=== PATIENT | female | born 1970 | race Caucasian/White ===

== ENCOUNTER 2017-04-17 21:39 | Inpatient (IN) | payer MEDICARE, MEDICAID ==
--- NOTE | 2017-04-17 22:01 | ED Physician Chart ---
ED Chief Complaint/HPI - Patient Information Date Seen:: 04/17/17 Time Seen:: 21:42 Chief Complaint:: Abnormal CXR and lab findings today. History of Present Illness:: Brought in by ambulance from nursing facility because pt had CXR earlier today that demonstrates "persistent minimal left lower lobe pleural-parenchymal disease" Official reading per Dr. Alen Corbin, radiologist. WBC was noticed to be 16.1 K. Pt appears to be comfortable without distress. Pt reportedly has dementia and is essentially nonverbal. H & P are limited because pt does not cooperate. Info is primarily from review of limited transfer documents. Allergies:: NKA Vitals:: see Nurse Note. Historian:: Medical Records (from transferring facility.) Family MD/PCP:: Dr. Stone LMP:: unknown. Review:: Nurse's Note Reviewed, Transfer documents Reviewed ED Review of Systems - Review of Systems General/Constitutional: Other (Pt does not cooperate for ROS.) ED Past Medical History - Past Medical History Past Medical History: Asthma/COPD, Dyslipidemia, Seizures, Dementia Family History: Other (Pt does not cooperate to provide info on FHx.) Social History: Care Facility, Other (Pt does not cooperate to provide info on SHx.) Surgical History: PEG/GTube Psychiatricy History: Dementia Medication: Reviewed Family Medical History - Family Member Mother History Unknown: Yes ED Physical Exam - Physical Examination General/Constitutional: Awake, Well-developed, well-nourished, Alert, No distress, Non-toxic appearing Other Gen/Cons comments:: Breathes comfortably. Pt is nonverbal and is not cooperative. Head: Atraumatic Other Head comments:: Well healed craniostomy surgical scar is noticed in anterior cranium. Eyes: Lids, conjuctiva normal, PERRL Skin: No rash, No ecchymosis, Well hydrated, No lymphadenopathy ENMT: External ears, nose nl, Nasal exam nl, Oropharynx nl Neck: Nontender, No JVD, No nuchal rigidity, No mass, No stridor Respiratory: Nl effort/Exclusion Other Respiratory comments:: Mild left basilar rales. No wheeze. Cardio Vascular: RRR, No murmur, gallop, rubs GI: No tenderness/rebounding/guarding, No organomegaly, Normal BS's, Nondistended, No mass/bruits Other GI comments:: Obese but soft. G-tube noticed in epigastric region. Unremarkable. Extremities: No edema Other Neuro/Psych comments:: Pt is alert and responsive to tactile stimuli. Spontaneous movements noticed in all 4 extremites. Pt does not cooperate for full neurological exam. ED Labs/Radiology/EKG Results - Lab Results Results: Laboratory Tests 04/17/17 23:05 WBC 13.2 H RBC 3.87 Hgb 11.4 L Hct 34.0 L MCV 87.9 MCH 29.5 MCHC Differential 33.6 RDW 14.2 Plt Count 259 MPV 8.5 Neutrophils % 63.0 Lymphocytes % 20.5 Monocytes % 13.7 H Eosinophils % 2.6 Basophils % 0.2 CMP, urinalysis, valproic acid, lactic acid, sputum culture, blood culture, PT/ PTT are pending. - Radiology Results Results: PCXR is pending. ED Septic Shock - . Is Septic Shock (SBP<90, OR Lactate>4 mmol\\L) present?: No ED Reassessment (Disposition) - Reassessment Reassessment:: 2335 Pt remains stable. Case was discussed with Dr. Stone with pertinent H & P, available lab results discussed. Dr. Stone concurred with current management. Pt is to be admitted to [facility] under his care. He will follow on pending lab results and CXR. Reassessment Condition:: Improved - Diagnosis Diagnosis:: Left basilar pneumonia. Stable. Dementia. Seizure disorder. Dysphagia, s/p gastrostomy tube placement. - Patient Disposition Admitted to:: Med/Surg Admitting Medical Physician:: Terrie Stone Time:: 23:40 Condition at Disposition:: Stable, Improved
[2017-04-17] MEDS ORDERED: Levofloxacin 750mg/150mL 750 MG/150 ML BAG IV ONE ×2 (22:22→23:35)
[2017-04-17 23:20] LABS: EOSINOPHILE ABSOLUTE 0.3 Th/cmm (0.1-0.4); LYMPHOCYTE ABSOLUTE 2.7 Th/cmm (1.5-3.0); MONOCYTE ABSOLUTE 1.8 Th/cmm (0.3-1.0)
[2017-04-17 23:23] LABS: % BASOPHILS 0.2 % (0.0-2.0); % EOSINOPHILS 2.6 % (0.0-5.0); % LYMPHOCYTES 20.5 % (20.0-50.0); % MONOCYTES 13.7 % (2.0-10.0); HEMOGLOBIN 11.4 gm/dL (12-16); MEAN CELL VOLUME 87.9 fl (81-100); MEAN CORPUSCULAR HEMOGLOBIN 29.5 pg (27.0-31.0); MEAN CORPUSCULAR HGB CONC 33.6 pg (28.0-36.0); MEAN PLATELET VOLUME 8.5 fl; NEUTROPHILE ABSOLUTE 8.4 Th/cmm (1.8-8.0); PLATELET COUNT 259 Th/cmm (150-400); RED BLOOD COUNT 3.87 Mil/cmm (3.80-5.10); RED CELL DISTRIBUTION WIDTH 14.2 % (11.5-20.0)
[2017-04-17 23:24] LABS: WHITE BLOOD COUNT 13.2 Th/cmm (4.8-10.8)
[2017-04-17 23:26] LABS: URINE MICROSCOPIC INDICATED? YES; URINE SOURCE CATH
[2017-04-17 23:31] LABS: URINE BILIRUBIN NEGATIVE (NEGATIVE); URINE BLOOD NEGATIVE (NEGATIVE); URINE GLUCOSE (UA) NEGATIVE (NEGATIVE); URINE KETONE NEGATIVE (NEGATIVE); URINE LEUKOCYTE ESTERASE NEGATIVE (NEGATIVE); URINE NITRATE NEGATIVE (NEGATIVE); URINE PROTEIN 30 mg/dL (NEGATIVE); URINE UROBILINOGEN 0.2 E.U./dL (0.2 - 1.0)
[2017-04-17 23:38] LABS: ALB/GLOB RATIO 0.8 (1.0-1.8); ALBUMIN 3.3 gm/dL (3.7-5.3); ALKALINE PHOSPHATASE 83 U/L (34-104); ANION GAP 6.3 (7.0-16.0); BILIRUBIN,TOTAL 0.3 mg/dL (0.3-1.0); BUN - UREA NITROGEN 17 mg/dL (7-25); CALCIUM SERUM 9.2 mg/dL (8.6-10.3); CARBON DIOXIDE 37.3 mEq/L (21.0-31.0); CHLORIDE 90 mEq/L (98-107); CREATININE - SERUM 0.6 mg/dL (0.6-1.2); GFR AFRICAN-AMERICAN > 60.0 ml/min (>90); GFR NON AFRICAN-AMERICAN > 60.0 ml/min; GLUCOSE 97 mg/dL (70-105); POTASSIUM SERUM 3.6 mEq/L (3.5-5.1); SGOT 21 U/L (13-39); SODIUM SERUM 130 mEq/L (136-145); TOTAL PROTEIN,SERUM 7.5 gm/dL (6.0-8.3)
[2017-04-17 23:47] LABS: URINE CLARITY HAZY (CLEAR); URINE COLOR ORANGE
[2017-04-17 23:48] LABS: URINE RBC 0-2 /hpf (0-5)
[2017-04-17 23:49] LABS: URINE BACTERIA MODERATE /hpf (NONE SEEN); URINE EPITHELIAL CELLS MODERATE /lpf (FEW)
[2017-04-18 01:27] LABS: SGPT/ALT 28 U/L (7-52)
[2017-04-18 06:43] LABS: % BASOPHILS 0.1 % (0.0-2.0); % EOSINOPHILS 3.3 % (0.0-5.0); % MONOCYTES 11.4 % (2.0-10.0); % NEUTROPHILS 65.2 % (40.0-80.0); EOSINOPHILE ABSOLUTE 0.4 Th/cmm (0.1-0.4); HEMATOCRIT 33.8 % (41.0-60); LYMPHOCYTE ABSOLUTE 2.3 Th/cmm (1.5-3.0); MEAN CELL VOLUME 88.1 fl (81-100); MEAN CORPUSCULAR HEMOGLOBIN 28.6 pg (27.0-31.0); MEAN CORPUSCULAR HGB CONC 32.5 pg (28.0-36.0); MEAN PLATELET VOLUME 8.4 fl; MONOCYTE ABSOLUTE 1.3 Th/cmm (0.3-1.0); NEUTROPHILE ABSOLUTE 7.5 Th/cmm (1.8-8.0); RED BLOOD COUNT 3.84 Mil/cmm (3.80-5.10); RED CELL DISTRIBUTION WIDTH 14.6 % (11.5-20.0); WHITE BLOOD COUNT 11.5 Th/cmm (4.8-10.8)
[2017-04-18 06:46] LABS: PLATELET COUNT 141 Th/cmm (150-400)
[2017-04-18 07:51] LABS: ALB/GLOB RATIO 0.8 (1.0-1.8); ALBUMIN 3.1 gm/dL (3.7-5.3); ALKALINE PHOSPHATASE 68 U/L (34-104); ANION GAP 6.7 (7.0-16.0); BILIRUBIN,TOTAL 0.3 mg/dL (0.3-1.0); BUN - UREA NITROGEN 15 mg/dL (7-25); CARBON DIOXIDE 37.2 mEq/L (21.0-31.0); CHLORIDE 91 mEq/L (98-107); CHOLESTEROL 136 mg/dL (<200); CREATININE - SERUM 0.5 mg/dL (0.6-1.2); GFR AFRICAN-AMERICAN > 60.0 ml/min (>90); GFR NON AFRICAN-AMERICAN > 60.0 ml/min; GLUCOSE 86 mg/dL (70-105); HDL -HIGH DENSITY LIPOPROTEIN 60 mg/dL (23-92); POTASSIUM SERUM 3.9 mEq/L (3.5-5.1); SGOT 19 U/L (13-39); SGPT/ALT 22 U/L (7-52); SODIUM SERUM 131 mEq/L (136-145); TOTAL PROTEIN,SERUM 7.1 gm/dL (6.0-8.3); TRIGLYCERIDES 120 mg/dL (<150)
--- NOTE | 2017-04-18 08:59 | Diagnostic Imaging Report ---
Exam: Portable chest x-ray HISTORY: Leukocytosis shortness of breath. Findings: Portable examination of the chest at 2328 hours reviewed no prior studies available comparison. There is evidence of cardiomegaly mild congestion. Left basilar infiltrate and effusion appreciated. There is evidence for right basilar atelectasis and blunting of right costophrenic angle most likely due to small effusion Point thorax is intact. IMPRESSION: 1. Cardiomegaly mild congestion 2. Basilar infiltrate superimposed effusions follow-up examination recommended.
[2017-04-18] MEDS: Sodium Chloride 0.45% 1,000 ML IV SCH (11:00)
[2017-04-18 12:07] LABS: INR 0.95 (0.5-1.4); PROTHROMBIN TIME (TEST) 9.9 SECONDS (9.5-11.5)
[2017-04-18] MEDS: Albuterol/Ipratropium Neb 3 ML AERS HHN PRN (13:31)
--- NOTE | 2017-04-18 13:40 | History and Physical ---
History of Present Illness - HPI Vital Signs: Last Vital Signs Temp 97.0 F 04/18/17 08:00 Pulse 104 04/18/17 08:00 Resp 22 04/18/17 11:59 BP 149/59 04/18/17 08:00 Pulse Ox 97 04/18/17 08:00 Family Medical History - Family Member Mother History Unknown: Yes - Medications Home Medications: Home Medication Medication Instructions Recorded Type Acetaminophen [Tylenol] 650 mg GT Q4HR PRN 04/17/17 History Albuterol/Ipratropium Neb [Duoneb 3 ml HHN Q4HR PRN 04/17/17 History Neb] Amino Acids/Protein Hydrolys 30 ml GT DAILY 04/17/17 History [Pro-Stat Sugar Free 887 ml] Atorvastatin Calcium [Lipitor] 10 mg GT DAILY 04/17/17 History Bisacodyl 10 mg RC DAILY PRN 04/17/17 History Clonidine HCl [Catapres] 1 tab GT Q8HR PRN 04/17/17 History Docusate Sodium 200 mg GT BID 04/17/17 History Enalapril Maleate 10 mg GT DAILY 04/17/17 History Lacosamide [Vimpat] 100 mg GT BID 04/17/17 History Levetiracetam [Keppra] 750 mg GT BID 04/17/17 History OXcarbazepine [Trileptal] 600 mg GT BID 04/17/17 History Valproic Acid [Depakene] 750 mg GT Q12H 04/17/17 History - Allergies Allergies/Adverse Reactions: Allergies Allergy/AdvReac Type Severity Reaction Status Date / Time No Known Allergies Allergy Verified 04/17/17 22:03 - Lab Results All Lab Results last 24 hours: Laboratory Results - last 24 hr 04/18/17 04/18/17 04/18/17 06:20 07:15 07:15 WBC 11.5 H RBC 3.84 Hgb 11.0 L Hct 33.8 L MCV 88.1 MCH 28.6 MCHC Differential 32.5 RDW 14.6 Plt Count 141 L D MPV 8.4 Neutrophils % 65.2 Lymphocytes % 20.0 Monocytes % 11.4 H Eosinophils % 3.3 Basophils % 0.1 Sodium 131 L Potassium 3.9 Chloride 91 L Carbon Dioxide 37.2 H Anion Gap 6.7 L BUN 15 Creatinine 0.5 L Est GFR ( Amer) > 60.0 Est GFR (Non-Af Amer) > 60.0 BUN/Creatinine Ratio 30.0 Glucose 86 Calcium 9.0 Total Bilirubin 0.3 AST 19 ALT 22 Alkaline Phosphatase 68 Total Protein 7.1 Albumin 3.1 L Globulin 4.0 Albumin/Globulin Ratio 0.8 L Triglycerides 120 Cholesterol 136 LDL Cholesterol Direct 65 L HDL Cholesterol 60 TSH 1.29 Serum , Qual 04/18/17 07:15 WBC RBC Hgb Hct MCV MCH MCHC Differential RDW Plt Count MPV Neutrophils % Lymphocytes % Monocytes % Eosinophils % Basophils % Sodium Potassium Chloride Carbon Dioxide Anion Gap BUN Creatinine Est GFR ( Amer) Est GFR (Non-Af Amer) BUN/Creatinine Ratio Glucose Calcium Total Bilirubin AST ALT Alkaline Phosphatase Total Protein Albumin Globulin Albumin/Globulin Ratio Triglycerides Cholesterol LDL Cholesterol Direct HDL Cholesterol TSH Serum , Qual NEGATIVE
[2017-04-18] MEDS: Levetiracetam 500 mg/5mL 5mL UDC GT SCH (18:22)
[2017-04-18] MEDS: Docusate Sodium 100 mg/10 mL UD GT SCH (18:22)
[2017-04-18] MEDS: methylPREDNISolone SS 40 mg Vial IVP SCH (22:41)
--- NOTE | 2017-04-19 00:36 | Consultation ---
DATE OF CONSULTATION: 04/18/2017 Thank you very much for this consultation. HISTORY OF PRESENT ILLNESS: This is a 46-year-old female with a history of chronic debility and in and out of the hospital multiple times for pneumonia and congestion. The patient is a skilled nursing resident, who was found to have pneumonia, left lower lobe (transferred here). PAST MEDICAL HISTORY: The patient has a history of recurrent pneumonia, dysphagia, and G-tube feeding. SOCIAL HISTORY: residential resident. Smoking history is not available. As mentioned, also a history of COPD and epilepsy. REVIEW OF SYSTEMS: No other history is able to be obtained as the patient is nonverbal, and is congested on and off. PHYSICAL EXAMINATION: Temperature 97.0, pulse 65, respirations 18, and blood pressure 118/74, saturation is 97%. HEENT: Atraumatic, normocephalic. Pupils equal and reactive to light and accommodation. Ears, nose and throat are normal. NECK: Supple. RESPIRATORY: There are rhonchi bilaterally. HEART: Regular rate and rhythm. ABDOMEN: Soft. EXTREMITIES: No edema. LABORATORY DATA: WBC is 11.5, hemoglobin 11.0, hematocrit 33.8, and platelets 141. Sodium is 131, potassium 3.9, BUN is 1,5 and creatinine 0.5. UA shows some bacteria and protein. Chest x-ray shows an infiltrate in the left lower lobe and right lower lobe as well as small lung volumes. IMPRESSION: 1. Respiratory failure. 2. Pneumonia. 3. Dysphagia. 4. Weakness. 5. Seizure disorder. PLAN: 1. Continue nebulized treatment. 2. Antibiotics. 3. Solu-Medrol. 4. Follow up chest x-ray. I will follow the patient with you. Thank you very much for this consultation. JOB# [id number]
[2017-04-19] MEDS ORDERED: Levofloxacin 500mg/100mL 500 MG in Premix Fluid 1 BAG IV ONE (03:00)
--- NOTE | 2017-04-19 04:19 | History & Physical ---
ADMIT DATE: 04/18/2017 HISTORY OF PRESENT ILLNESS: The patient is very well known to me. The patient is known to have history of brain tumor, status post surgery, craniotomy in the past; history of MR and the patient apparently had a high fever; found to have patches in the chest x-ray, was admitted and was brought to the ER for possible pneumonia, was worked up and confirmed she had pneumonia and also her white count was elevated at 11.4 and the patient was also gurgling and very congested. PHYSICAL EXAMINATION: HEAD: Normal. ENT: Normal. NECK: Supple, nontender. LUNGS: Clear. CARDIOVASCULAR SYSTEM: S1 and S2 heard. ABDOMEN: Soft. Bowel sounds are heard. CENTRAL NERVOUS SYSTEM: Decreased sensorium. The patient also has a G-tube. DIAGNOSTIC DATA: The patient's chest x-ray showed a patch of pneumonia. PAST MEDICAL HISTORY: Asthma, hyperlipidemia, seizure, and dementia was also noted. DIAGNOSES: Pneumonia, sepsis, possible SIRS, status post G-tube, status post craniotomy, status post brain surgery, chest congestion, and leukocytosis was made. PLAN: The patient is going to be admitted and I will give antibiotics and pulmonary, Dr. Brower and also Dr. Silvano Renee see the patient. I will follow the patient. JOB# [id number]
[2017-04-19] MEDS: methylPREDNISolone SS 40 mg Vial IVP SCH ×3 (04:44→21:18)
[2017-04-19] MEDS: Atorvastatin Calcium 10 MG TAB GT SCH (08:18)
[2017-04-19] MEDS: Docusate Sodium 100 mg/10 mL UD GT SCH ×2 (08:18→16:18)
[2017-04-19] MEDS: Levetiracetam 500 mg/5mL 5mL UDC GT SCH ×2 (08:18→16:18)
[2017-04-19] MEDS: Albuterol/Ipratropium Neb 3 ML AERS HHN PRN (08:36)
[2017-04-19] MEDS ORDERED: Non-Formulary Item 1 EA (Amino Acids/Protein Hydrolys [Pro-Stat Sugar Free Liquid] 30 ML) GT SCH (09:00)
[2017-04-19] MEDS: Sodium Chloride 0.45% 1,000 ML IV SCH (10:05)
--- NOTE | 2017-04-19 10:53 | Internal Medicine Prog Note ---
Internal Medicine Subjective - Subjective Service Date: 04/19/17 Patient seen and examined:: with staff Patient is:: awake Patient Complaints of:: congestion Per staff patient has:: tolerating meds Internal Medicine Objective - Results Result Diagrams: 04/18/17 06:20 04/18/17 07:15 Recent Labs: Laboratory Last Values WBC 11.5 Th/cmm (4.8-10.8) H 04/18/17 06:20 RBC 3.84 Mil/cmm (3.80-5.10) 04/18/17 06:20 Hgb 11.0 gm/dL (12-16) L 04/18/17 06:20 Hct 33.8 % (41.0-60) L 04/18/17 06:20 MCV 88.1 fl (81-100) 04/18/17 06:20 MCH 28.6 pg (27.0-31.0) 04/18/17 06:20 MCHC Differential 32.5 pg (28.0-36.0) 04/18/17 06:20 RDW 14.6 % (11.5-20.0) 04/18/17 06:20 Plt Count 141 Th/cmm (150-400) L D 04/18/17 06:20 MPV 8.4 fl 04/18/17 06:20 Neutrophils % 65.2 % (40.0-80.0) 04/18/17 06:20 Lymphocytes % 20.0 % (20.0-50.0) 04/18/17 06:20 Monocytes % 11.4 % (2.0-10.0) H 04/18/17 06:20 Eosinophils % 3.3 % (0.0-5.0) 04/18/17 06:20 Basophils % 0.1 % (0.0-2.0) 04/18/17 06:20 PT 9.9 SECONDS (9.5-11.5) 04/17/17 23:05 INR 0.95 (0.5-1.4) 04/17/17 23:05 PTT (Actin FS) 25.9 SECONDS (26.0-38.0) L 04/17/17 23:05 Sodium 131 mEq/L (136-145) L 04/18/17 07:15 Potassium 3.9 mEq/L (3.5-5.1) 04/18/17 07:15 Chloride 91 mEq/L (98-107) L 04/18/17 07:15 Carbon Dioxide 37.2 mEq/L (21.0-31.0) H 04/18/17 07:15 Anion Gap 6.7 (7.0-16.0) L 04/18/17 07:15 BUN 15 mg/dL (7-25) 04/18/17 07:15 Creatinine 0.5 mg/dL (0.6-1.2) L 04/18/17 07:15 Est GFR ( Amer) > 60.0 ml/min (>90) 04/18/17 07:15 Est GFR (Non-Af Amer) > 60.0 ml/min 04/18/17 07:15 BUN/Creatinine Ratio 30.0 04/18/17 07:15 Glucose 86 mg/dL (70-105) 04/18/17 07:15 Whole Bld Lactic Acid 0.92 mmol/L (0.60-1.99) 04/17/17 23:05 Calcium 9.0 mg/dL (8.6-10.3) 04/18/17 07:15 Total Bilirubin 0.3 mg/dL (0.3-1.0) 04/18/17 07:15 AST 19 U/L (13-39) 04/18/17 07:15 ALT 22 U/L (7-52) 04/18/17 07:15 Alkaline Phosphatase 68 U/L (34-104) 04/18/17 07:15 Total Protein 7.1 gm/dL (6.0-8.3) 04/18/17 07:15 Albumin 3.1 gm/dL (3.7-5.3) L 04/18/17 07:15 Globulin 4.0 gm/dL 04/18/17 07:15 Albumin/Globulin Ratio 0.8 (1.0-1.8) L 04/18/17 07:15 Triglycerides 120 mg/dL (<150) 04/18/17 07:15 Cholesterol 136 mg/dL (<200) 04/18/17 07:15 LDL Cholesterol Direct 65 mg/dL (75-193) L 04/18/17 07:15 HDL Cholesterol 60 mg/dL (23-92) 04/18/17 07:15 TSH 1.29 uIU/ml (0.34-5.60) 04/18/17 07:15 Serum , Qual NEGATIVE (NEGATIVE) 04/18/17 07:15 Urine Source CATH 04/17/17 23:25 Urine Color ORANGE 04/17/17 23:25 Urine Clarity HAZY (CLEAR) 04/17/17 23:25 Urine pH 6.0 (4.6 - 8.0) 04/17/17 23:25 Ur Specific [place] 1.025 (1.005-1.030) 04/17/17 23:25 Urine Protein 30 mg/dL (NEGATIVE) H 04/17/17 23:25 Urine Glucose (UA) NEGATIVE mg/dL (NEGATIVE) 04/17/17 23:25 Urine Ketones NEGATIVE mg/dL (NEGATIVE) 04/17/17 23:25 Urine Blood NEGATIVE (NEGATIVE) 04/17/17 23:25 Urine Nitrate NEGATIVE (NEGATIVE) 04/17/17 23:25 Urine Bilirubin NEGATIVE (NEGATIVE) 04/17/17 23:25 Urine Urobilinogen 0.2 E.U./dL (0.2 - 1.0) 04/17/17 23:25 Ur Leukocyte Esterase NEGATIVE (NEGATIVE) 04/17/17 23:25 Urine RBC 0-2 /hpf (0-5) 04/17/17 23:25 Urine WBC 6-10 /hpf (0-5) H 04/17/17 23:25 Ur Epithelial Cells MODERATE /lpf (FEW) 04/17/17 23:25 Urine Bacteria MODERATE /hpf (NONE SEEN) H 04/17/17 23:25 Hyaline Casts 2-5 /lpf (0-2) H 04/17/17 23:25 Valproic Acid 61.4 ug/mL (50.0-100.0) 04/17/17 23:05 - Physical Exam Vitals and I&O: Vital Signs Temp 97.1 F 04/19/17 08:00 Pulse 96 04/19/17 08:36 Resp 18 04/19/17 08:36 BP 142/72 04/19/17 08:16 Pulse Ox 97 04/19/17 08:36 Intake & Output 04/18/17 04/19/17 04/19/17 18:59 06:59 18:59 Intake Total 603 052 1300 Output Total 1 Balance [phone] Weight (lbs) 178 lb 178 lb Intake: Intake, IV Amount 1000 Sodium Chloride 0.45% 1, 1000 000 ml @ 50 mls/hr IV . Q20H [facility] Rx#:[id number] Oral 0 Tube Feeding 215 450 Output: Urine/Stool Mix 1 Other: # Voids 4 # Bowel Movements 1 0 Stool Characteristics Soft Active Medications: Current Medications Acetaminophen (Tylenol 650mg/20.3ml Suspension) 650 mg GT Q4HR PRN PRN Reason: Pain or Fever >101 Stop: 06/17/17 10:28 Albuterol/Ipratropium (Duoneb Neb) 3 ml HHN Q4HRT PRN PRN Reason: Shortness of Breath Stop: 06/17/17 10:28 Last Admin: 04/19/17 08:36 Dose: 3 ml Atorvastatin Calcium (Lipitor) 10 mg GT DAILY MY PRN Reason: Protocol Stop: 06/18/17 08:59 Last Admin: 04/19/17 08:18 Dose: 10 mg Bisacodyl (Dulcolax 10 Mg Supp) 10 mg RC DAILY PRN PRN Reason: Constipation Stop: 06/17/17 10:28 Last Admin: 04/18/17 12:32 Dose: 10 mg Docusate Sodium (Colace) 200 mg GT BID [facility] Stop: 06/17/17 16:59 Last Admin: 04/19/17 08:18 Dose: 200 mg Enalapril Maleate (Vasotec) 10 mg GT DAILY [facility] Stop: 06/18/17 08:59 Last Admin: 04/19/17 08:16 Dose: 10 mg Sodium Chloride (Nacl 0.45%) 1,000 mls @ 50 mls/hr IV .Q20H [facility] Stop: 06/17/17 01:44 Last Admin: 04/19/17 10:05 Dose: 50 mls/hr Levofloxacin (Levaquin Pb) 500 mg in 100 mls @ 100 mls/hr IV Q24HR [facility] Stop: 06/19/17 04:59 Lacosamide (Vimpat) 100 mg GT BID [facility] Stop: 06/17/17 16:59 Last Admin: 04/19/17 08:16 Dose: 100 mg Levetiracetam (Keppra) 750 mg GT BID [facility] Stop: 06/17/17 16:59 Last Admin: 04/19/17 08:18 Dose: 750 mg Methylprednisolone Sodium Succinate (Solu-Medrol) 40 mg IVP Q8HR [facility] Stop: 06/17/17 20:59 Last Admin: 04/19/17 04:44 Dose: 40 mg Oxcarbazepine (Trileptal) 600 mg GT BID MY PRN Reason: Protocol Stop: 06/17/17 16:59 Last Admin: 04/19/17 08:18 Dose: 600 mg Valproate Sodium (Depakene) 750 mg GT Q12H MY PRN Reason: Protocol Stop: 06/17/17 10:29 Last Admin: 04/19/17 10:04 Dose: 750 mg General: weak, alert HEENT: NC/AT, PERRLA Neck: Supple Lungs: ronchi Cardiovascular: RRR, Normal S1, Normal S2, without murmur Abdomen: soft, non-tender, non-distended, positive bowel sound Extremities: edema Neurological: alert Internal Medicine Assmt/Plan - Assessment Assessment: pna sepsis possible sirs s/p gt s/p craniotomy and brain surgery chest congestion leukocytosis - Plan Plan: continue inhalation treatments and supplemental oxygen continue ivabx pulmonary toileting continue current plan of care follow up labs in am
[2017-04-19] MEDS ORDERED: VTE Chemical Prophylaxis Screen/Admission MC PRN (11:59)
[2017-04-20] MEDS ORDERED: Levofloxacin 500mg/100mL 500 MG/100 ML BAG IV SCH (05:00)
[2017-04-20] MEDS: methylPREDNISolone SS 40 mg Vial IVP SCH ×2 (05:15→13:34)
[2017-04-20 07:27] LABS: % EOSINOPHILS 0.6 % (0.0-5.0); % LYMPHOCYTES 22.3 % (20.0-50.0); % MONOCYTES 7.6 % (2.0-10.0); % NEUTROPHILS 69.5 % (40.0-80.0); EOSINOPHILE ABSOLUTE 0.1 Th/cmm (0.1-0.4); HEMOGLOBIN 9.9 gm/dL (12-16); LYMPHOCYTE ABSOLUTE 2.1 Th/cmm (1.5-3.0); MEAN CELL VOLUME 87.4 fl (81-100); MEAN CORPUSCULAR HEMOGLOBIN 29.5 pg (27.0-31.0); MEAN CORPUSCULAR HGB CONC 33.7 pg (28.0-36.0); MEAN PLATELET VOLUME 8.8 fl; MONOCYTE ABSOLUTE 0.7 Th/cmm (0.3-1.0); NEUTROPHILE ABSOLUTE 6.3 Th/cmm (1.8-8.0); RED BLOOD COUNT 3.38 Mil/cmm (3.80-5.10); RED CELL DISTRIBUTION WIDTH 14.3 % (11.5-20.0); WHITE BLOOD COUNT 9.2 Th/cmm (4.8-10.8)
[2017-04-20 07:29] LABS: HEMATOCRIT 29.5 % (41.0-60); PLATELET COUNT 290 Th/cmm (150-400)
[2017-04-20 07:50] LABS: ANION GAP 5.8 (7.0-16.0); BUN - UREA NITROGEN 21 mg/dL (7-25); CALCIUM SERUM 8.7 mg/dL (8.6-10.3); CARBON DIOXIDE 37.7 mEq/L (21.0-31.0); CHLORIDE 98 mEq/L (98-107); CREATININE - SERUM 0.5 mg/dL (0.6-1.2); GFR AFRICAN-AMERICAN > 60.0 ml/min (>90); GFR NON AFRICAN-AMERICAN > 60.0 ml/min; GLUCOSE 131 mg/dL (70-105); POTASSIUM SERUM 4.5 mEq/L (3.5-5.1); SODIUM SERUM 137 mEq/L (136-145)
[2017-04-20] MEDS: Docusate Sodium 100 mg/10 mL UD GT SCH ×2 (08:25→09:59)
[2017-04-20] MEDS: Levetiracetam 500 mg/5mL 5mL UDC GT SCH ×2 (08:26→09:59)
[2017-04-20] MEDS: Atorvastatin Calcium 10 MG TAB GT SCH ×2 (08:27→09:59)
--- NOTE | 2017-04-20 12:42 | Consultation ---
DATE OF CONSULTATION: 04/18/2017 REFERRING PHYSICIAN: Valente Stone M.D. REASON FOR CONSULTATION: Pneumonia. HISTORY OF PRESENT ILLNESS: The patient is a 46-year-old female with a past medical history of asthma, hyperlipidemia, seizure disorder, dementia and history of brain tumor in childhood, which was resected by craniotomy, mental retardation, developed high fever at nursing facility. Some patchiness in the chest x-ray. On initial evaluation, the patient was afebrile and WBC count was 11,400. The patient was congested and admitted for further antibiotic management. The patient was started on Levaquin. PAST MEDICAL HISTORY: Includes history of brain tumor, resected during childhood, status post surgery, craniotomy, mental retardation and seizure disorder. ALLERGIES: THE PATIENT IS ALLERGIC TO PENICILLIN AND NKDA. MEDICATIONS: As per medication reconciliation sheet. SOCIAL HISTORY: The patient lives in a nursing facility. No history of smoking, alcohol or drug use. FAMILY HISTORY: Not available. REVIEW OF SYSTEMS: The patient had a fever, but no fever during this admission. The patient has some cough and shortness of breath. She requires BiPAP. PHYSICAL EXAMINATION: VITAL SIGNS: Current shows temperature is 97 degrees Fahrenheit, pulse 106, respirations 18, blood pressure 118/94. GENERAL: The patient is comfortable lying in the bed, not in acute distress. HEENT: Head is normocephalic. The patient has craniotomy scar. Eating well. Loss of hair. Oral cavity moist. [place] tongue. Eyes: Pallor is present, no icterus. PERRLA. EOMI. NECK: Supple, no JVD, no carotid bruit. Trachea in midline. CHEST: Bilateral breath sounds. No crackles or wheezing. HEART: S1, S2. ABDOMEN: Soft NT ND BS present. PEG site is ok. ESTREMITIES: No cyanosis, no clubbing, no edema, PARTS ROOM ASSOCIATE: Alert and awake. same at her baseline. LAB: Reviewed. IMPRESSION: 1. Pneumonia. 2. Seizure disorder. 3. H/o brain tumor in childhood. 4. H/o Craniotomy. RECOMMENDATIONS: Continue levaquin. DICTATION ENDS HERE JOB# [id number] [facility]
--- NOTE | 2017-04-20 14:46 | Operative Report ---
DATE OF SURGERY: 04/20/2017 INPATIENT GASTROINTESTINAL PROCEDURE NAME OF PROCEDURE: G-tube change. PREOPERATIVE DIAGNOSIS: Malfunctioning G-tube, dysphagia. POSTOPERATIVE DIAGNOSIS: New 20-[place] gastrostomy tube placement. DESCRIPTION OF PROCEDURE: The patient was placed on her back. The old G-tube site was identified. It was removed after deflating the internal balloon. It was then pulled out. A new 20-[place] gastrostomy tube was then inserted through the gastrocutaneous fistula after lubrication. Internal balloon was inflated with 15 mL of sterile saline. The outer phalange was secured in position. Procedure was then completed. COMPLICATIONS: None. FINDINGS: New 20-[place] gastrostomy tube placed. RECOMMENDATIONS: 1. Upper GI series to confirm placement of the G-tube in the stomach. 2. If it is in the stomach, may begin using it. 3. Check residual every 6 hours and hold if greater than 100 mL. Thank you for allowing me to participate. Please call me if any questions. JOB# [id number]
--- NOTE | 2017-04-20 15:18 | Diagnostic Imaging Report ---
Upper GI with Gastrografin HISTORY: G-tube confirmation COMPARISON: None FINDINGS: Principal System Software Engineer view demonstrates gas-filled loops of bowel are present disease gastric feeding tube. The second image demonstrates contrast opacification of the stomach and small bowel loops. IMPRESSION: Intraluminal confirmation of patient's percutaneous gastric feeding tube.
--- NOTE | 2017-04-20 16:22 | General Progress Note ---
Subjective - Review of Systems Events since last encounter: no distress had gtube changed Objective - Results Result Diagrams: 04/20/17 06:55 04/20/17 06:55 Recent Labs: Laboratory Last Values WBC 9.2 Th/cmm (4.8-10.8) 04/20/17 06:55 RBC 3.38 Mil/cmm (3.80-5.10) L 04/20/17 06:55 Hgb 9.9 gm/dL (12-16) L 04/20/17 06:55 Hct 29.5 % (41.0-60) L D 04/20/17 06:55 MCV 87.4 fl (81-100) 04/20/17 06:55 MCH 29.5 pg (27.0-31.0) 04/20/17 06:55 MCHC Differential 33.7 pg (28.0-36.0) 04/20/17 06:55 RDW 14.3 % (11.5-20.0) 04/20/17 06:55 Plt Count 290 Th/cmm (150-400) D 04/20/17 06:55 MPV 8.8 fl 04/20/17 06:55 Neutrophils % 69.5 % (40.0-80.0) 04/20/17 06:55 Lymphocytes % 22.3 % (20.0-50.0) 04/20/17 06:55 Monocytes % 7.6 % (2.0-10.0) 04/20/17 06:55 Eosinophils % 0.6 % (0.0-5.0) 04/20/17 06:55 Basophils % 0.0 % (0.0-2.0) 04/20/17 06:55 PT 9.9 SECONDS (9.5-11.5) 04/17/17 23:05 INR 0.95 (0.5-1.4) 04/17/17 23:05 PTT (Actin FS) 25.9 SECONDS (26.0-38.0) L 04/17/17 23:05 Sodium 137 mEq/L (136-145) 04/20/17 06:55 Potassium 4.5 mEq/L (3.5-5.1) 04/20/17 06:55 Chloride 98 mEq/L (98-107) 04/20/17 06:55 Carbon Dioxide 37.7 mEq/L (21.0-31.0) H 04/20/17 06:55 Anion Gap 5.8 (7.0-16.0) L 04/20/17 06:55 BUN 21 mg/dL (7-25) 04/20/17 06:55 Creatinine 0.5 mg/dL (0.6-1.2) L 04/20/17 06:55 Est GFR ( Amer) > 60.0 ml/min (>90) 04/20/17 06:55 Est GFR (Non-Af Amer) > 60.0 ml/min 04/20/17 06:55 BUN/Creatinine Ratio 42.0 04/20/17 06:55 Glucose 131 mg/dL (70-105) H 04/20/17 06:55 Whole Bld Lactic Acid 0.92 mmol/L (0.60-1.99) 04/17/17 23:05 Calcium 8.7 mg/dL (8.6-10.3) 04/20/17 06:55 Total Bilirubin 0.3 mg/dL (0.3-1.0) 04/18/17 07:15 AST 19 U/L (13-39) 04/18/17 07:15 ALT 22 U/L (7-52) 04/18/17 07:15 Alkaline Phosphatase 68 U/L (34-104) 04/18/17 07:15 Total Protein 7.1 gm/dL (6.0-8.3) 04/18/17 07:15 Albumin 3.1 gm/dL (3.7-5.3) L 04/18/17 07:15 Globulin 4.0 gm/dL 04/18/17 07:15 Albumin/Globulin Ratio 0.8 (1.0-1.8) L 04/18/17 07:15 Triglycerides 120 mg/dL (<150) 04/18/17 07:15 Cholesterol 136 mg/dL (<200) 04/18/17 07:15 LDL Cholesterol Direct 65 mg/dL (75-193) L 04/18/17 07:15 HDL Cholesterol 60 mg/dL (23-92) 04/18/17 07:15 TSH 1.29 uIU/ml (0.34-5.60) 04/18/17 07:15 Serum , Qual NEGATIVE (NEGATIVE) 04/18/17 07:15 Urine Source CATH 04/17/17 23:25 Urine Color ORANGE 04/17/17 23:25 Urine Clarity HAZY (CLEAR) 04/17/17 23:25 Urine pH 6.0 (4.6 - 8.0) 04/17/17 23:25 Ur Specific Strong 1.025 (1.005-1.030) 04/17/17 23:25 Urine Protein 30 mg/dL (NEGATIVE) H 04/17/17 23:25 Urine Glucose (UA) NEGATIVE mg/dL (NEGATIVE) 04/17/17 23:25 Urine Ketones NEGATIVE mg/dL (NEGATIVE) 04/17/17 23:25 Urine Blood NEGATIVE (NEGATIVE) 04/17/17 23:25 Urine Nitrate NEGATIVE (NEGATIVE) 04/17/17 23:25 Urine Bilirubin NEGATIVE (NEGATIVE) 04/17/17 23:25 Urine Urobilinogen 0.2 E.U./dL (0.2 - 1.0) 04/17/17 23:25 Ur Leukocyte Esterase NEGATIVE (NEGATIVE) 04/17/17 23:25 Urine RBC 0-2 /hpf (0-5) 04/17/17 23:25 Urine WBC 6-10 /hpf (0-5) H 04/17/17 23:25 Ur Epithelial Cells MODERATE /lpf (FEW) 04/17/17 23:25 Urine Bacteria MODERATE /hpf (NONE SEEN) H 04/17/17 23:25 Hyaline Casts 2-5 /lpf (0-2) H 04/17/17 23:25 Valproic Acid 61.4 ug/mL (50.0-100.0) 04/17/17 23:05 - Physical Exam Vitals and I&O: Vital Signs Temp 97.1 F 04/20/17 15:19 Pulse 100 04/20/17 15:28 Resp 22 04/20/17 15:19 BP 175/80 04/20/17 15:19 Pulse Ox 96 04/20/17 15:19 Intake & Output 04/19/17 04/20/17 04/20/17 18:59 06:59 18:59 Intake Total 333 200 Balance 333 200 Weight (lbs) 80.739 kg 86.273 kg Intake: Intake, IV Amount 1438.333 Sodium Chloride 0.45% 1, 1438.333 000 ml @ 50 mls/hr IV . Q20H [facility] Rx#:[id number] Tube Feeding 520 200 Other: # Voids 3 # Bowel Movements 0 Active Medications: Current Medications Acetaminophen (Tylenol 650mg/20.3ml Suspension) 650 mg GT Q4HR PRN PRN Reason: Pain or Fever >101 Stop: 06/17/17 10:28 Albuterol/Ipratropium (Duoneb Neb) 3 ml HHN Q4HRT PRN PRN Reason: Shortness of Breath Stop: 06/17/17 10:28 Last Admin: 04/19/17 08:36 Dose: 3 ml Atorvastatin Calcium (Lipitor) 10 mg GT DAILY MY PRN Reason: Protocol Stop: 06/18/17 08:59 Last Admin: 04/20/17 09:59 Dose: Not Given Bisacodyl (Dulcolax 10 Mg Supp) 10 mg RC DAILY PRN PRN Reason: Constipation Stop: 06/17/17 10:28 Last Admin: 04/18/17 12:32 Dose: 10 mg Docusate Sodium (Colace) 200 mg GT BID [facility] Stop: 06/17/17 16:59 Last Admin: 04/20/17 09:59 Dose: Not Given Enalapril Maleate (Vasotec) 10 mg GT DAILY [facility] Stop: 06/18/17 08:59 Last Admin: 04/20/17 09:59 Dose: Not Given Sodium Chloride (Nacl 0.45%) 1,000 mls @ 50 mls/hr IV .Q20H [facility] Stop: 06/17/17 01:44 Last Infusion: 04/19/17 18:51 Dose: 50 mls/hr Levofloxacin (Levaquin Pb) 500 mg in 100 mls @ 100 mls/hr IV Q24HR [facility] Stop: 06/19/17 04:59 Last Admin: 04/20/17 05:14 Dose: 100 mls/hr Lacosamide (Vimpat) 100 mg GT BID [facility] Stop: 06/17/17 16:59 Last Admin: 04/20/17 09:59 Dose: Not Given Levetiracetam (Keppra) 750 mg GT BID [facility] Stop: 06/17/17 16:59 Last Admin: 04/20/17 09:59 Dose: Not Given Methylprednisolone Sodium Succinate (Solu-Medrol) 40 mg IVP Q8HR [facility] Stop: 06/17/17 20:59 Last Admin: 04/20/17 13:34 Dose: 40 mg Miscellaneous (Vte Chemical Prophylaxis Screen/ Admission) 1 ea [facility] PRN PRN PRN Reason: PROTOCOL Stop: 06/18/17 11:58 Oxcarbazepine (Trileptal) 600 mg GT BID MY PRN Reason: Protocol Stop: 06/17/17 16:59 Last Admin: 04/20/17 09:58 Dose: Not Given Valproate Sodium (Depakene) 750 mg GT Q12H MY PRN Reason: Protocol Stop: 06/17/17 10:29 Last Admin: 04/20/17 11:10 Dose: Not Given Nutritional Asmnt/Malnutr-PDOC - Dietary Evaluation Malnutrition Findings (Please click <Entered> for more info): Nutritional Asmnt/Malnutrition Start: 04/19/17 15: 33 Text: Status: Complete Freq: Document 04/19/17 15:33 ALICIA (Rec: 04/19/17 15:51 [id number] [email or web address]) Nutritional Asmnt/Malnutrition Patient General Information Nutritional Screening High Risk Consult Diagnosis PNA Pertinent Medical Hx/Surgical Hx Asthma/COPD, dyslipidemia, sezure, dementia, PEG/Gtube Subjective Information Consult received for Jamshid Samantha . Pt seen lying in bed, awake, non-verbal noted. Verified TF running at 40ml/hr at the time of visit. Per notes 04/18, pt tolerated TF well, no residual. Current Diet Order/ Nutrition Support Nutren pulmonary 40ml/hf x 20hr, providing 1200kcal, 55g protein Pertinent Medications duoneb, colace, levaquin, nacl 0.45% Pertinent Labs 04/18 Na 131, K 3.9, Cl 91, BUN 15, Cr 0.5, Alb 3.1 Nutritional Hx/Data Height 1.42 m Height (Calculated Centimeters) 142.2 Current Weight (lbs) 80.739 kg Weight (Calculated Kilograms) 80.7 Weight (Calculated Grams) 88925.4 [place] Body Weight 92 % [place] Body Weight 193 Body Mass Index (BMI) 39.9 Weight Status Obese GI Symptoms Usual diet at home Pulmocare 40ml/hr x 20hr at SNF Skin Integrity/Comment: edema 2+ pitting to right/left legs, right/left foot, 2+ non -pitting to Right/left arms, left/right hand Estimated Nutritional Goals BEE in Kcals: Adj wt of IBW Calories/Kcals/Kg 25-30 Kcals Calculated 1534-8360 based on adj wt 52kg considering bedbound Protein: Adj wt of IBW Protein g/k-1.2 Protein Calculated 52-62 Fluid: ml 1300-1560ml (1ml/kcal) Nutritional Problem 1. Problem Problem altered nutrition related lab values Etiology imbalanced electrolytes/fluid Signs/Symptoms: Na 131, Cl 91, Cr 0.5 Malnutrition Alert Protein-Calorie Malnutrition N/A Is there a minimum of two criteria No selected? Query Text:Check all the applicable criteria. A minimum of two criteria are recommended for diagnosis of either severe or non-severe malnutrition. Intervention/Recommendation Comments 1. Continue with current TF regimen, It provides 1200kcal, 55g protein, 626ml water, meeting 92% calorie needs and 100% of protein needs 2. Monitor TF rate, tolerance, wt weekly, skin integrity and labs 3. F/U as high risk in 2-3 days, 04/21-04/22 Expected Outcomes/Goals Expected Outcomes/Goals 1. Pt to meet at least 75% of nutritional needs via nutrition support with tolerance 2. Wt stability, skin to remain intact, labs to approach WNL.
--- NOTE | 2017-04-20 19:38 | Consultation ---
DATE OF CONSULTATION: 04/20/2017 INPATIENT GASTROINTESTINAL CONSULTATION REFERRING PHYSICIAN: Dr. Stone. REASON FOR CONSULTATION: Malfunctioning G-tube. HISTORY OF PRESENT ILLNESS: This is a 46-year-old female who was brought into the hospital because of malfunctioning G-tube and we were asked to see the patient to change it. The patient is otherwise poor historian. PAST MEDICAL HISTORY: Asthma, hyperlipidemia, seizure disorder, dementia. PAST SURGICAL HISTORY: PEG tube placement in the abdomen area. FAMILY HISTORY: Noncontributory. SOCIAL HISTORY: No tobacco, alcohol or IV drug usage. ALLERGIES: None. CURRENT MEDICATIONS: Tylenol, Lipitor, Dulcolax, Colace, Vasotec, Keppra, Levaquin, Solu-Medrol, Depakene. REVIEW OF SYSTEMS: Unobtainable. PHYSICAL EXAMINATION: VITAL SIGNS: Temperature 98.6, breathing 18, pulse of 102, blood pressure is 112/54, satting 97%. GENERAL: In no apparent distress. EYES: Anicteric. Normal conjunctivae. HEENT: Normocephalic, atraumatic. Moist mucous membranes. NECK: Soft, supple. CHEST: Coarse breath sounds. CARDIOVASCULAR: Regular rate and rhythm. ABDOMEN: Soft, nontender, nondistended with a G-tube. SKIN: Warm, dry. EXTREMITIES: Reveal no cyanosis. IMPRESSION: A 46-year-old female who asked to see for a malfunctioning gastric tube, dysphagia. The patient will need a G-tube change at bedside. PLAN: 1. G-tube to be changed at bedside. 2. Defer other management to primary team. Thank you for allowing me to participate. Please call me if any questions. JOB# [id number]
== END 2017-04-20 16:25 | disposition home or self-care (01) | DRG 393 ==
LOC: ER 21:39 → MSI 23:30
PROVIDERS: ADMIT Internal Medicine; ATTEND Internal Medicine
PROC: 0D20XUZ Change Feeding Device in Upper Intestinal Tract, External Approach (ICD-10-PCS; principal; 2017-04-20)
DX: K94.23 Gastrostomy malfunction (principal); A41.9 Sepsis, unspecified organism; J96.90 Respiratory failure, unspecified, unspecified whether with hypoxia or hypercapnia; J18.1 Lobar pneumonia, unspecified organism; R13.10 Dysphagia, unspecified; Y83.8 Other surgical procedures as the cause of abnormal reaction of the patient, or of later complication, without mention of misadventure at the time of the procedure; F03.90 Unspecified dementia, unspecified severity, without behavioral disturbance, psychotic disturbance, mood disturbance, and anxiety; J45.909 Unspecified asthma, uncomplicated; J44.9 Chronic obstructive pulmonary disease, unspecified; E78.5 Hyperlipidemia, unspecified; G40.909 Epilepsy, unspecified, not intractable, without status epilepticus; F79 Unspecified intellectual disabilities; E66.9 Obesity, unspecified; Z68.39 Body mass index [BMI] 39.0-39.9, adult; Y92.89 Other specified places as the place of occurrence of the external cause; Z79.899 Other long term (current) drug therapy
CPT/HCPCS: 36415-UA; 71010-TC; 80048-TC; 80053-TC; 80061-TC; 80164-TC; 81001-TC; 83605; 84443-TC; 84703-TC; 85025-TC; 85610-TC; 87070; 87086-90; 94640; 94760; J1956; J2920; Z7610

== ENCOUNTER 2018-05-28 12:19 | Inpatient (IN) | payer MEDICARE, MEDICAID ==
[2018-05-28 13:36] LABS: HEMOGLOBIN 8.4 gm/dL (12-16); MEAN CORPUSCULAR HEMOGLOBIN 30.5 pg (27.0-31.0); MEAN CORPUSCULAR HGB CONC 33.5 pg (28.0-36.0); MEAN PLATELET VOLUME 6.8 fl; PLATELET COUNT 373 Th/cmm (150-400); RED BLOOD COUNT 2.75 Mil/cmm (3.80-5.10); RED CELL DISTRIBUTION WIDTH 15.3 % (11.5-20.0)
[2018-05-28 13:39] LABS: WHITE BLOOD COUNT 16.8 Th/cmm (4.8-10.8)
[2018-05-28 13:54] LABS: ALB/GLOB RATIO 0.9 (1.0-1.8); ALBUMIN 3.3 gm/dL (3.7-5.3); ALKALINE PHOSPHATASE 73 U/L (34-104); ANION GAP 7.5 (7.0-16.0); BILIRUBIN,TOTAL 0.2 mg/dL (0.3-1.0); BUN - UREA NITROGEN 28 mg/dL (7-25); CALCIUM SERUM 9.3 mg/dL (8.6-10.3); CARBON DIOXIDE 36.2 mEq/L (21.0-31.0); CHLORIDE 85 mEq/L (98-107); CREATININE - SERUM 0.8 mg/dL (0.6-1.2); GFR AFRICAN-AMERICAN > 60.0 ml/min (>90); GFR NON AFRICAN-AMERICAN > 60.0 ml/min; GLUCOSE 150 mg/dL (70-105); MAGNESIUM 2.4 mg/dL (1.9-2.7); PHOSPHOROUS 2.6 mg/dL (2.5-5.0); POTASSIUM SERUM 4.7 mEq/L (3.5-5.1); SGOT 15 U/L (13-39); SGPT/ALT 13 U/L (7-52); SODIUM SERUM 124 mEq/L (136-145); VALPROIC ACID 79.6 ug/mL (50.0-100.0)
[2018-05-28] MEDS ORDERED: Cefepime 1 GM in Sodium Chloride 0.9% 50 ML IV ONE (14:04)
[2018-05-28 14:44] LABS: URINE SOURCE CATH
[2018-05-28 14:48] LABS: URINE BILIRUBIN NEGATIVE (NEGATIVE); URINE BLOOD NEGATIVE (NEGATIVE); URINE GLUCOSE (UA) 250 mg/dL (NEGATIVE); URINE KETONE NEGATIVE (NEGATIVE); URINE LEUKOCYTE ESTERASE SMALL (NEGATIVE); URINE NITRATE NEGATIVE (NEGATIVE); URINE PH 6.5 (4.6 - 8.0); URINE PROTEIN 100 mg/dL (NEGATIVE); URINE UROBILINOGEN 0.2 E.U./dL (0.2 - 1.0)
[2018-05-28 15:02] LABS: AMPHETAMINE URINE NEGATIVE (NEGATIVE); BARBITURATES URINE NEGATIVE (NEGATIVE); BENZODIAZEPINES QUAL URINE NEGATIVE (NEGATIVE); CANNABINOID THC NEGATIVE (NEGATIVE); COCAINE METABOLITE QUAL URINE NEGATIVE (NEGATIVE); METHADONE URINE NEGATIVE (NEGATIVE); METHAMPHETAMINES QUAL URINE NEGATIVE (NEGATIVE); OPIATES (MORPHINE) QUAL. URINE NEGATIVE (NEGATIVE); PHENCYCLIDINE (PCP) URINE NEGATIVE (NEGATIVE); TRICYCLICS (TCA) QUAL. URINE NEGATIVE (NEGATIVE)
[2018-05-28 15:07] LABS: URINE CLARITY HAZY (CLEAR); URINE COLOR YELLOW; URINE MICROSCOPIC INDICATED? YES
[2018-05-28 15:08] LABS: URINE BACTERIA MODERATE /hpf (NONE SEEN); URINE EPITHELIAL CELLS FEW /lpf (FEW); URINE RBC NONE SEEN /hpf (0-5)
[2018-05-28 15:26] LABS: BAND NEUTROPHILE 0 % (0-10); BASOPHIL 0 % (0-3); EOSINOPHIL 3 % (0-5); LYMPHOCYTE 20 % (20-50); MONOCYTE 15 % (2-10); NEUTROPHILS 62 % (40-80)
--- NOTE | 2018-05-28 15:52 | ED Physician Chart ---
ED Chief Complaint/HPI - Patient Information Date Seen:: 05/28/18 Time Seen:: 12:54 Chief Complaint:: abnormal labs & fever History of Present Illness:: abnormal labs & fever Allergies:: Allergies Allergy/AdvReac Type Severity Reaction Status Date / Time No Known Allergies Allergy Verified 05/28/18 12:54 Vitals:: Vital Signs - 8 hr 05/28/18 05/28/18 12:54 15:06 Temp 98.3 F 97.4 F HR 103 94 RR 18 17 BP 131/33 156/56 O2 Sat % 96 100 Historian:: Medical Records Review:: Nurse's Note Reviewed, Transfer documents Reviewed ED Review of Systems - Review of Systems General/Constitutional: Fever, No chills, Weakness, No diaphoresis, Edema, No loss of appetite Skin: No skin lesions, No rash, No bruising Head: No headache, No light-headedness Eyes: No loss of vision, No pain, No diplopia ENT: No earache, No nasal drainage, No sore throat, No tinnitus Neck: No neck pain, No swelling, No thyromegaly, No stiffness, No mass noted Cardio Vascular: No chest pain, No palpitations, No PND, No orthopnea, No edema Pulmonary: SOB, Cough, Sputum, No wheezing GI: No nausea, No vomiting, No diarrhea, No pain, No melena, No hematochezia, No constipation, No hematemesis G/U: No dysuria, No frequency, No hematuria Musculoskeletal: No bone or joint pain, No back pain, No muscle pain Endocrine: No polyuria, No polydipsia Psychiatric: No prior psych history, No depression, No anxiety, No suicidal ideation Hematopoietic: No bruising, No lymphadenopathy Allergic/Immuno: No urticaria, No angioedema Neurological: No syncope, No focal symptoms, No weakness, No paresthesia, No headache, No seizure, No dizziness, No confusion, No vertigo ED Past Medical History - Past Medical History Obtainable: No Past Medical History: Asthma/COPD, Seizures, Other (brain tumor; sepsis; recurrent pneumonia; recurrent respiratory failure; obesity; dysphagia; decubitus sacral ulcer; acute on chronic systolic versus diastolic heart failure ) Family Medical History - Family Member Mother History Unknown: Yes Ethnicity: Unknown Living Status: Unknown Hx Family Cancer: (unable to assess) Hx Family Coronary Artery Disease: (unable to assess) Hx Family Congestive Heart Failure: Yes Hx Family Hypertension: Yes Hx Family Stroke: Yes Hx Family Diabetes: (unable to assess) Hx Family Seizures: Yes Hx Family Dementia: Yes Hx Family AIDS: No Hx Family HIV: No Hx Family COPD: Yes Hx Family Hepatitis: No Hx Family Psychiatric Problems: (unable to assess) Hx Family Tuberculosis: No ED Physical Exam - Physical Examination Other Gen/Cons comments:: morbidly obese. chronically ill appearing. minimal hair on head. tracks with eyes. Eyes: Lids, conjuctiva normal, PERRL, EOMI Other Skin comments:: posterior occipital decub. ENMT: External ears, nose nl Neck: Nontender, No nuchal rigidity, No stridor Other Respiratory comments:: decreased breath sounds at bases. Cardio Vascular: RRR, No murmur, gallop, rubs, NL S1 S2 GI: No tenderness/rebounding/guarding, No organomegaly, No hernia, Normal BS's, Nondistended, No mass/bruits, No McBurney tenderness Other Extremities comments:: edema BLE. Neuro/Psych: Alert/oriented ED Labs/Radiology/EKG Results - Lab Results Results: Laboratory Tests 05/28/18 05/28/18 05/28/18 13:25 13:25 13:25 WBC 16.8 H RBC 2.75 L Hgb 8.4 L Hct 25.0 L MCV 91.0 MCH 30.5 MCHC Differential 33.5 RDW 15.3 Plt Count 373 MPV 6.8 Add Manual Diff YES Band Neutrophils % 0 Neutrophils (Manual) 62 Lymphocytes 20 Monocytes 15 H Eosinophils 3 Basophils 0 Sodium 124 L Potassium 4.7 Chloride 85 L Carbon Dioxide 36.2 H Anion Gap 7.5 BUN 28 H Creatinine 0.8 Est GFR ( Amer) > 60.0 Est GFR (Non-Af Amer) > 60.0 BUN/Creatinine Ratio 35.0 Glucose 150 H Whole Bld Lactic Acid Calcium 9.3 Phosphorus 2.6 Magnesium 2.4 Total Bilirubin 0.2 L AST 15 ALT 13 Alkaline Phosphatase 73 B-Natriuretic Peptide Total Protein 7.0 Albumin 3.3 L Globulin 3.7 Albumin/Globulin Ratio 0.9 L TSH 2.22 Serum , Qual Urine Source Urine Color Urine Clarity Urine pH Ur Specific [place] Urine Protein Urine Glucose (UA) Urine Ketones Urine Blood Urine Nitrate Urine Bilirubin Urine Urobilinogen Ur Leukocyte Esterase Urine RBC Urine WBC Ur Epithelial Cells Urine Bacteria Urine Opiates Screen Urine Methadone Screen Ur Barbiturates Screen Valproic Acid 79.6 Ur Tricyclics Screen Ur Phencyclidine Scrn Amphetamines Screen U Methamphetamines Scrn U Benzodiazepines Scrn U Cocaine Metab Screen U Cannabinoids Screen 05/28/18 05/28/18 05/28/18 13:25 13:25 13:25 WBC RBC Hgb Hct MCV MCH MCHC Differential RDW Plt Count MPV Add Manual Diff Band Neutrophils % Neutrophils (Manual) Lymphocytes Monocytes Eosinophils Basophils Sodium Potassium Chloride Carbon Dioxide Anion Gap BUN Creatinine Est GFR ( Amer) Est GFR (Non-Af Amer) BUN/Creatinine Ratio Glucose Whole Bld Lactic Acid 1.13 Calcium Phosphorus Magnesium Total Bilirubin AST ALT Alkaline Phosphatase B-Natriuretic Peptide 42.5 Total Protein Albumin Globulin Albumin/Globulin Ratio TSH Serum , Qual NEGATIVE Urine Source Urine Color Urine Clarity Urine pH Ur Specific [place] Urine Protein Urine Glucose (UA) Urine Ketones Urine Blood Urine Nitrate Urine Bilirubin Urine Urobilinogen Ur Leukocyte Esterase Urine RBC Urine WBC Ur Epithelial Cells Urine Bacteria Urine Opiates Screen Urine Methadone Screen Ur Barbiturates Screen Valproic Acid Ur Tricyclics Screen Ur Phencyclidine Scrn Amphetamines Screen U Methamphetamines Scrn U Benzodiazepines Scrn U Cocaine Metab Screen U Cannabinoids Screen 05/28/18 05/28/18 14:41 14:41 WBC RBC Hgb Hct MCV MCH MCHC Differential RDW Plt Count MPV Add Manual Diff Band Neutrophils % Neutrophils (Manual) Lymphocytes Monocytes Eosinophils Basophils Sodium Potassium Chloride Carbon Dioxide Anion Gap BUN Creatinine Est GFR ( Amer) Est GFR (Non-Af Amer) BUN/Creatinine Ratio Glucose Whole Bld Lactic Acid Calcium Phosphorus Magnesium Total Bilirubin AST ALT Alkaline Phosphatase B-Natriuretic Peptide Total Protein Albumin Globulin Albumin/Globulin Ratio TSH Serum , Qual Urine Source CATH Urine Color YELLOW Urine Clarity HAZY Urine pH 6.5 Ur Specific [place] 1.015 Urine Protein 100 H Urine Glucose (UA) 250 H Urine Ketones NEGATIVE Urine Blood NEGATIVE Urine Nitrate NEGATIVE Urine Bilirubin NEGATIVE Urine Urobilinogen 0.2 Ur Leukocyte Esterase SMALL H Urine RBC NONE SEEN Urine WBC 6-10 H Ur Epithelial Cells FEW Urine Bacteria MODERATE H Urine Opiates Screen NEGATIVE Urine Methadone Screen NEGATIVE Ur Barbiturates Screen NEGATIVE Valproic Acid Ur Tricyclics Screen NEGATIVE Ur Phencyclidine Scrn NEGATIVE Amphetamines Screen NEGATIVE U Methamphetamines Scrn NEGATIVE U Benzodiazepines Scrn NEGATIVE U Cocaine Metab Screen NEGATIVE U Cannabinoids Screen NEGATIVE ED Assessment - Assessment General Assessment: CXR per my reading: at RA/SVC junction. Asked the PICC line nurse to pull it back. He pulled it back 2.2 cm. Repeat CXR revealed it to be at the same junction in my opinion. Formal reading by radiologist: in RA. Called PICC line nurse to come back in and pull it back. call to PICC line nurse again regarding the fact that the PICC line needs to be pulled back 3 cm. He said that he is 30 minutes away. EK:39:44 p.m. normal sinus rhythm, nonspecific ST T wave changes. DR. BOSWELL CALLED WHO WILL ADMIT THE PATIENT. SIGN OUT GIVEN TO DR. MENDEZ TO MAKE SURE THAT THE PICC LINE IS PULLED 3 CM ( PER RADIOLOGIST) AND TO CHECK THE CXR. ED Septic Shock - . Is Septic Shock (SBP<90, OR Lactate>4 mmol\L) present?: No - <6hrs of presentation: Vital Signs: Vital Signs - 8 hr 05/28/18 05/28/18 12:54 15:06 Temp 98.3 F 97.4 F HR 103 94 RR 18 17 BP 131/33 156/56 O2 Sat % 96 100 ED Reassessment (Disposition) - Reassessment Reassessment Condition:: Improved - Diagnosis Diagnosis:: Right upper and mid lobe pneumonia Urinary tract infection Leukocytosis Anemia with hematocrit of 25 Low sodium of 124 (down from 126) Low chloride of 85 Dehydration - Patient Disposition Discharge/Transfer:: Acute Care w/in this hosp Admitted to:: Telemetry Admitting Medical Physician:: Terrie Boswell Condition at Disposition:: Stable, Improved
[2018-05-28] MEDS: Sodium Chloride 0.9% 1,000 ML IV SCH ×2 (15:58→23:14)
[2018-05-28] MEDS ORDERED: Sodium Chloride 0.9% 1,000 ML IV SCH (16:30)
[2018-05-28] MEDS ORDERED: Albuterol/Ipratropium Neb 3 ML AERS HHN PRN (22:05)
[2018-05-29 05:21] LABS: % BASOPHILS 0.5 % (0.0-2.0); % EOSINOPHILS 2.5 % (0.0-5.0); % LYMPHOCYTES 18.5 % (20.0-50.0); % MONOCYTES 8.8 % (2.0-10.0); % NEUTROPHILS 69.7 % (40.0-80.0); BASOPHILE ABSOLUTE 0.1 Th/cumm (0-0.2); EOSINOPHILE ABSOLUTE 0.3 Th/cmm (0.1-0.4); HEMATOCRIT 24.8 % (41.0-60); HEMOGLOBIN 8.2 gm/dL (12-16); LYMPHOCYTE ABSOLUTE 2.2 Th/cmm (1.5-3.0); MEAN CORPUSCULAR HEMOGLOBIN 30.3 pg (27.0-31.0); MEAN CORPUSCULAR HGB CONC 32.9 pg (28.0-36.0); MEAN PLATELET VOLUME 6.8 fl; MONOCYTE ABSOLUTE 1.1 Th/cmm (0.3-1.0); NEUTROPHILE ABSOLUTE 8.4 Th/cmm (1.8-8.0); PLATELET COUNT 347 Th/cmm (150-400); RED CELL DISTRIBUTION WIDTH 15.3 % (11.5-20.0)
[2018-05-29 05:26] LABS: WHITE BLOOD COUNT 12.1 Th/cmm (4.8-10.8)
[2018-05-29 05:54] LABS: ANION GAP 9.8 (7.0-16.0); BUN - UREA NITROGEN 25 mg/dL (7-25); CALCIUM SERUM 8.9 mg/dL (8.6-10.3); CARBON DIOXIDE 34.5 mEq/L (21.0-31.0); CHLORIDE 91 mEq/L (98-107); CREATININE - SERUM 0.7 mg/dL (0.6-1.2); GFR AFRICAN-AMERICAN > 60.0 ml/min (>90); GFR NON AFRICAN-AMERICAN > 60.0 ml/min; GLUCOSE 127 mg/dL (70-105); POTASSIUM SERUM 4.3 mEq/L (3.5-5.1); SODIUM SERUM 131 mEq/L (136-145)
--- NOTE | 2018-05-29 08:43 | Diagnostic Imaging Report ---
Portable chest x-ray HISTORY: Pneumonia There is a poor inspiration. The heart size is enlarged. Elevation right hemidiaphragm unchanged from 04/17/2017. Allowing for the poor inspiration, no acute focal pulmonary processes are seen. IMPRESSION: 1. Allowing for a poor inspiration, no definite acute focal pulmonary processes 2. Cardiomegaly
--- NOTE | 2018-05-29 08:44 | Diagnostic Imaging Report ---
Portable chest x-ray HISTORY: Shortness of breath, vascular catheter placement Compared to prior exam performed earlier in the day (1404 hours), right-sided vascular catheter is been inserted. The tip is in the region of the superior vena cava at the junction with the right atrium. The heart remains enlarged. Accentuation of interstitial markings in the right lower lobe of the lung. Early infiltrate cannot be excluded. Clinical correlation and follow-up recommended. IMPRESSION: 1. Vascular catheter placement as noted above 2. Accentuation of interstitial markings within the right lower lobe of the lung. Early infiltrate cannot be excluded. Clinical correlation and follow-up recommended.
[2018-05-29] MEDS: Levofloxacin 500mg/100mL 500 MG/100 ML BAG IV SCH (08:45)
[2018-05-29] MEDS: Sodium Chloride 0.9% 1,000 ML IV SCH (08:45)
--- NOTE | 2018-05-29 08:45 | Diagnostic Imaging Report ---
Portable chest x-ray HISTORY: Vascular repositioning, shortness of breath Compared with prior exam performed earlier in the day (1734 hours), vascular catheter has been pulled back. The tip extends into the superior vena cava. No focal pulmonary processes are seen. Persistent elevation the right hemidiaphragm. Persistent cardiomegaly. IMPRESSION: 1. Repositioned vascular catheter as noted above 2. No acute focal pulmonary processes 3. Cardiomegaly
[2018-05-29] MEDS: Levetiracetam 500 mg/5mL 5mL UDSyr *for ORAL USE ONLY GT SCH ×2 (08:46→16:24)
[2018-05-29] MEDS: Enoxaparin 40 mg/0.4 mL 0.4mL Syr SUBQ SCH (08:46)
[2018-05-29] MEDS: Docusate Sodium 100 mg/10 mL UD GT SCH ×2 (08:46→16:25)
[2018-05-29] MEDS: Atorvastatin Calcium 10 MG TAB GT SCH (08:47)
[2018-05-29] MEDS: Albuterol/Ipratropium Neb 3 ML AERS HHN SCH ×3 (10:19→19:12)
[2018-05-29] MEDS ORDERED: Albuterol/Ipratropium Neb 3 ML AERS HHN ONE (12:02)
--- NOTE | 2018-05-29 12:19 | History and Physical ---
History of Present Illness - [facility] Chief Complaint: MARZENA BOSWELL MD HISTORY AND PHYSICAL Ame Becker : 1970 Admit date: 05/28/2018 Date: 05/28/2018 H&P Chief complaint Patient was transferred from [facility] for continuation of care, patient has history of Dysphagia, Respiratory Distress, Brain Tumor, Morbid Obesity, Decubitus Sacral Ulcer, Copd and Seizure Disorder. Present illness 47 y/o female patient is G-tube dependent, and was admitted to [facility] due to abnormal labs and fever. Patient has history of Dysphagia, Respiratory Distress, Brain Tumor, Morbid Obesity, Decubitus Sacral Ulcer, Copd and Seizure Disorder. Patient was diagnosed with Right Upper and Mid lobe Pneumonia, Urinary Tract infection, Leukocytosis, Anemia, Low Chloride , Low Sodium and Dehydration. Patient will have an ID consult and Pulmonary consult. Patient will have a complete workup done. Patient will be put on a course of Antibiotics. Patient will be treated and monitored. Review of systems Vitals: Reviewed. General: Normotensive, in no acute distress. Head: Normocephalic, no lesions. Eyes: PERRLA, EOM'S full, conjunctive clear, fundi grossly normal. Neck: Supple, no masses, no thyromegaly, no bruits. Lungs: Positive for cough, sputum, No wheezing noted. Heart: RR, no murmurs, no rubs, no gallops. Abdomen: G-tube present, Soft, no tenderness, no masses, BS normal. Musculoskeletal: Edema of Bilateral Lower Extremities. Psych: Normal mood and affect. Skin: Posterior Occipital Decubitus. Neurological: Denies headache and loss of consciousness. Past medical history Dysphagia, Respiratory Distress, Brain Tumor, Morbid Obesity, Decubitus Sacral Ulcer, Copd and Seizure Disorder. Past surgical history G-tube placement. Medications Please refer to medication reconciliation sheet. Allergies No known drug allergy. Family history Noncontributory. Social history Nonsmoker, No Alcohol use, No drug abuse. Physical Exam- HEENT: Head is normocephalic, atraumatic. NECK: Supple. No JVD. No carotid bruit. CHEST: Decreased breath sound at the bases. HEART: S1, S2 within normal limits. Regular rhythm. No murmur. No gallop. ABDOMEN: G-tube present, soft, non-tender, non-distended. Bowel sounds present. EXTREMITIES: Edema of Bilateral Lower Extremities. NEUROLOGIC: Alert oriented x 3. Assessment and Impression Right Upper and Mid lobe Pneumonia. Urinary Tract infection. Leukocytosis. Anemia. Low Chloride. Low Sodium. Dehydration. Posterior Occipital Decubitus. Morbid Obesity. History of Dysphagia/ G-tube dependent. History of Respiratory Distress. History of Copd. History of Seizure Disorder. History of Brain Tumor. Plan Continuation of care Continue present meds as directed Monitor Diet/Nutritional support/Continue G-tube feedings Monitor Pain, Pain Management Respiratory treatment and Pulmonary support prn Local Skin Care Physical therapy Occupational therapy Fall precaution Safety precaution Seizure precaution Supportive care Will Monitor patient and continue current treatment plan as ordered. 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 GI: Report: Other (G-tube present.) Psych: Report: No Pertinent Hx Musculoskeletal: Report: Other (Edema of Bilateral lower extremities.) Rheumatologic: Report: No pertinent Hx Infectious Disease: Report: No Pertinent Hx Endocrine: Report: No Pertinent Hx Dermatology: Report: Other (Edema of Bilateral lower extremities.) - Past Surgical History Past Surgical History: Other (G-tube status.) Family Medical History - Family Member Mother History Unknown: Yes Ethnicity: Unknown Living Status: Unknown Hx Family Cancer: (unable to assess) Hx Family Coronary Artery Disease: (unable to assess) Hx Family Congestive Heart Failure: Yes Hx Family Hypertension: Yes Hx Family Stroke: Yes Hx Family Diabetes: (unable to assess) Hx Family Seizures: Yes Hx Family Dementia: Yes Hx Family AIDS: No Hx Family HIV: No Hx Family COPD: Yes Hx Family Hepatitis: No Hx Family Psychiatric Problems: (unable to assess) Hx Family Tuberculosis: No Social History Smoke: No Alcohol: None Drugs: None Lives: Long Term Domestic Violence: Negative - Medications Home Medications: Home Medication Medication Instructions Recorded Type Acetaminophen [Tylenol] 650 mg GT Q4HR PRN 04/17/17 History Albuterol/Ipratropium Neb [Duoneb 3 ml HHN Q2H PRN 04/17/17 History Neb] Atorvastatin Calcium [Lipitor] 10 mg GT DAILY 04/17/17 History Bisacodyl 10 mg RC DAILY PRN 04/17/17 History Docusate Sodium 200 mg GT BID 04/17/17 History Lacosamide [Vimpat] 100 mg GT Q12H 04/17/17 History Levetiracetam [Keppra] 750 mg GT BID 04/17/17 History OXcarbazepine [Trileptal] 600 mg GT Q12H 04/17/17 History Valproic Acid [Depakene] 750 mg GT BID 04/17/17 History Albuterol/Ipratropium Neb [Duoneb 3 ml HHN Q6HR 05/28/18 History Neb] Enoxaparin [Lovenox] 40 mg SUBQ DAILY 05/28/18 History Lisinopril [Zestril] 10 mg GT DAILY 05/28/18 History Multivitamin w/ Minerals 1 tab GT DAILY 05/28/18 History [Theragran M] - Allergies Allergies/Adverse Reactions: Allergies Allergy/AdvReac Type Severity Reaction Status Date / Time No Known Allergies Allergy Verified 05/28/18 12:54 Review of Systems - Review of Systems Constitutional: Report: Weakness Eyes: Report: No Significant ENT: Report: No Significant Respiratory: Report: Shortness of Breath, Sputum Cardiovascular: Report: No Significant Gastrointestinal: Report: No Significant Genitourinary: Report: No Significant Musculoskeletal: Report: Other (Edema of Bilateral lower extremities.) Skin: Report: Other (Edema of Bilateral lower extremities.) Neurological: Report: Seizures Physical Exam - Physical Exam HEENT: Report: Ears Nose Throat within normal limits Neck: Report: Within normal limits Cardiovascular Systems: Report: +s1/s2 noted Respiratory: Report: Rhonchi Abdomen: Report: PEG site is clean Back: Report: Inspection of back is within normal limits. Extremities: Report: Other (Edema of Bilateral lower extremities.) Skin: Report: Other (Edema of Bilateral lower extremities.) Neuro/Psych: Report: Mood affect is within normal limits - Lab Results All Lab Results last 24 hours: Laboratory Results - last 24 hr 05/28/18 05/28/18 05/28/18 13:25 13:25 13:25 WBC 16.8 H RBC 2.75 L Hgb 8.4 L Hct 25.0 L MCV 91.0 MCH 30.5 MCHC Differential 33.5 RDW 15.3 Plt Count 373 MPV 6.8 Add Manual Diff YES Neutrophils % Band Neutrophils % 0 Lymphocytes % Monocytes % Eosinophils % Basophils % Neutrophils (Manual) 62 Lymphocytes 20 Monocytes 15 H Eosinophils 3 Basophils 0 Sodium 124 L Potassium 4.7 Chloride 85 L Carbon Dioxide 36.2 H Anion Gap 7.5 BUN 28 H Creatinine 0.8 Est GFR ( Amer) > 60.0 Est GFR (Non-Af Amer) > 60.0 BUN/Creatinine Ratio 35.0 Glucose 150 H Whole Bld Lactic Acid Calcium 9.3 Phosphorus 2.6 Magnesium 2.4 Total Bilirubin 0.2 L AST 15 ALT 13 Alkaline Phosphatase 73 Troponin I B-Natriuretic Peptide Total Protein 7.0 Albumin 3.3 L Globulin 3.7 Albumin/Globulin Ratio 0.9 L TSH 2.22 Serum , Qual Urine Source Urine Color Urine Clarity Urine pH Ur Specific [place] Urine Protein Urine Glucose (UA) Urine Ketones Urine Blood Urine Nitrate Urine Bilirubin Urine Urobilinogen Ur Leukocyte Esterase Urine RBC Urine WBC Ur Epithelial Cells Urine Bacteria Urine Opiates Screen Urine Methadone Screen Ur Barbiturates Screen Valproic Acid 79.6 Ur Tricyclics Screen Ur Phencyclidine Scrn Amphetamines Screen U Methamphetamines Scrn U Benzodiazepines Scrn U Cocaine Metab Screen U Cannabinoids Screen 05/28/18 05/28/18 05/28/18 13:25 13:25 13:25 WBC RBC Hgb Hct MCV MCH MCHC Differential RDW Plt Count MPV Add Manual Diff Neutrophils % Band Neutrophils % Lymphocytes % Monocytes % Eosinophils % Basophils % Neutrophils (Manual) Lymphocytes Monocytes Eosinophils Basophils Sodium Potassium Chloride Carbon Dioxide Anion Gap BUN Creatinine Est GFR ( Amer) Est GFR (Non-Af Amer) BUN/Creatinine Ratio Glucose Whole Bld Lactic Acid 1.13 Calcium Phosphorus Magnesium Total Bilirubin AST ALT Alkaline Phosphatase Troponin I B-Natriuretic Peptide 42.5 Total Protein Albumin Globulin Albumin/Globulin Ratio TSH Serum , Qual NEGATIVE Urine Source Urine Color Urine Clarity Urine pH Ur Specific [place] Urine Protein Urine Glucose (UA) Urine Ketones Urine Blood Urine Nitrate Urine Bilirubin Urine Urobilinogen Ur Leukocyte Esterase Urine RBC Urine WBC Ur Epithelial Cells Urine Bacteria Urine Opiates Screen Urine Methadone Screen Ur Barbiturates Screen Valproic Acid Ur Tricyclics Screen Ur Phencyclidine Scrn Amphetamines Screen U Methamphetamines Scrn U Benzodiazepines Scrn U Cocaine Metab Screen U Cannabinoids Screen 05/28/18 05/28/18 05/28/18 13:25 14:41 14:41 WBC RBC Hgb Hct MCV MCH MCHC Differential RDW Plt Count MPV Add Manual Diff Neutrophils % Band Neutrophils % Lymphocytes % Monocytes % Eosinophils % Basophils % Neutrophils (Manual) Lymphocytes Monocytes Eosinophils Basophils Sodium Potassium Chloride Carbon Dioxide Anion Gap BUN Creatinine Est GFR ( Amer) Est GFR (Non-Af Amer) BUN/Creatinine Ratio Glucose Whole Bld Lactic Acid Calcium Phosphorus Magnesium Total Bilirubin AST ALT Alkaline Phosphatase Troponin I 0.01 B-Natriuretic Peptide Total Protein Albumin Globulin Albumin/Globulin Ratio TSH Serum , Qual Urine Source CATH Urine Color YELLOW Urine Clarity HAZY Urine pH 6.5 Ur Specific [place] 1.015 Urine Protein 100 H Urine Glucose (UA) 250 H Urine Ketones NEGATIVE Urine Blood NEGATIVE Urine Nitrate NEGATIVE Urine Bilirubin NEGATIVE Urine Urobilinogen 0.2 Ur Leukocyte Esterase SMALL H Urine RBC NONE SEEN Urine WBC 6-10 H Ur Epithelial Cells FEW Urine Bacteria MODERATE H Urine Opiates Screen NEGATIVE Urine Methadone Screen NEGATIVE Ur Barbiturates Screen NEGATIVE Valproic Acid Ur Tricyclics Screen NEGATIVE Ur Phencyclidine Scrn NEGATIVE Amphetamines Screen NEGATIVE U Methamphetamines Scrn NEGATIVE U Benzodiazepines Scrn NEGATIVE U Cocaine Metab Screen NEGATIVE U Cannabinoids Screen NEGATIVE 05/28/18 05/29/18 05/29/18 15:34 04:50 04:50 WBC 12.1 H D RBC 2.70 L Hgb 8.2 L Hct 24.8 L MCV 92.0 MCH 30.3 MCHC Differential 32.9 RDW 15.3 Plt Count 347 MPV 6.8 Add Manual Diff Neutrophils % 69.7 Band Neutrophils % Lymphocytes % 18.5 L Monocytes % 8.8 Eosinophils % 2.5 Basophils % 0.5 Neutrophils (Manual) Lymphocytes Monocytes Eosinophils Basophils Sodium 131 L Potassium 4.3 Chloride 91 L Carbon Dioxide 34.5 H Anion Gap 9.8 BUN 25 Creatinine 0.7 Est GFR ( Amer) > 60.0 Est GFR (Non-Af Amer) > 60.0 BUN/Creatinine Ratio 35.7 Glucose 127 H Whole Bld Lactic Acid 1.00 Calcium 8.9 Phosphorus Magnesium Total Bilirubin AST ALT Alkaline Phosphatase Troponin I B-Natriuretic Peptide Total Protein Albumin Globulin Albumin/Globulin Ratio TSH Serum , Qual Urine Source Urine Color Urine Clarity Urine pH Ur Specific [place] Urine Protein Urine Glucose (UA) Urine Ketones Urine Blood Urine Nitrate Urine Bilirubin Urine Urobilinogen Ur Leukocyte Esterase Urine RBC Urine WBC Ur Epithelial Cells Urine Bacteria Urine Opiates Screen Urine Methadone Screen Ur Barbiturates Screen Valproic Acid Ur Tricyclics Screen Ur Phencyclidine Scrn Amphetamines Screen U Methamphetamines Scrn U Benzodiazepines Scrn U Cocaine Metab Screen U Cannabinoids Screen 05/29/18 04:50 WBC RBC Hgb Hct MCV MCH MCHC Differential RDW Plt Count MPV Add Manual Diff Neutrophils % Band Neutrophils % Lymphocytes % Monocytes % Eosinophils % Basophils % Neutrophils (Manual) Lymphocytes Monocytes Eosinophils Basophils Sodium Potassium Chloride Carbon Dioxide Anion Gap BUN Creatinine Est GFR ( Amer) Est GFR (Non-Af Amer) BUN/Creatinine Ratio Glucose Whole Bld Lactic Acid Calcium Phosphorus Magnesium Total Bilirubin AST ALT Alkaline Phosphatase Troponin I B-Natriuretic Peptide 33.5 Total Protein Albumin Globulin Albumin/Globulin Ratio TSH Serum , Qual Urine Source Urine Color Urine Clarity Urine pH Ur Specific [place] Urine Protein Urine Glucose (UA) Urine Ketones Urine Blood Urine Nitrate Urine Bilirubin Urine Urobilinogen Ur Leukocyte Esterase Urine RBC Urine WBC Ur Epithelial Cells Urine Bacteria Urine Opiates Screen Urine Methadone Screen Ur Barbiturates Screen Valproic Acid Ur Tricyclics Screen Ur Phencyclidine Scrn Amphetamines Screen U Methamphetamines Scrn U Benzodiazepines Scrn U Cocaine Metab Screen U Cannabinoids Screen
--- NOTE | 2018-05-29 12:57 | Internal Medicine Prog Note ---
Internal Medicine Subjective - Subjective Service Date: 05/29/18 Patient seen and examined:: chart reviewed Patient is:: awake, verbal, interactive Patient Complaints of:: congestion, cough, SOB Per staff patient has:: no adverse event Internal Medicine Objective - Results Result Diagrams: 05/29/18 04:50 05/29/18 04:50 Recent Labs: Laboratory Last Values WBC 12.1 Th/cmm (4.8-10.8) H D 05/29/18 04:50 RBC 2.70 Mil/cmm (3.80-5.10) L 05/29/18 04:50 Hgb 8.2 gm/dL (12-16) L 05/29/18 04:50 Hct 24.8 % (41.0-60) L 05/29/18 04:50 MCV 92.0 fl (81-100) 05/29/18 04:50 MCH 30.3 pg (27.0-31.0) 05/29/18 04:50 MCHC Differential 32.9 pg (28.0-36.0) 05/29/18 04:50 RDW 15.3 % (11.5-20.0) 05/29/18 04:50 Plt Count 347 Th/cmm (150-400) 05/29/18 04:50 MPV 6.8 fl 05/29/18 04:50 Add Manual Diff YES 05/28/18 13:25 Neutrophils % 69.7 % (40.0-80.0) 05/29/18 04:50 Band Neutrophils % 0 % (0-10) 05/28/18 13:25 Lymphocytes % 18.5 % (20.0-50.0) L 05/29/18 04:50 Monocytes % 8.8 % (2.0-10.0) 05/29/18 04:50 Eosinophils % 2.5 % (0.0-5.0) 05/29/18 04:50 Basophils % 0.5 % (0.0-2.0) 05/29/18 04:50 Neutrophils (Manual) 62 % (40-80) 05/28/18 13:25 Lymphocytes 20 % (20-50) 05/28/18 13:25 Monocytes 15 % (2-10) H 05/28/18 13:25 Eosinophils 3 % (0-5) 05/28/18 13:25 Basophils 0 % (0-3) 05/28/18 13:25 Sodium 131 mEq/L (136-145) L 05/29/18 04:50 Potassium 4.3 mEq/L (3.5-5.1) 05/29/18 04:50 Chloride 91 mEq/L (98-107) L 05/29/18 04:50 Carbon Dioxide 34.5 mEq/L (21.0-31.0) H 05/29/18 04:50 Anion Gap 9.8 (7.0-16.0) 05/29/18 04:50 BUN 25 mg/dL (7-25) 05/29/18 04:50 Creatinine 0.7 mg/dL (0.6-1.2) 05/29/18 04:50 Est GFR ( Amer) > 60.0 ml/min (>90) 05/29/18 04:50 Est GFR (Non-Af Amer) > 60.0 ml/min 05/29/18 04:50 BUN/Creatinine Ratio 35.7 05/29/18 04:50 Glucose 127 mg/dL (70-105) H 05/29/18 04:50 Whole Bld Lactic Acid 1.00 mmol/L (0.60-1.99) 05/28/18 15:34 Calcium 8.9 mg/dL (8.6-10.3) 05/29/18 04:50 Phosphorus 2.6 mg/dL (2.5-5.0) 05/28/18 13:25 Magnesium 2.4 mg/dL (1.9-2.7) 05/28/18 13:25 Total Bilirubin 0.2 mg/dL (0.3-1.0) L 05/28/18 13:25 AST 15 U/L (13-39) 05/28/18 13:25 ALT 13 U/L (7-52) 05/28/18 13:25 Alkaline Phosphatase 73 U/L (34-104) 05/28/18 13:25 Troponin I 0.01 ng/mL (0.01-0.05) 05/28/18 13:25 B-Natriuretic Peptide 33.5 pg/mL (5.0-100.0) 05/29/18 04:50 Total Protein 7.0 gm/dL (6.0-8.3) 05/28/18 13:25 Albumin 3.3 gm/dL (3.7-5.3) L 05/28/18 13:25 Globulin 3.7 gm/dL 05/28/18 13:25 Albumin/Globulin Ratio 0.9 (1.0-1.8) L 05/28/18 13:25 TSH 2.22 uIU/ml (0.34-5.60) 05/28/18 13:25 Serum , Qual NEGATIVE (NEGATIVE) 05/28/18 13:25 Urine Source CATH 05/28/18 14:41 Urine Color YELLOW 05/28/18 14:41 Urine Clarity HAZY (CLEAR) 05/28/18 14:41 Urine pH 6.5 (4.6 - 8.0) 05/28/18 14:41 Ur Specific [place] 1.015 (1.005-1.030) 05/28/18 14:41 Urine Protein 100 mg/dL (NEGATIVE) H 05/28/18 14:41 Urine Glucose (UA) 250 mg/dL (NEGATIVE) H 05/28/18 14:41 Urine Ketones NEGATIVE mg/dL (NEGATIVE) 05/28/18 14:41 Urine Blood NEGATIVE (NEGATIVE) 05/28/18 14:41 Urine Nitrate NEGATIVE (NEGATIVE) 05/28/18 14:41 Urine Bilirubin NEGATIVE (NEGATIVE) 05/28/18 14:41 Urine Urobilinogen 0.2 E.U./dL (0.2 - 1.0) 05/28/18 14:41 Ur Leukocyte Esterase SMALL (NEGATIVE) H 05/28/18 14:41 Urine RBC NONE SEEN /hpf (0-5) 05/28/18 14:41 Urine WBC 6-10 /hpf (0-5) H 05/28/18 14:41 Ur Epithelial Cells FEW /lpf (FEW) 05/28/18 14:41 Urine Bacteria MODERATE /hpf (NONE SEEN) H 05/28/18 14:41 Urine Opiates Screen NEGATIVE (NEGATIVE) 05/28/18 14:41 Urine Methadone Screen NEGATIVE (NEGATIVE) 05/28/18 14:41 Ur Barbiturates Screen NEGATIVE (NEGATIVE) 05/28/18 14:41 Valproic Acid 79.6 ug/mL (50.0-100.0) 05/28/18 13:25 Ur Tricyclics Screen NEGATIVE (NEGATIVE) 05/28/18 14:41 Ur Phencyclidine Scrn NEGATIVE (NEGATIVE) 05/28/18 14:41 Amphetamines Screen NEGATIVE (NEGATIVE) 05/28/18 14:41 U Methamphetamines Scrn NEGATIVE (NEGATIVE) 05/28/18 14:41 U Benzodiazepines Scrn NEGATIVE (NEGATIVE) 05/28/18 14:41 U Cocaine Metab Screen NEGATIVE (NEGATIVE) 05/28/18 14:41 U Cannabinoids Screen NEGATIVE (NEGATIVE) 05/28/18 14:41 - Physical Exam Vitals and I&O: Vital Signs Temp 97.1 F 05/29/18 08:20 Pulse 96 05/29/18 12:06 Resp 16 05/29/18 12:06 BP 102/32 05/29/18 08:47 Pulse Ox 100 05/29/18 12:06 Intake & Output 05/28/18 05/29/18 05/29/18 18:59 06:59 18:59 Intake Total 50 1218.333 200 Balance 50 1218.333 200 Weight (lbs) 81.647 kg 88.451 kg Intake: Intake, IV Amount 50 1008.333 200 Levofloxacin 500mg/100mL 100 500 mg In 100 ml @ 100 mls/hr IV Q24HR [facility] Rx#: [id number] Piperacillin Sodium/ 100 100 Tazobact 4.5 gm In Sodium Chloride 0.9% 100 ml @ 100 mls/hr IV Q8HR [facility] Rx #:[id number] Sodium Chloride 0.9% 1, 908.333 000 ml @ 125 mls/hr IV . Q8H [facility] Rx#:[id number] Tube Feeding 160 Other 50 Other: # Voids 3 # Bowel Movements 1 Stool Characteristics Soft Formed Weight Source Estimated Bedscale Active Medications: Current Medications Acetaminophen (Tylenol) 650 mg GT Q4HR PRN PRN Reason: Pain or Fever >101 Stop: 07/27/18 22:04 Albuterol/Ipratropium (Duoneb Neb) 3 ml HHN Q2H PRN PRN Reason: Shortness of Breath Stop: 07/27/18 22:04 Albuterol/Ipratropium (Duoneb Neb) 3 ml HHN Q6HRT MY Stop: 07/28/18 00:00 Last Admin: 05/29/18 12:05 Dose: 3 ml Atorvastatin Calcium (Lipitor) 10 mg GT DAILY [facility]; Protocol Stop: 07/28/18 08:59 Last Admin: 05/29/18 08:47 Dose: 10 mg Bisacodyl (Dulcolax 10 Mg Supp) 10 mg RC DAILY PRN PRN Reason: bowel management Stop: 07/27/18 22:04 Docusate Sodium (Colace) 200 mg GT BID [facility] Stop: 07/28/18 08:59 Last Admin: 05/29/18 08:46 Dose: 200 mg Enoxaparin Sodium (Lovenox) 40 mg SUBQ DAILY [facility] Stop: 07/28/18 08:59 Last Admin: 05/29/18 08:46 Dose: 40 mg Levofloxacin (Levaquin Pb) 500 mg in 100 mls @ 100 mls/hr IV Q24HR [facility] Stop: 07/28/18 08:59 Last Infusion: 05/29/18 09:45 Dose: Infused Piperacillin Sod/Tazobactam (Sod 4.5 gm/ Sodium Chloride) 100 mls @ 100 mls/hr IV Q8HR [facility] Stop: 07/27/18 22:44 Last Infusion: 05/29/18 07:00 Dose: Infused Sodium Chloride (Nacl 0.9%) 1,000 mls @ 50 mls/hr IV .Q20H [facility] Stop: 07/28/18 08:44 Last Admin: 05/29/18 08:45 Dose: 50 mls/hr Lacosamide (Vimpat) 100 mg GT Q12H [facility] Stop: 07/28/18 08:59 Last Admin: 05/29/18 08:47 Dose: 100 mg Levetiracetam (Keppra) 750 mg GT BID [facility] Stop: 07/28/18 08:59 Last Admin: 05/29/18 08:46 Dose: 750 mg Lisinopril (Zestril) 10 mg GT DAILY [facility] Stop: 07/28/18 08:59 Last Admin: 05/29/18 08:47 Dose: Not Given Wound Care/Dressing Products (Therahoney) 1 appl TP DAILY [facility] Stop: 07/29/18 08:59 General: weak, congested, obese HEENT: thinning hair Neck: Supple, No JVD Lungs: congested, other (cough with sputum and shortness of breath.) Cardiovascular: Normal S1, Normal S2 Abdomen: other (G-tube present.) Extremities: edema Neurological: other (Hx of seizures.) - Procedures Procedures: Procedures Procedure Code Date CHANGE FEEDING DEVICE IN UP INTEST TRACT, [employer]ACH [id number] 04/17/17 Internal Medicine Assmt/Plan - Assessment Assessment: Assessment and Impression Right Upper and Mid lobe Pneumonia. Urinary Tract infection. Leukocytosis. Anemia. Low Chloride. Low Sodium. Dehydration. Posterior Occipital Decubitus. Morbid Obesity. History of Dysphagia/ G-tube dependent. History of Respiratory Distress. History of Copd. History of Seizure Disorder. History of Brain Tumor. - Plan Plan: Plan Continuation of care Continue present meds as directed Monitor Diet/Nutritional support/Continue G-tube feedings Monitor Pain, Pain Management Respiratory treatment and Pulmonary support prn Local Skin Care Physical therapy Occupational therapy Fall precaution Safety precaution Seizure precaution Supportive care Will Monitor patient and continue current treatment plan as ordered.
--- NOTE | 2018-05-29 13:01 | Internal Medicine Prog Note ---
Internal Medicine Subjective - Subjective Service Date: 05/29/18 Patient seen and examined:: chart reviewed Patient is:: awake, verbal Patient Complaints of:: cough, SOB Per staff patient has:: no adverse event Internal Medicine Objective - Results Result Diagrams: 05/29/18 04:50 05/29/18 04:50 Recent Labs: Laboratory Last Values WBC 12.1 Th/cmm (4.8-10.8) H D 05/29/18 04:50 RBC 2.70 Mil/cmm (3.80-5.10) L 05/29/18 04:50 Hgb 8.2 gm/dL (12-16) L 05/29/18 04:50 Hct 24.8 % (41.0-60) L 05/29/18 04:50 MCV 92.0 fl (81-100) 05/29/18 04:50 MCH 30.3 pg (27.0-31.0) 05/29/18 04:50 MCHC Differential 32.9 pg (28.0-36.0) 05/29/18 04:50 RDW 15.3 % (11.5-20.0) 05/29/18 04:50 Plt Count 347 Th/cmm (150-400) 05/29/18 04:50 MPV 6.8 fl 05/29/18 04:50 Add Manual Diff YES 05/28/18 13:25 Neutrophils % 69.7 % (40.0-80.0) 05/29/18 04:50 Band Neutrophils % 0 % (0-10) 05/28/18 13:25 Lymphocytes % 18.5 % (20.0-50.0) L 05/29/18 04:50 Monocytes % 8.8 % (2.0-10.0) 05/29/18 04:50 Eosinophils % 2.5 % (0.0-5.0) 05/29/18 04:50 Basophils % 0.5 % (0.0-2.0) 05/29/18 04:50 Neutrophils (Manual) 62 % (40-80) 05/28/18 13:25 Lymphocytes 20 % (20-50) 05/28/18 13:25 Monocytes 15 % (2-10) H 05/28/18 13:25 Eosinophils 3 % (0-5) 05/28/18 13:25 Basophils 0 % (0-3) 05/28/18 13:25 Sodium 131 mEq/L (136-145) L 05/29/18 04:50 Potassium 4.3 mEq/L (3.5-5.1) 05/29/18 04:50 Chloride 91 mEq/L (98-107) L 05/29/18 04:50 Carbon Dioxide 34.5 mEq/L (21.0-31.0) H 05/29/18 04:50 Anion Gap 9.8 (7.0-16.0) 05/29/18 04:50 BUN 25 mg/dL (7-25) 05/29/18 04:50 Creatinine 0.7 mg/dL (0.6-1.2) 05/29/18 04:50 Est GFR ( Amer) > 60.0 ml/min (>90) 05/29/18 04:50 Est GFR (Non-Af Amer) > 60.0 ml/min 05/29/18 04:50 BUN/Creatinine Ratio 35.7 05/29/18 04:50 Glucose 127 mg/dL (70-105) H 05/29/18 04:50 Whole Bld Lactic Acid 1.00 mmol/L (0.60-1.99) 05/28/18 15:34 Calcium 8.9 mg/dL (8.6-10.3) 05/29/18 04:50 Phosphorus 2.6 mg/dL (2.5-5.0) 05/28/18 13:25 Magnesium 2.4 mg/dL (1.9-2.7) 05/28/18 13:25 Total Bilirubin 0.2 mg/dL (0.3-1.0) L 05/28/18 13:25 AST 15 U/L (13-39) 05/28/18 13:25 ALT 13 U/L (7-52) 05/28/18 13:25 Alkaline Phosphatase 73 U/L (34-104) 05/28/18 13:25 Troponin I 0.01 ng/mL (0.01-0.05) 05/28/18 13:25 B-Natriuretic Peptide 33.5 pg/mL (5.0-100.0) 05/29/18 04:50 Total Protein 7.0 gm/dL (6.0-8.3) 05/28/18 13:25 Albumin 3.3 gm/dL (3.7-5.3) L 05/28/18 13:25 Globulin 3.7 gm/dL 05/28/18 13:25 Albumin/Globulin Ratio 0.9 (1.0-1.8) L 05/28/18 13:25 TSH 2.22 uIU/ml (0.34-5.60) 05/28/18 13:25 Serum , Qual NEGATIVE (NEGATIVE) 05/28/18 13:25 Urine Source CATH 05/28/18 14:41 Urine Color YELLOW 05/28/18 14:41 Urine Clarity HAZY (CLEAR) 05/28/18 14:41 Urine pH 6.5 (4.6 - 8.0) 05/28/18 14:41 Ur Specific [place] 1.015 (1.005-1.030) 05/28/18 14:41 Urine Protein 100 mg/dL (NEGATIVE) H 05/28/18 14:41 Urine Glucose (UA) 250 mg/dL (NEGATIVE) H 05/28/18 14:41 Urine Ketones NEGATIVE mg/dL (NEGATIVE) 05/28/18 14:41 Urine Blood NEGATIVE (NEGATIVE) 05/28/18 14:41 Urine Nitrate NEGATIVE (NEGATIVE) 05/28/18 14:41 Urine Bilirubin NEGATIVE (NEGATIVE) 05/28/18 14:41 Urine Urobilinogen 0.2 E.U./dL (0.2 - 1.0) 05/28/18 14:41 Ur Leukocyte Esterase SMALL (NEGATIVE) H 05/28/18 14:41 Urine RBC NONE SEEN /hpf (0-5) 05/28/18 14:41 Urine WBC 6-10 /hpf (0-5) H 05/28/18 14:41 Ur Epithelial Cells FEW /lpf (FEW) 05/28/18 14:41 Urine Bacteria MODERATE /hpf (NONE SEEN) H 05/28/18 14:41 Urine Opiates Screen NEGATIVE (NEGATIVE) 05/28/18 14:41 Urine Methadone Screen NEGATIVE (NEGATIVE) 05/28/18 14:41 Ur Barbiturates Screen NEGATIVE (NEGATIVE) 05/28/18 14:41 Valproic Acid 79.6 ug/mL (50.0-100.0) 05/28/18 13:25 Ur Tricyclics Screen NEGATIVE (NEGATIVE) 05/28/18 14:41 Ur Phencyclidine Scrn NEGATIVE (NEGATIVE) 05/28/18 14:41 Amphetamines Screen NEGATIVE (NEGATIVE) 05/28/18 14:41 U Methamphetamines Scrn NEGATIVE (NEGATIVE) 05/28/18 14:41 U Benzodiazepines Scrn NEGATIVE (NEGATIVE) 05/28/18 14:41 U Cocaine Metab Screen NEGATIVE (NEGATIVE) 05/28/18 14:41 U Cannabinoids Screen NEGATIVE (NEGATIVE) 05/28/18 14:41 - Physical Exam Vitals and I&O: Vital Signs Temp 97.1 F 05/29/18 08:20 Pulse 96 05/29/18 12:06 Resp 16 05/29/18 12:06 BP 102/32 05/29/18 08:47 Pulse Ox 100 05/29/18 12:06 Intake & Output 05/28/18 05/29/18 05/29/18 18:59 06:59 18:59 Intake Total 50 1218.333 200 Balance 50 1218.333 200 Weight (lbs) 81.647 kg 88.451 kg Intake: Intake, IV Amount 50 1008.333 200 Levofloxacin 500mg/100mL 100 500 mg In 100 ml @ 100 mls/hr IV Q24HR [facility] Rx#: [id number] Piperacillin Sodium/ 100 100 Tazobact 4.5 gm In Sodium Chloride 0.9% 100 ml @ 100 mls/hr IV Q8HR [facility] Rx #:[id number] Sodium Chloride 0.9% 1, 908.333 000 ml @ 125 mls/hr IV . Q8H [facility] Rx#:[id number] Tube Feeding 160 Other 50 Other: # Voids 3 # Bowel Movements 1 Stool Characteristics Soft Formed Weight Source Estimated Bedscale Active Medications: Current Medications Acetaminophen (Tylenol) 650 mg GT Q4HR PRN PRN Reason: Pain or Fever >101 Stop: 07/27/18 22:04 Albuterol/Ipratropium (Duoneb Neb) 3 ml HHN Q2H PRN PRN Reason: Shortness of Breath Stop: 07/27/18 22:04 Albuterol/Ipratropium (Duoneb Neb) 3 ml HHN Q6HRT MY Stop: 07/28/18 00:00 Last Admin: 05/29/18 12:05 Dose: 3 ml Atorvastatin Calcium (Lipitor) 10 mg GT DAILY [facility]; Protocol Stop: 07/28/18 08:59 Last Admin: 05/29/18 08:47 Dose: 10 mg Bisacodyl (Dulcolax 10 Mg Supp) 10 mg RC DAILY PRN PRN Reason: bowel management Stop: 07/27/18 22:04 Docusate Sodium (Colace) 200 mg GT BID [facility] Stop: 07/28/18 08:59 Last Admin: 05/29/18 08:46 Dose: 200 mg Enoxaparin Sodium (Lovenox) 40 mg SUBQ DAILY [facility] Stop: 07/28/18 08:59 Last Admin: 05/29/18 08:46 Dose: 40 mg Levofloxacin (Levaquin Pb) 500 mg in 100 mls @ 100 mls/hr IV Q24HR [facility] Stop: 07/28/18 08:59 Last Infusion: 05/29/18 09:45 Dose: Infused Piperacillin Sod/Tazobactam (Sod 4.5 gm/ Sodium Chloride) 100 mls @ 100 mls/hr IV Q8HR [facility] Stop: 07/27/18 22:44 Last Infusion: 05/29/18 07:00 Dose: Infused Sodium Chloride (Nacl 0.9%) 1,000 mls @ 50 mls/hr IV .Q20H [facility] Stop: 07/28/18 08:44 Last Admin: 05/29/18 08:45 Dose: 50 mls/hr Lacosamide (Vimpat) 100 mg GT Q12H [facility] Stop: 07/28/18 08:59 Last Admin: 05/29/18 08:47 Dose: 100 mg Levetiracetam (Keppra) 750 mg GT BID [facility] Stop: 07/28/18 08:59 Last Admin: 05/29/18 08:46 Dose: 750 mg Lisinopril (Zestril) 10 mg GT DAILY [facility] Stop: 07/28/18 08:59 Last Admin: 05/29/18 08:47 Dose: Not Given Wound Care/Dressing Products (Therahoney) 1 appl TP DAILY [facility] Stop: 07/29/18 08:59 General: congested, alert, obese HEENT: thinning hair Neck: Supple, No JVD Lungs: congested, other (cough with sputum.) Cardiovascular: Normal S1, Normal S2 Abdomen: other (g-tube present.) Extremities: edema Neurological: other (Hx of Seizures.) - Procedures Procedures: Procedures Procedure Code Date CHANGE FEEDING DEVICE IN UP INTEST TRACT, ULTIMATE HOOPS REFEREE APPROACH [id number] 04/17/17
[2018-05-29] MEDS ORDERED: Triple Antibiotic 0.94 gm Pkt TP ONE ×2 (23:39→23:44)
[2018-05-29] MEDS ORDERED: HYDROmorphone 2 mg/mL 1mL Vial ONE (23:41)
[2018-05-29 23:53] LABS: BASOPHILE ABSOLUTE 0.1 Th/cumm (0-0.2); HEMATOCRIT 24.5 % (41.0-60); HEMOGLOBIN 8.1 gm/dL (12-16); LYMPHOCYTE ABSOLUTE 4.5 Th/cmm (1.5-3.0); MONOCYTE ABSOLUTE 2.4 Th/cmm (0.3-1.0); NEUTROPHILE ABSOLUTE 12.2 Th/cmm (1.8-8.0); RED CELL DISTRIBUTION WIDTH 15.9 % (11.5-20.0)
[2018-05-29 23:58] LABS: % BASOPHILS 0.4 % (0.0-2.0); % EOSINOPHILS 3.2 % (0.0-5.0); % LYMPHOCYTES 22.6 % (20.0-50.0); % MONOCYTES 12.3 % (2.0-10.0); % NEUTROPHILS 61.5 % (40.0-80.0); EOSINOPHILE ABSOLUTE 0.6 Th/cmm (0.1-0.4); MEAN CELL VOLUME 92.8 fl (81-100); MEAN CORPUSCULAR HEMOGLOBIN 30.8 pg (27.0-31.0); MEAN CORPUSCULAR HGB CONC 33.2 pg (28.0-36.0); MEAN PLATELET VOLUME 6.7 fl; PLATELET COUNT 414 Th/cmm (150-400); RED BLOOD COUNT 2.64 Mil/cmm (3.80-5.10)
[2018-05-29 23:59] LABS: WHITE BLOOD COUNT 19.8 Th/cmm (4.8-10.8)
[2018-05-30] MEDS ORDERED: HYDROmorphone 1 mg/mL 1mL Syr IVP ONE
[2018-05-30 00:06] LABS: INR 0.97 (0.5-1.4); PROTHROMBIN TIME (TEST) 10.1 SECONDS (9.5-11.5)
[2018-05-30] MEDS ORDERED: Norepinephrine 4 mg/4mL Vial IV ONE (01:06)
[2018-05-30 02:34] LABS: PaCO2 46.5 mmHg (35.0-45.0); PaO2 123.7 mmHg (80.0-100.0); pH 7.41 (7.35-7.45)
[2018-05-30 02:35] LABS: ALLEN TEST Positive
[2018-05-30] MEDS: Albuterol/Ipratropium Neb 3 ML AERS HHN SCH ×4 (03:05→19:22)
[2018-05-30] MEDS: Sodium Chloride 0.9% 1,000 ML IV SCH (05:46)
[2018-05-30 06:24] LABS: MEAN CELL VOLUME 92.1 fl (81-100); MEAN CORPUSCULAR HEMOGLOBIN 30.3 pg (27.0-31.0); MEAN CORPUSCULAR HGB CONC 32.8 pg (28.0-36.0); MEAN PLATELET VOLUME 6.6 fl; PLATELET COUNT 340 Th/cmm (150-400); RED BLOOD COUNT 2.24 Mil/cmm (3.80-5.10); RED CELL DISTRIBUTION WIDTH 15.7 % (11.5-20.0)
[2018-05-30 06:32] LABS: HEMOGLOBIN 6.8 gm/dL (12-16); WHITE BLOOD COUNT 17.3 Th/cmm (4.8-10.8)
[2018-05-30 06:33] LABS: HEMATOCRIT 20.6 % (41.0-60)
[2018-05-30 06:36] LABS: ALB/GLOB RATIO 0.9 (1.0-1.8); ALBUMIN 2.7 gm/dL (3.7-5.3); ALKALINE PHOSPHATASE 47 U/L (34-104); ANION GAP 10.4 (7.0-16.0); BILIRUBIN,TOTAL 0.3 mg/dL (0.3-1.0); BUN - UREA NITROGEN 22 mg/dL (7-25); CALCIUM SERUM 8.2 mg/dL (8.6-10.3); CARBON DIOXIDE 29.2 mEq/L (21.0-31.0); CHLORIDE 99 mEq/L (98-107); CREATININE - SERUM 0.8 mg/dL (0.6-1.2); GFR AFRICAN-AMERICAN > 60.0 ml/min (>90); GFR NON AFRICAN-AMERICAN > 60.0 ml/min; GLUCOSE 166 mg/dL (70-105); POTASSIUM SERUM 3.6 mEq/L (3.5-5.1); SGOT 24 U/L (13-39); SGPT/ALT 14 U/L (7-52); SODIUM SERUM 135 mEq/L (136-145); TOTAL PROTEIN,SERUM 5.8 gm/dL (6.0-8.3)
[2018-05-30 07:39] LABS: BAND NEUTROPHILE 11 % (0-10); BASOPHIL 0 % (0-3); EOSINOPHIL 3 % (0-5); LYMPHOCYTE 3 % (20-50); MONOCYTE 11 % (2-10); NEUTROPHILS 72 % (40-80); PLATELET ESTIMATE ADEQUATE (NORMAL)
[2018-05-30 07:40] LABS: ANISOCYTOSIS 1+; POIKILOCYTOSIS 1+; POLYCHROMASIA 1+; STOMATOCYTE 2+; TARGET CELLS 1+
[2018-05-30] MEDS ORDERED: Chlorhexidine Gluconate 0.12% 15mL Mouthwash MM SCH (08:00)
[2018-05-30] MEDS: Chlorhexidine Gluconate 0.12% 15mL Mouthwash MM SCH ×2 (08:00→20:03)
--- NOTE | 2018-05-30 08:59 | Consultation ---
DATE OF CONSULTATION: 05/29/2018 INFECTIOUS DISEASE CONSULTATION REFERRING PHYSICIAN: Dr. Stone. REASON FOR CONSULTATION: Fever, sepsis. HISTORY OF PRESENT ILLNESS: The patient is a 47-year-old female with a past medical history of brain tumor status post surgery in her childhood, G-tube dependent, morbid obesity, decubitus sacral ulcers, COPD, seizure disorder, admitted to the hospital for fever and abnormal lab. Details are not available. On initial evaluation, her temperature was 98.3 degrees Fahrenheit and WBC count was 16,800. Sepsis workup was performed and ID consult was called for antibiotic management. The patient had received cefepime in the ER. I was called and I started the patient on Zosyn. On initial evaluation, the patient's WBC count was 16,800. Chest x-ray showed no acute abnormalities and urinalysis showed mild pyuria and bacteria. Today around midnight, the patient developed a severe nasal bleeding. Her saturation dropped, rapid response team was called and intubation tried. Because of her abnormal anatomy, oral intubation failed. As there was urgent need of airway protection, tracheostomy was performed and trach tube was placed in. Her oxygen saturation has improved. However, she continues to have nasal bleed. PAST MEDICAL HISTORY: Includes brain tumor in childhood, COPD, seizure disorder, sepsis and recurrent pneumonia, respiratory failure, obesity, dysphagia, psychotic episodes, acute on chronic systolic versus diastolic heart failure. ALLERGIES: NKDA. MEDICATIONS: As per medication reconciliation sheet. Antibiotic whitehead, the patient receiving Zosyn and Levaquin. REVIEW OF SYSTEMS: The patient is unable to give any history. As per the record, the patient has the fever. GENERAL: The patient had a fever, no chills, no weakness, no diaphoresis. No edema. No loss of appetite. HEENT: No diplopia, no photophobia. The patient has active nasal bleeding. RESPIRATORY: The patient had desaturation today, went into respiratory failure. CARDIOVASCULAR: No chest pain, no palpitation. GASTROINTESTINAL: No nausea, no vomiting, no diarrhea, no constipation. GENITOURINARY: The patient has no dysuria, no hematuria. MUSCULOSKELETAL: No muscle pain, no joint pain. NEUROLOGIC: The patient is sedated. FAMILY HISTORY: Unknown. TRAVEL HISTORY: None. SOCIAL HISTORY: The patient lives at nursing facility. No history of smoking, alcohol or drug use. PHYSICAL EXAMINATION: CURRENT VITAL SIGNS: Shows temperature is 97.2 degrees Fahrenheit, pulse 102, respirations 23, blood pressure is 150/88. GENERAL: The patient is female with a short stature, bed bound. HEENT: Head is normocephalic, Cushingoid facies. EYES: No pallor, no icterus. Pupils PERRLA. Oral cavity moist, pink tongue. NOSE: The patient has active nasal bleeding. The patient has a right-sided Rhino Rocket placed in. NECK: The patient has tracheostomy wound with a tracheostomy in place, on the ventilator. CHEST: Bilateral breath sounds. No crackles or wheezing. HEART: S1, S2 within normal limits. Regular rhythm. No murmur, no gallop. ABDOMEN: Soft, nontender, nondistended. Bowel sounds present. G-tube site is clear. EXTREMITIES: No cyanosis, no clubbing, no edema. NEUROLOGICAL: Sedated. LABORATORY DATA: Current lab shows WBC count is 19,800, hemoglobin 8.1, hematocrit 24.5, platelets are 414,000, neutrophils 61.5%. INR is 0.97. Sodium is 131, potassium 4.3, chloride 91, bicarbonate is 34.5, BUN is 25, creatinine 0.7, glucose is 127. Urinalysis showed a small leukoesterase, wbc's 6-10, and moderate bacteria. Toxicology screen is negative. Valproic is 79.6. Chest x-ray showed right-sided PICC line in the superior vena at the juncture of the right atrium. Early infiltrate cannot be excluded. Blood culture 2 sets are negative. IMPRESSION: 1. Leukocytosis, might have sepsis. 2. Urinary tract infection. 3. Aspiration pneumonia versus nosocomial pneumonia. 4. Respiratory failure, required emergency tracheostomy and vent support. 5. Seizure disorder. 6. Epistaxis. 7. Mentally challenged. 8. History of brain tumor since childhood. 9. Obesity. RECOMMENDATIONS: We will continue Zosyn and Levaquin. Add vancomycin. The patient may need a surgical consultation and may require higher level of care for ENT evaluation. The patient's condition is critical. Prognosis is poor. Thank you, Dr. Stone for involving me in taking care of this patient. JOB# [id number] [facility]
[2018-05-30] MEDS: Therahoney Gel 42.5gm Tube TP SCH (09:00)
--- NOTE | 2018-05-30 09:14 | Diagnostic Imaging Report ---
Portable chest x-ray HISTORY: Endotracheal tube placement Compared with the prior exam of 05/30/2018, an endotracheal tube tip remains just into the proximal portion of the right main bronchus. This should be pulled back approximately 2-3 cm. Heterogeneous parenchymal density noted in the left lower lobe. Findings suggest pneumonia. IMPRESSION: 1. Endotracheal tube tip remains just into the proximalmost portion of the right main bronchus. This should be pulled back approximately 2-3 cm 2. Heterogeneous density left lower lobe. Findings consistent with pneumonia. Clinical correlation needed.
[2018-05-30] MEDS: Atorvastatin Calcium 10 MG TAB GT SCH (09:20)
[2018-05-30] MEDS: Docusate Sodium 100 mg/10 mL UD GT SCH ×2 (09:20→18:16)
[2018-05-30] MEDS: Multivitamin w/ Minerals Tab GT SCH (09:20)
--- NOTE | 2018-05-30 09:21 | Diagnostic Imaging Report ---
Exam: Portable chest x-ray HISTORY: Intubation. Findings: Portable summation of the chest at 0109 reviewed the study compared to prior examination of the to 1019 demonstrates endotracheal tube entering the right mainstem bronchus, pulled back 3 cm. Evidence for a right basilar infiltrate. Left basilar consolidation pneumonia with effusion appreciated. The heart is enlarged. Right-sided PICC line terminates in superior vena cava. Bony thorax is intact. IMPRESSION: endotracheal tube entering right mainstem bronchus. Pullback 3 cm. Left basilar consolidation pneumonia with effusion. Mild right basilar infiltrate.
[2018-05-30] MEDS: Enoxaparin 40 mg/0.4 mL 0.4mL Syr SUBQ SCH (09:22)
[2018-05-30] MEDS: Levetiracetam 500 mg/5mL 5mL UDSyr *for ORAL USE ONLY GT SCH ×2 (09:22→18:16)
[2018-05-30 09:35] LABS: PaCO2 50.2 mmHg (35.0-45.0); PaO2 62.5 mmHg (80.0-100.0); pH 7.37 (7.35-7.45)
[2018-05-30 09:36] LABS: ALLEN TEST PASS
[2018-05-30] MEDS: Levofloxacin 500mg/100mL 500 MG/100 ML BAG IV SCH (09:45)
[2018-05-30] MEDS ORDERED: Probiotic Screen MC PRN (14:30)
--- NOTE | 2018-05-30 16:18 | Internal Medicine Prog Note ---
Internal Medicine Subjective - Subjective Service Date: 05/30/18 Patient is:: awake, verbal Patient Complaints of:: cough, SOB Per staff patient has:: no adverse event Internal Medicine Objective - Results Result Diagrams: 05/30/18 05:55 05/30/18 05:55 Recent Labs: Laboratory Last Values WBC 17.3 Th/cmm (4.8-10.8) H 05/30/18 05:55 RBC 2.24 Mil/cmm (3.80-5.10) L 05/30/18 05:55 Hgb 6.8 gm/dL (12-16) L* 05/30/18 05:55 Hct 20.6 % (41.0-60) L* 05/30/18 05:55 MCV 92.1 fl (81-100) 05/30/18 05:55 MCH 30.3 pg (27.0-31.0) 05/30/18 05:55 MCHC Differential 32.8 pg (28.0-36.0) 05/30/18 05:55 RDW 15.7 % (11.5-20.0) 05/30/18 05:55 Plt Count 340 Th/cmm (150-400) 05/30/18 05:55 MPV 6.6 fl 05/30/18 05:55 Add Manual Diff YES 05/30/18 05:55 Neutrophils % 61.5 % (40.0-80.0) 05/29/18 23:50 Band Neutrophils % 11 % (0-10) H 05/30/18 05:55 Lymphocytes % 22.6 % (20.0-50.0) 05/29/18 23:50 Monocytes % 12.3 % (2.0-10.0) H 05/29/18 23:50 Eosinophils % 3.2 % (0.0-5.0) 05/29/18 23:50 Basophils % 0.4 % (0.0-2.0) 05/29/18 23:50 Neutrophils (Manual) 72 % (40-80) 05/30/18 05:55 Lymphocytes 3 % (20-50) L 05/30/18 05:55 Monocytes 11 % (2-10) H 05/30/18 05:55 Eosinophils 3 % (0-5) 05/30/18 05:55 Basophils 0 % (0-3) 05/30/18 05:55 Platelet Estimate ADEQUATE (NORMAL) 05/30/18 05:55 Polychromasia 1+ 05/30/18 05:55 Poikilocytosis 1+ 05/30/18 05:55 Anisocytosis 1+ 05/30/18 05:55 Target Cells 1+ 05/30/18 05:55 Stomatocytes 2+ 05/30/18 05:55 PT 10.1 SECONDS (9.5-11.5) 05/29/18 23:50 INR 0.97 (0.5-1.4) 05/29/18 23:50 PTT (Actin FS) 23.2 SECONDS (26.0-38.0) L 05/30/18 05:55 Specimen Source Arterial 05/30/18 09:10 Sample Site Right Radial 05/30/18 09:10 pH 7.37 (7.35-7.45) 05/30/18 09:10 pCO2 50.2 mmHg (35.0-45.0) H 05/30/18 09:10 pO2 62.5 mmHg (80.0-100.0) L 05/30/18 09:10 HCO3 28.2 mEq/L (20.0-26.0) H 05/30/18 09:10 Base Excess 1.9 mEq/L (-3.0-3.0) 05/30/18 09:10 O2 Saturation 91.0 % (92.0-100.0) L 05/30/18 09:10 Gerald Test PASS 05/30/18 09:10 Vent Rate 16 05/30/18 09:10 Inspired O2 35 05/30/18 09:10 Tidal Volume 450 05/30/18 09:10 PEEP racing secretary and handicapper 05/30/18 09:10 Pressure (ins/psv/peep) racing secretary and handicapper 05/30/18 09:10 Critical Value pw 05/30/18 09:10 Sodium 135 mEq/L (136-145) L 05/30/18 05:55 Potassium 3.6 mEq/L (3.5-5.1) 05/30/18 05:55 Chloride 99 mEq/L (98-107) 05/30/18 05:55 Carbon Dioxide 29.2 mEq/L (21.0-31.0) 05/30/18 05:55 Anion Gap 10.4 (7.0-16.0) 05/30/18 05:55 BUN 22 mg/dL (7-25) 05/30/18 05:55 Creatinine 0.8 mg/dL (0.6-1.2) 05/30/18 05:55 Est GFR ( Amer) > 60.0 ml/min (>90) 05/30/18 05:55 Est GFR (Non-Af Amer) > 60.0 ml/min 05/30/18 05:55 BUN/Creatinine Ratio 27.5 05/30/18 05:55 Glucose 166 mg/dL (70-105) H 05/30/18 05:55 Whole Bld Lactic Acid 1.00 mmol/L (0.60-1.99) 05/28/18 15:34 Calcium 8.2 mg/dL (8.6-10.3) L 05/30/18 05:55 Phosphorus 2.6 mg/dL (2.5-5.0) 05/28/18 13:25 Magnesium 2.4 mg/dL (1.9-2.7) 05/28/18 13:25 Total Bilirubin 0.3 mg/dL (0.3-1.0) 05/30/18 05:55 AST 24 U/L (13-39) 05/30/18 05:55 ALT 14 U/L (7-52) 05/30/18 05:55 Alkaline Phosphatase 47 U/L (34-104) 05/30/18 05:55 Troponin I 0.01 ng/mL (0.01-0.05) 05/28/18 13:25 B-Natriuretic Peptide 33.5 pg/mL (5.0-100.0) 05/29/18 04:50 Total Protein 5.8 gm/dL (6.0-8.3) L 05/30/18 05:55 Albumin 2.7 gm/dL (3.7-5.3) L 05/30/18 05:55 Globulin 3.1 gm/dL 05/30/18 05:55 Albumin/Globulin Ratio 0.9 (1.0-1.8) L 05/30/18 05:55 TSH 2.22 uIU/ml (0.34-5.60) 05/28/18 13:25 Serum , Qual NEGATIVE (NEGATIVE) 05/28/18 13:25 Urine Source CATH 05/28/18 14:41 Urine Color YELLOW 05/28/18 14:41 Urine Clarity HAZY (CLEAR) 05/28/18 14:41 Urine pH 6.5 (4.6 - 8.0) 05/28/18 14:41 Ur Specific [place] 1.015 (1.005-1.030) 05/28/18 14:41 Urine Protein 100 mg/dL (NEGATIVE) H 05/28/18 14:41 Urine Glucose (UA) 250 mg/dL (NEGATIVE) H 05/28/18 14:41 Urine Ketones NEGATIVE mg/dL (NEGATIVE) 05/28/18 14:41 Urine Blood NEGATIVE (NEGATIVE) 05/28/18 14:41 Urine Nitrate NEGATIVE (NEGATIVE) 05/28/18 14:41 Urine Bilirubin NEGATIVE (NEGATIVE) 05/28/18 14:41 Urine Urobilinogen 0.2 E.U./dL (0.2 - 1.0) 05/28/18 14:41 Ur Leukocyte Esterase SMALL (NEGATIVE) H 05/28/18 14:41 Urine RBC NONE SEEN /hpf (0-5) 05/28/18 14:41 Urine WBC 6-10 /hpf (0-5) H 05/28/18 14:41 Ur Epithelial Cells FEW /lpf (FEW) 05/28/18 14:41 Urine Bacteria MODERATE /hpf (NONE SEEN) H 05/28/18 14:41 Urine Opiates Screen NEGATIVE (NEGATIVE) 05/28/18 14:41 Urine Methadone Screen NEGATIVE (NEGATIVE) 05/28/18 14:41 Ur Barbiturates Screen NEGATIVE (NEGATIVE) 05/28/18 14:41 Valproic Acid 79.6 ug/mL (50.0-100.0) 05/28/18 13:25 Ur Tricyclics Screen NEGATIVE (NEGATIVE) 05/28/18 14:41 Ur Phencyclidine Scrn NEGATIVE (NEGATIVE) 05/28/18 14:41 Amphetamines Screen NEGATIVE (NEGATIVE) 05/28/18 14:41 U Methamphetamines Scrn NEGATIVE (NEGATIVE) 05/28/18 14:41 U Benzodiazepines Scrn NEGATIVE (NEGATIVE) 05/28/18 14:41 U Cocaine Metab Screen NEGATIVE (NEGATIVE) 05/28/18 14:41 U Cannabinoids Screen NEGATIVE (NEGATIVE) 05/28/18 14:41 Blood Type O POSITIVE 05/30/18 07:30 Antibody Screen NEGATIVE 05/30/18 07:30 Crossmatch See Detail 05/30/18 07:30 - Physical Exam Vitals and I&O: Vital Signs Temp 99.3 F 05/30/18 15:00 Pulse 102 05/30/18 15:45 Resp 16 05/30/18 15:00 BP 118/43 05/30/18 15:45 Pulse Ox 99 05/30/18 15:00 Intake & Output 05/29/18 05/30/18 05/30/18 18:59 06:59 18:59 Intake Total 300 561.976 542.024 Output Total 600 Balance 300 -38.024 542.024 Weight (lbs) 197 lb 216 lb 8 oz Intake: Intake, IV Amount 300 261.976 542.024 Levofloxacin 500mg/100mL 100 500 mg In 100 ml @ 100 mls/hr IV Q24HR COUNTS INCLUDE 234 BEDS AT THE [facility] Rx#: [id number] Norepinephrine 4 mg In 61.976 192.024 Dextrose 5% 250 ml @ 10 MCG/MIN 38.1 mls/hr IV TITR PRN Rx#:[id number] Piperacillin Sodium/ 200 200 100 Tazobact 4.5 gm In Sodium Chloride 0.9% 100 ml @ 100 mls/hr IV Q8HR COUNTS INCLUDE 234 BEDS AT THE [facility] Rx #:[id number] Vancomycin HCl 1.25 gm In 250 Sodium Chloride 0.9% 250 ml @ 165 mls/hr IV Q12HR COUNTS INCLUDE 234 BEDS AT THE [facility] Rx#:[id number] Oral 0 Tube Feeding 300 Output: Urine 600 Other: # Voids 1 # Bowel Movements 1 Stool Characteristics Soft Soft Formed Liquid Weight Source Bedscale Bedscale Active Medications: Current Medications Acetaminophen (Tylenol 650mg/20.3ml Suspension) 650 mg GT Q4HR PRN PRN Reason: Pain or Fever >101 Stop: 07/27/18 22:04 Albuterol/Ipratropium (Duoneb Neb) 3 ml HHN Q2H PRN PRN Reason: Shortness of Breath Stop: 07/27/18 22:04 Albuterol/Ipratropium (Duoneb Neb) 3 ml HHN Q6HRT COUNTS INCLUDE 234 BEDS AT THE [facility] Stop: 07/28/18 00:00 Last Admin: 05/30/18 13:06 Dose: 3 ml Atorvastatin Calcium (Lipitor) 10 mg GT DAILY COUNTS INCLUDE 234 BEDS AT THE [facility]; Protocol Stop: 07/28/18 08:59 Last Admin: 05/30/18 09:20 Dose: 10 mg Bisacodyl (Dulcolax 10 Mg Supp) 10 mg RC DAILY PRN PRN Reason: bowel management Stop: 07/27/18 22:04 Chlorhexidine Gluconate (Peridex) 15 ml MM 0800,2000 COUNTS INCLUDE 234 BEDS AT THE [facility] Stop: 07/29/18 07:59 Last Admin: 05/30/18 08:00 Dose: 15 ml Docusate Sodium (Colace) 200 mg GT BID COUNTS INCLUDE 234 BEDS AT THE [facility] Stop: 07/28/18 08:59 Last Admin: 05/30/18 09:20 Dose: 200 mg Enoxaparin Sodium (Lovenox) 40 mg SUBQ DAILY COUNTS INCLUDE 234 BEDS AT THE [facility] Stop: 07/28/18 08:59 Last Admin: 05/30/18 09:22 Dose: 40 mg Hydromorphone HCl (Dilaudid) 0.5 mg IVP Q4HR PRN PRN Reason: Pain (Moderate) Stop: 07/29/18 01:03 Levofloxacin (Levaquin Pb) 500 mg in 100 mls @ 100 mls/hr IV Q24HR COUNTS INCLUDE 234 BEDS AT THE [facility] Stop: 07/28/18 08:59 Last Admin: 05/30/18 09:45 Dose: 100 mls/hr Piperacillin Sod/Tazobactam (Sod 4.5 gm/ Sodium Chloride) 100 mls @ 100 mls/hr IV Q8HR COUNTS INCLUDE 234 BEDS AT THE [facility] Stop: 07/27/18 22:44 Last Infusion: 05/30/18 15:46 Dose: Infused Sodium Chloride (Nacl 0.9%) 1,000 mls @ 50 mls/hr IV .Q20H COUNTS INCLUDE 234 BEDS AT THE [facility] Stop: 07/28/18 08:44 Last Admin: 05/30/18 05:46 Dose: Not Given Norepinephrine Bitartrate 4 mg (/ Dextrose) 254 mls @ 38.1 mls/hr IV TITR PRN; Protocol PRN Reason: BP MAINTENANCE (PER PROTOCOL) Stop: 07/29/18 00:50 Last Admin: 05/30/18 12:45 Dose: 6 mcg/min, 22.86 mls/hr Propofol (Diprivan) 1,000 mg in 100 mls @ 10.614 mls/hr IV TITR COUNTS INCLUDE 234 BEDS AT THE [facility]; Protocol Stop: 07/29/18 05:51 Last Admin: 05/30/18 12:17 Dose: 7 mcg/kg/min, 3.715 mls/hr Vancomycin HCl 1.25 gm/ Sodium (Chloride) 250 mls @ 165 mls/hr IV Q12HR MY Stop: 07/29/18 08:59 Last Infusion: 05/30/18 15:46 Dose: Infused Lacosamide (Vimpat) 100 mg GT Q12H MY Stop: 07/28/18 08:59 Last Admin: 05/30/18 09:20 Dose: 100 mg Lactobacillus Rhamnosus (Culturelle 15b) 1 each PO DAILY MY Stop: 07/30/18 08:59 Levetiracetam (Keppra) 750 mg GT BID MY Stop: 07/28/18 08:59 Last Admin: 05/30/18 09:22 Dose: 750 mg Lisinopril (Zestril) 10 mg GT DAILY MY Stop: 07/28/18 08:59 Last Admin: 05/30/18 09:29 Dose: Not Given Miscellaneous (Vancomycin Iv Per Pharmacy) 1 ea PRN MY Stop: 07/29/18 02:14 Miscellaneous (Probiotic Screen) 1 [facility] PRN PRN PRN Reason: PROTOCOL Stop: 07/29/18 14:29 Oxcarbazepine (Trileptal) 600 mg GT Q12H COUNTS INCLUDE 234 BEDS AT THE [facility]; Protocol Stop: 07/28/18 14:44 Last Admin: 05/30/18 15:36 Dose: 600 mg Pantoprazole Sodium (Protonix) 40 mg IVP DAILY MY Stop: 07/29/18 08:59 Last Admin: 05/30/18 09:22 Dose: 40 mg Wound Care/Dressing Products (Therahoney) 1 appl TP DAILY MY Stop: 07/29/18 08:59 Last Admin: 05/30/18 09:00 Dose: 1 appl General: congested, alert, obese HEENT: thinning hair Neck: Supple, No JVD Lungs: congested, other (cough with sputum.) Cardiovascular: Normal S1, Normal S2 Abdomen: other (g-tube present.) Extremities: edema Neurological: other (Hx of Seizures.) - Procedures Procedures: Procedures Procedure Code Date CHANGE FEEDING DEVICE IN UP INTEST TRACT, CARDIOVASCULAR TECHNICIAN APPROACH [id number] 04/17/17 RESPIRATORY VENTILATION, LESS THAN 24 CONSECUTIVE HOURS [id number] 05/28/18 Internal Medicine Assmt/Plan - Assessment Assessment: Right Upper and Mid lobe Pneumonia. Urinary Tract infection. Leukocytosis. Anemia. Low Chloride. Low Sodium. Dehydration. Posterior Occipital Decubitus. Morbid Obesity. History of Dysphagia/ G-tube dependent. History of Respiratory Distress. History of Copd. History of Seizure Disorder. History of Brain Tumor. - Plan Plan: continue vent support am labs ivabx as per id continue current plan of care Nutritional Asmnt/Malnutr-PDOC - Dietary Evaluation Malnutrition Findings (Please click <Entered> for more info): Nutritional Asmnt/Malnutrition Start: 05/29/18 14: 39 Text: Status: Complete Freq: Protocol: Document 05/29/18 14:39 LCHENG (Rec: 05/29/18 14:56 [id number]) Nutritional Asmnt/Malnutrition Patient General Information Nutritional Screening High Risk Consult Diagnosis leukocytosis, UTI, PNA Pertinent Medical Hx/Surgical Hx asthma/COPD, seizures, brain tumor, sepsis, recurrent PNA, recurrent resp failure, obesity, dysphagia, decubitus sacral ulcer, acute on chronic systolic versus diastolic heart faiure Subjective Information Consult received for marine 10 . Pt seen lying in bed at time of visit. Observed TF running at 40ml/hr at this time. Per nurse, pt tolerated TF well, no residual noted today. Spoke with SUSAN Blanco regarding current TF regimen not meeting nutritional needs. RN stated pt now has edema, will continue to monitor tolerance and ask MD to increase feeding hours. Current Diet Order/ Nutrition Support Jevity 1.2 at 40ml/hr x 20hr ~ 960kcal, 44g protein and 645ml H2O Pertinent Medications lipitor, colace, levaquin, piperacillin, nacl 0.9% Pertinent Labs 05/29 na 131, Cl 91, Glucsoe 127 Nutritional Hx/Data Height 4 ft 10 in Height (Calculated Centimeters) 147.3 Current Weight (lbs) 195 lb Weight (Calculated Kilograms) 88.5 Weight (Calculated Grams) 78863.5 Mica Body Weight 96 Body Mass Index (BMI) 40.7 Weight Status Obese GI Symptoms GI Symptoms None Last BM 05/29 Difficult in: None Skin Integrity/Comment: wound to right occipital area, erythema from IAD to buttocks per wound care note marine 10 non-pitting edema Estimated Nutritional Goals BEE in Kcals: Adj wt of IBW Calories/Kcals/Kg 25-30 adj wt 55kg Kcals Calculated 7412-7801 Protein: Adj wt of IBW Protein g/k-1.2 Protein Calculated 55-66 Fluid: ml per MD Nutritional Problem 1. Problem Problem inadequate intake from enteral feeding Etiology underfeeding Signs/Symptoms: current TF regimen meeting 70% of calorie needs and 80% of protein needs Malnutrition Alert Is there a minimum of two criteria No selected? Query Text:Check all the applicable criteria. A minimum of two criteria are recommended for diagnosis of either severe or non-severe malnutrition. Malnutrition Related to Morbid Obesity Malnutrition related to morbid obesity No Intervention/Recommendation Comments 1. Consider switch to TwoCal at 40ml/hr x 20hr to limit fluid volume and increase kcal intake. This will provide 1600kcal, 66g protein and 560ml water, which meeting 100 % of nutrition needs. 2. Monitor TF rate, tolerance, wt, skin integrity and labs 3. F/U as high risk in 2-3 days Expected Outcomes/Goals Expected Outcomes/Goals 1. PO intake to meet at least 75% of nutritional needs. 2. Wt stability, skin to remain intact, labs to approach WNL.
--- NOTE | 2018-05-30 16:57 | Infectious Disease Prog Note ---
Infectious Disease Subjective - Review of Systems Service Date: 05/30/18 Subjective: s/p trach on the ventilator. no fever,no more epistaxis. Infectious Disease Objective - Results Result Diagrams: 05/30/18 05:55 05/30/18 05:55 Recent Labs: Laboratory Last Values WBC 17.3 Th/cmm (4.8-10.8) H 05/30/18 05:55 RBC 2.24 Mil/cmm (3.80-5.10) L 05/30/18 05:55 Hgb 6.8 gm/dL (12-16) L* 05/30/18 05:55 Hct 20.6 % (41.0-60) L* 05/30/18 05:55 MCV 92.1 fl (81-100) 05/30/18 05:55 MCH 30.3 pg (27.0-31.0) 05/30/18 05:55 MCHC Differential 32.8 pg (28.0-36.0) 05/30/18 05:55 RDW 15.7 % (11.5-20.0) 05/30/18 05:55 Plt Count 340 Th/cmm (150-400) 05/30/18 05:55 MPV 6.6 fl 05/30/18 05:55 Add Manual Diff YES 05/30/18 05:55 Neutrophils % 61.5 % (40.0-80.0) 05/29/18 23:50 Band Neutrophils % 11 % (0-10) H 05/30/18 05:55 Lymphocytes % 22.6 % (20.0-50.0) 05/29/18 23:50 Monocytes % 12.3 % (2.0-10.0) H 05/29/18 23:50 Eosinophils % 3.2 % (0.0-5.0) 05/29/18 23:50 Basophils % 0.4 % (0.0-2.0) 05/29/18 23:50 Neutrophils (Manual) 72 % (40-80) 05/30/18 05:55 Lymphocytes 3 % (20-50) L 05/30/18 05:55 Monocytes 11 % (2-10) H 05/30/18 05:55 Eosinophils 3 % (0-5) 05/30/18 05:55 Basophils 0 % (0-3) 05/30/18 05:55 Platelet Estimate ADEQUATE (NORMAL) 05/30/18 05:55 Polychromasia 1+ 05/30/18 05:55 Poikilocytosis 1+ 05/30/18 05:55 Anisocytosis 1+ 05/30/18 05:55 Target Cells 1+ 05/30/18 05:55 Stomatocytes 2+ 05/30/18 05:55 PT 10.1 SECONDS (9.5-11.5) 05/29/18 23:50 INR 0.97 (0.5-1.4) 05/29/18 23:50 PTT (Actin FS) 23.2 SECONDS (26.0-38.0) L 05/30/18 05:55 Specimen Source Arterial 05/30/18 09:10 Sample Site Right Radial 05/30/18 09:10 pH 7.37 (7.35-7.45) 05/30/18 09:10 pCO2 50.2 mmHg (35.0-45.0) H 05/30/18 09:10 pO2 62.5 mmHg (80.0-100.0) L 05/30/18 09:10 HCO3 28.2 mEq/L (20.0-26.0) H 05/30/18 09:10 Base Excess 1.9 mEq/L (-3.0-3.0) 05/30/18 09:10 O2 Saturation 91.0 % (92.0-100.0) L 05/30/18 09:10 Gerald Test PASS 05/30/18 09:10 Vent Rate 16 05/30/18 09:10 Inspired O2 35 05/30/18 09:10 Tidal Volume 450 05/30/18 09:10 PEEP nursing clinical director 05/30/18 09:10 Pressure (ins/psv/peep) nursing clinical director 05/30/18 09:10 Critical Value pw 05/30/18 09:10 Sodium 135 mEq/L (136-145) L 05/30/18 05:55 Potassium 3.6 mEq/L (3.5-5.1) 05/30/18 05:55 Chloride 99 mEq/L (98-107) 05/30/18 05:55 Carbon Dioxide 29.2 mEq/L (21.0-31.0) 05/30/18 05:55 Anion Gap 10.4 (7.0-16.0) 05/30/18 05:55 BUN 22 mg/dL (7-25) 05/30/18 05:55 Creatinine 0.8 mg/dL (0.6-1.2) 05/30/18 05:55 Est GFR ( Amer) > 60.0 ml/min (>90) 05/30/18 05:55 Est GFR (Non-Af Amer) > 60.0 ml/min 05/30/18 05:55 BUN/Creatinine Ratio 27.5 05/30/18 05:55 Glucose 166 mg/dL (70-105) H 05/30/18 05:55 Whole Bld Lactic Acid 1.00 mmol/L (0.60-1.99) 05/28/18 15:34 Calcium 8.2 mg/dL (8.6-10.3) L 05/30/18 05:55 Phosphorus 2.6 mg/dL (2.5-5.0) 05/28/18 13:25 Magnesium 2.4 mg/dL (1.9-2.7) 05/28/18 13:25 Total Bilirubin 0.3 mg/dL (0.3-1.0) 05/30/18 05:55 AST 24 U/L (13-39) 05/30/18 05:55 ALT 14 U/L (7-52) 05/30/18 05:55 Alkaline Phosphatase 47 U/L (34-104) 05/30/18 05:55 Troponin I 0.01 ng/mL (0.01-0.05) 05/28/18 13:25 B-Natriuretic Peptide 33.5 pg/mL (5.0-100.0) 05/29/18 04:50 Total Protein 5.8 gm/dL (6.0-8.3) L 05/30/18 05:55 Albumin 2.7 gm/dL (3.7-5.3) L 05/30/18 05:55 Globulin 3.1 gm/dL 05/30/18 05:55 Albumin/Globulin Ratio 0.9 (1.0-1.8) L 05/30/18 05:55 TSH 2.22 uIU/ml (0.34-5.60) 05/28/18 13:25 Serum , Qual NEGATIVE (NEGATIVE) 05/28/18 13:25 Urine Source CATH 05/28/18 14:41 Urine Color YELLOW 05/28/18 14:41 Urine Clarity HAZY (CLEAR) 05/28/18 14:41 Urine pH 6.5 (4.6 - 8.0) 05/28/18 14:41 Ur Specific [place] 1.015 (1.005-1.030) 05/28/18 14:41 Urine Protein 100 mg/dL (NEGATIVE) H 05/28/18 14:41 Urine Glucose (UA) 250 mg/dL (NEGATIVE) H 05/28/18 14:41 Urine Ketones NEGATIVE mg/dL (NEGATIVE) 05/28/18 14:41 Urine Blood NEGATIVE (NEGATIVE) 05/28/18 14:41 Urine Nitrate NEGATIVE (NEGATIVE) 05/28/18 14:41 Urine Bilirubin NEGATIVE (NEGATIVE) 05/28/18 14:41 Urine Urobilinogen 0.2 E.U./dL (0.2 - 1.0) 05/28/18 14:41 Ur Leukocyte Esterase SMALL (NEGATIVE) H 05/28/18 14:41 Urine RBC NONE SEEN /hpf (0-5) 05/28/18 14:41 Urine WBC 6-10 /hpf (0-5) H 05/28/18 14:41 Ur Epithelial Cells FEW /lpf (FEW) 05/28/18 14:41 Urine Bacteria MODERATE /hpf (NONE SEEN) H 05/28/18 14:41 Urine Opiates Screen NEGATIVE (NEGATIVE) 05/28/18 14:41 Urine Methadone Screen NEGATIVE (NEGATIVE) 05/28/18 14:41 Ur Barbiturates Screen NEGATIVE (NEGATIVE) 05/28/18 14:41 Valproic Acid 79.6 ug/mL (50.0-100.0) 05/28/18 13:25 Ur Tricyclics Screen NEGATIVE (NEGATIVE) 05/28/18 14:41 Ur Phencyclidine Scrn NEGATIVE (NEGATIVE) 05/28/18 14:41 Amphetamines Screen NEGATIVE (NEGATIVE) 05/28/18 14:41 U Methamphetamines Scrn NEGATIVE (NEGATIVE) 05/28/18 14:41 U Benzodiazepines Scrn NEGATIVE (NEGATIVE) 05/28/18 14:41 U Cocaine Metab Screen NEGATIVE (NEGATIVE) 05/28/18 14:41 U Cannabinoids Screen NEGATIVE (NEGATIVE) 02/10/19 14:41 Blood Type O POSITIVE 05/30/18 07:30 Antibody Screen NEGATIVE 05/30/18 07:30 Crossmatch See Detail 05/30/18 07:30 - Physical Exam Vitals and I&O: Vital Signs Temp 99.3 F 05/30/18 15:00 Pulse 102 05/30/18 15:45 Resp 16 05/30/18 15:00 BP 118/43 05/30/18 15:45 Pulse Ox 99 05/30/18 15:00 Intake & Output 05/29/18 05/30/18 05/30/18 18:59 06:59 18:59 Intake Total 300 561.976 542.024 Output Total 600 Balance 300 -38.024 542.024 Weight (lbs) 89.358 kg 98.203 kg Intake: Intake, IV Amount 300 261.976 542.024 Levofloxacin 500mg/100mL 100 500 mg In 100 ml @ 100 mls/hr IV Q24HR [facility] Rx#: [id number] Norepinephrine 4 mg In 61.976 192.024 Dextrose 5% 250 ml @ 10 MCG/MIN 38.1 mls/hr IV TITR PRN Rx#:[id number] Piperacillin Sodium/ 200 200 100 Tazobact 4.5 gm In Sodium Chloride 0.9% 100 ml @ 100 mls/hr IV Q8HR [facility] Rx #:[id number] Vancomycin HCl 1.25 gm In 250 Sodium Chloride 0.9% 250 ml @ 165 mls/hr IV Q12HR [facility] Rx#:[id number] Oral 0 Tube Feeding 300 Output: Urine 600 Other: # Voids 1 # Bowel Movements 1 Stool Characteristics Soft Soft Formed Liquid Weight Source Bedscale Bedscale Active Medications: Current Medications Acetaminophen (Tylenol 650mg/20.3ml Suspension) 650 mg GT Q4HR PRN PRN Reason: Pain or Fever >101 Stop: 07/27/18 22:04 Albuterol/Ipratropium (Duoneb Neb) 3 ml HHN Q2H PRN PRN Reason: Shortness of Breath Stop: 07/27/18 22:04 Albuterol/Ipratropium (Duoneb Neb) 3 ml HHN Q6HRT [facility] Stop: 07/28/18 00:00 Last Admin: 05/30/18 13:06 Dose: 3 ml Atorvastatin Calcium (Lipitor) 10 mg GT DAILY [facility]; Protocol Stop: 07/28/18 08:59 Last Admin: 05/30/18 09:20 Dose: 10 mg Bisacodyl (Dulcolax 10 Mg Supp) 10 mg RC DAILY PRN PRN Reason: bowel management Stop: 07/27/18 22:04 Chlorhexidine Gluconate (Peridex) 15 ml MM 0800,2000 [facility] Stop: 07/29/18 07:59 Last Admin: 05/30/18 08:00 Dose: 15 ml Docusate Sodium (Colace) 200 mg GT BID [facility] Stop: 07/28/18 08:59 Last Admin: 05/30/18 09:20 Dose: 200 mg Hydromorphone HCl (Dilaudid) 0.5 mg IVP Q4HR PRN PRN Reason: Pain (Moderate) Stop: 07/29/18 01:03 Levofloxacin (Levaquin Pb) 500 mg in 100 mls @ 100 mls/hr IV Q24HR [facility] Stop: 07/28/18 08:59 Last Admin: 05/30/18 09:45 Dose: 100 mls/hr Piperacillin Sod/Tazobactam (Sod 4.5 gm/ Sodium Chloride) 100 mls @ 100 mls/hr IV Q8HR [facility] Stop: 07/27/18 22:44 Last Infusion: 05/30/18 15:46 Dose: Infused Sodium Chloride (Nacl 0.9%) 1,000 mls @ 50 mls/hr IV .Q20H [facility] Stop: 07/28/18 08:44 Last Admin: 05/30/18 05:46 Dose: Not Given Norepinephrine Bitartrate 4 mg (/ Dextrose) 254 mls @ 38.1 mls/hr IV TITR PRN; Protocol PRN Reason: BP MAINTENANCE (PER PROTOCOL) Stop: 07/29/18 00:50 Last Admin: 05/30/18 12:45 Dose: 6 mcg/min, 22.86 mls/hr Propofol (Diprivan) 1,000 mg in 100 mls @ 10.614 mls/hr IV TITR MY; Protocol Stop: 07/29/18 05:51 Last Admin: 05/30/18 12:17 Dose: 7 mcg/kg/min, 3.715 mls/hr Vancomycin HCl 1.25 gm/ Sodium (Chloride) 250 mls @ 165 mls/hr IV Q12HR MY Stop: 07/29/18 08:59 Last Infusion: 05/30/18 15:46 Dose: Infused Lacosamide (Vimpat) 100 mg GT Q12H MY Stop: 07/28/18 08:59 Last Admin: 05/30/18 09:20 Dose: 100 mg Lactobacillus Rhamnosus (Culturelle 15b) 1 each PO DAILY MY Stop: 07/30/18 08:59 Levetiracetam (Keppra) 750 mg GT BID MY Stop: 07/28/18 08:59 Last Admin: 05/30/18 09:22 Dose: 750 mg Lisinopril (Zestril) 10 mg GT DAILY MY Stop: 07/28/18 08:59 Last Admin: 05/30/18 09:29 Dose: Not Given Miscellaneous (Vancomycin Iv Per Pharmacy) 1 ea PRN MY Stop: 07/29/18 02:14 Miscellaneous (Probiotic Screen) 1 [facility] PRN PRN PRN Reason: PROTOCOL Stop: 07/29/18 14:29 Oxcarbazepine (Trileptal) 600 mg GT Q12H MY; Protocol Stop: 07/28/18 14:44 Last Admin: 05/30/18 15:36 Dose: 600 mg Pantoprazole Sodium (Protonix) 40 mg IVP DAILY MY Stop: 07/29/18 08:59 Last Admin: 05/30/18 09:22 Dose: 40 mg Wound Care/Dressing Products (Therahoney) 1 appl TP DAILY MY Stop: 07/29/18 08:59 Last Admin: 05/30/18 09:00 Dose: 1 appl General: no acute distress, well developed, well nourished HEENT: atraumatic, normocephalic, PERRLA, EOMI Neck: supple, tracheostomy, no thyromegaly Cardiovascular: S1S2, regular, no systolic murmur Lungs: clear to auscultation bilaterally, clear to percussion, wheeze Abdomen: soft, other (G tube i isreal), no tender, no distended Extremities: edema, other (right arm picc line), no cyanosis, no clubbing Neurological: other (ubnresponsive.) Skin: intact - Procedures Procedures: Procedures Procedure Code Date CHANGE FEEDING DEVICE IN UP INTEST TRACT, SAMPLER AND TEST PREPARER APPROACH [id number] 04/17/17 RESPIRATORY VENTILATION, LESS THAN 24 CONSECUTIVE HOURS [id number] 05/28/18 Infectious Disease Assmt/Plan - Assessment Assessment: 1. Leukocytosis, might have sepsis. 2. Urinary tract infection. 3. Aspiration pneumonia versus nosocomial pneumonia. 4. Respiratory failure, required emergency tracheostomy and vent support. 5. Seizure disorder. 6. Epistaxis. 7. Mentally challenged. 8. History of brain tumor since childhood. 9. Obesity. - Plan Plan: Continue vanco IV, Zosyn and levaquin. Nutritional Asmnt/Malnutr-PDOC - Dietary Evaluation Malnutrition Findings (Please click <Entered> for more info): Nutritional Asmnt/Malnutrition Start: 05/29/18 14: 39 Text: Status: Complete Freq: Protocol: Document 05/29/18 14:39 LCHENG (Rec: 05/29/18 14:56 LCHENG [email or web address]) Nutritional Asmnt/Malnutrition Patient General Information Nutritional Screening High Risk Consult Diagnosis leukocytosis, UTI, PNA Pertinent Medical Hx/Surgical Hx asthma/COPD, seizures, brain tumor, sepsis, recurrent PNA, recurrent resp failure, obesity, dysphagia, decubitus sacral ulcer, acute on chronic systolic versus diastolic heart faiure 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 Pt seen lying in bed at time of visit. Observed TF running at 40ml/hr at this time. Per nurse, pt tolerated TF well, no residual noted today. Spoke with SUSAN Blanco regarding current TF regimen not meeting nutritional needs. RN stated pt now has edema, will continue to monitor tolerance and ask MD to increase feeding hours. Current Diet Order/ Nutrition Support Jevity 1.2 at 40ml/hr x 20hr ~ 960kcal, 44g protein and 645ml H2O Pertinent Medications lipitor, colace, levaquin, piperacillin, nacl 0.9% Pertinent Labs 05/29 na 131, Cl 91, Glucsoe 127 Nutritional Hx/Data Height 1.47 m Height (Calculated Centimeters) 147.3 Current Weight (lbs) 88.451 kg Weight (Calculated Kilograms) 88.5 Weight (Calculated Grams) 25647.5 [place] Body Weight 96 Body Mass Index (BMI) 40.7 Weight Status Obese GI Symptoms GI Symptoms None Last BM 05/29 Difficult in: None Skin Integrity/Comment: wound to right occipital area, erythema from IAD to buttocks per wound care note marine 10 non-pitting edema Estimated Nutritional Goals BEE in Kcals: Adj wt of IBW Calories/Kcals/Kg 25-30 adj wt 55kg Kcals Calculated 8697-7622 Protein: Adj wt of IBW Protein g/k-1.2 Protein Calculated 55-66 Fluid: ml per MD Nutritional Problem 1. Problem Problem inadequate intake from enteral feeding Etiology underfeeding Signs/Symptoms: current TF regimen meeting 70% of calorie needs and 80% of protein needs Malnutrition Alert Is there a minimum of two criteria No selected? Query Text:Check all the applicable criteria. A minimum of two criteria are recommended for diagnosis of either severe or non-severe malnutrition. Malnutrition Related to Morbid Obesity Malnutrition related to morbid obesity No Intervention/Recommendation Comments 1. Consider switch to TwoCal at 40ml/hr x 20hr to limit fluid volume and increase kcal intake. This will provide 1600kcal, 66g protein and 560ml water, which meeting 100 % of nutrition needs. 2. Monitor TF rate, tolerance, wt, skin integrity and labs 3. F/U as high risk in 2-3 days Expected Outcomes/Goals Expected Outcomes/Goals 1. PO intake to meet at least 75% of nutritional needs. 2. Wt stability, skin to remain intact, labs to approach WNL.
--- NOTE | 2018-05-30 20:17 | Consultation ---
DATE OF CONSULTATION: 05/30/2018 HEMATOLOGY/ONCOLOGY CONSULTATION REFERRED BY: Dr. Stone. REASON FOR CONSULTATION: Anemia and nosebleed. HISTORY OF PRESENT ILLNESS: The patient is a 47-year-old female, who is seen in ICU after she was admitted because of nosebleed. Her hemoglobin dropped sharply to date 60 grams and she was transfused packed red blood cells. The patient had rhino placed in the nose to control the bleeding since admission. PAST MEDICAL HISTORY: Respiratory failure on tracheostomy, brain tumor, obesity, decubitus ulcer, COPD, and seizure disorder. PAST SURGICAL HISTORY: Gastric tube and tracheostomy. MEDICATIONS: Reviewed including Lovenox 40 mg daily. PHYSICAL EXAMINATION: CONSTITUTIONAL: The patient is noncommunicative. HEENT: Atraumatic. Tracheostomy and rhino present in the left nostril. No active bleeding from buccal or mucosal surfaces. ABDOMEN: Gastrostomy tube in place. De Jesus catheter in place. No hematuria. No bleeding from any other site. LABORATORY DATA: WBC 17.3 with 72% neutrophils, hemoglobin 6.8, and platelets 340. Coagulation panel: PT and PTT normal. Chemistry: Creatinine 0.8. Liver functions normal. ASSESSMENT: 1. Severe anemia secondary to blood loss with or without other etiologies. Comprehensive anemia workup will be obtained. 2. Epistaxis, status post compression with control of bleeding. The patient has normal platelet count and normal coagulation panel. No renal failure to make me suspect platelet dysfunction. Therefore, most likely the bleeding is from local cause and nose that will need to be evaluated by an ENT. Meanwhile, I will discontinue the Lovenox prophylactic dose until the rhino compression over the left nostril is removed, hopefully without any further bleeding and then the anticoagulation prophylaxis will be restarted after that. Meanwhile, transfusion as needed for a low hemoglobin. Thank you, Dr. Stone, for the opportunity to participate in the care of this interesting case with you. JOB# [id number]
[2018-05-31] MEDS ORDERED: D5-0.45NS 1,000 ML IV SCH (00:15)
[2018-05-31] MEDS: Albuterol/Ipratropium Neb 3 ML AERS HHN SCH ×4 (00:59→18:29)
[2018-05-31 04:40] LABS: HEMOGLOBIN 9.3 gm/dL (12-16); MEAN CELL VOLUME 90.9 fl (81-100); MEAN CORPUSCULAR HEMOGLOBIN 30.3 pg (27.0-31.0); MEAN CORPUSCULAR HGB CONC 33.3 pg (28.0-36.0); MEAN PLATELET VOLUME 6.8 fl; PLATELET COUNT 292 Th/cmm (150-400); RED BLOOD COUNT 3.08 Mil/cmm (3.80-5.10); RED CELL DISTRIBUTION WIDTH 14.9 % (11.5-20.0)
[2018-05-31 04:57] LABS: PROTHROMBIN TIME (TEST) 10.4 SECONDS (9.5-11.5)
[2018-05-31 05:13] LABS: ALB/GLOB RATIO 0.9 (1.0-1.8); ALBUMIN 2.7 gm/dL (3.7-5.3); ALKALINE PHOSPHATASE 49 U/L (34-104); ANION GAP 11.3 (7.0-16.0); BILIRUBIN,TOTAL 0.3 mg/dL (0.3-1.0); BUN - UREA NITROGEN 17 mg/dL (7-25); CALCIUM SERUM 7.9 mg/dL (8.6-10.3); CARBON DIOXIDE 28.2 mEq/L (21.0-31.0); CHLORIDE 102 mEq/L (98-107); CREATININE - SERUM 0.9 mg/dL (0.6-1.2); GFR AFRICAN-AMERICAN > 60.0 ml/min (>90); GFR NON AFRICAN-AMERICAN > 60.0 ml/min; GLUCOSE 123 mg/dL (70-105); POTASSIUM SERUM 3.5 mEq/L (3.5-5.1); SGOT 24 U/L (13-39); SGPT/ALT 16 U/L (7-52); SODIUM SERUM 138 mEq/L (136-145); TOTAL PROTEIN,SERUM 5.8 gm/dL (6.0-8.3)
[2018-05-31 05:31] LABS: BAND NEUTROPHILE 5 % (0-10); EOSINOPHIL 2 % (0-5); LYMPHOCYTE 13 % (20-50); MONOCYTE 10 % (2-10); NEUTROPHILS 70 % (40-80); PLATELET ESTIMATE ADEQUATE (NORMAL)
[2018-05-31 08:10] LABS: IRON LC 29 ug/dL (27-159); TIBC (LC) 356 ug/dL (250-450); UIBC 327 ug/dL (131-425)
--- NOTE | 2018-05-31 08:23 | Diagnostic Imaging Report ---
Exam: Chest x-ray HISTORY: Tracheostomy tube placement Findings: Frontal examination of chest reviewed compatible prior study same day earlier demonstrates interval placement of the tracheostomy tube in satisfactory position and orientation, well adjusted from prior examination. Right-sided PICC line terminates. There is evidence for ill-defined mild basilar infiltrates. Superimposed small left pleural effusions present. IMPRESSION: tracheostomy tube midline Bilateral basilar infiltrate small left pleural effusion.
--- NOTE | 2018-05-31 08:29 | Diagnostic Imaging Report ---
Exam: Chest x-ray HISTORY: Tracheostomy tube placement Prior exam: 05/30/2018 Findings: Frontal examination the chest demonstrates the gastric tube terminates in the [place] should be pulled back at least 3 cm.
[2018-05-31] MEDS: Chlorhexidine Gluconate 0.12% 15mL Mouthwash MM SCH ×2 (08:32→20:10)
--- NOTE | 2018-05-31 08:32 | Diagnostic Imaging Report ---
Exam: Chest x-ray HISTORY shortness of breath Prior exam 05/30/2017 Findings: Frontal examination of the chest was reviewed compared to prior study of 05/30/2018 demonstrates unchanged position of tracheostomy tube. There is evidence for cardiomegaly mild congestion. Mild left peribronchial infiltrate is noted. Bony thorax is intact. IMPRESSION: Mild congestion, somewhat increased compared to prior study. Left basal peribronchial infiltrate. Follow-up examination recommended.
[2018-05-31] MEDS: Atorvastatin Calcium 10 MG TAB GT SCH (08:34)
[2018-05-31] MEDS: Levetiracetam 500 mg/5mL 5mL UDSyr *for ORAL USE ONLY GT SCH (08:35)
[2018-05-31] MEDS: Docusate Sodium 100 mg/10 mL UD GT SCH ×2 (08:35→17:33)
[2018-05-31] MEDS: Multivitamin w/ Minerals Tab GT SCH (08:35)
[2018-05-31] MEDS: Lactobacillus Rhamnosus GG 15 Billion CFU CAP.SPRINK PO SCH (08:35)
[2018-05-31] MEDS: Levofloxacin 500mg/100mL 500 MG/100 ML BAG IV SCH (08:45)
[2018-05-31] MEDS: Therahoney Gel 42.5gm Tube TP SCH (09:00)
--- NOTE | 2018-05-31 09:55 | General Progress Note ---
Subjective - Review of Systems Service Date: 05/31/18 Subjective: non communicative on trach vent. Objective - Results Result Diagrams: 05/31/18 04:05 05/31/18 04:05 Recent Labs: Laboratory Last Values WBC 15.0 Th/cmm (4.8-10.8) H 05/31/18 04:05 RBC 3.08 Mil/cmm (3.80-5.10) L 05/31/18 04:05 Hgb 9.3 gm/dL (12-16) L 05/31/18 04:05 Hct 28.0 % (41.0-60) L D 05/31/18 04:05 MCV 90.9 fl (81-100) 05/31/18 04:05 MCH 30.3 pg (27.0-31.0) 05/31/18 04:05 MCHC Differential 33.3 pg (28.0-36.0) 05/31/18 04:05 RDW 14.9 % (11.5-20.0) 05/31/18 04:05 Plt Count 292 Th/cmm (150-400) 05/31/18 04:05 MPV 6.8 fl 05/31/18 04:05 Add Manual Diff YES 05/31/18 04:05 Neutrophils % 61.5 % (40.0-80.0) 05/29/18 23:50 Band Neutrophils % 5 % (0-10) 05/31/18 04:05 Lymphocytes % 22.6 % (20.0-50.0) 05/29/18 23:50 Monocytes % 12.3 % (2.0-10.0) H 05/29/18 23:50 Eosinophils % 3.2 % (0.0-5.0) 05/29/18 23:50 Basophils % 0.4 % (0.0-2.0) 05/29/18 23:50 Neutrophils (Manual) 70 % (40-80) 05/31/18 04:05 Lymphocytes 13 % (20-50) L 05/31/18 04:05 Monocytes 10 % (2-10) 05/31/18 04:05 Eosinophils 2 % (0-5) 05/31/18 04:05 Basophils 0 % (0-3) 05/30/18 05:55 Platelet Estimate ADEQUATE (NORMAL) 05/31/18 04:05 Polychromasia 1+ 05/30/18 05:55 Poikilocytosis 1+ 05/30/18 05:55 Anisocytosis 1+ 05/30/18 05:55 Target Cells 1+ 05/30/18 05:55 Stomatocytes 2+ 05/30/18 05:55 PT 10.4 SECONDS (9.5-11.5) 05/31/18 04:05 INR 1.00 (0.5-1.4) 05/31/18 04:05 PTT (Actin FS) 28.3 SECONDS (26.0-38.0) 05/31/18 04:05 Specimen Source Arterial 05/30/18 09:10 Sample Site Right Radial 05/30/18 09:10 pH 7.37 (7.35-7.45) 05/30/18 09:10 pCO2 50.2 mmHg (35.0-45.0) H 05/30/18 09:10 pO2 62.5 mmHg (80.0-100.0) L 05/30/18 09:10 HCO3 28.2 mEq/L (20.0-26.0) H 05/30/18 09:10 Base Excess 1.9 mEq/L (-3.0-3.0) 05/30/18 09:10 O2 Saturation 91.0 % (92.0-100.0) L 05/30/18 09:10 Gerald Test PASS 05/30/18 09:10 Vent Rate 16 05/30/18 09:10 Inspired O2 35 05/30/18 09:10 Tidal Volume 450 05/30/18 09:10 PEEP stacker straightener 05/30/18 09:10 Pressure (ins/psv/peep) stacker straightener 05/30/18 09:10 Critical Value pw 05/30/18 09:10 Sodium 138 mEq/L (136-145) 05/31/18 04:05 Potassium 3.5 mEq/L (3.5-5.1) 05/31/18 04:05 Chloride 102 mEq/L (98-107) 05/31/18 04:05 Carbon Dioxide 28.2 mEq/L (21.0-31.0) 05/31/18 04:05 Anion Gap 11.3 (7.0-16.0) 05/31/18 04:05 BUN 17 mg/dL (7-25) 05/31/18 04:05 Creatinine 0.9 mg/dL (0.6-1.2) 05/31/18 04:05 Est GFR ( Amer) > 60.0 ml/min (>90) 05/31/18 04:05 Est GFR (Non-Af Amer) > 60.0 ml/min 05/31/18 04:05 BUN/Creatinine Ratio 18.9 05/31/18 04:05 Glucose 123 mg/dL (70-105) H 05/31/18 04:05 Whole Bld Lactic Acid 1.00 mmol/L (0.60-1.99) 05/28/18 15:34 Calcium 7.9 mg/dL (8.6-10.3) L 05/31/18 04:05 Phosphorus 2.6 mg/dL (2.5-5.0) 05/28/18 13:25 Magnesium 2.4 mg/dL (1.9-2.7) 05/28/18 13:25 Iron 29 ug/dL (27-159) 05/30/18 07:30 TIBC 356 ug/dL (250-450) 05/30/18 07:30 Iron Saturation 8 % (15-55) L 05/30/18 07:30 Unsaturated IBC 327 ug/dL (131-425) 05/30/18 07:30 Total Bilirubin 0.3 mg/dL (0.3-1.0) 05/31/18 04:05 AST 24 U/L (13-39) 05/31/18 04:05 ALT 16 U/L (7-52) 05/31/18 04:05 Alkaline Phosphatase 49 U/L (34-104) 05/31/18 04:05 Troponin I 0.01 ng/mL (0.01-0.05) 05/28/18 13:25 B-Natriuretic Peptide 33.5 pg/mL (5.0-100.0) 05/29/18 04:50 Total Protein 5.8 gm/dL (6.0-8.3) L 05/31/18 04:05 Albumin 2.7 gm/dL (3.7-5.3) L 05/31/18 04:05 Globulin 3.1 gm/dL 05/31/18 04:05 Albumin/Globulin Ratio 0.9 (1.0-1.8) L 05/31/18 04:05 TSH 2.22 uIU/ml (0.34-5.60) 05/28/18 13:25 Serum , Qual NEGATIVE (NEGATIVE) 05/28/18 13:25 Urine Source CATH 05/28/18 14:41 Urine Color YELLOW 05/28/18 14:41 Urine Clarity HAZY (CLEAR) 05/28/18 14:41 Urine pH 6.5 (4.6 - 8.0) 05/28/18 14:41 Ur Specific [place] 1.015 (1.005-1.030) 05/28/18 14:41 Urine Protein 100 mg/dL (NEGATIVE) H 05/28/18 14:41 Urine Glucose (UA) 250 mg/dL (NEGATIVE) H 05/28/18 14:41 Urine Ketones NEGATIVE mg/dL (NEGATIVE) 05/28/18 14:41 Urine Blood NEGATIVE (NEGATIVE) 05/28/18 14:41 Urine Nitrate NEGATIVE (NEGATIVE) 05/28/18 14:41 Urine Bilirubin NEGATIVE (NEGATIVE) 05/28/18 14:41 Urine Urobilinogen 0.2 E.U./dL (0.2 - 1.0) 05/28/18 14:41 Ur Leukocyte Esterase SMALL (NEGATIVE) H 05/28/18 14:41 Urine RBC NONE SEEN /hpf (0-5) 05/28/18 14:41 Urine WBC 6-10 /hpf (0-5) H 05/28/18 14:41 Ur Epithelial Cells FEW /lpf (FEW) 05/28/18 14:41 Urine Bacteria MODERATE /hpf (NONE SEEN) H 05/28/18 14:41 Vancomycin Trough 41.9 ug/mL (5-10) H 05/31/18 07:35 Urine Opiates Screen NEGATIVE (NEGATIVE) 05/28/18 14:41 Urine Methadone Screen NEGATIVE (NEGATIVE) 05/28/18 14:41 Ur Barbiturates Screen NEGATIVE (NEGATIVE) 05/28/18 14:41 Valproic Acid 79.6 ug/mL (50.0-100.0) 05/28/18 13:25 Ur Tricyclics Screen NEGATIVE (NEGATIVE) 05/28/18 14:41 Levetiracetam 27.9 ug/mL (10.0-40.0) 05/28/18 13:25 Ur Phencyclidine Scrn NEGATIVE (NEGATIVE) 05/28/18 14:41 Amphetamines Screen NEGATIVE (NEGATIVE) 05/28/18 14:41 U Methamphetamines Scrn NEGATIVE (NEGATIVE) 05/28/18 14:41 U Benzodiazepines Scrn NEGATIVE (NEGATIVE) 05/28/18 14:41 U Cocaine Metab Screen NEGATIVE (NEGATIVE) 05/28/18 14:41 U Cannabinoids Screen NEGATIVE (NEGATIVE) 05/28/18 14:41 Blood Type O POSITIVE 05/30/18 07:30 Antibody Screen NEGATIVE 05/30/18 07:30 Crossmatch See Detail 05/30/18 07:30 - Physical Exam Vitals and I&O: Vital Signs Temp 98.6 F 05/31/18 09:00 Pulse 90 05/31/18 09:00 Resp 16 05/31/18 09:00 BP 105/32 05/31/18 09:00 Pulse Ox 100 05/31/18 09:00 Intake & Output 05/30/18 05/31/18 05/31/18 18:59 06:59 18:59 Intake Total 893.660 5203.757 Output Total 800 550 Balance -157.976 807.757 Weight (lbs) 97.296 kg 97.296 kg 97.069 kg Intake: Intake, IV Amount 655.310 3489.757 D5-0.45NS 1,000 ml @ 50 275.833 mls/hr IV .Q20H MY Rx#: [id number] Levofloxacin 500mg/100mL 100 500 mg In 100 ml @ 100 mls/hr IV Q24HR MY Rx#: [id number] Norepinephrine 4 mg In 192.024 254.000 Dextrose 5% 250 ml @ 10 MCG/MIN 38.1 mls/hr IV TITR PRN Rx#:[id number] Piperacillin Sodium/ 100 200 Tazobact 4.5 gm In Sodium Chloride 0.9% 100 ml @ 100 mls/hr IV Q8HR MY Rx #:[id number] Propofol 1,000 mg In 100 27.924 ml @ 20 MCG/KG/MIN 10.614 mls/hr IV TITR MY Rx#: [id number] Vancomycin HCl 1.25 gm In 250 250 Sodium Chloride 0.9% 250 ml @ 165 mls/hr IV Q12HR MY Rx#:[id number] Tube Feeding 200 Other 150 Output: Urine 800 550 Other: # Bowel Movements 1 Weight Source Bedscale Bedscale Bedscale Active Medications: Current Medications Acetaminophen (Tylenol 650mg/20.3ml Suspension) 650 mg GT Q4HR PRN PRN Reason: Pain or Fever >101 Stop: 07/27/18 22:04 Albuterol/Ipratropium (Duoneb Neb) 3 ml HHN Q2H PRN PRN Reason: Shortness of Breath Stop: 07/27/18 22:04 Albuterol/Ipratropium (Duoneb Neb) 3 ml HHN Q6HRT [facility] Stop: 07/28/18 00:00 Last Admin: 05/31/18 06:38 Dose: 3 ml Atorvastatin Calcium (Lipitor) 10 mg GT DAILY [facility]; Protocol Stop: 07/28/18 08:59 Last Admin: 05/31/18 08:34 Dose: Not Given Bisacodyl (Dulcolax 10 Mg Supp) 10 mg RC DAILY PRN PRN Reason: bowel management Stop: 07/27/18 22:04 Chlorhexidine Gluconate (Peridex) 15 ml MM 0800,1999 [facility] Stop: 07/29/18 07:59 Last Admin: 05/31/18 08:32 Dose: 15 ml Docusate Sodium (Colace) 200 mg GT BID [facility] Stop: 07/28/18 08:59 Last Admin: 05/31/18 08:35 Dose: Not Given Hydromorphone HCl (Dilaudid) 0.5 mg IVP Q4HR PRN PRN Reason: Pain (Moderate) Stop: 07/29/18 01:03 Levofloxacin (Levaquin Pb) 500 mg in 100 mls @ 100 mls/hr IV Q24HR [facility] Stop: 07/28/18 08:59 Last Admin: 05/31/18 08:45 Dose: 100 mls/hr Piperacillin Sod/Tazobactam (Sod 4.5 gm/ Sodium Chloride) 100 mls @ 100 mls/hr IV Q8HR [facility] Stop: 07/27/18 22:44 Last Infusion: 05/31/18 06:18 Dose: Infused Sodium Chloride (Nacl 0.9%) 1,000 mls @ 50 mls/hr IV .Q20H [facility] Stop: 07/28/18 08:44 Last Admin: 05/30/18 05:46 Dose: Not Given Norepinephrine Bitartrate 4 mg (/ Dextrose) 254 mls @ 38.1 mls/hr IV TITR PRN; Protocol PRN Reason: BP MAINTENANCE (PER PROTOCOL) Stop: 07/29/18 00:50 Last Titration: 05/31/18 02:15 Dose: Infused Propofol (Diprivan) 1,000 mg in 100 mls @ 10.614 mls/hr IV TITR MY; Protocol Stop: 07/29/18 05:51 Last Titration: 05/30/18 19:48 Dose: 5 mcg/kg/min, 2.654 mls/hr Vancomycin HCl 1.25 gm/ Sodium (Chloride) 250 mls @ 165 mls/hr IV Q12HR MY Stop: 07/29/18 08:59 Last Admin: 05/31/18 08:36 Dose: Not Given Dextrose/Sodium Chloride (D5-0.45ns) 1,000 mls @ 50 mls/hr IV .Q20H MY Stop: 07/30/18 00:14 Last Infusion: 05/31/18 05:58 Dose: 50 mls/hr Lacosamide (Vimpat) 100 mg GT Q12H MY Stop: 07/28/18 08:59 Last Admin: 05/31/18 08:35 Dose: Not Given Lactobacillus Rhamnosus (Culturelle 15b) 1 each PO DAILY [facility] Stop: 07/30/18 08:59 Last Admin: 05/31/18 08:35 Dose: Not Given Levetiracetam (Keppra) 750 mg GT BID MY Stop: 07/28/18 08:59 Last Admin: 05/31/18 08:35 Dose: Not Given Lisinopril (Zestril) 10 mg GT DAILY MY Stop: 07/28/18 08:59 Last Admin: 05/31/18 08:35 Dose: Not Given Miscellaneous (Vancomycin Iv Per Pharmacy) 1 ea MC PRN MY Stop: 07/29/18 02:14 Miscellaneous (Probiotic Screen) 1 ea PRN PRN PRN Reason: PROTOCOL Stop: 07/29/18 14:29 Oxcarbazepine (Trileptal) 600 mg GT Q12H MY; Protocol Stop: 07/28/18 14:44 Last Admin: 02/13/19 03:16 Dose: Not Given Pantoprazole Sodium (Protonix) 40 mg IVP DAILY [facility] Stop: 07/29/18 08:59 Last Admin: 05/31/18 08:36 Dose: Not Given Wound Care/Dressing Products (Therahoney) 1 appl TP DAILY [facility] Stop: 07/29/18 08:59 Last Admin: 05/30/18 09:00 Dose: 1 appl General: Other (non communicative) Neck: Other (trach) Abdomen: Other (GT) Extremities: Edema - Procedures Procedures: Procedures Procedure Code Date CHANGE FEEDING DEVICE IN UP INTEST TRACT, 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 Comprehensive anemia workup will be obtained. 2. Epistaxis, status post compression with control of bleeding. The patient has normal platelet count and normal coagulation panel. No renal failure to make me suspect platelet dysfunction. Therefore, most likely the bleeding is from local cause and nose that will need to be evaluated by an ENT. Meanwhile, I will discontinue the Lovenox prophylactic dose until the rhino compression over the left nostril is removed, hopefully without any further bleeding and then the anticoagulation prophylaxis will be restarted after that. Meanwhile, transfusion as needed for a low hemoglobin. 05/31: no further bleeding. remove nasal compression today. miriam RN. keep off lovenox today. Follow anemia cade Nutritional Asmnt/Malnutr-PDOC - Dietary Evaluation Malnutrition Findings (Please click <Entered> for more info): Nutritional Asmnt/Malnutrition Start: 05/29/18 14: 39 Text: Status: Complete Freq: Protocol: Document 05/29/18 14:39 LCHENG (Rec: 05/29/18 14:56 LCHENG [email or web address]) Nutritional Asmnt/Malnutrition Patient General Information Nutritional Screening High Risk Consult Diagnosis leukocytosis, UTI, PNA Pertinent Medical Hx/Surgical Hx asthma/COPD, seizures, brain tumor, sepsis, recurrent PNA, recurrent resp failure, obesity, dysphagia, decubitus sacral ulcer, acute on chronic systolic versus diastolic heart faiure 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 Pt seen lying in bed at time of visit. Observed TF running at 40ml/hr at this time. Per nurse, pt tolerated TF well, no residual noted today. Spoke with RN Bella regarding current TF regimen not meeting nutritional needs. RN stated pt now has edema, will continue to monitor tolerance and ask MD to increase feeding hours. Current Diet Order/ Nutrition Support Jevity 1.2 at 40ml/hr x 20hr ~ 960kcal, 44g protein and 645ml H2O Pertinent Medications lipitor, colace, levaquin, piperacillin, nacl 0.9% Pertinent Labs 05/29 na 131, Cl 91, Glucsoe 127 Nutritional Hx/Data Height 1.47 m Height (Calculated Centimeters) 147.3 Current Weight (lbs) 88.451 kg Weight (Calculated Kilograms) 88.5 Weight (Calculated Grams) 82938.5 [place] Body Weight 96 Body Mass Index (BMI) 40.7 Weight Status Obese GI Symptoms GI Symptoms None Last BM 05/29 Difficult in: None Skin Integrity/Comment: wound to right occipital area, erythema from IAD to buttocks per wound care note marine 10 non-pitting edema Estimated Nutritional Goals BEE in Kcals: Adj wt of IBW Calories/Kcals/Kg 25-30 adj wt 55kg Kcals Calculated 8541-1670 Protein: Adj wt of IBW Protein g/k-1.2 Protein Calculated 55-66 Fluid: ml per MD Nutritional Problem 1. Problem Problem inadequate intake from enteral feeding Etiology underfeeding Signs/Symptoms: current TF regimen meeting 70% of calorie needs and 80% of protein needs Malnutrition Alert Is there a minimum of two criteria No selected? Query Text:Check all the applicable criteria. A minimum of two criteria are recommended for diagnosis of either severe or non-severe malnutrition. Malnutrition Related to Morbid Obesity Malnutrition related to morbid obesity No Intervention/Recommendation Comments 1. Consider switch to TwoCal at 40ml/hr x 20hr to limit fluid volume and increase kcal intake. This will provide 1600kcal, 66g protein and 560ml water, which meeting 100 % of nutrition needs. 2. Monitor TF rate, tolerance, wt, skin integrity and labs 3. F/U as high risk in 2-3 days Expected Outcomes/Goals Expected Outcomes/Goals 1. PO intake to meet at least 75% of nutritional needs. 2. Wt stability, skin to remain intact, labs to approach WNL.
--- NOTE | 2018-05-31 10:57 | Internal Medicine Prog Note ---
Internal Medicine Subjective - Subjective Service Date: 05/31/18 Patient seen and examined:: with staff, chart reviewed Patient is:: awake, non-verbal, non-interactive Patient Complaints of:: other (On trach vent) Per staff patient has:: no episodes of fall Internal Medicine Objective - Results Result Diagrams: 05/31/18 04:05 05/31/18 04:05 Recent Labs: Laboratory Last Values WBC 15.0 Th/cmm (4.8-10.8) H 05/31/18 04:05 RBC 3.08 Mil/cmm (3.80-5.10) L 05/31/18 04:05 Hgb 9.3 gm/dL (12-16) L 05/31/18 04:05 Hct 28.0 % (41.0-60) L D 05/31/18 04:05 MCV 90.9 fl (81-100) 05/31/18 04:05 MCH 30.3 pg (27.0-31.0) 05/31/18 04:05 MCHC Differential 33.3 pg (28.0-36.0) 05/31/18 04:05 RDW 14.9 % (11.5-20.0) 05/31/18 04:05 Plt Count 292 Th/cmm (150-400) 05/31/18 04:05 MPV 6.8 fl 05/31/18 04:05 Add Manual Diff YES 05/31/18 04:05 Neutrophils % 61.5 % (40.0-80.0) 05/29/18 23:50 Band Neutrophils % 5 % (0-10) 05/31/18 04:05 Lymphocytes % 22.6 % (20.0-50.0) 05/29/18 23:50 Monocytes % 12.3 % (2.0-10.0) H 05/29/18 23:50 Eosinophils % 3.2 % (0.0-5.0) 05/29/18 23:50 Basophils % 0.4 % (0.0-2.0) 05/29/18 23:50 Neutrophils (Manual) 70 % (40-80) 05/31/18 04:05 Lymphocytes 13 % (20-50) L 05/31/18 04:05 Monocytes 10 % (2-10) 05/31/18 04:05 Eosinophils 2 % (0-5) 05/31/18 04:05 Basophils 0 % (0-3) 05/30/18 05:55 Platelet Estimate ADEQUATE (NORMAL) 05/31/18 04:05 Polychromasia 1+ 05/30/18 05:55 Poikilocytosis 1+ 05/30/18 05:55 Anisocytosis 1+ 05/30/18 05:55 Target Cells 1+ 05/30/18 05:55 Stomatocytes 2+ 05/30/18 05:55 PT 10.4 SECONDS (9.5-11.5) 05/31/18 04:05 INR 1.00 (0.5-1.4) 05/31/18 04:05 PTT (Actin FS) 28.3 SECONDS (26.0-38.0) 05/31/18 04:05 Specimen Source Arterial 05/30/18 09:10 Sample Site Right Radial 05/30/18 09:10 pH 7.37 (7.35-7.45) 05/30/18 09:10 pCO2 50.2 mmHg (35.0-45.0) H 05/30/18 09:10 pO2 62.5 mmHg (80.0-100.0) L 05/30/18 09:10 HCO3 28.2 mEq/L (20.0-26.0) H 05/30/18 09:10 Base Excess 1.9 mEq/L (-3.0-3.0) 05/30/18 09:10 O2 Saturation 91.0 % (92.0-100.0) L 05/30/18 09:10 Gerald Test PASS 05/30/18 09:10 Vent Rate 16 05/30/18 09:10 Inspired O2 35 05/30/18 09:10 Tidal Volume 450 05/30/18 09:10 PEEP carbon brusher assembler 05/30/18 09:10 Pressure (ins/psv/peep) carbon brusher assembler 05/30/18 09:10 Critical Value pw 05/30/18 09:10 Sodium 138 mEq/L (136-145) 05/31/18 04:05 Potassium 3.5 mEq/L (3.5-5.1) 05/31/18 04:05 Chloride 102 mEq/L (98-107) 05/31/18 04:05 Carbon Dioxide 28.2 mEq/L (21.0-31.0) 05/31/18 04:05 Anion Gap 11.3 (7.0-16.0) 05/31/18 04:05 BUN 17 mg/dL (7-25) 05/31/18 04:05 Creatinine 0.9 mg/dL (0.6-1.2) 05/31/18 04:05 Est GFR ( Amer) > 60.0 ml/min (>90) 05/31/18 04:05 Est GFR (Non-Af Amer) > 60.0 ml/min 05/31/18 04:05 BUN/Creatinine Ratio 18.9 05/31/18 04:05 Glucose 123 mg/dL (70-105) H 05/31/18 04:05 Whole Bld Lactic Acid 1.00 mmol/L (0.60-1.99) 05/28/18 15:34 Calcium 7.9 mg/dL (8.6-10.3) L 05/31/18 04:05 Phosphorus 2.6 mg/dL (2.5-5.0) 05/28/18 13:25 Magnesium 2.4 mg/dL (1.9-2.7) 05/28/18 13:25 Iron 29 ug/dL (27-159) 05/30/18 07:30 TIBC 356 ug/dL (250-450) 05/30/18 07:30 Iron Saturation 8 % (15-55) L 05/30/18 07:30 Unsaturated IBC 327 ug/dL (131-425) 05/30/18 07:30 Total Bilirubin 0.3 mg/dL (0.3-1.0) 05/31/18 04:05 AST 24 U/L (13-39) 05/31/18 04:05 ALT 16 U/L (7-52) 05/31/18 04:05 Alkaline Phosphatase 49 U/L (34-104) 05/31/18 04:05 Troponin I 0.01 ng/mL (0.01-0.05) 05/28/18 13:25 B-Natriuretic Peptide 33.5 pg/mL (5.0-100.0) 05/29/18 04:50 Total Protein 5.8 gm/dL (6.0-8.3) L 05/31/18 04:05 Albumin 2.7 gm/dL (3.7-5.3) L 05/31/18 04:05 Globulin 3.1 gm/dL 05/31/18 04:05 Albumin/Globulin Ratio 0.9 (1.0-1.8) L 05/31/18 04:05 TSH 2.22 uIU/ml (0.34-5.60) 05/28/18 13:25 Serum , Qual NEGATIVE (NEGATIVE) 05/28/18 13:25 Urine Source CATH 05/28/18 14:41 Urine Color YELLOW 05/28/18 14:41 Urine Clarity HAZY (CLEAR) 05/28/18 14:41 Urine pH 6.5 (4.6 - 8.0) 05/28/18 14:41 Ur Specific Lawrence 1.015 (1.005-1.030) 05/28/18 14:41 Urine Protein 100 mg/dL (NEGATIVE) H 05/28/18 14:41 Urine Glucose (UA) 250 mg/dL (NEGATIVE) H 05/28/18 14:41 Urine Ketones NEGATIVE mg/dL (NEGATIVE) 05/28/18 14:41 Urine Blood NEGATIVE (NEGATIVE) 05/28/18 14:41 Urine Nitrate NEGATIVE (NEGATIVE) 05/28/18 14:41 Urine Bilirubin NEGATIVE (NEGATIVE) 05/28/18 14:41 Urine Urobilinogen 0.2 E.U./dL (0.2 - 1.0) 05/28/18 14:41 Ur Leukocyte Esterase SMALL (NEGATIVE) H 05/28/18 14:41 Urine RBC NONE SEEN /hpf (0-5) 05/28/18 14:41 Urine WBC 6-10 /hpf (0-5) H 05/28/18 14:41 Ur Epithelial Cells FEW /lpf (FEW) 05/28/18 14:41 Urine Bacteria MODERATE /hpf (NONE SEEN) H 05/28/18 14:41 Vancomycin Trough 41.9 ug/mL (5-10) H 05/31/18 07:35 Urine Opiates Screen NEGATIVE (NEGATIVE) 05/28/18 14:41 Urine Methadone Screen NEGATIVE (NEGATIVE) 05/28/18 14:41 Ur Barbiturates Screen NEGATIVE (NEGATIVE) 05/28/18 14:41 Valproic Acid 79.6 ug/mL (50.0-100.0) 05/28/18 13:25 Ur Tricyclics Screen NEGATIVE (NEGATIVE) 05/28/18 14:41 Levetiracetam 27.9 ug/mL (10.0-40.0) 05/28/18 13:25 Ur Phencyclidine Scrn NEGATIVE (NEGATIVE) 05/28/18 14:41 Amphetamines Screen NEGATIVE (NEGATIVE) 05/28/18 14:41 U Methamphetamines Scrn NEGATIVE (NEGATIVE) 05/28/18 14:41 U Benzodiazepines Scrn NEGATIVE (NEGATIVE) 05/28/18 14:41 U Cocaine Metab Screen NEGATIVE (NEGATIVE) 05/28/18 14:41 U Cannabinoids Screen NEGATIVE (NEGATIVE) 05/28/18 14:41 Blood Type O POSITIVE 05/30/18 07:30 Antibody Screen NEGATIVE 05/30/18 07:30 Crossmatch See Detail 05/30/18 07:30 - Physical Exam Vitals and I&O: Vital Signs Temp 98.6 F 05/31/18 10:00 Pulse 93 05/31/18 10:00 Resp 16 05/31/18 10:00 BP 106/50 05/31/18 10:00 Pulse Ox 99 05/31/18 10:00 Intake & Output 05/30/18 05/31/18 05/31/18 18:59 06:59 18:59 Intake Total 851.241 2715.757 Output Total 800 550 Balance -157.976 807.757 Weight (lbs) 97.296 kg 97.296 kg 97.069 kg Intake: Intake, IV Amount 527.996 1402.757 D5-0.45NS 1,000 ml @ 50 275.833 mls/hr IV .Q20H MY Rx#: [id number] Levofloxacin 500mg/100mL 100 500 mg In 100 ml @ 100 mls/hr IV Q24HR MY Rx#: [id number] Norepinephrine 4 mg In 192.024 254.000 Dextrose 5% 250 ml @ 10 MCG/MIN 38.1 mls/hr IV TITR PRN Rx#:[id number] Piperacillin Sodium/ 100 200 Tazobact 4.5 gm In Sodium Chloride 0.9% 100 ml @ 100 mls/hr IV Q8HR MY Rx #:[id number] Propofol 1,000 mg In 100 27.924 ml @ 20 MCG/KG/MIN 10.614 mls/hr IV TITR [facility] Rx#: [id number] Vancomycin HCl 1.25 gm In 250 250 Sodium Chloride 0.9% 250 ml @ 165 mls/hr IV Q12HR [facility] Rx#:[id number] Tube Feeding 200 Other 150 Output: Urine 800 550 Other: # Bowel Movements 1 Weight Source Bedscale Bedscale Bedscale Active Medications: Current Medications Acetaminophen (Tylenol 650mg/20.3ml Suspension) 650 mg GT Q4HR PRN PRN Reason: Pain or Fever >101 Stop: 07/27/18 22:04 Albuterol/Ipratropium (Duoneb Neb) 3 ml HHN Q2H PRN PRN Reason: Shortness of Breath Stop: 07/27/18 22:04 Albuterol/Ipratropium (Duoneb Neb) 3 ml HHN Q6HRT [facility] Stop: 07/28/18 00:00 Last Admin: 05/31/18 06:38 Dose: 3 ml Atorvastatin Calcium (Lipitor) 10 mg GT DAILY [facility]; Protocol Stop: 07/28/18 08:59 Last Admin: 05/31/18 08:34 Dose: Not Given Bisacodyl (Dulcolax 10 Mg Supp) 10 mg RC DAILY PRN PRN Reason: bowel management Stop: 07/27/18 22:04 Chlorhexidine Gluconate (Peridex) 15 ml MM 0800,1999 [facility] Stop: 07/29/18 07:59 Last Admin: 05/31/18 08:32 Dose: 15 ml Docusate Sodium (Colace) 200 mg GT BID [facility] Stop: 07/28/18 08:59 Last Admin: 05/31/18 08:35 Dose: Not Given Hydromorphone HCl (Dilaudid) 0.5 mg IVP Q4HR PRN PRN Reason: Pain (Moderate) Stop: 07/29/18 01:03 Levofloxacin (Levaquin Pb) 500 mg in 100 mls @ 100 mls/hr IV Q24HR [facility] Stop: 07/28/18 08:59 Last Admin: 05/31/18 08:45 Dose: 100 mls/hr Piperacillin Sod/Tazobactam (Sod 4.5 gm/ Sodium Chloride) 100 mls @ 100 mls/hr IV Q8HR [facility] Stop: 07/27/18 22:44 Last Infusion: 05/31/18 06:18 Dose: Infused Sodium Chloride (Nacl 0.9%) 1,000 mls @ 50 mls/hr IV .Q20H [facility] Stop: 07/28/18 08:44 Last Admin: 05/30/18 05:46 Dose: Not Given Norepinephrine Bitartrate 4 mg (/ Dextrose) 254 mls @ 38.1 mls/hr IV TITR PRN; Protocol PRN Reason: BP MAINTENANCE (PER PROTOCOL) Stop: 07/29/18 00:50 Last Titration: 05/31/18 02:15 Dose: Infused Propofol (Diprivan) 1,000 mg in 100 mls @ 10.614 mls/hr IV TITR [facility]; Protocol Stop: 07/29/18 05:51 Last Titration: 05/30/18 19:48 Dose: 5 mcg/kg/min, 2.654 mls/hr Dextrose/Sodium Chloride (D5-0.45ns) 1,000 mls @ 50 mls/hr IV .Q20H [facility] Stop: 07/30/18 00:14 Last Infusion: 05/31/18 05:58 Dose: 50 mls/hr Lacosamide (Vimpat) 100 mg GT Q12H [facility] Stop: 07/28/18 08:59 Last Admin: 05/31/18 08:35 Dose: Not Given Lactobacillus Rhamnosus (Culturelle 15b) 1 each PO DAILY [facility] Stop: 07/30/18 08:59 Last Admin: 05/31/18 08:35 Dose: Not Given Levetiracetam (Keppra) 750 mg GT BID [facility] Stop: 07/28/18 08:59 Last Admin: 05/31/18 08:35 Dose: Not Given Lisinopril (Zestril) 10 mg GT DAILY [facility] Stop: 07/28/18 08:59 Last Admin: 05/31/18 08:35 Dose: Not Given Miscellaneous (Vancomycin Iv Per Pharmacy) 1 ea MC PRN MY Stop: 07/29/18 02:14 Miscellaneous (Probiotic Screen) 1 ea MC PRN PRN PRN Reason: PROTOCOL Stop: 07/29/18 14:29 Oxcarbazepine (Trileptal) 600 mg GT Q12H [facility]; Protocol Stop: 07/28/18 14:44 Last Admin: 05/31/18 03:16 Dose: Not Given Pantoprazole Sodium (Protonix) 40 mg IVP DAILY [facility] Stop: 07/29/18 08:59 Last Admin: 05/31/18 08:36 Dose: Not Given Wound Care/Dressing Products (Therahoney) 1 appl TP DAILY [facility] Stop: 07/29/18 08:59 Last Admin: 05/31/18 09:00 Dose: 1 appl General: weak, edematous HEENT: thinning hair Neck: + trach Lungs: CTAB Cardiovascular: Normal S1, Normal S2 Abdomen: soft, non-tender, other (g-tube present.) Extremities: edema Neurological: other (Hx of Seizures.) - Procedures Procedures: Procedures Procedure Code Date CHANGE FEEDING DEVICE IN UP INTEST TRACT, [employer] [id number] 04/17/17 RESPIRATORY VENTILATION, 24-96 CONSECUTIVE HOURS [id number] 05/28/18 Internal Medicine Assmt/Plan - Assessment Assessment: Assessment and Impression S/p Trach vent. Right Upper and Mid lobe Pneumonia. Urinary Tract infection. Leukocytosis. Anemia. Low Chloride. Low Sodium. Dehydration. Posterior Occipital Decubitus. Morbid Obesity. History of Dysphagia/ G-tube dependent. History of Respiratory Distress. History of Copd. History of Seizure Disorder. History of Brain Tumor. - Plan Plan: Plan Continuation of care Continue present meds as directed Monitor Diet/Nutritional support/Continue G-tube feedings Monitor Pain, Pain Management Continue Ventilator support Respiratory treatment and Pulmonary support prn Local Skin Care G-tube and Trach Care Physical therapy Occupational therapy Fall precaution Safety precaution Seizure precaution Supportive care Will Monitor patient and continue current treatment plan as ordered. Nutritional Asmnt/Malnutr-PDOC - Dietary Evaluation Malnutrition Findings (Please click <Entered> for more info): Nutritional Asmnt/Malnutrition Start: 05/29/18 14: 39 Text: Status: Complete Freq: Protocol: Document 05/29/18 14:39 ALICIAG (Rec: 05/29/18 14:56 [id number]) Nutritional Asmnt/Malnutrition Patient General Information Nutritional Screening High Risk Consult Diagnosis leukocytosis, UTI, PNA Pertinent Medical Hx/Surgical Hx asthma/COPD, seizures, brain tumor, sepsis, recurrent PNA, recurrent resp failure, obesity, dysphagia, decubitus sacral ulcer, acute on chronic systolic versus diastolic heart faiure 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 Pt seen lying in bed at time of visit. Observed TF running at 40ml/hr at this time. Per nurse, pt tolerated TF well, no residual noted today. Spoke with RN Bella regarding current TF regimen not meeting nutritional needs. RN stated pt now has edema, will continue to monitor tolerance and ask MD to increase feeding hours. Current Diet Order/ Nutrition Support Jevity 1.2 at 40ml/hr x 20hr ~ 960kcal, 44g protein and 645ml H2O Pertinent Medications lipitor, colace, levaquin, piperacillin, nacl 0.9% Pertinent Labs 05/29 na 131, Cl 91, Glucsoe 127 Nutritional Hx/Data Height 1.47 m Height (Calculated Centimeters) 147.3 Current Weight (lbs) 88.451 kg Weight (Calculated Kilograms) 88.5 Weight (Calculated Grams) 71105.5 [place] Body Weight 96 Body Mass Index (BMI) 40.7 Weight Status Obese GI Symptoms GI Symptoms None Last BM 05/29 Difficult in: None Skin Integrity/Comment: wound to right occipital area, erythema from IAD to buttocks per wound care note marine 10 non-pitting edema Estimated Nutritional Goals BEE in Kcals: Adj wt of IBW Calories/Kcals/Kg 25-30 adj wt 55kg Kcals Calculated 1979-0921 Protein: Adj wt of IBW Protein g/k-1.2 Protein Calculated 55-66 Fluid: ml per MD Nutritional Problem 1. Problem Problem inadequate intake from enteral feeding Etiology underfeeding Signs/Symptoms: current TF regimen meeting 70% of calorie needs and 80% of protein needs Malnutrition Alert Is there a minimum of two criteria No selected? Query Text:Check all the applicable criteria. A minimum of two criteria are recommended for diagnosis of either severe or non-severe malnutrition. Malnutrition Related to Morbid Obesity Malnutrition related to morbid obesity No Intervention/Recommendation Comments 1. Consider switch to TwoCal at 40ml/hr x 20hr to limit fluid volume and increase kcal intake. This will provide 1600kcal, 66g protein and 560ml water, which meeting 100 % of nutrition needs. 2. Monitor TF rate, tolerance, wt, skin integrity and labs 3. F/U as high risk in 2-3 days Expected Outcomes/Goals Expected Outcomes/Goals 1. PO intake to meet at least 75% of nutritional needs. 2. Wt stability, skin to remain intact, labs to approach WNL.
[2018-05-31 12:15] LABS: FOLIC ACID >20.0 ng/mL (>3.0)
[2018-05-31] MEDS ORDERED: Lidocaine 2% Gel 5 mL TP ONE (12:30)
[2018-05-31] MEDS ORDERED: Lactated Ringer 1,000 ML IV ONE (12:30)
[2018-05-31] MEDS ORDERED: Lidocaine 2% 5mL Abboject IVP ONE (12:30)
--- NOTE | 2018-05-31 12:58 | Operative Report ---
Post Operative Report - POST-OPERATIVE NOTE Preoperative diagnosis:: resp failure Postoperative diagnosis:: resp failure Operation performed:: tracheostomy shiley 7 XLT tube placement. bronchoscopy Specimen:: none Anesthesia:: Anesthesiologist:: Leanne Schroeder Blood Loss (fluid management):: minimal <10ml Surgeon:: Jax Bae [place]:: none Findings:: difficult airway Prosthetic devices, grafts, tissue or device implanted:: Shiley Covidien proximal XLT tube Complications:: none
--- NOTE | 2018-05-31 13:39 | Diagnostic Imaging Report ---
CHEST X-RAY: AP view INDICATION: Tracheostomy tube COMPARISON: Chest x-ray 05/31/2018 FINDINGS: Midline tracheostomy tube is noted. Right PICC line is stable. Bilateral pulmonary infiltrates are seen with elevation of the right hemidiaphragm. Cardiomegaly is noted. IMPRESSION: Midline tracheostomy tube, correlate clinically Low lung volume with diffuse pulmonary infiltrates.
--- NOTE | 2018-05-31 16:31 | Operative Report ---
DATE OF SURGERY: 05/31/2018 HISTORY: The patient is a 47-year-old female with acute respiratory failure, status post failed intubation attempt, underwent emergency cricoid tracheostomy tube placement with the ET tube requested by Pulmonology and primary care physician to replace this ET tube within the neck with a conventional trait. PREOPERATIVE DIAGNOSIS: Respiratory failure. POSTOPERATIVE DIAGNOSIS: Respiratory failure. OPERATION PERFORMED: 1. Removal of endotracheal tube from the neck and replacement with tracheostomy Shiley 7 XLT tube. 2. Bronchoscopy. SPECIMENS: None. ANESTHESIA: General. ANESTHESIOLOGIST: Jer Schroeder M.D. ESTIMATED BLOOD LOSS: Minimal, less than 10 mL. SURGEON: Jax Bae M.D. ARCHIVES TECHNICIAN: None. FINDINGS: Difficult airway. PROSTHETIC DEVICES: Shiley Covidien proximal XLT tube. COMPLICATIONS: None. DESCRIPTION OF PROCEDURE: After confirming patient identification, procedure to be done, the patient was kept on the OR bed. The neck was extended. Initially, the anesthesiologist tried to intubate the patient with the GlideScope; however, the airway was very difficult and she was unable to manipulate the tube to place the endotracheal tube. The patient began to desaturate down to the 50s and 40s and again bradycardic, we had to move quickly. Initially, I tried to place the 6 endotracheal tube in through the same opening. We were able to ventilate initially, but then the patient's O2 saturations dropped again. Finally, I took the endotracheal tube out, suctioned out the tracheal stoma output contents and then a copious amount of secretions were suctioned as well as some blood. A #7 XLT Shiley tube was placed in and then good end-tidal CO2 and O2 saturations began to go up. Bronchoscopy confirmed that the tracheostomy tube was then secured around the neck with Velcro ties and suture anchored to the left side of the neck. The open wound was packed with a 4 x 4 gauze. Dressings were applied. Chest x-ray will be checked post-procedure. The patient tolerated the procedure well, was stabilized and taken back to the ICU in stable condition. JOB# [id number]
--- NOTE | 2018-05-31 17:06 | Consultation ---
DATE OF CONSULTATION: 05/30/2018 Thank you very much for this consultation. HISTORY OF PRESENT ILLNESS: This is a 47-year-old female with history of chronic respiratory failure, multiple admissions, pneumonia, dysphagia, aspiration, sleep apnea, who presented with fever, congestion. Apparently, the patient was having some epistaxis yesterday was affecting her oxygenation was aspirating, multiple intubation attempts were done. The patient was able to get the ET tube in. The patient had an emergent tracheostomy with an ET tube placed in the tracheostomy site. The patient afterwards is stable and appears to be comfortable, oxygenating well, ventilating well. PAST MEDICAL HISTORY: Acute on chronic respiratory failure, history of brain tumor, seizure disorder, dysphagia. REVIEW OF SYSTEMS: Unable to obtain because of the patient's condition. PHYSICAL EXAMINATION: GENERAL: The patient is ventilated through the ET tube with tracheotomy site. VITAL SIGNS: Temperature is 98.5, pulse is 96, respiration is 16, blood pressure 150/52, saturation 100%. HEENT: Atraumatic, normocephalic. Pupils reactive to light and accommodation. Ears, nose and throat normal. NECK: Supple. No JVD. CHEST: There are good breath sounds, few rhonchi. HEART: Regular rate and rhythm. ABDOMEN: Soft. EXTREMITIES: No edema. LABORATORY DATA: WBC 17.3, hemoglobin 6.8, hematocrit 20.6, platelets 340. ABGs: pH 7.37, pCO2 50, pO2 62, bicarbonate 28, saturation 91%. Sodium 135, potassium 3.6, BUN is 22, creatinine 0.8. Last chest x-ray showed ET tube in perfect position through the tracheotomy site, bibasilar infiltrates. IMPRESSION: This is a 47-year-old female with chronic respiratory failure, poor upper airway access secondary to epistaxis with the tracheotomy site with ET tube in. PLAN: 1. I discussed with Dr. benitez will see the patient in followup as scheduled her for tracheostomy tomorrow to have a secured trach. 2. Continue antibiotics. 3. Continue nebulized treatment, supportive care, and followup ABGs and labs. Thank you very much for this consultation. We will follow the patient with you. JOB# [id number] TREVA
--- NOTE | 2018-05-31 19:59 | Consultation ---
DATE OF CONSULTATION: 05/30/2018 SURGICAL CONSULTATION TIME: 11 p.m. HISTORY OF PRESENT ILLNESS: The patient transferred from [facility] for continuation of care with history of dysphagia, respiratory distress, brain tumor, morbid obesity, decubitus sacral ulcer, COPD, and seizure disorder; was admitted to [facility] due to abnormal labs and fever, dysphagia, respiratory distress. Diagnosed with right upper and mid lobe pneumonia, UTI, leukocytosis, and anemia. The patient reportedly developed acute respiratory failure and required emergent attempted intubation, but because of hemoptysis, upper GI bleed, the patient required emergency cricoid tracheostomy with the ET tube in the neck. The patient's past surgical history of G-tube placement, morbid obesity as well too. Last chest x-ray revealed endotracheal tube tip remains just into the proximal most portion of the right main bronchus. This should be pulled back approximately 2-3 cm heterogeneous density in the left lower lobe. Findings consistent with pneumonia. PHYSICAL EXAMINATION: VITAL SIGNS: The patient is afebrile. Vitals signs stable. GENERAL: She is encephalopathic, does not follow commands. She is sedated at this time. She has the ET tube in the neck. There is no bleeding at that site. Oxygen and ventilating well. Afebrile, on 100% O2 saturation at this time. Encephalopathic. CHEST: Clear to auscultation bilaterally. CARDIAC: Regular rate. ABDOMEN: Soft, nontender, nondistended. NEUROVASCULAR: Otherwise normal. LABORATORY DATA: White blood cell count is 17.3, H and H of 6.8 and 28.6 and platelet count is 340. PT is 10.1 and PTT is 23.2. PH is 7.37, pCO2 of 50, pO2 is 62.5, bicarbonate 28, and O2 saturation 91%. Sodium is 135 and glucose 166. MEDICATIONS: The patient is on acetaminophen, albuterol, atorvastatin, IV pain medication, Levaquin, Levophed, Protonix, and propofol. IMPRESSION AND PLAN: The patient with multiple medical problems of cerebral palsy, morbid obesity, correction facility. The patient is status post brain tumor, developed acute respiratory distress, chronic obstructive pulmonary disease exacerbation and the patient required emergent intubation. Attempts were made unsuccessfully. The patient had hemoptysis and bleeding obscured intubation. The patient required a tracheostomy tube placement, ET tube in the neck. Request by Dr. Brower for a conversion to a formal tracheostomy. We will try to plan this for tomorrow if she is medically stable. She does have anemia. She may need blood transfusion and we will check her coags as well to make sure she is not on any blood thinners or any type of coagulopathy and we will speak with the family. Mother, Beatriz Becker for consent issues. [facility]# [id number]
[2018-05-31] MEDS: Sodium Chloride 0.9% 1,000 ML IV SCH (23:00)
[2018-06-01] MEDS: Albuterol/Ipratropium Neb 3 ML AERS HHN SCH ×4 (00:10→18:32)
[2018-06-01] MEDS: HYDROmorphone 1 mg/mL 1mL Syr IVP PRN ×2 (03:34→20:15)
[2018-06-01 04:40] LABS: % BASOPHILS 0.1 % (0.0-2.0); % EOSINOPHILS 0.7 % (0.0-5.0); % LYMPHOCYTES 11.1 % (20.0-50.0); % MONOCYTES 11.6 % (2.0-10.0); % NEUTROPHILS 76.5 % (40.0-80.0); EOSINOPHILE ABSOLUTE 0.1 Th/cmm (0.1-0.4); HEMATOCRIT 36.6 % (41.0-60); HEMOGLOBIN 12.2 gm/dL (12-16); LYMPHOCYTE ABSOLUTE 1.2 Th/cmm (1.5-3.0); MEAN CELL VOLUME 92.2 fl (81-100); MEAN CORPUSCULAR HEMOGLOBIN 30.8 pg (27.0-31.0); MEAN CORPUSCULAR HGB CONC 33.4 pg (28.0-36.0); MONOCYTE ABSOLUTE 1.2 Th/cmm (0.3-1.0); NEUTROPHILE ABSOLUTE 7.9 Th/cmm (1.8-8.0); PLATELET COUNT 200 Th/cmm (150-400); RED BLOOD COUNT 3.97 Mil/cmm (3.80-5.10); RED CELL DISTRIBUTION WIDTH 15.2 % (11.5-20.0); WHITE BLOOD COUNT 10.4 Th/cmm (4.8-10.8)
[2018-06-01 05:04] LABS: ALB/GLOB RATIO 0.9 (1.0-1.8); ALBUMIN 2.6 gm/dL (3.7-5.3); ALKALINE PHOSPHATASE 45 U/L (34-104); ANION GAP 13.3 (7.0-16.0); BILIRUBIN,TOTAL 0.3 mg/dL (0.3-1.0); CALCIUM SERUM 7.5 mg/dL (8.6-10.3); CHLORIDE 103 mEq/L (98-107); CREATININE - SERUM 1.1 mg/dL (0.6-1.2); GFR AFRICAN-AMERICAN > 60.0 ml/min (>90); GFR NON AFRICAN-AMERICAN 57.1 ml/min; GLUCOSE 161 mg/dL (70-105); POTASSIUM SERUM 3.3 mEq/L (3.5-5.1); SGOT 19 U/L (13-39); SGPT/ALT 15 U/L (7-52); SODIUM SERUM 139 mEq/L (136-145); TOTAL PROTEIN,SERUM 5.5 gm/dL (6.0-8.3)
[2018-06-01 08:28] LABS: BUN - UREA NITROGEN 17 mg/dL (7-25)
[2018-06-01] MEDS: Docusate Sodium 100 mg/10 mL UD GT SCH ×2 (08:31→17:11)
[2018-06-01] MEDS: Levetiracetam 500 mg/5mL 5mL UDSyr *for ORAL USE ONLY GT SCH ×2 (08:31→17:09)
[2018-06-01] MEDS: Atorvastatin Calcium 10 MG TAB GT SCH (08:31)
[2018-06-01] MEDS: Lactobacillus Rhamnosus GG 15 Billion CFU CAP.SPRINK PO SCH (08:32)
[2018-06-01] MEDS: Chlorhexidine Gluconate 0.12% 15mL Mouthwash MM SCH ×2 (08:32→20:34)
[2018-06-01] MEDS: Multivitamin w/ Minerals Tab GT SCH (08:32)
[2018-06-01] MEDS: Levofloxacin 500mg/100mL 500 MG/100 ML BAG IV SCH (08:33)
--- NOTE | 2018-06-01 10:09 | General Progress Note ---
Subjective - Review of Systems Service Date: 06/01/18 Subjective: non communicative on trach /vent. Objective - Results Result Diagrams: 06/01/18 04:00 06/01/18 04:00 Recent Labs: Laboratory Last Values WBC 10.4 Th/cmm (4.8-10.8) D 06/01/18 04:00 RBC 3.97 Mil/cmm (3.80-5.10) 06/01/18 04:00 Hgb 12.2 gm/dL (12-16) 06/01/18 04:00 Hct 36.6 % (41.0-60) L D 06/01/18 04:00 MCV 92.2 fl (81-100) 06/01/18 04:00 MCH 30.8 pg (27.0-31.0) 06/01/18 04:00 MCHC Differential 33.4 pg (28.0-36.0) 06/01/18 04:00 RDW 15.2 % (11.5-20.0) 06/01/18 04:00 Plt Count 200 Th/cmm (150-400) D 06/01/18 04:00 MPV 7.0 fl 06/01/18 04:00 Add Manual Diff YES 05/31/18 04:05 Neutrophils % 76.5 % (40.0-80.0) 06/01/18 04:00 Band Neutrophils % 5 % (0-10) 05/31/18 04:05 Lymphocytes % 11.1 % (20.0-50.0) L 06/01/18 04:00 Monocytes % 11.6 % (2.0-10.0) H 06/01/18 04:00 Eosinophils % 0.7 % (0.0-5.0) 06/01/18 04:00 Basophils % 0.1 % (0.0-2.0) 06/01/18 04:00 Neutrophils (Manual) 70 % (40-80) 05/31/18 04:05 Lymphocytes 13 % (20-50) L 05/31/18 04:05 Monocytes 10 % (2-10) 05/31/18 04:05 Eosinophils 2 % (0-5) 05/31/18 04:05 Basophils 0 % (0-3) 05/30/18 05:55 Platelet Estimate ADEQUATE (NORMAL) 05/31/18 04:05 Polychromasia 1+ 05/30/18 05:55 Poikilocytosis 1+ 05/30/18 05:55 Anisocytosis 1+ 05/30/18 05:55 Target Cells 1+ 05/30/18 05:55 Stomatocytes 2+ 05/30/18 05:55 PT 10.4 SECONDS (9.5-11.5) 05/31/18 04:05 INR 1.00 (0.5-1.4) 05/31/18 04:05 PTT (Actin FS) 28.3 SECONDS (26.0-38.0) 05/31/18 04:05 Specimen Source Arterial 05/30/18 09:10 Sample Site Right Radial 05/30/18 09:10 pH 7.37 (7.35-7.45) 05/30/18 09:10 pCO2 50.2 mmHg (35.0-45.0) H 05/30/18 09:10 pO2 62.5 mmHg (80.0-100.0) L 05/30/18 09:10 HCO3 28.2 mEq/L (20.0-26.0) H 05/30/18 09:10 Base Excess 1.9 mEq/L (-3.0-3.0) 05/30/18 09:10 O2 Saturation 91.0 % (92.0-100.0) L 05/30/18 09:10 Gerald Test PASS 05/30/18 09:10 Vent Rate 16 05/30/18 09:10 Inspired O2 35 05/30/18 09:10 Tidal Volume 450 05/30/18 09:10 PEEP harness rigger 05/30/18 09:10 Pressure (ins/psv/peep) harness rigger 05/30/18 09:10 Critical Value pw 05/30/18 09:10 Sodium 139 mEq/L (136-145) 06/01/18 04:00 Potassium 3.3 mEq/L (3.5-5.1) L 06/01/18 04:00 Chloride 103 mEq/L (98-107) 06/01/18 04:00 Carbon Dioxide 26.0 mEq/L (21.0-31.0) 06/01/18 04:00 Anion Gap 13.3 (7.0-16.0) 06/01/18 04:00 BUN 17 mg/dL (7-25) 06/01/18 04:00 Creatinine 1.1 mg/dL (0.6-1.2) 06/01/18 04:00 Est GFR ( Amer) > 60.0 ml/min (>90) 06/01/18 04:00 Est GFR (Non-Af Amer) 57.1 ml/min 06/01/18 04:00 BUN/Creatinine Ratio 15.5 06/01/18 04:00 Glucose 161 mg/dL (70-105) H 06/01/18 04:00 Whole Bld Lactic Acid 1.00 mmol/L (0.60-1.99) 05/28/18 15:34 Calcium 7.5 mg/dL (8.6-10.3) L 06/01/18 04:00 Phosphorus 2.6 mg/dL (2.5-5.0) 05/28/18 13:25 Magnesium 2.4 mg/dL (1.9-2.7) 05/28/18 13:25 Iron 29 ug/dL (27-159) 05/30/18 07:30 TIBC 356 ug/dL (250-450) 05/30/18 07:30 Iron Saturation 8 % (15-55) L 05/30/18 07:30 Unsaturated IBC 327 ug/dL (131-425) 05/30/18 07:30 Total Bilirubin 0.3 mg/dL (0.3-1.0) 06/01/18 04:00 AST 19 U/L (13-39) 06/01/18 04:00 ALT 15 U/L (7-52) 06/01/18 04:00 Alkaline Phosphatase 45 U/L (34-104) 06/01/18 04:00 Troponin I 0.01 ng/mL (0.01-0.05) 05/28/18 13:25 B-Natriuretic Peptide 33.5 pg/mL (5.0-100.0) 05/29/18 04:50 Total Protein 5.5 gm/dL (6.0-8.3) L 06/01/18 04:00 Albumin 2.6 gm/dL (3.7-5.3) L 06/01/18 04:00 Globulin 2.9 gm/dL 06/01/18 04:00 Albumin/Globulin Ratio 0.9 (1.0-1.8) L 06/01/18 04:00 Vitamin B12 1696 pg/mL (232-1245) H 05/30/18 07:30 Folic Acid >20.0 ng/mL (>3.0) 05/30/18 07:30 TSH 2.22 uIU/ml (0.34-5.60) 05/28/18 13:25 Serum , Qual NEGATIVE (NEGATIVE) 05/28/18 13:25 Urine Source CATH 05/28/18 14:41 Urine Color YELLOW 05/28/18 14:41 Urine Clarity HAZY (CLEAR) 05/28/18 14:41 Urine pH 6.5 (4.6 - 8.0) 05/28/18 14:41 Ur Specific [place] 1.015 (1.005-1.030) 05/28/18 14:41 Urine Protein 100 mg/dL (NEGATIVE) H 05/28/18 14:41 Urine Glucose (UA) 250 mg/dL (NEGATIVE) H 05/28/18 14:41 Urine Ketones NEGATIVE mg/dL (NEGATIVE) 05/28/18 14:41 Urine Blood NEGATIVE (NEGATIVE) 05/28/18 14:41 Urine Nitrate NEGATIVE (NEGATIVE) 05/28/18 14:41 Urine Bilirubin NEGATIVE (NEGATIVE) 05/28/18 14:41 Urine Urobilinogen 0.2 E.U./dL (0.2 - 1.0) 05/28/18 14:41 Ur Leukocyte Esterase SMALL (NEGATIVE) H 05/28/18 14:41 Urine RBC NONE SEEN /hpf (0-5) 05/28/18 14:41 Urine WBC 6-10 /hpf (0-5) H 05/28/18 14:41 Ur Epithelial Cells FEW /lpf (FEW) 05/28/18 14:41 Urine Bacteria MODERATE /hpf (NONE SEEN) H 05/28/18 14:41 Vancomycin Trough 22.0 ug/mL (5-10) H 06/01/18 06:45 Random Vancomycin 31.8 ug/mL (5.0-40.0) 05/31/18 15:00 Urine Opiates Screen NEGATIVE (NEGATIVE) 05/28/18 14:41 Urine Methadone Screen NEGATIVE (NEGATIVE) 05/28/18 14:41 Ur Barbiturates Screen NEGATIVE (NEGATIVE) 05/28/18 14:41 Valproic Acid 79.6 ug/mL (50.0-100.0) 05/28/18 13:25 Ur Tricyclics Screen NEGATIVE (NEGATIVE) 05/28/18 14:41 Levetiracetam 27.9 ug/mL (10.0-40.0) 05/28/18 13:25 Ur Phencyclidine Scrn NEGATIVE (NEGATIVE) 05/28/18 14:41 Amphetamines Screen NEGATIVE (NEGATIVE) 05/28/18 14:41 U Methamphetamines Scrn NEGATIVE (NEGATIVE) 05/28/18 14:41 U Benzodiazepines Scrn NEGATIVE (NEGATIVE) 05/28/18 14:41 U Cocaine Metab Screen NEGATIVE (NEGATIVE) 05/28/18 14:41 U Cannabinoids Screen NEGATIVE (NEGATIVE) 05/28/18 14:41 Blood Type O POSITIVE 05/30/18 07:30 Antibody Screen NEGATIVE 05/30/18 07:30 Crossmatch See Detail 05/30/18 07:30 - Physical Exam Vitals and I&O: Vital Signs Temp 98.3 F 06/01/18 08:00 Pulse 89 06/01/18 09:00 Resp 16 06/01/18 09:00 BP 120/38 06/01/18 09:00 Pulse Ox 97 06/01/18 09:00 Intake & Output 05/31/18 06/01/18 06/01/18 18:59 06:59 18:59 Intake Total 247.507 200 300 Output Total 1100 700 Balance -852.493 200 -400 Weight (lbs) 97.976 kg 97.885 kg Intake: Intake, IV Amount 247.507 200 100 Levofloxacin 500mg/100mL 100 100 500 mg In 100 ml @ 100 mls/hr IV Q24HR MY Rx#: [id number] Piperacillin Sodium/ 100 200 Tazobact 4.5 gm In Sodium Chloride 0.9% 100 ml @ 100 mls/hr IV Q8HR MY Rx #:[id number] Propofol 1,000 mg In 100 47.507 ml @ 20 MCG/KG/MIN 10.614 mls/hr IV TITR MY Rx#: [id number] Tube Feeding 0 Other 200 Output: Urine 1100 700 Other: # Bowel Movements 1 2 Stool Characteristics Soft Soft Liquid Liquid Brown Brown Weight Source Bedscale Bedscale Active Medications: Current Medications Acetaminophen (Tylenol 650mg/20.3ml Suspension) 650 mg GT Q4HR PRN PRN Reason: Pain or Fever >101 Stop: 07/27/18 22:04 Last Admin: 06/01/18 03:36 Dose: 650 mg Albuterol/Ipratropium (Duoneb Neb) 3 ml HHN Q2H PRN PRN Reason: Shortness of Breath Stop: 07/27/18 22:04 Albuterol/Ipratropium (Duoneb Neb) 3 ml HHN Q6HRT [facility] Stop: 07/28/18 00:00 Last Admin: 06/01/18 06:55 Dose: 3 ml Atorvastatin Calcium (Lipitor) 10 mg GT DAILY [facility]; Protocol Stop: 07/28/18 08:59 Last Admin: 06/01/18 08:31 Dose: 10 mg Bisacodyl (Dulcolax 10 Mg Supp) 10 mg RC DAILY PRN PRN Reason: bowel management Stop: 07/27/18 22:04 Chlorhexidine Gluconate (Peridex) 15 ml MM 08,1999 [facility] Stop: 07/29/18 07:59 Last Admin: 06/01/18 08:32 Dose: 15 ml Docusate Sodium (Colace) 200 mg GT BID [facility] Stop: 07/28/18 08:59 Last Admin: 06/01/18 08:31 Dose: 200 mg Furosemide (Lasix) 20 mg IVP DAILY [facility] Stop: 07/30/18 15:43 Last Admin: 06/01/18 08:32 Dose: 20 mg Hydromorphone HCl (Dilaudid) 0.5 mg IVP Q4HR PRN PRN Reason: Pain (Moderate) Stop: 07/29/18 01:03 Last Admin: 06/01/18 03:34 Dose: 0.5 mg Levofloxacin (Levaquin Pb) 500 mg in 100 mls @ 100 mls/hr IV Q24HR [facility] Stop: 07/28/18 08:59 Last Infusion: 06/01/18 09:35 Dose: Infused Piperacillin Sod/Tazobactam (Sod 4.5 gm/ Sodium Chloride) 100 mls @ 100 mls/hr IV Q8HR [facility] Stop: 07/27/18 22:44 Last Infusion: 06/01/18 06:30 Dose: Infused Norepinephrine Bitartrate 4 mg (/ Dextrose) 254 mls @ 38.1 mls/hr IV TITR PRN; Protocol PRN Reason: BP MAINTENANCE (PER PROTOCOL) Stop: 07/29/18 00:50 Last Titration: 05/31/18 02:15 Dose: Infused Propofol (Diprivan) 1,000 mg in 100 mls @ 10.614 mls/hr IV TITR MY; Protocol Stop: 07/29/18 05:51 Last Admin: 05/31/18 13:42 Dose: 5 mcg/kg/min, 2.654 mls/hr Sodium Chloride (Nacl 0.9%) 1,000 mls @ 10 mls/hr IV .Q24H MY Stop: 07/30/18 22:59 Last Admin: 05/31/18 23:00 Dose: 10 mls/hr Vancomycin HCl 1.5 gm/ Sodium (Chloride) 500 mls @ 250 mls/hr IV 1400 ONE Stop: 06/01/18 15:59 Lacosamide (Vimpat) 100 mg GT Q12H MY Stop: 07/28/18 08:59 Last Admin: 06/01/18 08:32 Dose: 100 mg Lactobacillus Rhamnosus (Culturelle 15b) 1 each PO DAILY MY Stop: 07/30/18 08:59 Last Admin: 06/01/18 08:32 Dose: 1 each Levetiracetam (Keppra) 750 mg GT BID MY Stop: 07/28/18 08:59 Last Admin: 06/01/18 08:31 Dose: 750 mg Lisinopril (Zestril) 10 mg GT DAILY MY Stop: 07/28/18 08:59 Last Admin: 06/01/18 08:32 Dose: Not Given Miscellaneous (Vancomycin Iv Per Pharmacy) 1 ea MC PRN MY Stop: 07/29/18 02:14 Miscellaneous (Probiotic Screen) 1 ea PRN PRN PRN Reason: PROTOCOL Stop: 07/29/18 14:29 Oxcarbazepine (Trileptal) 600 mg GT Q12H MY; Protocol Stop: 07/28/18 14:44 Last Admin: 06/01/18 03:11 Dose: 600 mg Pantoprazole Sodium (Protonix) 40 mg IVP DAILY MY Stop: 07/29/18 08:59 Last Admin: 06/01/18 08:31 Dose: 40 mg Potassium Chloride (Potassium Chloride Elixir) 40 meq GT DAILY ONE Stop: 06/02/18 10:01 Wound Care/Dressing Products (Therahoney) 1 appl TP DAILY MY Stop: 07/29/18 08:59 Last Admin: 05/31/18 09:00 Dose: 1 appl General: Other (non communicative) Neck: Other (trach) Abdomen: Other (GT) Extremities: Edema - Procedures Procedures: Procedures Procedure Code Date CHANGE FEEDING DEVICE IN UP INTEST TRACT, 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 Comprehensive anemia workup will be obtained. 2. Epistaxis, status post compression with control of bleeding. The patient has normal platelet count and normal coagulation panel. No renal failure to make me suspect platelet dysfunction. Therefore, most likely the bleeding is from local cause and nose that will need to be evaluated by an ENT. Meanwhile, I will discontinue the Lovenox prophylactic dose until the rhino compression over the left nostril is removed, hopefully without any further bleeding and then the anticoagulation prophylaxis will be restarted after that. Meanwhile, transfusion as needed for a low hemoglobin. 06/01: no further bleeding. S/P removal of nasal compression. miriam RN. restart lovenox proph. today. anemia cade is suggestive of iron deficiency; awaiting ferritin Nutritional Asmnt/Malnutr-PDOC - Dietary Evaluation Malnutrition Findings (Please click <Entered> for more info): Nutritional Asmnt/Malnutrition Start: 05/29/18 14: 39 Text: Status: Complete Freq: Protocol: Document 05/29/18 14:39 LCHENG (Rec: 05/29/18 14:56 LCHENG [email or web address]) Nutritional Asmnt/Malnutrition Patient General Information Nutritional Screening High Risk Consult Diagnosis leukocytosis, UTI, PNA Pertinent Medical Hx/Surgical Hx asthma/COPD, seizures, brain tumor, sepsis, recurrent PNA, recurrent resp failure, obesity, dysphagia, decubitus sacral ulcer, acute on chronic systolic versus diastolic heart faiure 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 Pt seen lying in bed at time of visit. Observed TF running at 40ml/hr at this time. Per nurse, pt tolerated TF well, no residual noted today. Spoke with RN Bella regarding current TF regimen not meeting nutritional needs. RN stated pt now has edema, will continue to monitor tolerance and ask MD to increase feeding hours. Current Diet Order/ Nutrition Support Jevity 1.2 at 40ml/hr x 20hr ~ 960kcal, 44g protein and 645ml H2O Pertinent Medications lipitor, colace, levaquin, piperacillin, nacl 0.9% Pertinent Labs 05/29 na 131, Cl 91, Glucsoe 127 Nutritional Hx/Data Height 1.47 m Height (Calculated Centimeters) 147.3 Current Weight (lbs) 88.451 kg Weight (Calculated Kilograms) 88.5 Weight (Calculated Grams) 23636.5 [place] Body Weight 96 Body Mass Index (BMI) 40.7 Weight Status Obese GI Symptoms GI Symptoms None Last BM 05/29 Difficult in: None Skin Integrity/Comment: wound to right occipital area, erythema from IAD to buttocks per wound care note marine 10 non-pitting edema Estimated Nutritional Goals BEE in Kcals: Adj wt of IBW Calories/Kcals/Kg 25-30 adj wt 55kg Kcals Calculated [id number] Protein: Adj wt of IBW Protein g/k-1.2 Protein Calculated 55-66 Fluid: ml per MD Nutritional Problem 1. Problem Problem inadequate intake from enteral feeding Etiology underfeeding Signs/Symptoms: current TF regimen meeting 70% of calorie needs and 80% of protein needs Malnutrition Alert Is there a minimum of two criteria No selected? Query Text:Check all the applicable criteria. A minimum of two criteria are recommended for diagnosis of either severe or non-severe malnutrition. Malnutrition Related to Morbid Obesity Malnutrition related to morbid obesity No Intervention/Recommendation Comments 1. Consider switch to TwoCal at 40ml/hr x 20hr to limit fluid volume and increase kcal intake. This will provide 1600kcal, 66g protein and 560ml water, which meeting 100 % of nutrition needs. 2. Monitor TF rate, tolerance, wt, skin integrity and labs 3. F/U as high risk in 2-3 days Expected Outcomes/Goals Expected Outcomes/Goals 1. PO intake to meet at least 75% of nutritional needs. 2. Wt stability, skin to remain intact, labs to approach WNL.
--- NOTE | 2018-06-01 10:20 | Progress Notes ---
DATE: 05/31/2018 SURGICAL PROGRESS NOTE SUBJECTIVE: GENERAL: The patient is afebrile. VITAL SIGNS: Otherwise stable, encephalopathic, has ET tube at the cricothyroid area. No leak. O2 saturation 100%. No subcutaneous emphysema. CHEST: Otherwise clear to auscultation bilaterally. CARDIAC: Regular rate. ABDOMEN: Soft, nontender, nondistended. G-tube is in place. NEUROVASCULAR AND EXTREMITIES: Otherwise normal. LABORATORY DATA: White blood cell count 15, H and H is 9 and 28, platelet count is 292. The coags are normal today. Chemistries: Chem-7 otherwise unremarkable. Chest x-ray done today reveals mild congestion somewhat increased compared to prior study, left basal peribronchial infiltrate. A followup examination recommended. IMPRESSION/PLAN: Plan for conversion of the ET tube serving as a trach removal and conventional trach placement. Family understands this is a high risk procedure and there is a potential weight loss, the potential for bleeding, possibility for anoxic encephalopathy and possible even. I have coordinated this procedure with anesthesia. The patient is medically optimized to the best of our ability and surgery is planned for this afternoon. JOB# [id number]
[2018-06-01] MEDS: Therahoney Gel 42.5gm Tube TP SCH (10:23)
[2018-06-01] MEDS ORDERED: Potassium Chloride Elixir 20 mEq /15 mL UDC GT ONE (11:00)
--- NOTE | 2018-06-01 13:50 | Infectious Disease Prog Note ---
Infectious Disease Subjective - Review of Systems Service Date: 06/01/18 Subjective: s/p trach on the ventilator. no fever,no more epistaxis. alert now to her baseline. Infectious Disease Objective - Results Result Diagrams: 06/01/18 04:00 06/01/18 04:00 Recent Labs: Laboratory Last Values WBC 10.4 Th/cmm (4.8-10.8) D 06/01/18 04:00 RBC 3.97 Mil/cmm (3.80-5.10) 06/01/18 04:00 Hgb 12.2 gm/dL (12-16) 06/01/18 04:00 Hct 36.6 % (41.0-60) L D 06/01/18 04:00 MCV 92.2 fl (81-100) 06/01/18 04:00 MCH 30.8 pg (27.0-31.0) 06/01/18 04:00 MCHC Differential 33.4 pg (28.0-36.0) 06/01/18 04:00 RDW 15.2 % (11.5-20.0) 06/01/18 04:00 Plt Count 200 Th/cmm (150-400) D 06/01/18 04:00 MPV 7.0 fl 06/01/18 04:00 Add Manual Diff YES 05/31/18 04:05 Neutrophils % 76.5 % (40.0-80.0) 06/01/18 04:00 Band Neutrophils % 5 % (0-10) 05/31/18 04:05 Lymphocytes % 11.1 % (20.0-50.0) L 06/01/18 04:00 Monocytes % 11.6 % (2.0-10.0) H 06/01/18 04:00 Eosinophils % 0.7 % (0.0-5.0) 06/01/18 04:00 Basophils % 0.1 % (0.0-2.0) 06/01/18 04:00 Neutrophils (Manual) 70 % (40-80) 05/31/18 04:05 Lymphocytes 13 % (20-50) L 05/31/18 04:05 Monocytes 10 % (2-10) 05/31/18 04:05 Eosinophils 2 % (0-5) 05/31/18 04:05 Basophils 0 % (0-3) 05/30/18 05:55 Platelet Estimate ADEQUATE (NORMAL) 05/31/18 04:05 Polychromasia 1+ 05/30/18 05:55 Poikilocytosis 1+ 05/30/18 05:55 Anisocytosis 1+ 05/30/18 05:55 Target Cells 1+ 05/30/18 05:55 Stomatocytes 2+ 05/30/18 05:55 PT 10.4 SECONDS (9.5-11.5) 05/31/18 04:05 INR 1.00 (0.5-1.4) 05/31/18 04:05 PTT (Actin FS) 28.3 SECONDS (26.0-38.0) 05/31/18 04:05 Specimen Source Arterial 05/30/18 09:10 Sample Site Right Radial 05/30/18 09:10 pH 7.37 (7.35-7.45) 05/30/18 09:10 pCO2 50.2 mmHg (35.0-45.0) H 05/30/18 09:10 pO2 62.5 mmHg (80.0-100.0) L 05/30/18 09:10 HCO3 28.2 mEq/L (20.0-26.0) H 05/30/18 09:10 Base Excess 1.9 mEq/L (-3.0-3.0) 05/30/18 09:10 O2 Saturation 91.0 % (92.0-100.0) L 05/30/18 09:10 Gerald Test PASS 05/30/18 09:10 Vent Rate 16 05/30/18 09:10 Inspired O2 35 05/30/18 09:10 Tidal Volume 450 05/30/18 09:10 PEEP sterile preparation technician 05/30/18 09:10 Pressure (ins/psv/peep) sterile preparation technician 05/30/18 09:10 Critical Value pw 05/30/18 09:10 Sodium 139 mEq/L (136-145) 06/01/18 04:00 Potassium 3.3 mEq/L (3.5-5.1) L 06/01/18 04:00 Chloride 103 mEq/L (98-107) 06/01/18 04:00 Carbon Dioxide 26.0 mEq/L (21.0-31.0) 06/01/18 04:00 Anion Gap 13.3 (7.0-16.0) 06/01/18 04:00 BUN 17 mg/dL (7-25) 06/01/18 04:00 Creatinine 1.1 mg/dL (0.6-1.2) 06/01/18 04:00 Est GFR ( Amer) > 60.0 ml/min (>90) 06/01/18 04:00 Est GFR (Non-Af Amer) 57.1 ml/min 06/01/18 04:00 BUN/Creatinine Ratio 15.5 06/01/18 04:00 Glucose 161 mg/dL (70-105) H 06/01/18 04:00 Whole Bld Lactic Acid 1.00 mmol/L (0.60-1.99) 05/28/18 15:34 Calcium 7.5 mg/dL (8.6-10.3) L 06/01/18 04:00 Phosphorus 2.6 mg/dL (2.5-5.0) 05/28/18 13:25 Magnesium 2.4 mg/dL (1.9-2.7) 05/28/18 13:25 Iron 29 ug/dL (27-159) 05/30/18 07:30 TIBC 356 ug/dL (250-450) 05/30/18 07:30 Iron Saturation 8 % (15-55) L 05/30/18 07:30 Unsaturated IBC 327 ug/dL (131-425) 05/30/18 07:30 Ferritin 185 ng/mL (15-150) H 05/31/18 07:35 Total Bilirubin 0.3 mg/dL (0.3-1.0) 06/01/18 04:00 AST 19 U/L (13-39) 06/01/18 04:00 ALT 15 U/L (7-52) 06/01/18 04:00 Alkaline Phosphatase 45 U/L (34-104) 06/01/18 04:00 Troponin I 0.01 ng/mL (0.01-0.05) 05/28/18 13:25 B-Natriuretic Peptide 33.5 pg/mL (5.0-100.0) 05/29/18 04:50 Total Protein 5.5 gm/dL (6.0-8.3) L 06/01/18 04:00 Albumin 2.6 gm/dL (3.7-5.3) L 06/01/18 04:00 Globulin 2.9 gm/dL 06/01/18 04:00 Albumin/Globulin Ratio 0.9 (1.0-1.8) L 06/01/18 04:00 Vitamin B12 1696 pg/mL (232-1245) H 05/30/18 07:30 Folic Acid >20.0 ng/mL (>3.0) 05/30/18 07:30 TSH 2.22 uIU/ml (0.34-5.60) 05/28/18 13:25 Serum , Qual NEGATIVE (NEGATIVE) 05/28/18 13:25 Urine Source CATH 05/28/18 14:41 Urine Color YELLOW 05/28/18 14:41 Urine Clarity HAZY (CLEAR) 05/28/18 14:41 Urine pH 6.5 (4.6 - 8.0) 05/28/18 14:41 Ur Specific [place] 1.015 (1.005-1.030) 05/28/18 14:41 Urine Protein 100 mg/dL (NEGATIVE) H 05/28/18 14:41 Urine Glucose (UA) 250 mg/dL (NEGATIVE) H 05/28/18 14:41 Urine Ketones NEGATIVE mg/dL (NEGATIVE) 05/28/18 14:41 Urine Blood NEGATIVE (NEGATIVE) 05/28/18 14:41 Urine Nitrate NEGATIVE (NEGATIVE) 05/28/18 14:41 Urine Bilirubin NEGATIVE (NEGATIVE) 05/28/18 14:41 Urine Urobilinogen 0.2 E.U./dL (0.2 - 1.0) 05/28/18 14:41 Ur Leukocyte Esterase SMALL (NEGATIVE) H 05/28/18 14:41 Urine RBC NONE SEEN /hpf (0-5) 05/28/18 14:41 Urine WBC 6-10 /hpf (0-5) H 05/28/18 14:41 Ur Epithelial Cells FEW /lpf (FEW) 05/28/18 14:41 Urine Bacteria MODERATE /hpf (NONE SEEN) H 05/28/18 14:41 Vancomycin Trough 22.0 ug/mL (5-10) H 06/01/18 06:45 Random Vancomycin 31.8 ug/mL (5.0-40.0) 05/31/18 15:00 Urine Opiates Screen NEGATIVE (NEGATIVE) 05/28/18 14:41 Urine Methadone Screen NEGATIVE (NEGATIVE) 05/28/18 14:41 Ur Barbiturates Screen NEGATIVE (NEGATIVE) 05/28/18 14:41 Valproic Acid 79.6 ug/mL (50.0-100.0) 05/28/18 13:25 Ur Tricyclics Screen NEGATIVE (NEGATIVE) 05/28/18 14:41 Levetiracetam 27.9 ug/mL (10.0-40.0) 05/28/18 13:25 Ur Phencyclidine Scrn NEGATIVE (NEGATIVE) 05/28/18 14:41 Amphetamines Screen NEGATIVE (NEGATIVE) 05/28/18 14:41 U Methamphetamines Scrn NEGATIVE (NEGATIVE) 05/28/18 14:41 U Benzodiazepines Scrn NEGATIVE (NEGATIVE) 05/28/18 14:41 U Cocaine Metab Screen NEGATIVE (NEGATIVE) 05/28/18 14:41 U Cannabinoids Screen NEGATIVE (NEGATIVE) 05/28/18 14:41 Blood Type O POSITIVE 05/30/18 07:30 Antibody Screen NEGATIVE 05/30/18 07:30 Crossmatch See Detail 05/30/18 07:30 - Physical Exam Vitals and I&O: Vital Signs Temp 98.3 F 06/01/18 08:00 Pulse 93 06/01/18 12:15 Resp 16 06/01/18 10:00 BP 105/40 06/01/18 12:15 Pulse Ox 97 06/01/18 12:00 Intake & Output 05/31/18 06/01/18 06/01/18 18:59 06:59 18:59 Intake Total 247.507 200 300 Output Total 1100 700 Balance -852.493 200 -400 Weight (lbs) 97.976 kg 97.885 kg Intake: Intake, IV Amount 247.507 200 100 Levofloxacin 500mg/100mL 100 100 500 mg In 100 ml @ 100 mls/hr IV Q24HR MY Rx#: [id number] Piperacillin Sodium/ 100 200 Tazobact 4.5 gm In Sodium Chloride 0.9% 100 ml @ 100 mls/hr IV Q8HR MY Rx #:[id number] Propofol 1,000 mg In 100 47.507 ml @ 20 MCG/KG/MIN 10.614 mls/hr IV TITR MY Rx#: [id number] Tube Feeding 0 Other 200 Output: Urine 1100 700 Other: # Bowel Movements 1 2 Stool Characteristics Soft Soft Liquid Liquid Brown Brown Weight Source Bedscale Bedscale Active Medications: Current Medications Acetaminophen (Tylenol 650mg/20.3ml Suspension) 650 mg GT Q4HR PRN PRN Reason: Pain or Fever >101 Stop: 07/27/18 22:04 Last Admin: 06/01/18 03:36 Dose: 650 mg Albuterol/Ipratropium (Duoneb Neb) 3 ml HHN Q2H PRN PRN Reason: Shortness of Breath Stop: 07/27/18 22:04 Albuterol/Ipratropium (Duoneb Neb) 3 ml HHN Q6HRT [facility] Stop: 07/28/18 00:00 Last Admin: 06/01/18 12:45 Dose: 3 ml Atorvastatin Calcium (Lipitor) 10 mg GT DAILY [facility]; Protocol Stop: 07/28/18 08:59 Last Admin: 06/01/18 08:31 Dose: 10 mg Bisacodyl (Dulcolax 10 Mg Supp) 10 mg RC DAILY PRN PRN Reason: bowel management Stop: 07/27/18 22:04 Chlorhexidine Gluconate (Peridex) 15 ml MM 0800,2000 [facility] Stop: 07/29/18 07:59 Last Admin: 06/01/18 08:32 Dose: 15 ml Docusate Sodium (Colace) 200 mg GT BID [facility] Stop: 07/28/18 08:59 Last Admin: 06/01/18 08:31 Dose: 200 mg Furosemide (Lasix) 20 mg IVP DAILY [facility] Stop: 07/30/18 15:43 Last Admin: 06/01/18 08:32 Dose: 20 mg Hydromorphone HCl (Dilaudid) 0.5 mg IVP Q4HR PRN PRN Reason: Pain (Moderate) Stop: 07/29/18 01:03 Last Admin: 06/01/18 03:34 Dose: 0.5 mg Levofloxacin (Levaquin Pb) 500 mg in 100 mls @ 100 mls/hr IV Q24HR [facility] Stop: 07/28/18 08:59 Last Infusion: 06/01/18 09:35 Dose: Infused Piperacillin Sod/Tazobactam (Sod 4.5 gm/ Sodium Chloride) 100 mls @ 100 mls/hr IV Q8HR [facility] Stop: 07/27/18 22:44 Last Infusion: 06/01/18 06:30 Dose: Infused Norepinephrine Bitartrate 4 mg (/ Dextrose) 254 mls @ 38.1 mls/hr IV TITR PRN; Protocol PRN Reason: BP MAINTENANCE (PER PROTOCOL) Stop: 07/29/18 00:50 Last Titration: 05/31/18 02:15 Dose: Infused Propofol (Diprivan) 1,000 mg in 100 mls @ 10.614 mls/hr IV TITR MY; Protocol Stop: 07/29/18 05:51 Last Admin: 05/31/18 13:42 Dose: 5 mcg/kg/min, 2.654 mls/hr Sodium Chloride (Nacl 0.9%) 1,000 mls @ 10 mls/hr IV .Q24H MY Stop: 07/30/18 22:59 Last Admin: 05/31/18 23:00 Dose: 10 mls/hr Vancomycin HCl 1.5 gm/ Sodium (Chloride) 500 mls @ 250 mls/hr IV 1400 ONE Stop: 06/01/18 15:59 Lacosamide (Vimpat) 100 mg GT Q12H MY Stop: 07/28/18 08:59 Last Admin: 06/01/18 08:32 Dose: 100 mg Lactobacillus Rhamnosus (Culturelle 15b) 1 each PO DAILY MY Stop: 07/30/18 08:59 Last Admin: 06/01/18 08:32 Dose: 1 each Levetiracetam (Keppra) 750 mg GT BID MY Stop: 07/28/18 08:59 Last Admin: 06/01/18 08:31 Dose: 750 mg Lisinopril (Zestril) 10 mg GT DAILY MY Stop: 07/28/18 08:59 Last Admin: 06/01/18 08:32 Dose: Not Given Miscellaneous (Vancomycin Iv Per Pharmacy) 1 ea MC PRN MY Stop: 07/29/18 02:14 Miscellaneous (Probiotic Screen) 1 ea MC PRN PRN PRN Reason: PROTOCOL Stop: 07/29/18 14:29 Oxcarbazepine (Trileptal) 600 mg GT Q12H MY; Protocol Stop: 07/28/18 14:44 Last Admin: 06/01/18 03:11 Dose: 600 mg Pantoprazole Sodium (Protonix) 40 mg IVP DAILY [facility] Stop: 07/29/18 08:59 Last Admin: 06/01/18 08:31 Dose: 40 mg Wound Care/Dressing Products (Therahoney) 1 appl TP DAILY [facility] Stop: 07/29/18 08:59 Last Admin: 06/01/18 10:23 Dose: 1 appl General: no acute distress, well developed, well nourished HEENT: atraumatic, normocephalic, PERRLA, EOMI, moist mucous membrane Neck: supple, tracheostomy, no thyromegaly, no lymphadenopathy Cardiovascular: S1S2, regular Lungs: clear to auscultation bilaterally, clear to percussion, wheeze Abdomen: soft, bowel sounds, no tender, no distended, no hepatomegaly, no splenomegaly Extremities: no cyanosis, no clubbing, no edema Neurological: awake, alert Skin: intact - Procedures Procedures: Procedures Procedure Code Date CHANGE FEEDING DEVICE IN UP INTEST TRACT, [employer]PORATE [employer]PERATIONS COMPLIANCE MANAGER APPROACH [id number] 04/17/17 RESPIRATORY VENTILATION, 24-96 CONSECUTIVE HOURS [id number] 05/28/18 Infectious Disease Assmt/Plan - Assessment Assessment: 1. Leukocytosis, might have sepsis. improved. 2. Urinary tract infection. 3. Aspiration pneumonia versus nosocomial pneumonia. 4. Respiratory failure, required emergency tracheostomy and vent support. 5. Seizure disorder. 6. Epistaxis. 7. Mentally challenged. 8. History of brain tumor since childhood. 9. Obesity. - Plan Plan: Continue vanco IV, Zosyn and levaquin. Nutritional Asmnt/Malnutr-PDOC - Dietary Evaluation Malnutrition Findings (Please click <Entered> for more info): Nutritional Asmnt/Malnutrition Start: 05/29/18 14: 39 Text: Status: Complete Freq: Protocol: Document 05/29/18 14:39 MARTIR (Rec: 05/29/18 14:56 MARTIR [email or web address]) Nutritional Asmnt/Malnutrition Patient General Information Nutritional Screening High Risk Consult Diagnosis leukocytosis, UTI, PNA Pertinent Medical Hx/Surgical Hx asthma/COPD, seizures, brain tumor, sepsis, recurrent PNA, recurrent resp failure, obesity, dysphagia, decubitus sacral ulcer, acute on chronic systolic versus diastolic heart faiure Subjective Information Consult received for marine 10 . Pt seen lying in bed at time of visit. Observed TF running at 40ml/hr at this time. Per nurse, pt tolerated TF well, no residual noted today. Spoke with RN Bella regarding current TF regimen not meeting nutritional needs. RN stated pt now has edema, will continue to monitor tolerance and ask MD to increase feeding hours. Current Diet Order/ Nutrition Support Jevity 1.2 at 40ml/hr x 20hr ~ 960kcal, 44g protein and 645ml H2O Pertinent Medications lipitor, colace, levaquin, piperacillin, nacl 0.9% Pertinent Labs 05/29 na 131, Cl 91, Glucsoe 127 Nutritional Hx/Data Height 1.47 m Height (Calculated Centimeters) 147.3 Current Weight (lbs) 88.451 kg Weight (Calculated Kilograms) 88.5 Weight (Calculated Grams) 46029.5 Branch Body Weight 96 Body Mass Index (BMI) 40.7 Weight Status Obese GI Symptoms GI Symptoms None Last BM 05/29 Difficult in: None Skin Integrity/Comment: wound to right occipital area, erythema from IAD to buttocks per wound care note marine 10 non-pitting edema Estimated Nutritional Goals BEE in Kcals: Adj wt of IBW Calories/Kcals/Kg 25-30 adj wt 55kg Kcals Calculated 2733-6087 Protein: Adj wt of IBW Protein g/k-1.2 Protein Calculated 55-66 Fluid: ml per MD Nutritional Problem 1. Problem Problem inadequate intake from enteral feeding Etiology underfeeding Signs/Symptoms: current TF regimen meeting 70% of calorie needs and 80% of protein needs Malnutrition Alert Is there a minimum of two criteria No selected? Query Text:Check all the applicable criteria. A minimum of two criteria are recommended for diagnosis of either severe or non-severe malnutrition. Malnutrition Related to Morbid Obesity Malnutrition related to morbid obesity No Intervention/Recommendation Comments 1. Consider switch to TwoCal at 40ml/hr x 20hr to limit fluid volume and increase kcal intake. This will provide 1600kcal, 66g protein and 560ml water, which meeting 100 % of nutrition needs. 2. Monitor TF rate, tolerance, wt, skin integrity and labs 3. F/U as high risk in 2-3 days Expected Outcomes/Goals Expected Outcomes/Goals 1. PO intake to meet at least 75% of nutritional needs. 2. Wt stability, skin to remain intact, labs to approach WNL.
[2018-06-01] MEDS ORDERED: Vancomycin HCl 1.5 GM in Sodium Chloride 0.9% 500 ML IV ONE (14:00)
--- NOTE | 2018-06-01 20:25 | Progress Notes ---
DATE: 05/31/2018 SUBJECTIVE: The patient appears to be doing okay post-tracheostomy placement. OBJECTIVE: VITAL SIGNS: Temperature is 98.0, pulse 90, respiration rate 16, blood pressure 140/40, saturation 100%. HEENT: Atraumatic, normocephalic. Pupils react to light and accommodation. Ears, nose and throat are normal. NECK: Supple. No JVD. CHEST: There are rhonchi bilaterally. HEART: Regular rate and rhythm. ABDOMEN: Soft, tenderness. EXTREMITIES: 1+ edema. LABORATORY DATA: WBC is 15.0, hemoglobin 9.3 and hematocrit 28.0. Sodium 130, potassium 3.5, BUN 17, and creatinine 0.7. Chest x-ray report, there is mild pulmonary congestion and infiltrates. ASSESSMENT: 1. Respiratory failure. 2. Pneumonia. 3. Dysphagia. 4. Sleep apnea. 5. Edema. PLAN: 1. Continue nebulized treatment with antibiotics. 2. Give low dose Lasix as tolerated. 3. Follow up chest x-ray. I will follow the patient with you. JOB# [id number]
--- NOTE | 2018-06-01 20:44 | Internal Medicine Prog Note ---
Internal Medicine Subjective - Subjective Patient is:: awake, non-verbal, non-interactive Patient Complaints of:: other (On trach vent) Per staff patient has:: no episodes of fall Internal Medicine Objective - Results Result Diagrams: 06/01/18 04:00 06/01/18 04:00 Recent Labs: Laboratory Last Values WBC 10.4 Th/cmm (4.8-10.8) D 06/01/18 04:00 RBC 3.97 Mil/cmm (3.80-5.10) 06/01/18 04:00 Hgb 12.2 gm/dL (12-16) 06/01/18 04:00 Hct 36.6 % (41.0-60) L D 06/01/18 04:00 MCV 92.2 fl (81-100) 06/01/18 04:00 MCH 30.8 pg (27.0-31.0) 06/01/18 04:00 MCHC Differential 33.4 pg (28.0-36.0) 06/01/18 04:00 RDW 15.2 % (11.5-20.0) 06/01/18 04:00 Plt Count 200 Th/cmm (150-400) D 06/01/18 04:00 MPV 7.0 fl 06/01/18 04:00 Add Manual Diff YES 05/31/18 04:05 Neutrophils % 76.5 % (40.0-80.0) 06/01/18 04:00 Band Neutrophils % 5 % (0-10) 05/31/18 04:05 Lymphocytes % 11.1 % (20.0-50.0) L 06/01/18 04:00 Monocytes % 11.6 % (2.0-10.0) H 06/01/18 04:00 Eosinophils % 0.7 % (0.0-5.0) 06/01/18 04:00 Basophils % 0.1 % (0.0-2.0) 06/01/18 04:00 Neutrophils (Manual) 70 % (40-80) 05/31/18 04:05 Lymphocytes 13 % (20-50) L 05/31/18 04:05 Monocytes 10 % (2-10) 05/31/18 04:05 Eosinophils 2 % (0-5) 05/31/18 04:05 Basophils 0 % (0-3) 05/30/18 05:55 Platelet Estimate ADEQUATE (NORMAL) 05/31/18 04:05 Polychromasia 1+ 05/30/18 05:55 Poikilocytosis 1+ 05/30/18 05:55 Anisocytosis 1+ 05/30/18 05:55 Target Cells 1+ 05/30/18 05:55 Stomatocytes 2+ 05/30/18 05:55 PT 10.4 SECONDS (9.5-11.5) 05/31/18 04:05 INR 1.00 (0.5-1.4) 05/31/18 04:05 PTT (Actin FS) 28.3 SECONDS (26.0-38.0) 05/31/18 04:05 Specimen Source Arterial 05/30/18 09:10 Sample Site Right Radial 05/30/18 09:10 pH 7.37 (7.35-7.45) 05/30/18 09:10 pCO2 50.2 mmHg (35.0-45.0) H 05/30/18 09:10 pO2 62.5 mmHg (80.0-100.0) L 05/30/18 09:10 HCO3 28.2 mEq/L (20.0-26.0) H 05/30/18 09:10 Base Excess 1.9 mEq/L (-3.0-3.0) 05/30/18 09:10 O2 Saturation 91.0 % (92.0-100.0) L 05/30/18 09:10 Gerald Test PASS 05/30/18 09:10 Vent Rate 16 05/30/18 09:10 Inspired O2 35 05/30/18 09:10 Tidal Volume 450 05/30/18 09:10 PEEP wicker worker 05/30/18 09:10 Pressure (ins/psv/peep) wicker worker 05/30/18 09:10 Critical Value pw 05/30/18 09:10 Sodium 139 mEq/L (136-145) 06/01/18 04:00 Potassium 3.3 mEq/L (3.5-5.1) L 06/01/18 04:00 Chloride 103 mEq/L (98-107) 06/01/18 04:00 Carbon Dioxide 26.0 mEq/L (21.0-31.0) 06/01/18 04:00 Anion Gap 13.3 (7.0-16.0) 06/01/18 04:00 BUN 17 mg/dL (7-25) 06/01/18 04:00 Creatinine 1.1 mg/dL (0.6-1.2) 06/01/18 04:00 Est GFR ( Amer) > 60.0 ml/min (>90) 06/01/18 04:00 Est GFR (Non-Af Amer) 57.1 ml/min 06/01/18 04:00 BUN/Creatinine Ratio 15.5 06/01/18 04:00 Glucose 161 mg/dL (70-105) H 06/01/18 04:00 Whole Bld Lactic Acid 1.00 mmol/L (0.60-1.99) 05/28/18 15:34 Calcium 7.5 mg/dL (8.6-10.3) L 06/01/18 04:00 Phosphorus 2.6 mg/dL (2.5-5.0) 05/28/18 13:25 Magnesium 2.4 mg/dL (1.9-2.7) 05/28/18 13:25 Iron 29 ug/dL (27-159) 05/30/18 07:30 TIBC 356 ug/dL (250-450) 05/30/18 07:30 Iron Saturation 8 % (15-55) L 05/30/18 07:30 Unsaturated IBC 327 ug/dL (131-425) 05/30/18 07:30 Ferritin 185 ng/mL (15-150) H 05/31/18 07:35 Total Bilirubin 0.3 mg/dL (0.3-1.0) 06/01/18 04:00 AST 19 U/L (13-39) 06/01/18 04:00 ALT 15 U/L (7-52) 06/01/18 04:00 Alkaline Phosphatase 45 U/L (34-104) 06/01/18 04:00 Troponin I 0.01 ng/mL (0.01-0.05) 05/28/18 13:25 B-Natriuretic Peptide 33.5 pg/mL (5.0-100.0) 05/29/18 04:50 Total Protein 5.5 gm/dL (6.0-8.3) L 06/01/18 04:00 Albumin 2.6 gm/dL (3.7-5.3) L 06/01/18 04:00 Globulin 2.9 gm/dL 06/01/18 04:00 Albumin/Globulin Ratio 0.9 (1.0-1.8) L 06/01/18 04:00 Vitamin B12 1696 pg/mL (232-1245) H 05/30/18 07:30 Folic Acid >20.0 ng/mL (>3.0) 05/30/18 07:30 TSH 2.22 uIU/ml (0.34-5.60) 05/28/18 13:25 Serum , Qual NEGATIVE (NEGATIVE) 05/28/18 13:25 Urine Source CATH 05/28/18 14:41 Urine Color YELLOW 05/28/18 14:41 Urine Clarity HAZY (CLEAR) 05/28/18 14:41 Urine pH 6.5 (4.6 - 8.0) 05/28/18 14:41 Ur Specific [place] 1.015 (1.005-1.030) 05/28/18 14:41 Urine Protein 100 mg/dL (NEGATIVE) H 05/28/18 14:41 Urine Glucose (UA) 250 mg/dL (NEGATIVE) H 05/28/18 14:41 Urine Ketones NEGATIVE mg/dL (NEGATIVE) 05/28/18 14:41 Urine Blood NEGATIVE (NEGATIVE) 05/28/18 14:41 Urine Nitrate NEGATIVE (NEGATIVE) 05/28/18 14:41 Urine Bilirubin NEGATIVE (NEGATIVE) 05/28/18 14:41 Urine Urobilinogen 0.2 E.U./dL (0.2 - 1.0) 05/28/18 14:41 Ur Leukocyte Esterase SMALL (NEGATIVE) H 05/28/18 14:41 Urine RBC NONE SEEN /hpf (0-5) 05/28/18 14:41 Urine WBC 6-10 /hpf (0-5) H 05/28/18 14:41 Ur Epithelial Cells FEW /lpf (FEW) 05/28/18 14:41 Urine Bacteria MODERATE /hpf (NONE SEEN) H 05/28/18 14:41 Vancomycin Trough 22.0 ug/mL (5-10) H 06/01/18 06:45 Random Vancomycin 31.8 ug/mL (5.0-40.0) 05/31/18 15:00 Urine Opiates Screen NEGATIVE (NEGATIVE) 05/28/18 14:41 Urine Methadone Screen NEGATIVE (NEGATIVE) 05/28/18 14:41 Ur Barbiturates Screen NEGATIVE (NEGATIVE) 05/28/18 14:41 Valproic Acid 79.6 ug/mL (50.0-100.0) 05/28/18 13:25 Ur Tricyclics Screen NEGATIVE (NEGATIVE) 05/28/18 14:41 Levetiracetam 27.9 ug/mL (10.0-40.0) 05/28/18 13:25 Ur Phencyclidine Scrn NEGATIVE (NEGATIVE) 05/28/18 14:41 Amphetamines Screen NEGATIVE (NEGATIVE) 05/28/18 14:41 U Methamphetamines Scrn NEGATIVE (NEGATIVE) 05/28/18 14:41 U Benzodiazepines Scrn NEGATIVE (NEGATIVE) 05/28/18 14:41 U Cocaine Metab Screen NEGATIVE (NEGATIVE) 05/28/18 14:41 U Cannabinoids Screen NEGATIVE (NEGATIVE) 05/28/18 14:41 Blood Type O POSITIVE 05/30/18 07:30 Antibody Screen NEGATIVE 05/30/18 07:30 Crossmatch See Detail 05/30/18 07:30 - Physical Exam Vitals and I&O: Vital Signs Temp 97.4 F 06/01/18 16:00 Pulse 95 06/01/18 20:15 Resp 11 06/01/18 19:00 BP 132/45 06/01/18 20:15 Pulse Ox 98 06/01/18 19:00 Intake & Output 06/01/18 06/01/18 06/02/18 06:59 18:59 06:59 Intake Total 200 1192.015 19.065 Output Total 1500 Balance 200 -307.985 19.065 Weight (lbs) 97.522 kg Intake: Intake, IV Amount 200 262.015 19.065 Levofloxacin 500mg/100mL 100 500 mg In 100 ml @ 100 mls/hr IV Q24HR MY Rx#: [id number] Piperacillin Sodium/ 200 100 Tazobact 4.5 gm In Sodium Chloride 0.9% 100 ml @ 100 mls/hr IV Q8HR MY Rx #:[id number] Propofol 1,000 mg In 100 62.015 19.065 ml @ 20 MCG/KG/MIN 10.614 mls/hr IV TITR MY Rx#: [id number] Tube Feeding 480 Other 450 Output: Urine 1500 Other: # Bowel Movements 1 Stool Characteristics Soft Soft Liquid Liquid Brown Brown Weight Source Bedscale Active Medications: Current Medications Acetaminophen (Tylenol 650mg/20.3ml Suspension) 650 mg GT Q4HR PRN PRN Reason: Pain or Fever >101 Stop: 07/27/18 22:04 Last Admin: 06/01/18 03:36 Dose: 650 mg Albuterol/Ipratropium (Duoneb Neb) 3 ml HHN Q2H PRN PRN Reason: Shortness of Breath Stop: 07/27/18 22:04 Albuterol/Ipratropium (Duoneb Neb) 3 ml HHN Q6HRT [facility] Stop: 07/28/18 00:00 Last Admin: 06/01/18 18:32 Dose: 3 ml Atorvastatin Calcium (Lipitor) 10 mg GT DAILY [facility]; Protocol Stop: 07/28/18 08:59 Last Admin: 06/01/18 08:31 Dose: 10 mg Bisacodyl (Dulcolax 10 Mg Supp) 10 mg RC DAILY PRN PRN Reason: bowel management Stop: 07/27/18 22:04 Chlorhexidine Gluconate (Peridex) 15 ml MM 0800,2000 [facility] Stop: 07/29/18 07:59 Last Admin: 06/01/18 20:34 Dose: 15 ml Docusate Sodium (Colace) 200 mg GT BID [facility] Stop: 07/28/18 08:59 Last Admin: 06/01/18 17:11 Dose: 200 mg Furosemide (Lasix) 20 mg IVP DAILY [facility] Stop: 07/30/18 15:43 Last Admin: 06/01/18 08:32 Dose: 20 mg Hydromorphone HCl (Dilaudid) 0.5 mg IVP Q4HR PRN PRN Reason: Pain (Moderate) Stop: 07/29/18 01:03 Last Admin: 06/01/18 20:15 Dose: 0.5 mg Levofloxacin (Levaquin Pb) 500 mg in 100 mls @ 100 mls/hr IV Q24HR [facility] Stop: 07/28/18 08:59 Last Infusion: 06/01/18 09:35 Dose: Infused Piperacillin Sod/Tazobactam (Sod 4.5 gm/ Sodium Chloride) 100 mls @ 100 mls/hr IV Q8HR MY Stop: 07/27/18 22:44 Last Admin: 06/01/18 20:37 Dose: 100 mls/hr Norepinephrine Bitartrate 4 mg (/ Dextrose) 254 mls @ 38.1 mls/hr IV TITR PRN; Protocol PRN Reason: BP MAINTENANCE (PER PROTOCOL) Stop: 07/29/18 00:50 Last Titration: 05/31/18 02:15 Dose: Infused Propofol (Diprivan) 1,000 mg in 100 mls @ 10.614 mls/hr IV TITR MY; Protocol Stop: 07/29/18 05:51 Last Titration: 06/01/18 20:15 Dose: 0 mcg/kg/min, 0 mls/hr Sodium Chloride (Nacl 0.9%) 1,000 mls @ 10 mls/hr IV .Q24H MY Stop: 07/30/18 22:59 Last Admin: 05/31/18 23:00 Dose: 10 mls/hr Lacosamide (Vimpat) 100 mg GT Q12H MY Stop: 07/28/18 08:59 Last Admin: 06/01/18 20:35 Dose: 100 mg Lactobacillus Rhamnosus (Culturelle 15b) 1 each PO DAILY MY Stop: 07/30/18 08:59 Last Admin: 06/01/18 08:32 Dose: 1 each Levetiracetam (Keppra) 750 mg GT BID MY Stop: 07/28/18 08:59 Last Admin: 06/01/18 17:09 Dose: 750 mg Lisinopril (Zestril) 10 mg GT DAILY MY Stop: 07/28/18 08:59 Last Admin: 06/01/18 08:32 Dose: Not Given Miscellaneous (Vancomycin Iv Per Pharmacy) 1 ea MC PRN MY Stop: 07/29/18 02:14 Miscellaneous (Probiotic Screen) 1 ea MC PRN PRN PRN Reason: PROTOCOL Stop: 07/29/18 14:29 Oxcarbazepine (Trileptal) 600 mg GT Q12H MY; Protocol Stop: 07/28/18 14:44 Last Admin: 06/01/18 15:00 Dose: 600 mg Pantoprazole Sodium (Protonix) 40 mg IVP DAILY MY Stop: 07/29/18 08:59 Last Admin: 02/14/19 08:31 Dose: 40 mg Wound Care/Dressing Products (Therahoney) 1 appl TP DAILY MY Stop: 07/29/18 08:59 Last Admin: 06/01/18 10:23 Dose: 1 appl General: weak, edematous HEENT: thinning hair Neck: + trach Lungs: CTAB Cardiovascular: Normal S1, Normal S2 Abdomen: soft, non-tender, other (g-tube present.) Extremities: edema Neurological: other (Hx of Seizures.) - Procedures Procedures: Procedures Procedure Code Date CHANGE FEEDING DEVICE IN UP INTEST TRACT, DRAPERY AND UPHOLSTERY MEASURER APPROACH [id number] 04/17/17 RESPIRATORY VENTILATION, 24-96 CONSECUTIVE HOURS [id number] 05/28/18 Internal Medicine Assmt/Plan - Assessment Assessment: Assessment and Impression S/p Trach vent. Right Upper and Mid lobe Pneumonia. Urinary Tract infection. Leukocytosis. Anemia. Low Chloride. Low Sodium. Dehydration. Posterior Occipital Decubitus. Morbid Obesity. History of Dysphagia/ G-tube dependent. History of Respiratory Distress. History of Copd. History of Seizure Disorder. History of Brain Tumor. - Plan Plan: Plan Continuation of care Continue present meds as directed Monitor Diet/Nutritional support/Continue G-tube feedings Monitor Pain, Pain Management Continue Ventilator support Respiratory treatment and Pulmonary support prn Local Skin Care G-tube and Trach Care Physical therapy Occupational therapy Fall precaution Safety precaution Seizure precaution Supportive care Will Monitor patient and continue current treatment plan as ordered. Nutritional Asmnt/Malnutr-PDOC - Dietary Evaluation Malnutrition Findings (Please click <Entered> for more info): Nutritional Asmnt/Malnutrition Start: 05/29/18 14: 39 Text: Status: Complete Freq: Protocol: Document 05/29/18 14:39 LCHENG (Rec: 05/29/18 14:56 LCHENG [email or web address]) Nutritional Asmnt/Malnutrition Patient General Information Nutritional Screening High Risk Consult Diagnosis leukocytosis, UTI, PNA Pertinent Medical Hx/Surgical Hx asthma/COPD, seizures, brain tumor, sepsis, recurrent PNA, recurrent resp failure, obesity, dysphagia, decubitus sacral ulcer, acute on chronic systolic versus diastolic heart faiure 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 Pt seen lying in bed at time of visit. Observed TF running at 40ml/hr at this time. Per nurse, pt tolerated TF well, no residual noted today. Spoke with SUSAN Blanco regarding current TF regimen not meeting nutritional needs. RN stated pt now has edema, will continue to monitor tolerance and ask MD to increase feeding hours. Current Diet Order/ Nutrition Support Jevity 1.2 at 40ml/hr x 20hr ~ 960kcal, 44g protein and 645ml H2O Pertinent Medications lipitor, colace, levaquin, piperacillin, nacl 0.9% Pertinent Labs 05/29 na 131, Cl 91, Glucsoe 127 Nutritional Hx/Data Height 1.47 m Height (Calculated Centimeters) 147.3 Current Weight (lbs) 88.451 kg Weight (Calculated Kilograms) 88.5 Weight (Calculated Grams) 61279.5 [place] Body Weight 96 Body Mass Index (BMI) 40.7 Weight Status Obese GI Symptoms GI Symptoms None Last BM 05/29 Difficult in: None Skin Integrity/Comment: wound to right occipital area, erythema from IAD to buttocks per wound care note marine 10 non-pitting edema Estimated Nutritional Goals BEE in Kcals: Adj wt of IBW Calories/Kcals/Kg 25-30 adj wt 55kg Kcals Calculated 5934-6008 Protein: Adj wt of IBW Protein g/k-1.2 Protein Calculated 55-66 Fluid: ml per MD Nutritional Problem 1. Problem Problem inadequate intake from enteral feeding Etiology underfeeding Signs/Symptoms: current TF regimen meeting 70% of calorie needs and 80% of protein needs Malnutrition Alert Is there a minimum of two criteria No selected? Query Text:Check all the applicable criteria. A minimum of two criteria are recommended for diagnosis of either severe or non-severe malnutrition. Malnutrition Related to Morbid Obesity Malnutrition related to morbid obesity No Intervention/Recommendation Comments 1. Consider switch to TwoCal at 40ml/hr x 20hr to limit fluid volume and increase kcal intake. This will provide 1600kcal, 66g protein and 560ml water, which meeting 100 % of nutrition needs. 2. Monitor TF rate, tolerance, wt, skin integrity and labs 3. F/U as high risk in 2-3 days Expected Outcomes/Goals Expected Outcomes/Goals 1. PO intake to meet at least 75% of nutritional needs. 2. Wt stability, skin to remain intact, labs to approach WNL.
[2018-06-02] MEDS: Albuterol/Ipratropium Neb 3 ML AERS HHN SCH ×4 (00:06→19:25)
[2018-06-02] MEDS: HYDROmorphone 1 mg/mL 1mL Syr IVP PRN (00:15)
[2018-06-02] MEDS: Sodium Chloride 0.9% 1,000 ML IV SCH ×2 (00:29→22:11)
--- NOTE | 2018-06-02 02:04 | Progress Notes ---
DATE: 06/01/2018 SURGICAL PROGRESS NOTE TIME: 01:20 p.m. OBJECTIVE: VITAL SIGNS: The patient is afebrile. Vital signs otherwise stable. GENERAL: The patient is awake, but encephalopathic cerebral palsy. Trach site is intact with no bleeding or leaking. O2 saturation 100%. CHEST: Good breath sounds bilaterally. CARDIAC: Regular rhythm and rate. ABDOMEN: Soft, nontender, nondistended. NEUROVASCULAR AND EXTREMITIES: Otherwise normal. LABORATORY DATA: The white blood cell count 10.4 today, H and H is 12 and 36.6, platelet count is 200. Coags are normal yesterday. Blood gas not done postoperatively. Today potassium 3.3, glucose 161. The chest x-ray done yesterday postop showed midline tracheostomy, correlate clinically, low lung volume with diffuse pulmonary infiltrates. IMPRESSION/PLAN: Overall stable after removal of the ET tube from the neck and conversion to a conventional tracheostomy tube with #7 XLT Shiley was placed in and Velcro tied around the neck and suture anchored to the right and left side of the neck. There is some packing in the large open wound which can be changed in 2-3 days. Chest x-ray confirms placement. O2 saturations are stable. Oxygenating and ventilating well. No trach and vent related problems. Overall stable. We will follow intermittently. JOB# [id number]
--- NOTE | 2018-06-02 02:13 | Progress Notes ---
DATE: 06/01/2018 PULMONARY PROGRESS NOTE SUBJECTIVE: The patient appears to be doing okay. The patient is more awake and alert now. OBJECTIVE: GENERAL: No distress. VITAL SIGNS: Temperature is 97.2, pulse is 102, respiration is 17, blood pressure 110/41, saturation 97%. CHEST: Good breath sounds, decreased rhonchi. HEART: Regular rate and rhythm. ABDOMEN: Soft. EXTREMITIES: Trace edema. LABORATORY DATA: WBC is 10.4, hemoglobin 12.2, hematocrit 36.6, platelets 200. Sodium 139, potassium 3.3, BUN 17, creatinine 1.1. IMPRESSION: 1. Respiratory failure. 2. Pneumonia. 3. Upper airway obstruction, status post tracheostomy. 4. Weakness. 5. Encephalopathy. PLAN: 1. Continue ventilator support. 2. Antibiotic treatment. 3. Pulmonary toilet and supportive care. 4. Agreeing with transfer to long-term acute care. JOB# [id number]
[2018-06-02 04:38] LABS: % BASOPHILS 0.5 % (0.0-2.0); % LYMPHOCYTES 23.2 % (20.0-50.0); % MONOCYTES 11.4 % (2.0-10.0); % NEUTROPHILS 62.9 % (40.0-80.0); BASOPHILE ABSOLUTE 0.1 Th/cumm (0-0.2); EOSINOPHILE ABSOLUTE 0.3 Th/cmm (0.1-0.4); HEMATOCRIT 26.1 % (41.0-60); HEMOGLOBIN 8.7 gm/dL (12-16); LYMPHOCYTE ABSOLUTE 2.9 Th/cmm (1.5-3.0); MEAN CELL VOLUME 92.1 fl (81-100); MEAN CORPUSCULAR HEMOGLOBIN 30.8 pg (27.0-31.0); MEAN CORPUSCULAR HGB CONC 33.4 pg (28.0-36.0); MEAN PLATELET VOLUME 6.9 fl; MONOCYTE ABSOLUTE 1.4 Th/cmm (0.3-1.0); NEUTROPHILE ABSOLUTE 7.9 Th/cmm (1.8-8.0); PLATELET COUNT 334 Th/cmm (150-400); RED BLOOD COUNT 2.83 Mil/cmm (3.80-5.10); RED CELL DISTRIBUTION WIDTH 15.8 % (11.5-20.0); WHITE BLOOD COUNT 12.6 Th/cmm (4.8-10.8)
[2018-06-02 04:48] LABS: ALB/GLOB RATIO 0.9 (1.0-1.8); ALBUMIN 2.8 gm/dL (3.7-5.3); ALKALINE PHOSPHATASE 44 U/L (34-104); ANION GAP 14.7 (7.0-16.0); BILIRUBIN,TOTAL 0.3 mg/dL (0.3-1.0); BUN - UREA NITROGEN 18 mg/dL (7-25); CALCIUM SERUM 7.6 mg/dL (8.6-10.3); CARBON DIOXIDE 24.8 mEq/L (21.0-31.0); CHLORIDE 105 mEq/L (98-107); CREATININE - SERUM 1.1 mg/dL (0.6-1.2); GFR AFRICAN-AMERICAN > 60.0 ml/min (>90); GFR NON AFRICAN-AMERICAN 57.1 ml/min; GLUCOSE 138 mg/dL (70-105); POTASSIUM SERUM 3.5 mEq/L (3.5-5.1); SGOT 16 U/L (13-39); SGPT/ALT 15 U/L (7-52); SODIUM SERUM 141 mEq/L (136-145)
[2018-06-02] MEDS: Levofloxacin 500mg/100mL 500 MG/100 ML BAG IV SCH (08:19)
[2018-06-02] MEDS: Lactobacillus Rhamnosus GG 15 Billion CFU CAP.SPRINK PO SCH (08:20)
[2018-06-02] MEDS: Atorvastatin Calcium 10 MG TAB GT SCH (08:20)
[2018-06-02] MEDS: Multivitamin w/ Minerals Tab GT SCH (08:21)
[2018-06-02] MEDS: Docusate Sodium 100 mg/10 mL UD GT SCH ×2 (08:22→18:44)
[2018-06-02] MEDS: Chlorhexidine Gluconate 0.12% 15mL Mouthwash MM SCH ×2 (08:22→20:06)
[2018-06-02] MEDS: Therahoney Gel 42.5gm Tube TP SCH (08:22)
[2018-06-02] MEDS: Levetiracetam 500 mg/5mL 5mL UDSyr *for ORAL USE ONLY GT SCH ×3 (08:30→17:00)
[2018-06-02] MEDS ORDERED: Potassium Chloride Elixir 20 mEq /15 mL UDC GT SCH (10:00)
--- NOTE | 2018-06-02 13:18 | Internal Medicine Prog Note ---
Internal Medicine Subjective - Subjective Service Date: 06/02/18 Patient is:: awake, non-verbal, non-interactive Patient Complaints of:: other (On trach vent) Per staff patient has:: no episodes of fall Internal Medicine Objective - Results Result Diagrams: 06/02/18 03:30 06/02/18 03:30 Recent Labs: Laboratory Last Values WBC 12.6 Th/cmm (4.8-10.8) H D 06/02/18 03:30 RBC 2.83 Mil/cmm (3.80-5.10) L 06/02/18 03:30 Hgb 8.7 gm/dL (12-16) L D 06/02/18 03:30 Hct 26.1 % (41.0-60) L D 06/02/18 03:30 MCV 92.1 fl (81-100) 06/02/18 03:30 MCH 30.8 pg (27.0-31.0) 06/02/18 03:30 MCHC Differential 33.4 pg (28.0-36.0) 06/02/18 03:30 RDW 15.8 % (11.5-20.0) 06/02/18 03:30 Plt Count 334 Th/cmm (150-400) D 06/02/18 03:30 MPV 6.9 fl 06/02/18 03:30 Add Manual Diff YES 05/31/18 04:05 Neutrophils % 62.9 % (40.0-80.0) 06/02/18 03:30 Band Neutrophils % 5 % (0-10) 05/31/18 04:05 Lymphocytes % 23.2 % (20.0-50.0) 06/02/18 03:30 Monocytes % 11.4 % (2.0-10.0) H 06/02/18 03:30 Eosinophils % 2.0 % (0.0-5.0) 06/02/18 03:30 Basophils % 0.5 % (0.0-2.0) 06/02/18 03:30 Neutrophils (Manual) 70 % (40-80) 05/31/18 04:05 Lymphocytes 13 % (20-50) L 05/31/18 04:05 Monocytes 10 % (2-10) 05/31/18 04:05 Eosinophils 2 % (0-5) 05/31/18 04:05 Basophils 0 % (0-3) 05/30/18 05:55 Platelet Estimate ADEQUATE (NORMAL) 05/31/18 04:05 Polychromasia 1+ 05/30/18 05:55 Poikilocytosis 1+ 05/30/18 05:55 Anisocytosis 1+ 05/30/18 05:55 Target Cells 1+ 05/30/18 05:55 Stomatocytes 2+ 05/30/18 05:55 PT 10.4 SECONDS (9.5-11.5) 05/31/18 04:05 INR 1.00 (0.5-1.4) 05/31/18 04:05 PTT (Actin FS) 28.3 SECONDS (26.0-38.0) 05/31/18 04:05 Specimen Source Arterial 05/30/18 09:10 Sample Site Right Radial 05/30/18 09:10 pH 7.37 (7.35-7.45) 05/30/18 09:10 pCO2 50.2 mmHg (35.0-45.0) H 05/30/18 09:10 pO2 62.5 mmHg (80.0-100.0) L 05/30/18 09:10 HCO3 28.2 mEq/L (20.0-26.0) H 05/30/18 09:10 Base Excess 1.9 mEq/L (-3.0-3.0) 05/30/18 09:10 O2 Saturation 91.0 % (92.0-100.0) L 05/30/18 09:10 Gerald Test PASS 05/30/18 09:10 Vent Rate 16 05/30/18 09:10 Inspired O2 35 05/30/18 09:10 Tidal Volume 450 05/30/18 09:10 PEEP whizzer 05/30/18 09:10 Pressure (ins/psv/peep) whizzer 05/30/18 09:10 Critical Value pw 05/30/18 09:10 Sodium 141 mEq/L (136-145) 06/02/18 03:30 Potassium 3.5 mEq/L (3.5-5.1) 06/02/18 03:30 Chloride 105 mEq/L (98-107) 06/02/18 03:30 Carbon Dioxide 24.8 mEq/L (21.0-31.0) 06/02/18 03:30 Anion Gap 14.7 (7.0-16.0) 06/02/18 03:30 BUN 18 mg/dL (7-25) 06/02/18 03:30 Creatinine 1.1 mg/dL (0.6-1.2) 06/02/18 03:30 Est GFR ( Amer) > 60.0 ml/min (>90) 06/02/18 03:30 Est GFR (Non-Af Amer) 57.1 ml/min 06/02/18 03:30 BUN/Creatinine Ratio 16.4 06/02/18 03:30 Glucose 138 mg/dL (70-105) H 06/02/18 03:30 Whole Bld Lactic Acid 1.00 mmol/L (0.60-1.99) 05/28/18 15:34 Calcium 7.6 mg/dL (8.6-10.3) L 06/02/18 03:30 Phosphorus 2.6 mg/dL (2.5-5.0) 05/28/18 13:25 Magnesium 2.4 mg/dL (1.9-2.7) 05/28/18 13:25 Iron 29 ug/dL (27-159) 05/30/18 07:30 TIBC 356 ug/dL (250-450) 05/30/18 07:30 Iron Saturation 8 % (15-55) L 05/30/18 07:30 Unsaturated IBC 327 ug/dL (131-425) 05/30/18 07:30 Ferritin 185 ng/mL (15-150) H 05/31/18 07:35 Total Bilirubin 0.3 mg/dL (0.3-1.0) 06/02/18 03:30 AST 16 U/L (13-39) 06/02/18 03:30 ALT 15 U/L (7-52) 06/02/18 03:30 Alkaline Phosphatase 44 U/L (34-104) 06/02/18 03:30 Troponin I 0.01 ng/mL (0.01-0.05) 05/28/18 13:25 B-Natriuretic Peptide 33.5 pg/mL (5.0-100.0) 05/29/18 04:50 Total Protein 6.0 gm/dL (6.0-8.3) 06/02/18 03:30 Albumin 2.8 gm/dL (3.7-5.3) L 06/02/18 03:30 Globulin 3.2 gm/dL 06/02/18 03:30 Albumin/Globulin Ratio 0.9 (1.0-1.8) L 06/02/18 03:30 Vitamin B12 1696 pg/mL (232-1245) H 05/30/18 07:30 Folic Acid >20.0 ng/mL (>3.0) 05/30/18 07:30 TSH 2.22 uIU/ml (0.34-5.60) 05/28/18 13:25 Serum , Qual NEGATIVE (NEGATIVE) 05/28/18 13:25 Urine Source CATH 05/28/18 14:41 Urine Color YELLOW 05/28/18 14:41 Urine Clarity HAZY (CLEAR) 05/28/18 14:41 Urine pH 6.5 (4.6 - 8.0) 05/28/18 14:41 Ur Specific Drake 1.015 (1.005-1.030) 05/28/18 14:41 Urine Protein 100 mg/dL (NEGATIVE) H 05/28/18 14:41 Urine Glucose (UA) 250 mg/dL (NEGATIVE) H 05/28/18 14:41 Urine Ketones NEGATIVE mg/dL (NEGATIVE) 05/28/18 14:41 Urine Blood NEGATIVE (NEGATIVE) 05/28/18 14:41 Urine Nitrate NEGATIVE (NEGATIVE) 05/28/18 14:41 Urine Bilirubin NEGATIVE (NEGATIVE) 05/28/18 14:41 Urine Urobilinogen 0.2 E.U./dL (0.2 - 1.0) 05/28/18 14:41 Ur Leukocyte Esterase SMALL (NEGATIVE) H 05/28/18 14:41 Urine RBC NONE SEEN /hpf (0-5) 05/28/18 14:41 Urine WBC 6-10 /hpf (0-5) H 05/28/18 14:41 Ur Epithelial Cells FEW /lpf (FEW) 05/28/18 14:41 Urine Bacteria MODERATE /hpf (NONE SEEN) H 05/28/18 14:41 Vancomycin Trough 22.0 ug/mL (5-10) H 06/01/18 06:45 Random Vancomycin 31.8 ug/mL (5.0-40.0) 05/31/18 15:00 Urine Opiates Screen NEGATIVE (NEGATIVE) 05/28/18 14:41 Urine Methadone Screen NEGATIVE (NEGATIVE) 05/28/18 14:41 Ur Barbiturates Screen NEGATIVE (NEGATIVE) 05/28/18 14:41 Valproic Acid 79.6 ug/mL (50.0-100.0) 05/28/18 13:25 Ur Tricyclics Screen NEGATIVE (NEGATIVE) 05/28/18 14:41 Levetiracetam 27.9 ug/mL (10.0-40.0) 05/28/18 13:25 Ur Phencyclidine Scrn NEGATIVE (NEGATIVE) 05/28/18 14:41 Amphetamines Screen NEGATIVE (NEGATIVE) 05/28/18 14:41 U Methamphetamines Scrn NEGATIVE (NEGATIVE) 05/28/18 14:41 U Benzodiazepines Scrn NEGATIVE (NEGATIVE) 05/28/18 14:41 U Cocaine Metab Screen NEGATIVE (NEGATIVE) 05/28/18 14:41 U Cannabinoids Screen NEGATIVE (NEGATIVE) 05/28/18 14:41 Blood Type O POSITIVE 05/30/18 07:30 Antibody Screen NEGATIVE 05/30/18 07:30 Crossmatch See Detail 05/30/18 07:30 - Physical Exam Vitals and I&O: Vital Signs Temp 97.4 F 06/02/18 12:00 Pulse 91 06/02/18 13:00 Resp 16 06/02/18 13:00 BP 139/30 06/02/18 13:00 Pulse Ox 99 06/02/18 13:00 Intake & Output 06/01/18 06/02/18 06/02/18 18:59 06:59 18:59 Intake Total 2025.623 7387.898 100 Output Total 1500 430 Balance -307.985 753.898 100 Weight (lbs) 215 lb 216 lb 1 oz Intake: Intake, IV Amount 262.015 473.898 100 Levofloxacin 500mg/100mL 100 100 500 mg In 100 ml @ 100 mls/hr IV Q24HR MY Rx#: [id number] Piperacillin Sodium/ 100 200 Tazobact 4.5 gm In Sodium Chloride 0.9% 100 ml @ 100 mls/hr IV Q8HR MY Rx #:[id number] Propofol 1,000 mg In 100 62.015 19.065 ml @ 20 MCG/KG/MIN 10.614 mls/hr IV TITR [facility] Rx#: [id number] Sodium Chloride 0.9% 1, 254.833 000 ml @ 10 mls/hr IV . Q24H [facility] Rx#:[id number] Tube Feeding 480 480 Other 450 230 Output: Urine 1500 430 Other: # Bowel Movements 1 2 Stool Characteristics Soft Soft Liquid Liquid Brown Brown Weight Source Bedscale Bedscale Active Medications: Current Medications Acetaminophen (Tylenol 650mg/20.3ml Suspension) 650 mg GT Q4HR PRN PRN Reason: Pain or Fever >101 Stop: 07/27/18 22:04 Last Admin: 06/02/18 03:40 Dose: 650 mg Albuterol/Ipratropium (Duoneb Neb) 3 ml HHN Q2H PRN PRN Reason: Shortness of Breath Stop: 07/27/18 22:04 Albuterol/Ipratropium (Duoneb Neb) 3 ml HHN Q6HRT [facility] Stop: 07/28/18 00:00 Last Admin: 06/02/18 07:23 Dose: 3 ml Atorvastatin Calcium (Lipitor) 10 mg GT DAILY [facility]; Protocol Stop: 07/28/18 08:59 Last Admin: 06/02/18 08:20 Dose: 10 mg Bisacodyl (Dulcolax 10 Mg Supp) 10 mg RC DAILY PRN PRN Reason: bowel management Stop: 07/27/18 22:04 Chlorhexidine Gluconate (Peridex) 15 ml MM 0800,2000 [facility] Stop: 07/29/18 07:59 Last Admin: 06/02/18 08:22 Dose: 15 ml Docusate Sodium (Colace) 200 mg GT BID [facility] Stop: 07/28/18 08:59 Last Admin: 06/02/18 08:22 Dose: 200 mg Furosemide (Lasix) 20 mg IVP DAILY [facility] Stop: 07/30/18 15:43 Last Admin: 06/02/18 08:20 Dose: 20 mg Hydromorphone HCl (Dilaudid) 0.5 mg IVP Q4HR PRN PRN Reason: Pain (Moderate) Stop: 07/29/18 01:03 Last Admin: 06/02/18 00:15 Dose: 0.5 mg Levofloxacin (Levaquin Pb) 500 mg in 100 mls @ 100 mls/hr IV Q24HR MY Stop: 07/28/18 08:59 Last Infusion: 06/02/18 12:55 Dose: Infused Piperacillin Sod/Tazobactam (Sod 4.5 gm/ Sodium Chloride) 100 mls @ 100 mls/hr IV Q8HR MY Stop: 07/27/18 22:44 Last Admin: 06/02/18 13:14 Dose: 100 mls/hr Norepinephrine Bitartrate 4 mg (/ Dextrose) 254 mls @ 38.1 mls/hr IV TITR PRN; Protocol PRN Reason: BP MAINTENANCE (PER PROTOCOL) Stop: 07/29/18 00:50 Last Titration: 05/31/18 02:15 Dose: Infused Propofol (Diprivan) 1,000 mg in 100 mls @ 10.614 mls/hr IV TITR MY; Protocol Stop: 07/29/18 05:51 Last Titration: 06/01/18 20:15 Dose: 0 mcg/kg/min, 0 mls/hr Sodium Chloride (Nacl 0.9%) 1,000 mls @ 10 mls/hr IV .Q24H MY Stop: 07/30/18 22:59 Last Admin: 06/02/18 00:29 Dose: 10 mls/hr Lacosamide (Vimpat) 100 mg GT Q12H MY Stop: 07/28/18 08:59 Last Admin: 06/02/18 08:21 Dose: 100 mg Lactobacillus Rhamnosus (Culturelle 15b) 1 each PO DAILY MY Stop: 07/30/18 08:59 Last Admin: 06/02/18 08:20 Dose: 1 each Levetiracetam (Keppra) 750 mg GT BID MY Stop: 07/28/18 08:59 Last Admin: 06/02/18 08:30 Dose: 750 mg Lisinopril (Zestril) 10 mg GT DAILY MY Stop: 07/28/18 08:59 Last Admin: 06/02/18 08:21 Dose: 10 mg Miscellaneous (Vancomycin Iv Per Pharmacy) 1 ea MC PRN MY Stop: 07/29/18 02:14 Miscellaneous (Probiotic Screen) 1 ea MC PRN PRN PRN Reason: PROTOCOL Stop: 07/29/18 14:29 Oxcarbazepine (Trileptal) 600 mg GT Q12H MY; Protocol Stop: 07/28/18 14:44 Last Admin: 06/02/18 03:00 Dose: 600 mg Pantoprazole Sodium (Protonix) 40 mg IVP DAILY [facility] Stop: 07/29/18 08:59 Last Admin: 06/02/18 08:20 Dose: 40 mg Wound Care/Dressing Products (Therahoney) 1 appl TP DAILY [facility] Stop: 07/29/18 08:59 Last Admin: 06/02/18 08:22 Dose: 1 appl General: weak, edematous HEENT: thinning hair Neck: + trach Lungs: CTAB Cardiovascular: Normal S1, Normal S2 Abdomen: soft, non-tender, other (g-tube present.) Extremities: edema Neurological: other (Hx of Seizures.) - Procedures Procedures: Procedures Procedure Code Date CHANGE FEEDING DEVICE IN UP INTEST TRACT, 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 Urinary Tract infection. Leukocytosis. Anemia. Low Chloride. Low Sodium. Dehydration. Posterior Occipital Decubitus. Morbid Obesity. History of Dysphagia/ G-tube dependent. History of Respiratory Distress. History of Copd. History of Seizure Disorder. History of Brain Tumor. - Plan Plan: continue vent support am labs ivabx as per id continue current plan of care Nutritional Asmnt/Malnutr-PDOC - Dietary Evaluation Malnutrition Findings (Please click <Entered> for more info): Nutritional Asmnt/Malnutrition Start: 05/29/18 14: 39 Text: Status: Complete Freq: Protocol: Document 05/29/18 14:39 LCHENG (Rec: 05/29/18 14:56 [id number] Nutritional Asmnt/Malnutrition Patient General Information Nutritional Screening High Risk Consult Diagnosis leukocytosis, UTI, PNA Pertinent Medical Hx/Surgical Hx asthma/COPD, seizures, brain tumor, sepsis, recurrent PNA, recurrent resp failure, obesity, dysphagia, decubitus sacral ulcer, acute on chronic systolic versus diastolic heart faiure 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 Pt seen lying in bed at time of visit. Observed TF running at 40ml/hr at this time. Per nurse, pt tolerated TF well, no residual noted today. Spoke with SUSAN Blanco regarding current TF regimen not meeting nutritional needs. RN stated pt now has edema, will continue to monitor tolerance and ask MD to increase feeding hours. Current Diet Order/ Nutrition Support Jevity 1.2 at 40ml/hr x 20hr ~ 960kcal, 44g protein and 645ml H2O Pertinent Medications lipitor, colace, levaquin, piperacillin, nacl 0.9% Pertinent Labs 05/29 na 131, Cl 91, Glucsoe 127 Nutritional Hx/Data Height 4 ft 10 in Height (Calculated Centimeters) 147.3 Current Weight (lbs) 195 lb Weight (Calculated Kilograms) 88.5 Weight (Calculated Grams) 10230.5 [place]a Body Weight 96 Body Mass Index (BMI) 40.7 Weight Status Obese GI Symptoms GI Symptoms None Last BM 05/29 Difficult in: None Skin Integrity/Comment: wound to right occipital area, erythema from IAD to buttocks per wound care note marine 10 non-pitting edema Estimated Nutritional Goals BEE in Kcals: Adj wt of IBW Calories/Kcals/Kg 25-30 adj wt 55kg Kcals Calculated 3821-9985 Protein: Adj wt of IBW Protein g/k-1.2 Protein Calculated 55-66 Fluid: ml per MD Nutritional Problem 1. Problem Problem inadequate intake from enteral feeding Etiology underfeeding Signs/Symptoms: current TF regimen meeting 70% of calorie needs and 80% of protein needs Malnutrition Alert Is there a minimum of two criteria No selected? Query Text:Check all the applicable criteria. A minimum of two criteria are recommended for diagnosis of either severe or non-severe malnutrition. Malnutrition Related to Morbid Obesity Malnutrition related to morbid obesity No Intervention/Recommendation Comments 1. Consider switch to TwoCal at 40ml/hr x 20hr to limit fluid volume and increase kcal intake. This will provide 1600kcal, 66g protein and 560ml water, which meeting 100 % of nutrition needs. 2. Monitor TF rate, tolerance, wt, skin integrity and labs 3. F/U as high risk in 2-3 days Expected Outcomes/Goals Expected Outcomes/Goals 1. PO intake to meet at least 75% of nutritional needs. 2. Wt stability, skin to remain intact, labs to approach WNL.
--- NOTE | 2018-06-02 14:42 | General Progress Note ---
Subjective - Review of Systems Service Date: 06/02/18 Subjective: non communicative on trach /vent. Objective - Results Result Diagrams: 06/02/18 03:30 06/02/18 03:30 Recent Labs: Laboratory Last Values WBC 12.6 Th/cmm (4.8-10.8) H D 06/02/18 03:30 RBC 2.83 Mil/cmm (3.80-5.10) L 06/02/18 03:30 Hgb 8.7 gm/dL (12-16) L D 06/02/18 03:30 Hct 26.1 % (41.0-60) L D 06/02/18 03:30 MCV 92.1 fl (81-100) 06/02/18 03:30 MCH 30.8 pg (27.0-31.0) 06/02/18 03:30 MCHC Differential 33.4 pg (28.0-36.0) 06/02/18 03:30 RDW 15.8 % (11.5-20.0) 06/02/18 03:30 Plt Count 334 Th/cmm (150-400) D 06/02/18 03:30 MPV 6.9 fl 06/02/18 03:30 Add Manual Diff YES 05/31/18 04:05 Neutrophils % 62.9 % (40.0-80.0) 06/02/18 03:30 Band Neutrophils % 5 % (0-10) 05/31/18 04:05 Lymphocytes % 23.2 % (20.0-50.0) 06/02/18 03:30 Monocytes % 11.4 % (2.0-10.0) H 06/02/18 03:30 Eosinophils % 2.0 % (0.0-5.0) 06/02/18 03:30 Basophils % 0.5 % (0.0-2.0) 06/02/18 03:30 Neutrophils (Manual) 70 % (40-80) 05/31/18 04:05 Lymphocytes 13 % (20-50) L 05/31/18 04:05 Monocytes 10 % (2-10) 05/31/18 04:05 Eosinophils 2 % (0-5) 05/31/18 04:05 Basophils 0 % (0-3) 05/30/18 05:55 Platelet Estimate ADEQUATE (NORMAL) 05/31/18 04:05 Polychromasia 1+ 05/30/18 05:55 Poikilocytosis 1+ 05/30/18 05:55 Anisocytosis 1+ 05/30/18 05:55 Target Cells 1+ 05/30/18 05:55 Stomatocytes 2+ 05/30/18 05:55 PT 10.4 SECONDS (9.5-11.5) 05/31/18 04:05 INR 1.00 (0.5-1.4) 05/31/18 04:05 PTT (Actin FS) 28.3 SECONDS (26.0-38.0) 05/31/18 04:05 Specimen Source Arterial 05/30/18 09:10 Sample Site Right Radial 05/30/18 09:10 pH 7.37 (7.35-7.45) 05/30/18 09:10 pCO2 50.2 mmHg (35.0-45.0) H 05/30/18 09:10 pO2 62.5 mmHg (80.0-100.0) L 05/30/18 09:10 HCO3 28.2 mEq/L (20.0-26.0) H 05/30/18 09:10 Base Excess 1.9 mEq/L (-3.0-3.0) 05/30/18 09:10 O2 Saturation 91.0 % (92.0-100.0) L 05/30/18 09:10 Gerald Test PASS 05/30/18 09:10 Vent Rate 16 05/30/18 09:10 Inspired O2 35 05/30/18 09:10 Tidal Volume 450 05/30/18 09:10 PEEP bail bondsman 05/30/18 09:10 Pressure (ins/psv/peep) bail bondsman 05/30/18 09:10 Critical Value pw 05/30/18 09:10 Sodium 141 mEq/L (136-145) 06/02/18 03:30 Potassium 3.5 mEq/L (3.5-5.1) 06/02/18 03:30 Chloride 105 mEq/L (98-107) 06/02/18 03:30 Carbon Dioxide 24.8 mEq/L (21.0-31.0) 06/02/18 03:30 Anion Gap 14.7 (7.0-16.0) 06/02/18 03:30 BUN 18 mg/dL (7-25) 06/02/18 03:30 Creatinine 1.1 mg/dL (0.6-1.2) 06/02/18 03:30 Est GFR ( Amer) > 60.0 ml/min (>90) 06/02/18 03:30 Est GFR (Non-Af Amer) 57.1 ml/min 06/02/18 03:30 BUN/Creatinine Ratio 16.4 06/02/18 03:30 Glucose 138 mg/dL (70-105) H 06/02/18 03:30 Whole Bld Lactic Acid 1.00 mmol/L (0.60-1.99) 05/28/18 15:34 Calcium 7.6 mg/dL (8.6-10.3) L 06/02/18 03:30 Phosphorus 2.6 mg/dL (2.5-5.0) 05/28/18 13:25 Magnesium 2.4 mg/dL (1.9-2.7) 05/28/18 13:25 Iron 29 ug/dL (27-159) 05/30/18 07:30 TIBC 356 ug/dL (250-450) 05/30/18 07:30 Iron Saturation 8 % (15-55) L 05/30/18 07:30 Unsaturated IBC 327 ug/dL (131-425) 05/30/18 07:30 Ferritin 185 ng/mL (15-150) H 05/31/18 07:35 Total Bilirubin 0.3 mg/dL (0.3-1.0) 06/02/18 03:30 AST 16 U/L (13-39) 06/02/18 03:30 ALT 15 U/L (7-52) 06/02/18 03:30 Alkaline Phosphatase 44 U/L (34-104) 06/02/18 03:30 Troponin I 0.01 ng/mL (0.01-0.05) 05/28/18 13:25 B-Natriuretic Peptide 33.5 pg/mL (5.0-100.0) 05/29/18 04:50 Total Protein 6.0 gm/dL (6.0-8.3) 06/02/18 03:30 Albumin 2.8 gm/dL (3.7-5.3) L 06/02/18 03:30 Globulin 3.2 gm/dL 06/02/18 03:30 Albumin/Globulin Ratio 0.9 (1.0-1.8) L 06/02/18 03:30 Vitamin B12 1696 pg/mL (232-1245) H 05/30/18 07:30 Folic Acid >20.0 ng/mL (>3.0) 05/30/18 07:30 TSH 2.22 uIU/ml (0.34-5.60) 05/28/18 13:25 Serum , Qual NEGATIVE (NEGATIVE) 05/28/18 13:25 Urine Source CATH 05/28/18 14:41 Urine Color YELLOW 05/28/18 14:41 Urine Clarity HAZY (CLEAR) 05/28/18 14:41 Urine pH 6.5 (4.6 - 8.0) 05/28/18 14:41 Ur Specific [place] 1.015 (1.005-1.030) 05/28/18 14:41 Urine Protein 100 mg/dL (NEGATIVE) H 05/28/18 14:41 Urine Glucose (UA) 250 mg/dL (NEGATIVE) H 05/28/18 14:41 Urine Ketones NEGATIVE mg/dL (NEGATIVE) 05/28/18 14:41 Urine Blood NEGATIVE (NEGATIVE) 05/28/18 14:41 Urine Nitrate NEGATIVE (NEGATIVE) 05/28/18 14:41 Urine Bilirubin NEGATIVE (NEGATIVE) 05/28/18 14:41 Urine Urobilinogen 0.2 E.U./dL (0.2 - 1.0) 05/28/18 14:41 Ur Leukocyte Esterase SMALL (NEGATIVE) H 05/28/18 14:41 Urine RBC NONE SEEN /hpf (0-5) 05/28/18 14:41 Urine WBC 6-10 /hpf (0-5) H 05/28/18 14:41 Ur Epithelial Cells FEW /lpf (FEW) 05/28/18 14:41 Urine Bacteria MODERATE /hpf (NONE SEEN) H 05/28/18 14:41 Vancomycin Trough 22.0 ug/mL (5-10) H 06/01/18 06:45 Random Vancomycin 22.3 ug/mL (5.0-40.0) 06/02/18 12:40 Urine Opiates Screen NEGATIVE (NEGATIVE) 05/28/18 14:41 Urine Methadone Screen NEGATIVE (NEGATIVE) 05/28/18 14:41 Ur Barbiturates Screen NEGATIVE (NEGATIVE) 05/28/18 14:41 Valproic Acid 79.6 ug/mL (50.0-100.0) 05/28/18 13:25 Ur Tricyclics Screen NEGATIVE (NEGATIVE) 05/28/18 14:41 Levetiracetam 27.9 ug/mL (10.0-40.0) 05/28/18 13:25 Ur Phencyclidine Scrn NEGATIVE (NEGATIVE) 05/28/18 14:41 Amphetamines Screen NEGATIVE (NEGATIVE) 05/28/18 14:41 U Methamphetamines Scrn NEGATIVE (NEGATIVE) 05/28/18 14:41 U Benzodiazepines Scrn NEGATIVE (NEGATIVE) 05/28/18 14:41 U Cocaine Metab Screen NEGATIVE (NEGATIVE) 05/28/18 14:41 U Cannabinoids Screen NEGATIVE (NEGATIVE) 05/28/18 14:41 Blood Type O POSITIVE 05/30/18 07:30 Antibody Screen NEGATIVE 05/30/18 07:30 Crossmatch See Detail 05/30/18 07:30 - Physical Exam Vitals and I&O: Vital Signs Temp 97.4 F 06/02/18 12:00 Pulse 95 06/02/18 13:21 Resp 16 06/02/18 13:00 BP 139/30 06/02/18 13:00 Pulse Ox 98 06/02/18 13:21 Intake & Output 06/01/18 06/02/18 06/02/18 18:59 06:59 18:59 Intake Total 4413.724 3040.898 100 Output Total 1500 430 Balance -307.985 753.898 100 Weight (lbs) 97.522 kg 98.004 kg Intake: Intake, IV Amount 262.015 473.898 100 Levofloxacin 500mg/100mL 100 100 500 mg In 100 ml @ 100 mls/hr IV Q24HR MY Rx#: [id number] Piperacillin Sodium/ 100 200 Tazobact 4.5 gm In Sodium Chloride 0.9% 100 ml @ 100 mls/hr IV Q8HR MY Rx #:[id number] Propofol 1,000 mg In 100 62.015 19.065 ml @ 20 MCG/KG/MIN 10.614 mls/hr IV TITR MY Rx#: [id number] Sodium Chloride 0.9% 1, 254.833 000 ml @ 10 mls/hr IV . Q24H [facility] Rx#:[id number] Tube Feeding 480 480 Other 450 230 Output: Urine 1500 430 Other: # Bowel Movements 1 2 Stool Characteristics Soft Soft Liquid Liquid Brown Brown Weight Source Bedscale Bedscale Active Medications: Current Medications Acetaminophen (Tylenol 650mg/20.3ml Suspension) 650 mg GT Q4HR PRN PRN Reason: Pain or Fever >101 Stop: 07/27/18 22:04 Last Admin: 06/02/18 03:40 Dose: 650 mg Albuterol/Ipratropium (Duoneb Neb) 3 ml HHN Q2H PRN PRN Reason: Shortness of Breath Stop: 07/27/18 22:04 Albuterol/Ipratropium (Duoneb Neb) 3 ml HHN Q6HRT [facility] Stop: 07/28/18 00:00 Last Admin: 06/02/18 13:21 Dose: 3 ml Atorvastatin Calcium (Lipitor) 10 mg GT DAILY [facility]; Protocol Stop: 07/28/18 08:59 Last Admin: 06/02/18 08:20 Dose: 10 mg Bisacodyl (Dulcolax 10 Mg Supp) 10 mg RC DAILY PRN PRN Reason: bowel management Stop: 07/27/18 22:04 Chlorhexidine Gluconate (Peridex) 15 ml MM 0800,2000 [facility] Stop: 07/29/18 07:59 Last Admin: 06/02/18 08:22 Dose: 15 ml Docusate Sodium (Colace) 200 mg GT BID [facility] Stop: 07/28/18 08:59 Last Admin: 06/02/18 08:22 Dose: 200 mg Furosemide (Lasix) 20 mg IVP DAILY [facility] Stop: 07/30/18 15:43 Last Admin: 06/02/18 08:20 Dose: 20 mg Hydromorphone HCl (Dilaudid) 0.5 mg IVP Q4HR PRN PRN Reason: Pain (Moderate) Stop: 07/29/18 01:03 Last Admin: 06/02/18 00:15 Dose: 0.5 mg Levofloxacin (Levaquin Pb) 500 mg in 100 mls @ 100 mls/hr IV Q24HR [facility] Stop: 07/28/18 08:59 Last Infusion: 06/02/18 12:55 Dose: Infused Piperacillin Sod/Tazobactam (Sod 4.5 gm/ Sodium Chloride) 100 mls @ 100 mls/hr IV Q8HR MY Stop: 07/27/18 22:44 Last Admin: 06/02/18 13:14 Dose: 100 mls/hr Norepinephrine Bitartrate 4 mg (/ Dextrose) 254 mls @ 38.1 mls/hr IV TITR PRN; Protocol PRN Reason: BP MAINTENANCE (PER PROTOCOL) Stop: 07/29/18 00:50 Last Titration: 05/31/18 02:15 Dose: Infused Propofol (Diprivan) 1,000 mg in 100 mls @ 10.614 mls/hr IV TITR MY; Protocol Stop: 07/29/18 05:51 Last Titration: 06/01/18 20:15 Dose: 0 mcg/kg/min, 0 mls/hr Sodium Chloride (Nacl 0.9%) 1,000 mls @ 10 mls/hr IV .Q24H MY Stop: 07/30/18 22:59 Last Admin: 06/02/18 00:29 Dose: 10 mls/hr Vancomycin HCl 1 gm/ Sodium (Chloride) 250 mls @ 165 mls/hr IV Q24H MY Stop: 08/01/18 22:59 Lacosamide (Vimpat) 100 mg GT Q12H MY Stop: 07/28/18 08:59 Last Admin: 06/02/18 08:21 Dose: 100 mg Lactobacillus Rhamnosus (Culturelle 15b) 1 each PO DAILY MY Stop: 07/30/18 08:59 Last Admin: 06/02/18 08:20 Dose: 1 each Levetiracetam (Keppra) 750 mg GT BID MY Stop: 07/28/18 08:59 Last Admin: 06/02/18 08:30 Dose: 750 mg Lisinopril (Zestril) 10 mg GT DAILY MY Stop: 07/28/18 08:59 Last Admin: 06/02/18 08:21 Dose: 10 mg Lorazepam (Ativan) 1 mg IVP Q4HR PRN; Protocol PRN Reason: Seizures Stop: 08/01/18 13:18 Last Admin: 06/02/18 13:49 Dose: 1 mg Miscellaneous (Vancomycin Iv Per Pharmacy) 1 ea PRN MY Stop: 07/29/18 02:14 Miscellaneous (Probiotic Screen) 1 [facility] PRN PRN PRN Reason: PROTOCOL Stop: 07/29/18 14:29 Oxcarbazepine (Trileptal) 600 mg GT Q12H MY; Protocol Stop: 07/28/18 14:44 Last Admin: 06/02/18 03:00 Dose: 600 mg Pantoprazole Sodium (Protonix) 40 mg IVP DAILY MY Stop: 07/29/18 08:59 Last Admin: 06/02/18 08:20 Dose: 40 mg Potassium Chloride (Potassium Chloride Elixir) 40 meq GT DAILY MY Stop: 08/02/18 08:59 Wound Care/Dressing Products (Therahoney) 1 appl TP DAILY [facility] Stop: 07/29/18 08:59 Last Admin: 06/02/18 08:22 Dose: 1 appl General: Other (non communicative) Neck: Other (trach) Abdomen: Other (GT) Extremities: Edema - Procedures Procedures: Procedures Procedure Code Date CHANGE FEEDING DEVICE IN UP INTEST TRACT, INSTRUMENT AND CONTROL TECHNICIAN APPROACH [id number] 04/17/17 RESPIRATORY VENTILATION, 24-96 CONSECUTIVE HOURS [id number] 05/28/18 Assessment/Plan - Assessment Assessment: Severe anemia secondary to blood loss with or without other etiologies. Comprehensive anemia workup will be obtained. 2. Epistaxis, status post compression with control of bleeding. The patient has normal platelet count and normal coagulation panel. No renal failure to make me suspect platelet dysfunction. Therefore, most likely the bleeding is from local cause and nose that will need to be evaluated by an ENT. Meanwhile, I will discontinue the Lovenox prophylactic dose until the rhino compression over the left nostril is removed, hopefully without any further bleeding and then the anticoagulation prophylaxis will be restarted after that. Meanwhile, transfusion as needed for a low hemoglobin. 06/02: no further bleeding. S/P removal of nasal compression. miriam RN. hgb dropped , hold lovenox proph. . anemia cade is suggestive of iron deficiency; awaiting ferritin Nutritional Asmnt/Malnutr-PDOC - Dietary Evaluation Malnutrition Findings (Please click <Entered> for more info): Nutritional Asmnt/Malnutrition Start: 05/29/18 14: 39 Text: Status: Complete Freq: Protocol: Document 05/29/18 14:39 [facility] (Rec: 05/29/18 14:56 [facility] [id number]) Nutritional Asmnt/Malnutrition Patient General Information Nutritional Screening High Risk Consult Diagnosis leukocytosis, UTI, PNA Pertinent Medical Hx/Surgical Hx asthma/COPD, seizures, brain tumor, sepsis, recurrent PNA, recurrent resp failure, obesity, dysphagia, decubitus sacral ulcer, acute on chronic systolic versus diastolic heart faiure Subjective Information Consult received for marine 10 . Pt seen lying in bed at time of visit. Observed TF running at 40ml/hr at this time. Per nurse, pt tolerated TF well, no residual noted today. Spoke with SUSAN Blanco regarding current TF regimen not meeting nutritional needs. RN stated pt now has edema, will continue to monitor tolerance and ask MD to increase feeding hours. Current Diet Order/ Nutrition Support Jevity 1.2 at 40ml/hr x 20hr ~ 960kcal, 44g protein and 645ml H2O Pertinent Medications lipitor, colace, levaquin, piperacillin, nacl 0.9% Pertinent Labs 05/29 na 131, Cl 91, Glucsoe 127 Nutritional Hx/Data Height 1.47 m Height (Calculated Centimeters) 147.3 Current Weight (lbs) 88.451 kg Weight (Calculated Kilograms) 88.5 Weight (Calculated Grams) 47481.5 [place] Body Weight 96 Body Mass Index (BMI) 40.7 Weight Status Obese GI Symptoms GI Symptoms None Last BM 05/29 Difficult in: None Skin Integrity/Comment: wound to right occipital area, erythema from IAD to buttocks per wound care note marine 10 non-pitting edema Estimated Nutritional Goals BEE in Kcals: Adj wt of IBW Calories/Kcals/Kg 25-30 adj wt 55kg Kcals Calculated 8617-4221 Protein: Adj wt of IBW Protein g/k-1.2 Protein Calculated 55-66 Fluid: ml per MD Nutritional Problem 1. Problem Problem inadequate intake from enteral feeding Etiology underfeeding Signs/Symptoms: current TF regimen meeting 70% of calorie needs and 80% of protein needs Malnutrition Alert Is there a minimum of two criteria No selected? Query Text:Check all the applicable criteria. A minimum of two criteria are recommended for diagnosis of either severe or non-severe malnutrition. Malnutrition Related to Morbid Obesity Malnutrition related to morbid obesity No Intervention/Recommendation Comments 1. Consider switch to TwoCal at 40ml/hr x 20hr to limit fluid volume and increase kcal intake. This will provide 1600kcal, 66g protein and 560ml water, which meeting 100 % of nutrition needs. 2. Monitor TF rate, tolerance, wt, skin integrity and labs 3. F/U as high risk in 2-3 days Expected Outcomes/Goals Expected Outcomes/Goals 1. PO intake to meet at least 75% of nutritional needs. 2. Wt stability, skin to remain intact, labs to approach WNL.
--- NOTE | 2018-06-02 20:07 | Progress Notes ---
DATE: 06/02/2018 PULMONARY PROGRESS NOTE SUBJECTIVE: The patient is comfortable on the vent, no distress. OBJECTIVE: VITAL SIGNS: Temperature is 97.4, pulse 90, respiration 18, blood pressure 140/46 and saturation 99%. CHEST: Good breath sounds, decreased rhonchi. HEART: Regular rate and rhythm. ABDOMEN: Soft. EXTREMITIES: No edema. LABORATORY DATA: WBC is 12.6, hemoglobin 8.7, hematocrit 26.1, platelets is 334. Sodium 141, potassium is 3.5, BUN is 18 and creatinine 1.1. ASSESSMENT: 1. Respiratory failure. 2. Upper airway obstruction. 3. Weakness. 4. Pneumonia. 5. Obesity. 6. Encephalopathy. PLAN: 1. Continue ventilator support. 2. Antibiotics. 3. Supportive care. 4. Nebulizer. 5. Follow up chest x-ray. JOB# [id number]
[2018-06-03] MEDS: Albuterol/Ipratropium Neb 3 ML AERS HHN SCH ×4 (01:57→18:59)
[2018-06-03 05:06] LABS: ALB/GLOB RATIO 0.9 (1.0-1.8); ALBUMIN 2.6 gm/dL (3.7-5.3); ALKALINE PHOSPHATASE 44 U/L (34-104); ANION GAP 12.9 (7.0-16.0); BILIRUBIN,TOTAL 0.3 mg/dL (0.3-1.0); BUN - UREA NITROGEN 21 mg/dL (7-25); CALCIUM SERUM 7.3 mg/dL (8.6-10.3); CARBON DIOXIDE 24.2 mEq/L (21.0-31.0); CHLORIDE 108 mEq/L (98-107); CREATININE - SERUM 1.1 mg/dL (0.6-1.2); GFR AFRICAN-AMERICAN > 60.0 ml/min (>90); GFR NON AFRICAN-AMERICAN 57.1 ml/min; GLUCOSE 134 mg/dL (70-105); POTASSIUM SERUM 3.1 mEq/L (3.5-5.1); SGOT 13 U/L (13-39); SGPT/ALT 13 U/L (7-52); SODIUM SERUM 142 mEq/L (136-145); TOTAL PROTEIN,SERUM 5.5 gm/dL (6.0-8.3)
[2018-06-03 06:24] LABS: MEAN CELL VOLUME 91.1 fl (81-100); MEAN CORPUSCULAR HEMOGLOBIN 30.3 pg (27.0-31.0); MEAN CORPUSCULAR HGB CONC 33.2 pg (28.0-36.0); MEAN PLATELET VOLUME 6.6 fl; PLATELET COUNT 356 Th/cmm (150-400); RED BLOOD COUNT 2.52 Mil/cmm (3.80-5.10); RED CELL DISTRIBUTION WIDTH 15.2 % (11.5-20.0); WHITE BLOOD COUNT 11.8 Th/cmm (4.8-10.8)
[2018-06-03 06:34] LABS: ALB/GLOB RATIO 0.9 (1.0-1.8); ALBUMIN 2.7 gm/dL (3.7-5.3); ALKALINE PHOSPHATASE 45 U/L (34-104); ANION GAP 14.2 (7.0-16.0); BILIRUBIN,TOTAL 0.3 mg/dL (0.3-1.0); BUN - UREA NITROGEN 20 mg/dL (7-25); CALCIUM SERUM 7.5 mg/dL (8.6-10.3); CHLORIDE 107 mEq/L (98-107); CREATININE - SERUM 1.1 mg/dL (0.6-1.2); GFR AFRICAN-AMERICAN > 60.0 ml/min (>90); GFR NON AFRICAN-AMERICAN 57.1 ml/min; GLUCOSE 102 mg/dL (70-105); HEMOGLOBIN 7.6 gm/dL (12-16); POTASSIUM SERUM 3.2 mEq/L (3.5-5.1); SGOT 13 U/L (13-39); SGPT/ALT 13 U/L (7-52); SODIUM SERUM 142 mEq/L (136-145); TOTAL PROTEIN,SERUM 5.8 gm/dL (6.0-8.3)
[2018-06-03] MEDS ORDERED: KCL 20mEq/100mL Premix 20 MEQ/100 ML PIGGYBACK IV ONE (06:57)
[2018-06-03] MEDS: KCL 20mEq/100mL Premix 20 MEQ/100 ML PIGGYBACK IV SCH ×2 (07:27→09:06)
[2018-06-03] MEDS: Chlorhexidine Gluconate 0.12% 15mL Mouthwash MM SCH ×2 (07:36→20:55)
[2018-06-03 07:37] LABS: BAND NEUTROPHILE 4 % (0-10); BASOPHIL 0 % (0-3); EOSINOPHIL 1 % (0-5); LYMPHOCYTE 38 % (20-50); MONOCYTE 9 % (2-10); NEUTROPHILS 48 % (40-80)
[2018-06-03 07:38] LABS: ANISOCYTOSIS 2+; HYPOCHROMIA 2+
[2018-06-03 08:02] LABS: HEMATOCRIT 23.2 % (41.0-60)
[2018-06-03 08:19] LABS: HEMOGLOBIN 7.7 gm/dL (12-16)
[2018-06-03] MEDS: Levetiracetam 500 mg/5mL 5mL UDSyr *for ORAL USE ONLY GT SCH ×2 (08:27→17:17)
[2018-06-03] MEDS: Multivitamin w/ Minerals Tab GT SCH (08:28)
[2018-06-03] MEDS: Lactobacillus Rhamnosus GG 15 Billion CFU CAP.SPRINK PO SCH (08:28)
[2018-06-03] MEDS: Potassium Chloride Elixir 20 mEq /15 mL UDC GT SCH (08:29)
[2018-06-03] MEDS: Docusate Sodium 100 mg/10 mL UD GT SCH ×2 (08:29→17:11)
[2018-06-03] MEDS: Therahoney Gel 42.5gm Tube TP SCH (08:30)
[2018-06-03] MEDS: Levofloxacin 500mg/100mL 500 MG/100 ML BAG IV SCH (08:32)
--- NOTE | 2018-06-03 09:10 | Diagnostic Imaging Report ---
Portable chest x-ray HISTORY: Shortness of breath Compared to prior exam of 2018, the heart remains enlarged. Findings consistent bilateral pleural effusions are seen. Changes may be associated with congestive heart failure. Clinical correlation is needed. IMPRESSION: 1. No change in the cardiopulmonary status as noted above.
[2018-06-03] MEDS: Atorvastatin Calcium 10 MG TAB GT SCH (09:26)
--- NOTE | 2018-06-03 17:24 | Progress Notes ---
DATE: 06/03/2018 SUBJECTIVE: The patient was seen in ICU. The patient is a poor historian due to medical condition. Otherwise, the patient appears to be in no acute distress. OBJECTIVE: VITAL SIGNS: Temperature 97.5, heart rate 97, blood pressure 159/59, respirations 16, 98% oxygen saturation. HEENT: Head is atraumatic and normocephalic. Eyes: Bilateral conjunctivae are clear. Bilateral pupils are equally round and reactive. NECK: Supple. No JVD. The patient has tracheostomy connected to ventilator. CARDIOVASCULAR: S1 and S2 without murmur, sinus rhythm on the monitor. PULMONARY: Decreased breath sounds. GASTROINTESTINAL: Soft and nontender without guarding. Positive bowel sounds. Positive gastrostomy tube. MUSCULOSKELETAL: No clubbing. No cyanosis. Positive to pitting edema in upper and lower extremities. ASSESSMENT: 1. Respiratory failure. 2. Pneumonia. 3. Anemia. 4. Dehydration. 5. History of brain tumor. 6. Seizure disorder. PLAN: We will continue to provide pulmonary support. We will put the patient on aspiration precaution. We will continue IV antibiotics. Potassium today is 3.2. Potassium replacement will be given. H and H level of 7.7 and 23.2. One pack of RBC will be transfused today. We are also going to decrease the IV fluid from 100 mL to the 50 mL per hour. Treatment plans were discussed with the patient's nurse. Treatment plans were discussed with Dr. Stone. JOB# [id number]
--- NOTE | 2018-06-03 18:40 | Infectious Disease Prog Note ---
Infectious Disease Subjective - Review of Systems Service Date: 06/03/18 Subjective: s/p trach on the ventilator. no fever,no more epistaxis. alert now to her baseline. Infectious Disease Objective - Results Result Diagrams: 06/03/18 07:22 06/03/18 05:00 Recent Labs: Laboratory Last Values WBC 11.8 Th/cmm (4.8-10.8) H 06/03/18 05:00 RBC 2.52 Mil/cmm (3.80-5.10) L 06/03/18 05:00 Hgb 7.7 gm/dL (12-16) L* 06/03/18 07:22 Hct 23.2 % (41.0-60) L 06/03/18 07:22 MCV 91.1 fl (81-100) 06/03/18 05:00 MCH 30.3 pg (27.0-31.0) 06/03/18 05:00 MCHC Differential 33.2 pg (28.0-36.0) 06/03/18 05:00 RDW 15.2 % (11.5-20.0) 06/03/18 05:00 Plt Count 356 Th/cmm (150-400) 06/03/18 05:00 MPV 6.6 fl 06/03/18 05:00 Add Manual Diff YES 06/03/18 05:00 Neutrophils % [employer] 06/03/18 05:00 Band Neutrophils % 4 % (0-10) 06/03/18 05:00 Lymphocytes % [employer] 06/03/18 05:00 Monocytes % [employer] 06/03/18 05:00 Eosinophils % [employer] 06/03/18 05:00 Basophils % [employer] 06/03/18 05:00 Neutrophils (Manual) 48 % (40-80) 06/03/18 05:00 Lymphocytes 38 % (20-50) 06/03/18 05:00 Monocytes 9 % (2-10) 06/03/18 05:00 Eosinophils 1 % (0-5) 06/03/18 05:00 Basophils 0 % (0-3) 06/03/18 05:00 Hypochromia 2+ 06/03/18 05:00 Platelet Estimate ADEQUATE (NORMAL) 05/31/18 04:05 Polychromasia 1+ 05/30/18 05:55 Poikilocytosis 1+ 05/30/18 05:55 Anisocytosis 2+ 06/03/18 05:00 Target Cells 1+ 05/30/18 05:55 Stomatocytes 2+ 05/30/18 05:55 PT 10.4 SECONDS (9.5-11.5) 05/31/18 04:05 INR 1.00 (0.5-1.4) 05/31/18 04:05 PTT (Actin FS) 28.3 SECONDS (26.0-38.0) 05/31/18 04:05 Specimen Source Arterial 05/30/18 09:10 Sample Site Right Radial 05/30/18 09:10 pH 7.37 (7.35-7.45) 05/30/18 09:10 pCO2 50.2 mmHg (35.0-45.0) H 05/30/18 09:10 pO2 62.5 mmHg (80.0-100.0) L 05/30/18 09:10 HCO3 28.2 mEq/L (20.0-26.0) H 05/30/18 09:10 Base Excess 1.9 mEq/L (-3.0-3.0) 05/30/18 09:10 O2 Saturation 91.0 % (92.0-100.0) L 05/30/18 09:10 Gerald Test PASS 05/30/18 09:10 Vent Rate 16 05/30/18 09:10 Inspired O2 35 05/30/18 09:10 Tidal Volume 450 05/30/18 09:10 PEEP assistant auditor 05/30/18 09:10 Pressure (ins/psv/peep) assistant auditor 05/30/18 09:10 Critical Value pw 05/30/18 09:10 Sodium 142 mEq/L (136-145) 06/03/18 05:00 Potassium 3.2 mEq/L (3.5-5.1) L 06/03/18 05:00 Chloride 107 mEq/L (98-107) 06/03/18 05:00 Carbon Dioxide 24.0 mEq/L (21.0-31.0) 06/03/18 05:00 Anion Gap 14.2 (7.0-16.0) 06/03/18 05:00 BUN 20 mg/dL (7-25) 06/03/18 05:00 Creatinine 1.1 mg/dL (0.6-1.2) 06/03/18 05:00 Est GFR ( Amer) > 60.0 ml/min (>90) 06/03/18 05:00 Est GFR (Non-Af Amer) 57.1 ml/min 06/03/18 05:00 BUN/Creatinine Ratio 18.2 06/03/18 05:00 Glucose 102 mg/dL (70-105) 06/03/18 05:00 Whole Bld Lactic Acid 1.00 mmol/L (0.60-1.99) 05/28/18 15:34 Calcium 7.5 mg/dL (8.6-10.3) L 06/03/18 05:00 Phosphorus 2.6 mg/dL (2.5-5.0) 05/28/18 13:25 Magnesium 2.4 mg/dL (1.9-2.7) 05/28/18 13:25 Iron 29 ug/dL (27-159) 05/30/18 07:30 TIBC 356 ug/dL (250-450) 05/30/18 07:30 Iron Saturation 8 % (15-55) L 05/30/18 07:30 Unsaturated IBC 327 ug/dL (131-425) 05/30/18 07:30 Ferritin 185 ng/mL (15-150) H 05/31/18 07:35 Total Bilirubin 0.3 mg/dL (0.3-1.0) 06/03/18 05:00 AST 13 U/L (13-39) 06/03/18 05:00 ALT 13 U/L (7-52) 06/03/18 05:00 Alkaline Phosphatase 45 U/L (34-104) 06/03/18 05:00 Troponin I 0.01 ng/mL (0.01-0.05) 05/28/18 13:25 B-Natriuretic Peptide 33.5 pg/mL (5.0-100.0) 05/29/18 04:50 Total Protein 5.8 gm/dL (6.0-8.3) L 06/03/18 05:00 Albumin 2.7 gm/dL (3.7-5.3) L 06/03/18 05:00 Globulin 3.1 gm/dL 06/03/18 05:00 Albumin/Globulin Ratio 0.9 (1.0-1.8) L 06/03/18 05:00 Vitamin B12 1696 pg/mL (232-1245) H 05/30/18 07:30 Folic Acid >20.0 ng/mL (>3.0) 05/30/18 07:30 TSH 2.22 uIU/ml (0.34-5.60) 05/28/18 13:25 Serum , Qual NEGATIVE (NEGATIVE) 05/28/18 13:25 Urine Source CATH 05/28/18 14:41 Urine Color YELLOW 05/28/18 14:41 Urine Clarity HAZY (CLEAR) 05/28/18 14:41 Urine pH 6.5 (4.6 - 8.0) 05/28/18 14:41 Ur Specific [place] 1.015 (1.005-1.030) 05/28/18 14:41 Urine Protein 100 mg/dL (NEGATIVE) H 05/28/18 14:41 Urine Glucose (UA) 250 mg/dL (NEGATIVE) H 05/28/18 14:41 Urine Ketones NEGATIVE mg/dL (NEGATIVE) 05/28/18 14:41 Urine Blood NEGATIVE (NEGATIVE) 05/28/18 14:41 Urine Nitrate NEGATIVE (NEGATIVE) 05/28/18 14:41 Urine Bilirubin NEGATIVE (NEGATIVE) 05/28/18 14:41 Urine Urobilinogen 0.2 E.U./dL (0.2 - 1.0) 05/28/18 14:41 Ur Leukocyte Esterase SMALL (NEGATIVE) H 05/28/18 14:41 Urine RBC NONE SEEN /hpf (0-5) 05/28/18 14:41 Urine WBC 6-10 /hpf (0-5) H 05/28/18 14:41 Ur Epithelial Cells FEW /lpf (FEW) 05/28/18 14:41 Urine Bacteria MODERATE /hpf (NONE SEEN) H 05/28/18 14:41 Stool Occult Blood NEGATIVE (NEGATIVE) 06/02/18 17:00 Vancomycin Trough 22.0 ug/mL (5-10) H 06/01/18 06:45 Random Vancomycin 22.3 ug/mL (5.0-40.0) 06/02/18 12:40 Urine Opiates Screen NEGATIVE (NEGATIVE) 05/28/18 14:41 Urine Methadone Screen NEGATIVE (NEGATIVE) 05/28/18 14:41 Ur Barbiturates Screen NEGATIVE (NEGATIVE) 05/28/18 14:41 Valproic Acid 79.6 ug/mL (50.0-100.0) 05/28/18 13:25 Ur Tricyclics Screen NEGATIVE (NEGATIVE) 05/28/18 14:41 Levetiracetam 27.9 ug/mL (10.0-40.0) 05/28/18 13:25 Ur Phencyclidine Scrn NEGATIVE (NEGATIVE) 05/28/18 14:41 Amphetamines Screen NEGATIVE (NEGATIVE) 05/28/18 14:41 U Methamphetamines Scrn NEGATIVE (NEGATIVE) 05/28/18 14:41 U Benzodiazepines Scrn NEGATIVE (NEGATIVE) 05/28/18 14:41 U Cocaine Metab Screen NEGATIVE (NEGATIVE) 05/28/18 14:41 U Cannabinoids Screen NEGATIVE (NEGATIVE) 05/28/18 14:41 Blood Type O POSITIVE 06/03/18 09:05 Rho(D) Type Cancelled 06/03/18 06:46 Antibody Screen NEGATIVE 06/03/18 09:05 Crossmatch See Detail 06/03/18 09:05 BBK History Checked Cancelled 06/03/18 06:46 - Physical Exam Vitals and I&O: Vital Signs Temp 98.4 F 06/03/18 16:00 Pulse 94 06/03/18 17:17 Resp 16 06/03/18 17:00 BP 147/51 06/03/18 17:00 Pulse Ox 98 06/03/18 18:00 Intake & Output 06/02/18 06/03/18 06/03/18 18:59 06:59 18:59 Intake Total 795 1367 282.5 Output Total 1500 380 Balance -705 987 282.5 Weight (lbs) 97.976 kg 98.174 kg Intake: Intake, IV Amount 200 667 282.5 KCL 20mEq/100mL Premix 20 82.5 meq In 100 ml @ 50 mls/ hr IV Q2H [facility] Rx#: [id number] Levofloxacin 500mg/100mL 100 100 500 mg In 100 ml @ 100 mls/hr IV Q24HR [facility] Rx#: [id number] Piperacillin Sodium/ 100 200 100 Tazobact 4.5 gm In Sodium Chloride 0.9% 100 ml @ 100 mls/hr IV Q8HR [facility] Rx #:[id number] Sodium Chloride 0.9% 1, 217 000 ml @ 10 mls/hr IV . Q24H [facility] Rx#:[id number] Vancomycin HCl 1 gm In 250 Sodium Chloride 0.9% 250 ml @ 165 mls/hr IV Q24H [facility] Rx#:[id number] Tube Feeding 345 440 Other 250 260 Output: Urine 1500 380 Other: # Bowel Movements 3 1 Stool Characteristics Soft Soft Soft Liquid Liquid Liquid Brown Brown Brown Weight Source Bedscale Bedscale Active Medications: Current Medications Acetaminophen (Tylenol 650mg/20.3ml Suspension) 650 mg GT Q4HR PRN PRN Reason: Pain or Fever >101 Stop: 07/27/18 22:04 Last Admin: 06/02/18 23:00 Dose: 650 mg Albuterol/Ipratropium (Duoneb Neb) 3 ml HHN Q2H PRN PRN Reason: Shortness of Breath Stop: 07/27/18 22:04 Albuterol/Ipratropium (Duoneb Neb) 3 ml HHN Q6HRT [facility] Stop: 07/28/18 00:00 Last Admin: 06/03/18 12:49 Dose: 3 ml Atorvastatin Calcium (Lipitor) 10 mg GT DAILY [facility]; Protocol Stop: 07/28/18 08:59 Last Admin: 06/03/18 09:26 Dose: 10 mg Bisacodyl (Dulcolax 10 Mg Supp) 10 mg RC DAILY PRN PRN Reason: bowel management Stop: 07/27/18 22:04 Chlorhexidine Gluconate (Peridex) 15 ml MM 0800,2000 [facility] Stop: 07/29/18 07:59 Last Admin: 06/03/18 07:36 Dose: 15 ml Docusate Sodium (Colace) 200 mg GT BID [facility] Stop: 07/28/18 08:59 Last Admin: 06/03/18 17:11 Dose: Not Given Furosemide (Lasix) 20 mg IVP DAILY [facility] Stop: 07/30/18 15:43 Last Admin: 06/03/18 08:28 Dose: 20 mg Hydromorphone HCl (Dilaudid) 0.5 mg IVP Q4HR PRN PRN Reason: Pain (Moderate) Stop: 07/29/18 01:03 Last Admin: 06/02/18 00:15 Dose: 0.5 mg Levofloxacin (Levaquin Pb) 500 mg in 100 mls @ 100 mls/hr IV Q24HR [facility] Stop: 07/28/18 08:59 Last Infusion: 06/03/18 09:35 Dose: Infused Piperacillin Sod/Tazobactam (Sod 4.5 gm/ Sodium Chloride) 100 mls @ 100 mls/hr IV Q8HR [facility] Stop: 07/27/18 22:44 Last Infusion: 06/03/18 14:00 Dose: Infused Norepinephrine Bitartrate 4 mg (/ Dextrose) 254 mls @ 38.1 mls/hr IV TITR PRN; Protocol PRN Reason: BP MAINTENANCE (PER PROTOCOL) Stop: 07/29/18 00:50 Last Titration: 05/31/18 02:15 Dose: Infused Sodium Chloride (Nacl 0.9%) 1,000 mls @ 10 mls/hr IV .Q24H [facility] Stop: 07/30/18 22:59 Last Admin: 06/02/18 22:11 Dose: 10 mls/hr Vancomycin HCl 1 gm/ Sodium (Chloride) 250 mls @ 165 mls/hr IV Q24H [facility] Stop: 08/01/18 22:59 Last Infusion: 06/02/18 23:50 Dose: Infused Lacosamide (Vimpat) 100 mg GT Q12H [facility] Stop: 07/28/18 08:59 Last Admin: 06/03/18 08:28 Dose: 100 mg Lactobacillus Rhamnosus (Culturelle 15b) 1 each PO DAILY [facility] Stop: 07/30/18 08:59 Last Admin: 06/03/18 08:28 Dose: 1 each Levetiracetam (Keppra) 750 mg GT BID [facility] Stop: 07/28/18 08:59 Last Admin: 06/03/18 17:17 Dose: 750 mg Lisinopril (Zestril) 10 mg GT DAILY [facility] Stop: 07/28/18 08:59 Last Admin: 06/03/18 09:26 Dose: 10 mg Lorazepam (Ativan) 1 mg IVP Q4HR PRN; Protocol PRN Reason: Seizures Stop: 08/01/18 13:18 Last Admin: 06/03/18 04:50 Dose: 1 mg Miscellaneous (Vancomycin Iv Per Pharmacy) 1 ea PRN [facility] Stop: 07/29/18 02:14 Miscellaneous (Probiotic Screen) 1 ea PRN PRN PRN Reason: PROTOCOL Stop: 07/29/18 14:29 Oxcarbazepine (Trileptal) 600 mg GT Q12H [facility]; Protocol Stop: 07/28/18 14:44 Last Admin: 06/03/18 15:00 Dose: 600 mg Pantoprazole Sodium (Protonix) 40 mg IVP DAILY [facility] Stop: 07/29/18 08:59 Last Admin: 06/03/18 08:28 Dose: 40 mg Potassium Chloride (Potassium Chloride Elixir) 40 meq GT DAILY [facility] Stop: 08/02/18 08:59 Last Admin: 06/03/18 08:29 Dose: Not Given Wound Care/Dressing Products (Therahoney) 1 appl TP DAILY [facility] Stop: 07/29/18 08:59 Last Admin: 06/03/18 08:30 Dose: 1 appl General: no acute distress HEENT: atraumatic, normocephalic, PERRLA Neck: supple, no thyromegaly Cardiovascular: S1S2, regular Lungs: clear to auscultation bilaterally, clear to percussion Abdomen: soft, no tender, no distended Extremities: no cyanosis, no clubbing, no edema Neurological: awake, alert Skin: intact - Procedures Procedures: Procedures Procedure Code Date CHANGE FEEDING DEVICE IN UP INTEST TRACT, 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 Leukocytosis, might have sepsis. improved. 2. Urinary tract infection. 3. Aspiration pneumonia versus nosocomial pneumonia. 4. Respiratory failure, required emergency tracheostomy and vent support. 5. Seizure disorder. 6. Epistaxis. 7. Mentally challenged. 8. History of brain tumor since childhood. 9. Obesity. - Plan Plan: Continue vanco IV, Zosyn and levaquin. Nutritional Asmnt/Malnutr-PDOC - Dietary Evaluation Malnutrition Findings (Please click <Entered> for more info): Nutritional Asmnt/Malnutrition Start: 05/29/18 14: 39 Text: Status: Complete Freq: Protocol: Document 05/29/18 14:39 [id number] (Rec: 05/29/18 14:56 [id number]) Nutritional Asmnt/Malnutrition Patient General Information Nutritional Screening High Risk Consult Diagnosis leukocytosis, UTI, PNA Pertinent Medical Hx/Surgical Hx asthma/COPD, seizures, brain tumor, sepsis, recurrent PNA, recurrent resp failure, obesity, dysphagia, decubitus sacral ulcer, acute on chronic systolic versus diastolic heart faiure Subjective Information Consult received for marine 10 . Pt seen lying in bed at time of visit. Observed TF running at 40ml/hr at this time. Per nurse, pt tolerated TF well, no residual noted today. Spoke with SUSAN Blanco regarding current TF regimen not meeting nutritional needs. RN stated pt now has edema, will continue to monitor tolerance and ask MD to increase feeding hours. Current Diet Order/ Nutrition Support Jevity 1.2 at 40ml/hr x 20hr ~ 960kcal, 44g protein and 645ml H2O Pertinent Medications lipitor, colace, levaquin, piperacillin, nacl 0.9% Pertinent Labs 05/29 na 131, Cl 91, Glucsoe 127 Nutritional Hx/Data Height 1.47 m Height (Calculated Centimeters) 147.3 Current Weight (lbs) 88.451 kg Weight (Calculated Kilograms) 88.5 Weight (Calculated Grams) 42188.5 [place] Body Weight 96 Body Mass Index (BMI) 40.7 Weight Status Obese GI Symptoms GI Symptoms None Last BM 05/29 Difficult in: None Skin Integrity/Comment: wound to right occipital area, erythema from IAD to buttocks per wound care note marine 10 non-pitting edema Estimated Nutritional Goals BEE in Kcals: Adj wt of IBW Calories/Kcals/Kg 25-30 adj wt 55kg Kcals Calculated 0971-3877 Protein: Adj wt of IBW Protein g/k-1.2 Protein Calculated 55-66 Fluid: ml per MD Nutritional Problem 1. Problem Problem inadequate intake from enteral feeding Etiology underfeeding Signs/Symptoms: current TF regimen meeting 70% of calorie needs and 80% of protein needs Malnutrition Alert Is there a minimum of two criteria No selected? Query Text:Check all the applicable criteria. A minimum of two criteria are recommended for diagnosis of either severe or non-severe malnutrition. Malnutrition Related to Morbid Obesity Malnutrition related to morbid obesity No Intervention/Recommendation Comments 1. Consider switch to TwoCal at 40ml/hr x 20hr to limit fluid volume and increase kcal intake. This will provide 1600kcal, 66g protein and 560ml water, which meeting 100 % of nutrition needs. 2. Monitor TF rate, tolerance, wt, skin integrity and labs 3. F/U as high risk in 2-3 days Expected Outcomes/Goals Expected Outcomes/Goals 1. PO intake to meet at least 75% of nutritional needs. 2. Wt stability, skin to remain intact, labs to approach WNL.
--- NOTE | 2018-06-03 19:20 | Progress Notes ---
DATE: 06/03/2018 SURGICAL PROGRESS NOTE TIME: 11.42 a.m. OBJECTIVE; VITAL SIGNS: The patient is afebrile. Vital signs are otherwise stable. GENERAL: Trach site is intact. The packing removed today and change with another 2 x 2 gauze. No bleeding. No significant leak from the trach site. CHEST: Clear to auscultation bilaterally. HEART: Regular rate. ABDOMEN: Otherwise, soft, nontender, nondistended. LABORATORY DATA: White blood cell count today is 11.8, H and H is 7.7 and 23.2, and platelet count 356. Chest x-ray done today reveals no change in cardiopulmonary status as noted above. Heart remains enlarged. Bilateral pleural effusions are seen. Changes may be associated with congestive heart failure. IMPRESSION/PLAN: Stable after trach. No leak. No bleeding from the trach site. Packing changed today. Reportedly, plan is to transfer the patient to [facility]. I can follow the patient up there if consulted. JOB# [id number]
--- NOTE | 2018-06-03 22:48 | Progress Notes ---
DATE: 06/03/2018 SUBJECTIVE: The patient is doing well, awake, responsive. OBJECTIVE: VITAL SIGNS: Temperature 97.5, pulse is 96, respirations 20, blood pressure 148/52, saturation 98%. CHEST: Good breath sounds. No wheezing. Few rhonchi. HEART: Regular rate and rhythm. No murmurs. ABDOMEN: Soft, ___ tenderness. EXTREMITIES: No edema. DIAGNOSTIC DATA: Chest x-ray showed bibasilar infiltrate, more on left than right. ASSESSMENT: 1. Respiratory failure. 2. Upper airway obstruction, status post tracheostomy. 3. Encephalopathy. 4. Pneumonia and weakness. PLAN: 1. Continue ventilator support. 2. Antibiotics. 3. Supportive care, nebulizer treatment and follow. The patient is going to [facility]. JOB# [id number]
[2018-06-03] MEDS: Sodium Chloride 0.9% 1,000 ML IV SCH (23:00)
[2018-06-04] MEDS: Albuterol/Ipratropium Neb 3 ML AERS HHN SCH ×2 (00:43→06:10)
[2018-06-04 01:25] VITALS: BP 150/88
[2018-06-04] MEDS: HYDROmorphone 1 mg/mL 1mL Syr IVP PRN ×2 (02:24→06:26)
[2018-06-04] MEDS: Lactobacillus Rhamnosus GG 15 Billion CFU CAP.SPRINK PO SCH (08:32)
[2018-06-04] MEDS: Atorvastatin Calcium 10 MG TAB GT SCH (08:32)
[2018-06-04] MEDS: Multivitamin w/ Minerals Tab GT SCH (08:33)
[2018-06-04] MEDS: Potassium Chloride Elixir 20 mEq /15 mL UDC GT SCH (08:33)
[2018-06-04] MEDS: Levetiracetam 500 mg/5mL 5mL UDSyr *for ORAL USE ONLY GT SCH (08:34)
[2018-06-04] MEDS: Levofloxacin 500mg/100mL 500 MG/100 ML BAG IV SCH (08:35)
[2018-06-04] MEDS: Docusate Sodium 100 mg/10 mL UD GT SCH (08:38)
[2018-06-04] MEDS: Chlorhexidine Gluconate 0.12% 15mL Mouthwash MM SCH (08:39)
[2018-06-04] MEDS: Therahoney Gel 42.5gm Tube TP SCH (08:39)
--- NOTE | 2018-06-04 09:19 | Internal Medicine Prog Note ---
Internal Medicine Subjective - Subjective Patient is:: awake, non-verbal, other (in no distress) Patient Complaints of:: other (On trach vent) Per staff patient has:: no episodes of fall Internal Medicine Objective - Results Result Diagrams: 06/03/18 07:22 06/03/18 05:00 Recent Labs: Laboratory Last Values WBC 11.8 Th/cmm (4.8-10.8) H 06/03/18 05:00 RBC 2.52 Mil/cmm (3.80-5.10) L 06/03/18 05:00 Hgb 7.7 gm/dL (12-16) L* 06/03/18 07:22 Hct 23.2 % (41.0-60) L 06/03/18 07:22 MCV 91.1 fl (81-100) 06/03/18 05:00 MCH 30.3 pg (27.0-31.0) 06/03/18 05:00 MCHC Differential 33.2 pg (28.0-36.0) 06/03/18 05:00 RDW 15.2 % (11.5-20.0) 06/03/18 05:00 Plt Count 356 Th/cmm (150-400) 06/03/18 05:00 MPV 6.6 fl 06/03/18 05:00 Add Manual Diff YES 06/03/18 05:00 Neutrophils % BOAT HAND 06/03/18 05:00 Band Neutrophils % 4 % (0-10) 06/03/18 05:00 Lymphocytes % BOAT HAND 06/03/18 05:00 Monocytes % BOAT HAND 06/03/18 05:00 Eosinophils % BOAT HAND 06/03/18 05:00 Basophils % BOAT HAND 06/03/18 05:00 Neutrophils (Manual) 48 % (40-80) 06/03/18 05:00 Lymphocytes 38 % (20-50) 06/03/18 05:00 Monocytes 9 % (2-10) 06/03/18 05:00 Eosinophils 1 % (0-5) 06/03/18 05:00 Basophils 0 % (0-3) 06/03/18 05:00 Hypochromia 2+ 06/03/18 05:00 Platelet Estimate ADEQUATE (NORMAL) 05/31/18 04:05 Polychromasia 1+ 05/30/18 05:55 Poikilocytosis 1+ 05/30/18 05:55 Anisocytosis 2+ 06/03/18 05:00 Target Cells 1+ 05/30/18 05:55 Stomatocytes 2+ 05/30/18 05:55 PT 10.4 SECONDS (9.5-11.5) 05/31/18 04:05 INR 1.00 (0.5-1.4) 05/31/18 04:05 PTT (Actin FS) 28.3 SECONDS (26.0-38.0) 05/31/18 04:05 Specimen Source Arterial 05/30/18 09:10 Sample Site Right Radial 05/30/18 09:10 pH 7.37 (7.35-7.45) 05/30/18 09:10 pCO2 50.2 mmHg (35.0-45.0) H 05/30/18 09:10 pO2 62.5 mmHg (80.0-100.0) L 05/30/18 09:10 HCO3 28.2 mEq/L (20.0-26.0) H 05/30/18 09:10 Base Excess 1.9 mEq/L (-3.0-3.0) 05/30/18 09:10 O2 Saturation 91.0 % (92.0-100.0) L 05/30/18 09:10 Gerald Test PASS 05/30/18 09:10 Vent Rate 16 05/30/18 09:10 Inspired O2 35 05/30/18 09:10 Tidal Volume 450 05/30/18 09:10 PEEP tabulating clerk 05/30/18 09:10 Pressure (ins/psv/peep) tabulating clerk 05/30/18 09:10 Critical Value pw 05/30/18 09:10 Sodium 142 mEq/L (136-145) 06/03/18 05:00 Potassium 3.2 mEq/L (3.5-5.1) L 06/03/18 05:00 Chloride 107 mEq/L (98-107) 06/03/18 05:00 Carbon Dioxide 24.0 mEq/L (21.0-31.0) 06/03/18 05:00 Anion Gap 14.2 (7.0-16.0) 06/03/18 05:00 BUN 20 mg/dL (7-25) 06/03/18 05:00 Creatinine 1.1 mg/dL (0.6-1.2) 06/03/18 05:00 Est GFR ( Amer) > 60.0 ml/min (>90) 06/03/18 05:00 Est GFR (Non-Af Amer) 57.1 ml/min 06/03/18 05:00 BUN/Creatinine Ratio 18.2 06/03/18 05:00 Glucose 102 mg/dL (70-105) 06/03/18 05:00 Whole Bld Lactic Acid 1.00 mmol/L (0.60-1.99) 05/28/18 15:34 Calcium 7.5 mg/dL (8.6-10.3) L 06/03/18 05:00 Phosphorus 2.6 mg/dL (2.5-5.0) 05/28/18 13:25 Magnesium 2.4 mg/dL (1.9-2.7) 05/28/18 13:25 Iron 29 ug/dL (27-159) 05/30/18 07:30 TIBC 356 ug/dL (250-450) 05/30/18 07:30 Iron Saturation 8 % (15-55) L 05/30/18 07:30 Unsaturated IBC 327 ug/dL (131-425) 05/30/18 07:30 Ferritin 185 ng/mL (15-150) H 05/31/18 07:35 Total Bilirubin 0.3 mg/dL (0.3-1.0) 06/03/18 05:00 AST 13 U/L (13-39) 06/03/18 05:00 ALT 13 U/L (7-52) 06/03/18 05:00 Alkaline Phosphatase 45 U/L (34-104) 06/03/18 05:00 Troponin I 0.01 ng/mL (0.01-0.05) 05/28/18 13:25 B-Natriuretic Peptide 33.5 pg/mL (5.0-100.0) 05/29/18 04:50 Total Protein 5.8 gm/dL (6.0-8.3) L 06/03/18 05:00 Albumin 2.7 gm/dL (3.7-5.3) L 06/03/18 05:00 Globulin 3.1 gm/dL 06/03/18 05:00 Albumin/Globulin Ratio 0.9 (1.0-1.8) L 06/03/18 05:00 Vitamin B12 1696 pg/mL (232-1245) H 05/30/18 07:30 Folic Acid >20.0 ng/mL (>3.0) 05/30/18 07:30 TSH 2.22 uIU/ml (0.34-5.60) 05/28/18 13:25 Serum , Qual NEGATIVE (NEGATIVE) 05/28/18 13:25 Urine Source CATH 05/28/18 14:41 Urine Color YELLOW 05/28/18 14:41 Urine Clarity HAZY (CLEAR) 05/28/18 14:41 Urine pH 6.5 (4.6 - 8.0) 05/28/18 14:41 Ur Specific [place] 1.015 (1.005-1.030) 05/28/18 14:41 Urine Protein 100 mg/dL (NEGATIVE) H 05/28/18 14:41 Urine Glucose (UA) 250 mg/dL (NEGATIVE) H 05/28/18 14:41 Urine Ketones NEGATIVE mg/dL (NEGATIVE) 05/28/18 14:41 Urine Blood NEGATIVE (NEGATIVE) 05/28/18 14:41 Urine Nitrate NEGATIVE (NEGATIVE) 05/28/18 14:41 Urine Bilirubin NEGATIVE (NEGATIVE) 05/28/18 14:41 Urine Urobilinogen 0.2 E.U./dL (0.2 - 1.0) 05/28/18 14:41 Ur Leukocyte Esterase SMALL (NEGATIVE) H 05/28/18 14:41 Urine RBC NONE SEEN /hpf (0-5) 05/28/18 14:41 Urine WBC 6-10 /hpf (0-5) H 05/28/18 14:41 Ur Epithelial Cells FEW /lpf (FEW) 05/28/18 14:41 Urine Bacteria MODERATE /hpf (NONE SEEN) H 05/28/18 14:41 Stool Occult Blood NEGATIVE (NEGATIVE) 06/02/18 17:00 Vancomycin Trough 22.0 ug/mL (5-10) H 06/01/18 06:45 Random Vancomycin 22.3 ug/mL (5.0-40.0) 06/02/18 12:40 Urine Opiates Screen NEGATIVE (NEGATIVE) 05/28/18 14:41 Urine Methadone Screen NEGATIVE (NEGATIVE) 05/28/18 14:41 Ur Barbiturates Screen NEGATIVE (NEGATIVE) 05/28/18 14:41 Valproic Acid 79.6 ug/mL (50.0-100.0) 05/28/18 13:25 Ur Tricyclics Screen NEGATIVE (NEGATIVE) 05/28/18 14:41 Levetiracetam 27.9 ug/mL (10.0-40.0) 05/28/18 13:25 Ur Phencyclidine Scrn NEGATIVE (NEGATIVE) 05/28/18 14:41 Amphetamines Screen NEGATIVE (NEGATIVE) 05/28/18 14:41 U Methamphetamines Scrn NEGATIVE (NEGATIVE) 05/28/18 14:41 U Benzodiazepines Scrn NEGATIVE (NEGATIVE) 05/28/18 14:41 U Cocaine Metab Screen NEGATIVE (NEGATIVE) 05/28/18 14:41 U Cannabinoids Screen NEGATIVE (NEGATIVE) 05/28/18 14:41 Blood Type O POSITIVE 06/03/18 09:05 Rho(D) Type Cancelled 06/03/18 06:46 Antibody Screen NEGATIVE 06/03/18 09:05 Crossmatch See Detail 06/03/18 09:05 BBK History Checked Cancelled 06/03/18 06:46 - Physical Exam Vitals and I&O: Vital Signs Temp 98.5 F 06/04/18 08:00 Pulse 90 06/04/18 09:07 Resp 16 06/04/18 09:00 BP 168/60 06/04/18 09:00 Pulse Ox 98 06/04/18 09:07 Intake & Output 06/03/18 06/04/18 06/04/18 18:59 06:59 18:59 Intake Total 282.5 2278.167 Output Total 1950 Balance 282.5 328.167 Weight (lbs) 278.959 kg Intake: Intake, IV Amount 282.5 768.167 KCL 20mEq/100mL Premix 20 82.5 meq In 100 ml @ 50 mls/ hr IV Q2H MY Rx#: [id number] Levofloxacin 500mg/100mL 100 500 mg In 100 ml @ 100 mls/hr IV Q24HR MY Rx#: [id number] Piperacillin Sodium/ 100 200 Tazobact 4.5 gm In Sodium Chloride 0.9% 100 ml @ 100 mls/hr IV Q8HR MY Rx #:[id number] Sodium Chloride 0.9% 1, 318.167 000 ml @ 10 mls/hr IV . Q24H [facility] Rx#:[id number] Vancomycin HCl 1 gm In 250 Sodium Chloride 0.9% 250 ml @ 165 mls/hr IV Q24H [facility] Rx#:[id number] Oral 0 Tube Feeding 960 Blood Product 250 Other 300 Output: Urine 1950 Other: # Bowel Movements 1 Stool Characteristics Soft Soft Liquid Brown Brown Weight Source Bedscale Active Medications: Current Medications Acetaminophen (Tylenol 650mg/20.3ml Suspension) 650 mg GT Q4HR PRN PRN Reason: Pain or Fever >101 Stop: 07/27/18 22:04 Last Admin: 06/02/18 23:00 Dose: 650 mg Albuterol/Ipratropium (Duoneb Neb) 3 ml HHN Q2H PRN PRN Reason: Shortness of Breath Stop: 07/27/18 22:04 Albuterol/Ipratropium (Duoneb Neb) 3 ml HHN Q6HRT [facility] Stop: 07/28/18 00:00 Last Admin: 06/04/18 06:10 Dose: 3 ml Atorvastatin Calcium (Lipitor) 10 mg GT DAILY [facility]; Protocol Stop: 07/28/18 08:59 Last Admin: 06/04/18 08:32 Dose: 10 mg Bisacodyl (Dulcolax 10 Mg Supp) 10 mg RC DAILY PRN PRN Reason: bowel management Stop: 07/27/18 22:04 Chlorhexidine Gluconate (Peridex) 15 ml MM 0800,2000 [facility] Stop: 07/29/18 07:59 Last Admin: 06/04/18 08:39 Dose: 15 ml Docusate Sodium (Colace) 200 mg GT BID [facility] Stop: 07/28/18 08:59 Last Admin: 06/04/18 08:38 Dose: Not Given Furosemide (Lasix) 20 mg IVP DAILY [facility] Stop: 07/30/18 15:43 Last Admin: 06/04/18 08:32 Dose: 20 mg Hydromorphone HCl (Dilaudid) 0.5 mg IVP Q4HR PRN PRN Reason: Pain (Moderate) Stop: 07/29/18 01:03 Last Admin: 06/04/18 06:26 Dose: 0.5 mg Levofloxacin (Levaquin Pb) 500 mg in 100 mls @ 100 mls/hr IV Q24HR MY Stop: 07/28/18 08:59 Last Admin: 06/04/18 08:35 Dose: 100 mls/hr Piperacillin Sod/Tazobactam (Sod 4.5 gm/ Sodium Chloride) 100 mls @ 100 mls/hr IV Q8HR MY Stop: 07/27/18 22:44 Last Infusion: 06/04/18 06:00 Dose: Infused Norepinephrine Bitartrate 4 mg (/ Dextrose) 254 mls @ 38.1 mls/hr IV TITR PRN; Protocol PRN Reason: BP MAINTENANCE (PER PROTOCOL) Stop: 07/29/18 00:50 Last Titration: 05/31/18 02:15 Dose: Infused Sodium Chloride (Nacl 0.9%) 1,000 mls @ 10 mls/hr IV .Q24H MY Stop: 07/30/18 22:59 Last Infusion: 06/04/18 06:00 Dose: 10 mls/hr Vancomycin HCl 1 gm/ Sodium (Chloride) 250 mls @ 165 mls/hr IV Q24H MY Stop: 08/01/18 22:59 Last Infusion: 06/04/18 00:31 Dose: Infused Lacosamide (Vimpat) 100 mg GT Q12H MY Stop: 07/28/18 08:59 Last Admin: 06/04/18 08:31 Dose: 100 mg Lactobacillus Rhamnosus (Culturelle 15b) 1 each PO DAILY MY Stop: 07/30/18 08:59 Last Admin: 06/04/18 08:32 Dose: 1 each Levetiracetam (Keppra) 750 mg GT BID MY Stop: 07/28/18 08:59 Last Admin: 06/04/18 08:34 Dose: 750 mg Lisinopril (Zestril) 10 mg GT DAILY MY Stop: 07/28/18 08:59 Last Admin: 06/04/18 08:31 Dose: 10 mg Lorazepam (Ativan) 1 mg IVP Q4HR PRN; Protocol PRN Reason: Seizures Stop: 08/01/18 13:18 Last Admin: 06/04/18 00:21 Dose: 1 mg Miscellaneous (Vancomycin Iv Per Pharmacy) 1 ea MC PRN MY Stop: 07/29/18 02:14 Miscellaneous (Probiotic Screen) 1 ea MC PRN PRN PRN Reason: PROTOCOL Stop: 07/29/18 14:29 Oxcarbazepine (Trileptal) 600 mg GT Q12H MY; Protocol Stop: 07/28/18 14:44 Last Admin: 06/04/18 02:21 Dose: 600 mg Pantoprazole Sodium (Protonix) 40 mg IVP DAILY MY Stop: 07/29/18 08:59 Last Admin: 06/04/18 08:33 Dose: 40 mg Potassium Chloride (Potassium Chloride Elixir) 40 meq GT DAILY MY Stop: 08/02/18 08:59 Last Admin: 06/04/18 08:33 Dose: 40 meq Wound Care/Dressing Products (Therahoney) 1 appl TP DAILY MY Stop: 07/29/18 08:59 Last Admin: 06/04/18 08:39 Dose: 1 appl General: weak, edematous HEENT: thinning hair Neck: + trach Lungs: CTAB Cardiovascular: Normal S1, Normal S2 Abdomen: soft, non-tender, other (g-tube present.) Extremities: edema Neurological: other (Hx of Seizures.) - Procedures Procedures: Procedures Procedure Code Date CHANGE FEEDING DEVICE IN UP INTEST TRACT, QUALITY ASSURANCE LAB TECHNICIAN APPROACH [id number] 04/17/17 RESPIRATORY VENTILATION, 24-96 CONSECUTIVE HOURS [id number] 05/28/18 Internal Medicine Assmt/Plan - Assessment Assessment: Assessment and Impression S/p Trach vent. Right Upper and Mid lobe Pneumonia. Urinary Tract infection. Leukocytosis. Anemia. Low Chloride. Low Sodium. Dehydration. Posterior Occipital Decubitus. Morbid Obesity. History of Dysphagia/ G-tube dependent. History of Respiratory Distress. History of Copd. History of Seizure Disorder. History of Brain Tumor. - Plan Plan: Plan Continuation of care Continue present meds as directed Monitor Diet/Nutritional support/Continue G-tube feedings Monitor Pain, Pain Management Continue Ventilator support Respiratory treatment and Pulmonary support prn Local Skin Care G-tube and Trach Care Physical therapy Occupational therapy Fall precaution Safety precaution Seizure precaution Supportive care Will Monitor patient and continue current treatment plan as ordered. Nutritional Asmnt/Malnutr-PDOC - Dietary Evaluation Malnutrition Findings (Please click <Entered> for more info): Nutritional Asmnt/Malnutrition Start: 05/29/18 14: 39 Text: Status: Complete Freq: Protocol: Document 05/29/18 14:39 LCHEN (Rec: 05/29/18 14:56 [id number]) Nutritional Asmnt/Malnutrition Patient General Information Nutritional Screening High Risk Consult Diagnosis leukocytosis, UTI, PNA Pertinent Medical Hx/Surgical Hx asthma/COPD, seizures, brain tumor, sepsis, recurrent PNA, recurrent resp failure, obesity, dysphagia, decubitus sacral ulcer, acute on chronic systolic versus diastolic heart faiure Subjective Information Consult received for marine 10 . Pt seen lying in bed at time of visit. Observed TF running at 40ml/hr at this time. Per nurse, pt tolerated TF well, no residual noted today. Spoke with SUSAN Blanco regarding current TF regimen not meeting nutritional needs. RN stated pt now has edema, will continue to monitor tolerance and ask MD to increase feeding hours. Current Diet Order/ Nutrition Support Jevity 1.2 at 40ml/hr x 20hr ~ 960kcal, 44g protein and 645ml H2O Pertinent Medications lipitor, colace, levaquin, piperacillin, nacl 0.9% Pertinent Labs 05/29 na 131, Cl 91, Glucsoe 127 Nutritional Hx/Data Height 1.47 m Height (Calculated Centimeters) 147.3 Current Weight (lbs) 88.451 kg Weight (Calculated Kilograms) 88.5 Weight (Calculated Grams) 13117.5 [place] Body Weight 96 Body Mass Index (BMI) 40.7 Weight Status Obese GI Symptoms GI Symptoms None Last BM 05/29 Difficult in: None Skin Integrity/Comment: wound to right occipital area, erythema from IAD to buttocks per wound care note marine 10 non-pitting edema Estimated Nutritional Goals BEE in Kcals: Adj wt of IBW Calories/Kcals/Kg 25-30 adj wt 55kg Kcals Calculated 2983-4330 Protein: Adj wt of IBW Protein g/k-1.2 Protein Calculated 55-66 Fluid: ml per MD Nutritional Problem 1. Problem Problem inadequate intake from enteral feeding Etiology underfeeding Signs/Symptoms: current TF regimen meeting 70% of calorie needs and 80% of protein needs Malnutrition Alert Is there a minimum of two criteria No selected? Query Text:Check all the applicable criteria. A minimum of two criteria are recommended for diagnosis of either severe or non-severe malnutrition. Malnutrition Related to Morbid Obesity Malnutrition related to morbid obesity No Intervention/Recommendation Comments 1. Consider switch to TwoCal at 40ml/hr x 20hr to limit fluid volume and increase kcal intake. This will provide 1600kcal, 66g protein and 560ml water, which meeting 100 % of nutrition needs. 2. Monitor TF rate, tolerance, wt, skin integrity and labs 3. F/U as high risk in 2-3 days Expected Outcomes/Goals Expected Outcomes/Goals 1. PO intake to meet at least 75% of nutritional needs. 2. Wt stability, skin to remain intact, labs to approach WNL.
== END 2018-06-04 09:30 | DRG 870 ==
LOC: ER 12:19 → TELE 16:37 → ICU 20:27
PROVIDERS: ADMIT Internal Medicine; ATTEND Internal Medicine
PROC: 02HV33Z Insertion of Infusion Device into Superior Vena Cava, Percutaneous Approach (ICD-10-PCS; 2018-05-28)
PROC: 5A1955Z Respiratory Ventilation, Greater than 96 Consecutive Hours (ICD-10-PCS; principal; 2018-05-30)
PROC: 30233N1 Transfusion of Nonautologous Red Blood Cells into Peripheral Vein, Percutaneous Approach (ICD-10-PCS; 2018-05-30)
PROC: 0B21XFZ Change Tracheostomy Device in Trachea, External Approach (ICD-10-PCS; 2018-05-31)
PROC: 0BJ08ZZ Inspection of Tracheobronchial Tree, Via Natural or Artificial Opening Endoscopic (ICD-10-PCS; 2018-05-31)
DX: A41.9 Sepsis, unspecified organism (principal); J18.1 Lobar pneumonia, unspecified organism; J96.20 Acute and chronic respiratory failure, unspecified whether with hypoxia or hypercapnia; N39.0 Urinary tract infection, site not specified; E87.1 Hypo-osmolality and hyponatremia; J44.0 Chronic obstructive pulmonary disease with (acute) lower respiratory infection; Z68.45 Body mass index [BMI] 70 or greater, adult; J44.1 Chronic obstructive pulmonary disease with (acute) exacerbation; G93.40 Encephalopathy, unspecified; E66.01 Morbid (severe) obesity due to excess calories; D64.9 Anemia, unspecified; E86.0 Dehydration; G40.909 Epilepsy, unspecified, not intractable, without status epilepticus; R04.0 Epistaxis; G80.9 Cerebral palsy, unspecified; G47.30 Sleep apnea, unspecified; L89.152 Pressure ulcer of sacral region, stage 2; Z93.1 Gastrostomy status; Z85.841 Personal history of malignant neoplasm of brain
CPT/HCPCS: 36415-UA; 36600-90; 71045-TC; 80048-TC; 80053-TC; 80164-TC; 80202-TC; 80299-90; 80307; 81001-TC; 82270-TC; 82607-90; 82728-90; 82746-90; 82803-TC; 83540-90; 83550-90; 83605; 83735-TC; 83880-TC; 84100-TC; 84443-TC; 84484-TC; 84703-TC; 85007-TC; 85014-TC; 85018-TC; 85025-TC; 85610-TC; 85730-TC; 86850-TC; 86900-TC; 86901-TC; 86922-TC; 87086-90; 93005; 94002; 94003; 94640; 96372; A4216; C9113; J0692; J1170; J1650; J1940; J1956; J2001; J2060; J2543; J2704; J3370; J3480; J7030; J7040; P9016; V2790; X6452; X6470; X6490; Z7610

== ENCOUNTER 2018-09-24 17:00 | Inpatient (IN) | payer MEDICARE, MEDICAID ==
--- NOTE | 2018-09-24 17:15 | ED Physician Chart ---
ED Chief Complaint/HPI - Patient Information Date Seen:: 09/24/18 Time Seen:: 17:10 Chief Complaint:: swelling total body History of Present Illness:: 48 yr old female here with swelling throughout has trach with hx brain tumor Allergies:: Allergies Allergy/AdvReac Type Severity Reaction Status Date / Time No Known Allergies Allergy Verified 05/28/18 12:54 ED Review of Systems - Review of Systems General/Constitutional: No fever Skin: No skin lesions Head: No headache Eyes: No loss of vision ENT: No earache Neck: No neck pain Cardio Vascular: No chest pain Pulmonary: No SOB GI: No nausea, No vomiting Musculoskeletal: No bone or joint pain Endocrine: No polyuria Psychiatric: No depression ED Past Medical History - Past Medical History Past Medical History: Other (see nurses notes brain tumor craniotomy trach) Family Medical History - Family Member Mother History Unknown: Yes Ethnicity: Unknown Living Status: Unknown Hx Family Cancer: (unable to assess) Hx Family Coronary Artery Disease: (unable to assess) Hx Family Congestive Heart Failure: Yes Hx Family Hypertension: Yes Hx Family Stroke: Yes Hx Family Diabetes: (unable to assess) Hx Family Seizures: Yes Hx Family Dementia: Yes Hx Family AIDS: No Hx Family HIV: No Hx Family COPD: Yes Hx Family Hepatitis: No Hx Family Psychiatric Problems: (unable to assess) Hx Family Tuberculosis: No ED Physical Exam - Physical Examination General/Constitutional: Awake Head: Atraumatic Other Skin comments:: sub cuateous air and decubiti Neck: Nontender Other Respiratory comments:: trach Cardio Vascular: RRR Other Extremities comments:: diffuse edema ED Assessment - Assessment General Assessment: brain tumor craniotomy trach subcuateous air ED Septic Shock - . Is Septic Shock (SBP<90, OR Lactate>4 mmol\L) present?: No ED Reassessment (Disposition) - Reassessment Reassessment:: trach sub cutaneous air - Diagnosis Diagnosis:: as above - Patient Disposition Discharge/Transfer:: Acute Care w/in this hosp Admitted to:: Telemetry Condition at Disposition:: Stable
[2018-09-24 17:37] LABS: % MONOCYTES 9.4 % (2.0-10.0); HEMOGLOBIN 9.6 gm/dL (12-16); LYMPHOCYTE ABSOLUTE 2.1 Th/cmm (1.5-3.0); MEAN CORPUSCULAR HGB CONC 34.1 pg (28.0-36.0); RED BLOOD COUNT 3.23 Mil/cmm (3.80-5.10)
[2018-09-24 17:40] LABS: % BASOPHILS 0.1 % (0.0-2.0); % EOSINOPHILS 1.6 % (0.0-5.0); % LYMPHOCYTES 19.5 % (20.0-50.0); % NEUTROPHILS 69.4 % (40.0-80.0); EOSINOPHILE ABSOLUTE 0.2 Th/cmm (0.1-0.4); HEMATOCRIT 28.3 % (41.0-60); MEAN CELL VOLUME 87.5 fl (81-100); MEAN CORPUSCULAR HEMOGLOBIN 29.8 pg (27.0-31.0); NEUTROPHILE ABSOLUTE 7.6 Th/cmm (1.8-8.0); PLATELET COUNT 366 Th/cmm (150-400); RED CELL DISTRIBUTION WIDTH 14.9 % (11.5-20.0); WHITE BLOOD COUNT 10.9 Th/cmm (4.8-10.8)
[2018-09-24 17:53] LABS: ALB/GLOB RATIO 0.8 (1.0-1.8); ALBUMIN 3.4 gm/dL (3.7-5.3); ALKALINE PHOSPHATASE 91 U/L (34-104); BILIRUBIN,TOTAL 0.2 mg/dL (0.3-1.0); BUN - UREA NITROGEN 24 mg/dL (7-25); CALCIUM SERUM 9.5 mg/dL (8.6-10.3); CARBON DIOXIDE 33.3 mEq/L (21.0-31.0); CHLORIDE 88 mEq/L (98-107); CREATININE - SERUM 0.7 mg/dL (0.6-1.2); GFR AFRICAN-AMERICAN > 60.0 ml/min (>90); GFR NON AFRICAN-AMERICAN > 60.0 ml/min; GLUCOSE 111 mg/dL (70-105); POTASSIUM SERUM 4.3 mEq/L (3.5-5.1); SGOT 30 U/L (13-39); SGPT/ALT 30 U/L (7-52); TOTAL PROTEIN,SERUM 7.7 gm/dL (6.0-8.3)
[2018-09-24 18:12] LABS: SODIUM SERUM 127 mEq/L (136-145)
[2018-09-24 19:45] LABS: CHOLESTEROL 191 mg/dL (<200); HDL -HIGH DENSITY LIPOPROTEIN 66 mg/dL (23-92); TRIGLYCERIDES 224 mg/dL (<150)
[2018-09-24] MEDS ORDERED: Albuterol Nebulizer 2.5mg/3mL HHN PRN (22:49)
[2018-09-24] MEDS ORDERED: Ipratropium Neb 0.5 mg/2.5 mL UD HHN PRN (22:52)
[2018-09-25 05:02] LABS: ANION GAP 10.3 (7.0-16.0); BUN - UREA NITROGEN 21 mg/dL (7-25); CALCIUM SERUM 9.4 mg/dL (8.6-10.3); CARBON DIOXIDE 32.8 mEq/L (21.0-31.0); CHLORIDE 91 mEq/L (98-107); CREATININE - SERUM 0.7 mg/dL (0.6-1.2); GFR AFRICAN-AMERICAN > 60.0 ml/min (>90); GFR NON AFRICAN-AMERICAN > 60.0 ml/min; GLUCOSE 98 mg/dL (70-105); POTASSIUM SERUM 4.1 mEq/L (3.5-5.1); SODIUM SERUM 130 mEq/L (136-145)
[2018-09-25 05:37] LABS: URINE SOURCE RANDOM
[2018-09-25 05:42] LABS: % BASOPHILS 0.4 % (0.0-2.0); % EOSINOPHILS 2.4 % (0.0-5.0); % MONOCYTES 11.1 % (2.0-10.0); % NEUTROPHILS 63.1 % (40.0-80.0); EOSINOPHILE ABSOLUTE 0.2 Th/cmm (0.1-0.4); HEMATOCRIT 29.1 % (41.0-60); HEMOGLOBIN 9.8 gm/dL (12-16); LYMPHOCYTE ABSOLUTE 2.2 Th/cmm (1.5-3.0); MEAN CELL VOLUME 87.5 fl (81-100); MEAN CORPUSCULAR HEMOGLOBIN 29.5 pg (27.0-31.0); MEAN CORPUSCULAR HGB CONC 33.7 pg (28.0-36.0); MONOCYTE ABSOLUTE 1.1 Th/cmm (0.3-1.0); NEUTROPHILE ABSOLUTE 6.2 Th/cmm (1.8-8.0); PLATELET COUNT 367 Th/cmm (150-400); RED BLOOD COUNT 3.33 Mil/cmm (3.80-5.10); RED CELL DISTRIBUTION WIDTH 14.6 % (11.5-20.0); WHITE BLOOD COUNT 9.7 Th/cmm (4.8-10.8)
[2018-09-25 06:07] LABS: URINE BILIRUBIN NEGATIVE (NEGATIVE); URINE BLOOD MODERATE (NEGATIVE); URINE GLUCOSE (UA) NEGATIVE (NEGATIVE); URINE KETONE NEGATIVE (NEGATIVE); URINE LEUKOCYTE ESTERASE MODERATE (NEGATIVE); URINE MICROSCOPIC INDICATED? YES; URINE NITRATE POSITIVE (NEGATIVE); URINE PROTEIN 30 mg/dL (NEGATIVE); URINE UROBILINOGEN 0.2 E.U./dL (0.2 - 1.0)
[2018-09-25 06:12] LABS: URINE CLARITY TURBID (CLEAR); URINE COLOR YELLOW
[2018-09-25 06:18] LABS: URINE WBC 25-50 /hpf (0-5)
[2018-09-25 06:19] LABS: URINE BACTERIA MANY /hpf (NONE SEEN); URINE EPITHELIAL CELLS RARE /lpf (FEW)
--- NOTE | 2018-09-25 08:49 | Diagnostic Imaging Report ---
CHEST X-RAY: AP view INDICATION: Tracheostomy tube, assess for subcutaneous air COMPARISON: Chest x-ray 06/03/2018 Findings: Midline tracheostomy tube is noted. Low lung volumes are seen with elevation of right hemidiaphragm and congestion and hazy infiltrates and small effusions. Cardiomegaly is noted. No evidence of pneumothorax or pneumomediastinum. No subcutaneous air identified. IMPRESSION: Midline tracheostomy tube. No evidence of pneumomediastinum or pneumothorax. No gross subcutaneous air identified. Low lung volumes with Congestive changes and bilateral perihilar and lower lung zone infiltrates and small effusions Cardiomegaly.
[2018-09-25] MEDS: Meropenem 1 GM in Sodium Chloride 0.9% 100 ML IV SCH ×2 (15:50→23:08)
--- NOTE | 2018-09-26 02:31 | Consultation ---
DATE OF CONSULTATION: 09/25/2018 INFECTIOUS DISEASE CONSULTATION REFERRING PHYSICIAN: Dr. Stone. REASON FOR CONSULTATION: Sepsis, pneumonia, UTI. HISTORY OF PRESENT ILLNESS: The patient is a 48-year-old female with a past medical history of brain tumor in childhood, status post craniotomy and surgery, G-tube placement, respiratory failure, on T-bar oxygen, morbid obesity, decubitus ulcers, COPD, seizure disorder, admitted to the hospital on yesterday for swelling and anasarca. On initial evaluation, the patient's temperature was 98.9 degrees Fahrenheit, it went up to 102 degrees Fahrenheit. The patient's WBC count 10,900. Sepsis workup was performed and urinalysis suggested pyuria and bacteriuria. Chest x-ray showed no evidence of any pneumomediastinum or pneumothorax. Midline tracheostomy, congestive changes, bilateral perihilar lower lung zone infiltrate and small effusion and cardiomegaly. The patient has sepsis workup was performed and ID consult was called for the antibiotic management. 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 ALLERGIES: NKDA. MEDICATIONS: As per medication reconciliation sheet. ANTIBIOTIC: None at this time. REVIEW OF SYSTEMS: The patient is a poor historian, unable to give any history. As per the record, the patient had developed fever. The patient has swelling of the upper face and all over the body. FAMILY HISTORY: Unknown. TRAVEL HISTORY: None. SOCIAL HISTORY: The patient lives at nursing facility. No history of smoking, alcohol or drug use. PHYSICAL EXAMINATION: CURRENT VITAL SIGNS: Shows temperature is 97.3 degrees Fahrenheit, T-max is 102 degrees Fahrenheit, pulse 94, respiration is 18 and blood pressure 132/59. GENERAL: The patient is a female with a short stature, bedbound. HEENT: Head is normocephalic, atraumatic. Cushingoid facies. The patient also has superficial ulcer in the back of the skull ____ of the neck. No surrounding erythema. Oral cavity moist, pink tongue. EYES: No pallor, no icterus. Pupils PERRLA, EOMI. NECK: Trach site is clear. CHEST: Bilateral vesicular breath sounds. No occasional crackles, no wheezing. HEART: S1, S2 within normal limits. Regular rhythm. No murmur, no gallop. ABDOMEN: Soft, nontender, nondistended. Bowel sounds present. G-tube site is clear. EXTREMITIES: No cyanosis, no clubbing, no edema. NEUROLOGIC: Alert, awake, opens eyes. Unable to communicate. Aphasic. LABORATORY DATA: Current lab shows WBC count is 9700, hemoglobin 9.8, hematocrit 29.1, platelets are 367,000, neutrophil is 63%. Sodium is 130, potassium 4.1, chloride 91, bicarbonate is 23, BUN is 21, creatinine is 0.7, glucose is 98. Urinalysis: Cloudy turbid urine with positive nitrite, moderate leukoesterase, WBC 25-50 and many bacteria. Chest x-ray shows congestion and pneumonia. IMPRESSION: 1. Fever may be due to sepsis. 2. Urinary tract infection, pyelonephritis. 3. Pneumonia. 4. Mental retardation. 5. Respiratory failure, on T-bar oxygen. 6. Brain tumor, status post brain surgery and removal of the tumor. 7. Mental incapacity. RECOMMENDATIONS: We will restart the meropenem. Follow up sepsis workup. Thank you, Dr. Stone for involving me in taking care of this patient. JOB# [id number]
[2018-09-26] MEDS: Meropenem 1 GM in Sodium Chloride 0.9% 100 ML IV SCH ×3 (08:26→23:28)
--- NOTE | 2018-09-26 12:49 | General Progress Note ---
Subjective - Review of Systems Service Date: 09/26/18 Subjective: Patient on chronic respiratory failure with tracheostomy patient is known verbal Objective - Results Result Diagrams: 09/25/18 04:15 09/25/18 04:15 Recent Labs: Laboratory Last Values WBC 9.7 Th/cmm (4.8-10.8) 09/25/18 04:15 RBC 3.33 Mil/cmm (3.80-5.10) L 09/25/18 04:15 Hgb 9.8 gm/dL (12-16) L 09/25/18 04:15 Hct 29.1 % (41.0-60) L 09/25/18 04:15 MCV 87.5 fl (81-100) 09/25/18 04:15 MCH 29.5 pg (27.0-31.0) 09/25/18 04:15 MCHC Differential 33.7 pg (28.0-36.0) 09/25/18 04:15 RDW 14.6 % (11.5-20.0) 09/25/18 04:15 Plt Count 367 Th/cmm (150-400) 09/25/18 04:15 MPV 8.5 fl 09/25/18 04:15 Neutrophils % 63.1 % (40.0-80.0) 09/25/18 04:15 Lymphocytes % 23.0 % (20.0-50.0) 09/25/18 04:15 Monocytes % 11.1 % (2.0-10.0) H 09/25/18 04:15 Eosinophils % 2.4 % (0.0-5.0) 09/25/18 04:15 Basophils % 0.4 % (0.0-2.0) 09/25/18 04:15 Sodium 130 mEq/L (136-145) L 09/25/18 04:15 Potassium 4.1 mEq/L (3.5-5.1) 09/25/18 04:15 Chloride 91 mEq/L (98-107) L 09/25/18 04:15 Carbon Dioxide 32.8 mEq/L (21.0-31.0) H 09/25/18 04:15 Anion Gap 10.3 (7.0-16.0) 09/25/18 04:15 BUN 21 mg/dL (7-25) 09/25/18 04:15 Creatinine 0.7 mg/dL (0.6-1.2) 09/25/18 04:15 Est GFR ( Amer) > 60.0 ml/min (>90) 09/25/18 04:15 Est GFR (Non-Af Amer) > 60.0 ml/min 09/25/18 04:15 BUN/Creatinine Ratio 30.0 09/25/18 04:15 Glucose 98 mg/dL (70-105) 09/25/18 04:15 Calcium 9.4 mg/dL (8.6-10.3) 09/25/18 04:15 Total Bilirubin 0.2 mg/dL (0.3-1.0) L 09/24/18 17:30 AST 30 U/L (13-39) 09/24/18 17:30 ALT 30 U/L (7-52) 09/24/18 17:30 Alkaline Phosphatase 91 U/L (34-104) 09/24/18 17:30 Troponin I 0.01 ng/mL (0.01-0.05) 09/25/18 04:15 B-Natriuretic Peptide 23.6 pg/mL (5.0-100.0) 09/25/18 04:15 Total Protein 7.7 gm/dL (6.0-8.3) 09/24/18 17:30 Albumin 3.4 gm/dL (3.7-5.3) L 09/24/18 17:30 Globulin 4.3 gm/dL 09/24/18 17:30 Albumin/Globulin Ratio 0.8 (1.0-1.8) L 09/24/18 17:30 Triglycerides 224 mg/dL (<150) H 09/24/18 17:30 Cholesterol 191 mg/dL (<200) 09/24/18 17:30 LDL Cholesterol Direct 100 mg/dL (75-193) 09/24/18 17:30 HDL Cholesterol 66 mg/dL (23-92) 09/24/18 17:30 TSH 2.46 uIU/ml (0.34-5.60) 09/25/18 04:15 Urine Source RANDOM 09/25/18 05:00 Urine Color YELLOW 09/25/18 05:00 Urine Clarity TURBID (CLEAR) H 09/25/18 05:00 Urine pH 8.0 (4.6 - 8.0) 09/25/18 05:00 Ur Specific [place] 1.010 (1.005-1.030) 09/25/18 05:00 Urine Protein 30 mg/dL (NEGATIVE) H 09/25/18 05:00 Urine Glucose (UA) NEGATIVE mg/dL (NEGATIVE) 09/25/18 05:00 Urine Ketones NEGATIVE mg/dL (NEGATIVE) 09/25/18 05:00 Urine Blood MODERATE (NEGATIVE) H 09/25/18 05:00 Urine Nitrate POSITIVE (NEGATIVE) H 09/25/18 05:00 Urine Bilirubin NEGATIVE (NEGATIVE) 09/25/18 05:00 Urine Urobilinogen 0.2 E.U./dL (0.2 - 1.0) 09/25/18 05:00 Ur Leukocyte Esterase MODERATE (NEGATIVE) H 09/25/18 05:00 Urine RBC 10-25 /hpf (0-5) H 09/25/18 05:00 Urine WBC 25-50 /hpf (0-5) H 09/25/18 05:00 Ur Epithelial Cells RARE /lpf (FEW) 09/25/18 05:00 Urine Bacteria MANY /hpf (NONE SEEN) H 09/25/18 05:00 - Physical Exam Vitals and I&O: Vital Signs Temp 98.6 F 09/26/18 08:00 Pulse 104 09/26/18 08:00 Resp 18 09/26/18 08:00 BP 146/81 09/26/18 11:44 Pulse Ox 93 09/26/18 08:00 Intake & Output 09/25/18 09/26/18 09/26/18 18:59 06:59 18:59 Intake Total 600 100 Output Total 450 Balance 150 100 Weight (lbs) 117.934 kg 117.934 kg Intake: Intake, IV Amount 100 100 Meropenem 1 gm In Sodium 100 100 Chloride 0.9% 100 ml @ 100 mls/hr IV Q8H [facility] Rx# :[id number] Tube Feeding 500 Output: Urine 450 Other: # Bowel Movements 0 Stool Characteristics Soft Weight Source Bedscale Estimated Active Medications: Current Medications Acetaminophen (Tylenol 650mg/20.3ml Suspension) 650 mg GT Q4H PRN PRN Reason: TEMP>101 Stop: 11/24/18 04:59 Last Admin: 09/25/18 05:50 Dose: 650 mg Albuterol Sulfate (Albuterol 2.5mg/3ml Neb Ud) 2.5 mg HHN Q4HRT PRN PRN Reason: SOB/WHEEZING Stop: 11/23/18 22:48 Furosemide (Lasix) 40 mg IVP DAILY [facility] Stop: 11/25/18 09:59 Last Admin: 09/26/18 11:44 Dose: 40 mg Meropenem 1 gm/ Sodium (Chloride) 100 mls @ 100 mls/hr IV Q8H MY Stop: 11/24/18 15:14 Last Admin: 09/26/18 08:26 Dose: 100 mls/hr Ipratropium [place] (Atrovent Neb 0.5mg/2.5ml) 0.5 mg HHN Q2HRT PRN PRN Reason: SOB/WHEEZING Stop: 11/23/18 22:51 Neck: Supple, JVD (flat) Cardiovascular: Regular rate, Normal S1, Normal S2, Systolic murmurs Abdomen: Soft, Obese, Other (G-tube) Extremities: Pulses (febrile) - Procedures Procedures: Procedures Procedure Code Date CHANGE FEEDING DEVICE IN UP INTEST TRACT, DIRECTOR BIOLOGICS APPROACH [id number] 04/17/17 CHANGE TRACHEOSTOMY DEVICE IN TRACHEA, EXTERNAL APPROACH [id number] 05/28/18 INSERTION OF INFUSION DEV INTO SUP VENA CAVA, PERC APPROACH [id number] 05/28/18 INSPECTION OF TRACHEOBRONCHIAL TREE, ENDO [id number] 05/28/18 RESPIRATORY VENTILATION, GREATER THAN 96 CONSECUTIVE HOURS [id number] 05/28/18 TRANSFUSE NONAUT RED BLOOD CELLS IN PERIPH VEIN, PERC [id number] 05/28/18 Assessment/Plan - Assessment Assessment: Anasarca Seizure disorder Chronic respiratory failure with tracheostomy COPD Decubitus ulcer G-tube in place Protein calorie malnutrition Urinary tract infection Iron deficiency anemia - Plan Plan: Will get echocardiogram BNP level
[2018-09-26] MEDS ORDERED: Albuterol/Ipratropium Neb 3 ML AERS HHN PRN (13:28)
--- NOTE | 2018-09-26 16:37 | History and Physical ---
History of Present Illness - HPI Chief Complaint: female patient was brought into ER due to swelling and anasarca. HPI: 48 y/o female patient was admitted to [facility] due to Anascara and Swelling. Patient has history of Brain tumor in childhood, Respiratory failure, on T-bar oxygen, Copd, Decubitus ulcers, Seizure disorders, status post G-tube and status post craniotomy. Patient had an ER assessment and a sepsis workup was done. Patient had a chest x-ray performed which showed Low lung volumes with congestive changes and bilateral perihilar and lower lung zone infiltrates, small effusions and Cardiomegaly. Patient was diagnosed with Sepsis, Pneumonia, UTI, History of Brain tumor, Trach status, G-tube status, Hyponatremia and Worsening Edema. Patient will have an ID consult and a Cardiology consult. I will follow, treat and monitor patient. Patient will continue current treatment plan as ordered. Vital Signs: Last Vital Signs Temp 98.4 F 09/26/18 15:52 Pulse 112 09/26/18 15:52 Resp 19 09/26/18 15:52 BP 135/62 09/26/18 15:52 Pulse Ox 95 09/26/18 15:52 Past Medical History Cardiovascular: Report: CHF Pulmonary: Report: COPD, Pneumonia, Other (Resp. failure.) [employer]: Report: Seizure GI: Report: Other (G-tube status.) Psych: Report: Other (Hx of Brain tumor.) Musculoskeletal: Report: Weakness Rheumatologic: Report: No pertinent Hx Infectious Disease: Report: No Pertinent Hx Renal/: Report: UTI Endocrine: Report: No Pertinent Hx Dermatology: Report: Other (decubitus ulcers.) - Past Surgical History Past Surgical History: Other (Trach and G-tube status.) Family Medical History - Family Member Mother History Unknown: Yes Ethnicity: Living Status: Unknown Hx Family Cancer: (unable to assess) Hx Family Coronary Artery Disease: (unable to assess) Hx Family Congestive Heart Failure: Yes Hx Family Hypertension: Yes Hx Family Stroke: Yes Hx Family Diabetes: (unable to assess) Hx Family Seizures: Yes Hx Family Dementia: Yes Hx Family AIDS: No Hx Family HIV: No Hx Family COPD: Yes Hx Family Hepatitis: No Hx Family Psychiatric Problems: (unable to assess) Hx Family Tuberculosis: No Social History Smoke: No Alcohol: None Drugs: None Lives: [facility] Domestic Violence: Negative Health Maintenance Health Maintenance: Other (see chart.) - Medications Home Medications: Home Medication Medication Instructions Recorded Type Acetaminophen [Tylenol] 650 mg GT Q4HR PRN 09/24/18 History Albuterol Nebulizer 2.5mg/3mL 3 ml HHN Q6HR 09/24/18 History [Albuterol Neb UD*] Albuterol/Ipratropium Neb [Duoneb 3 ml HHN Q2H PRN 09/24/18 History Neb] Ascorbic Acid [Vitamin C] 500 mg GT DAILY 09/24/18 History Atorvastatin Calcium [Lipitor] 10 mg GT HS 09/24/18 History Bisacodyl 10 mg RC DAILY PRN 09/24/18 History Docusate Sodium 200 mg GT BID 09/24/18 History Furosemide [Lasix] 20 mg GT DAILY 09/24/18 History Lacosamide [Vimpat] 100 mg GT Q12H 09/24/18 History Lactobacillus Acidophilus 4 tab GT DAILY 09/24/18 History [Acidophilus] Levetiracetam [Keppra*] 750 mg GT BID 09/24/18 History Lisinopril 40 mg GT DAILY 09/24/18 History Multivitamin with Minerals 1 tab GT DAILY 09/24/18 History [Multivitamins with Minerals] Omeprazole 40 mg GT DAILY 09/24/18 History Oxcarbazepine 600 mg GT Q12H 09/24/18 History Valproic Acid (As Sodium Salt) 750 mg GT BID 09/24/18 History [Valproic Acid] Other Medications: Please see medication reconciliation sheet. - Allergies Allergies/Adverse Reactions: Allergies Allergy/AdvReac Type Severity Reaction Status Date / Time No Known Allergies Allergy Verified 09/24/18 17:24 Review of Systems - Review of Systems Review of Systems: Patient has respiratory failure and is on T-bar oxygen. Constitutional: Report: Fever, Weakness Eyes: Report: No Significant ENT: Report: No Significant Respiratory: Report: Cough, Other (Resp. failure on T-bar oxygen.) Cardiovascular: Report: No Significant Gastrointestinal: Report: Other (G-tube status.) Genitourinary: Report: Frequency Musculoskeletal: Report: No Significant Skin: Report: Other (Decubitus ulcers.) Neurological: Report: Other (Hx of MR. and Hx of Seizure Disorder.) Physical Exam - Physical Exam HEENT: Report: Ears Nose Throat within normal limits Neck: Report: Within normal limits Cardiovascular Systems: Report: +s1/s2 noted, Regular, Rate and Rhythm Respiratory: Report: Wheezing, Rhonchi Abdomen: Report: PEG site is clean Back: Report: Other (Decubitus ulcers.) Extremities: Report: Other Skin: Report: Color of skin is within normal limits Neuro/Psych: Report: Other (Hx of MRGurmeet) - Lab Results All Lab Results last 24 hours: Microbiology 09/25/18 05:00 Urine Culture - Preliminary Urine,[place] 09/24/18 19:18 - Final Nares NO MRSA ISOLATED 09/24/18 17:45 - Preliminary Blood NO GROWTH AFTER 24 HOURS 09/24/18 17:30 - Preliminary Blood NO GROWTH AFTER 24 HOURS - Assessment Assessment: Fever due to Sepsis. Sepsis. Pneumonia. UTI. History of Brain tumor. Trach status. G-tube status. Hyponatremia. Worsening Edema. Mental Retardation. Respiratory failure, on T-bar oxygen. Brain tumor, status post brain surgery and removal of the tumor. Mental Incapacity. - Plan Plan: Continuation of care. Monitor Vitals and Labs. Continue present meds as directed. Monitor vitals, continue B/P meds. Accu-check daily, Continue DM meds as directed. Monitor Diet/Nutritional support/G-tube feedings. Trach and G-tube care. Respiratory treatments and Pulmonary support prn. Supplemental Oxygen prn. Aspiration precaution. Deep Suctioning prn. Monitor mental status progression. Monitor behavioral health status. Wound care and local skin care. Pain Management. Physical therapy. Occupational therapy. Safety precaution. Seizure precaution. Supportive care. Fall precaution, frequent nursing rounds, and as needed restraints to prevent fall. Continue collaborating with consulting specialists, case management and nursing team. Will Monitor patient and continue current treatment plan as ordered.
[2018-09-26] MEDS: Docusate Sodium 100 mg/10 mL UD GT SCH (17:45)
[2018-09-26] MEDS: Levetiracetam 500 mg/5mL 5mL UDSyr *for ORAL USE ONLY GT SCH (18:04)
--- NOTE | 2018-09-26 19:10 | Consultation ---
DATE OF CONSULTATION: 09/25/2018 REFERRING PHYSICIAN: Dr. Stone. Thank you very much for this consultation. HISTORY OF PRESENT ILLNESS: This is a 48-year-old female with past medical history significant for encephalopathy, mental disability, chronic respiratory failure, upper airway obstruction, status post tracheostomy who ____ she was admitted for treatment and management ____ brain tumor and respiratory failure. PHYSICAL EXAMINATION: GENERAL: She is awake. VITAL SIGNS: Temperature is 98.4, T-max 99.4, pulse 90, respiration is 19, blood pressure 116/63, saturation 94%. HEENT: Atraumatic, normocephalic. Pupils react to light and accommodation. Ears, nose, and throat normal. NECK: Supple. No JVD. CHEST: There are good breath sounds, few rhonchi. HEART: Regular rate and rhythm. ABDOMEN: Soft. EXTREMITIES: No edema. LABORATORY DATA: WBC is 9.7, hemoglobin is 9.8, hematocrit 29.1, platelets 367. Sodium is ____, BUN 21, creatinine 0.7. UA showed positive nitrite, moderate blood and leukocyte esterase and many bacteria. Chest x-ray, low lung volumes, mild congestion. IMPRESSION: 1. Respiratory failure. 2. Pneumonia. 3. Urinary tract infection. 4. Acute on chronic respiratory failure. 5. Brain tumor. PLAN: 1. Continue nebulizer treatment. 2. Antibiotics. 3. Supportive care. 4. Tracheostomy care, G-tube feeding, follow the patient with you. Thank you very much for this consultation. JOB# [id number]
[2018-09-26] MEDS: Albuterol Nebulizer 2.5mg/3mL HHN SCH (19:22)
[2018-09-26] MEDS ORDERED: Atorvastatin Calcium 10 MG TAB GT SCH (21:00)
[2018-09-27] MEDS: Albuterol Nebulizer 2.5mg/3mL HHN SCH ×3 (01:22→13:20)
[2018-09-27 06:07] LABS: BUN - UREA NITROGEN 23 mg/dL (7-25); CARBON DIOXIDE 36.9 mEq/L (21.0-31.0); CHLORIDE 98 mEq/L (98-107); GFR AFRICAN-AMERICAN > 60.0 ml/min (>90); GFR NON AFRICAN-AMERICAN > 60.0 ml/min; GLUCOSE 127 mg/dL (70-105); POTASSIUM SERUM 3.9 mEq/L (3.5-5.1); SODIUM SERUM 140 mEq/L (136-145)
[2018-09-27] MEDS: Meropenem 1 GM in Sodium Chloride 0.9% 100 ML IV SCH ×2 (06:34→15:11)
[2018-09-27] MEDS: Levetiracetam 500 mg/5mL 5mL UDSyr *for ORAL USE ONLY GT SCH ×2 (08:39→16:10)
[2018-09-27] MEDS: Docusate Sodium 100 mg/10 mL UD GT SCH ×2 (08:39→16:10)
[2018-09-27] MEDS ORDERED: Lactobacillus Rhamnosus GG 15 Billion CFU CAP.SPRINK GT SCH (09:00)
[2018-09-27] MEDS ORDERED: Pantoprazole 40 mg/Packet GT SCH (09:00)
[2018-09-27] MEDS ORDERED: Multivitamin w/ Minerals Tab GT SCH (09:00)
--- NOTE | 2018-09-27 12:49 | Consultation ---
DATE OF CONSULTATION: 09/25/[address] Stone. HISTORY OF PRESENT ILLNESS: This is a 48-year-old female patient who had a brain tumor during childhood with craniotomy. The patient had chronic respiratory failure with tracheostomy. The patient developed generalized anasarca. Following this, the patient was transferred to [facility] and cardiac consult is requested. PAST MEDICAL HISTORY: Anasarca, seizure disorder, brain tumor with craniotomy, chronic respiratory failure with tracheostomy, COPD, decubitus ulcers, G-tube with protein-calorie malnutrition, urinary tract infection, iron-deficiency anemia, osteoporosis. FAMILY HISTORY: Unremarkable. SOCIAL HISTORY: No history of smoking or alcohol abuse. ALLERGIES: None. PHYSICAL EXAMINATION: VITAL SIGNS: Blood pressure 146/80, pulse 106, respirations 28, temperature 98.6. NECK: JVD flat, tracheostomy with no evidence of infection. LUNGS: Wheezing and rhonchi. HEART: Regular rhythm, S1, S2. S3, S4. ABDOMEN: Soft. EXTREMITIES: No pedal edema. The patient has a G-tube. The patient has bilateral pedal edema. CLINICAL IMPRESSION: 1. Generalized anasarca. 2. Seizure disorder. 3. Chronic respiratory failure with tracheostomy. 4. Chronic obstructive pulmonary disease. 5. Decubitus ulcers. 6. G-tube, protein-calorie malnutrition. 7. Urinary tract infection. 8. Iron-deficiency anemia. PLAN: The patient to continue IV antibiotic, get BNP level, echocardiogram, and monitor the patient on telemetry bed. [facility]# [id number]
--- NOTE | 2018-09-27 15:58 | General Progress Note ---
Subjective - Review of Systems Service Date: 09/27/18 Subjective: Patient on chronic respiratory failure with tracheostomy patient is known verbal Objective - Results Result Diagrams: 09/25/18 04:15 09/27/18 05:40 Recent Labs: Laboratory Last Values WBC 9.7 Th/cmm (4.8-10.8) 09/25/18 04:15 RBC 3.33 Mil/cmm (3.80-5.10) L 09/25/18 04:15 Hgb 9.8 gm/dL (12-16) L 09/25/18 04:15 Hct 29.1 % (41.0-60) L 09/25/18 04:15 MCV 87.5 fl (81-100) 09/25/18 04:15 MCH 29.5 pg (27.0-31.0) 09/25/18 04:15 MCHC Differential 33.7 pg (28.0-36.0) 09/25/18 04:15 RDW 14.6 % (11.5-20.0) 09/25/18 04:15 Plt Count 367 Th/cmm (150-400) 09/25/18 04:15 MPV 8.5 fl 09/25/18 04:15 Neutrophils % 63.1 % (40.0-80.0) 09/25/18 04:15 Lymphocytes % 23.0 % (20.0-50.0) 09/25/18 04:15 Monocytes % 11.1 % (2.0-10.0) H 09/25/18 04:15 Eosinophils % 2.4 % (0.0-5.0) 09/25/18 04:15 Basophils % 0.4 % (0.0-2.0) 09/25/18 04:15 Sodium 140 mEq/L (136-145) 09/27/18 05:40 Potassium 3.9 mEq/L (3.5-5.1) 09/27/18 05:40 Chloride 98 mEq/L (98-107) 09/27/18 05:40 Carbon Dioxide 36.9 mEq/L (21.0-31.0) H 09/27/18 05:40 Anion Gap 9.0 (7.0-16.0) 09/27/18 05:40 BUN 23 mg/dL (7-25) 09/27/18 05:40 Creatinine 1.0 mg/dL (0.6-1.2) 09/27/18 05:40 Est GFR ( Amer) > 60.0 ml/min (>90) 09/27/18 05:40 Est GFR (Non-Af Amer) > 60.0 ml/min 09/27/18 05:40 BUN/Creatinine Ratio 23.0 09/27/18 05:40 Glucose 127 mg/dL (70-105) H 09/27/18 05:40 Calcium 10.0 mg/dL (8.6-10.3) 09/27/18 05:40 Total Bilirubin 0.2 mg/dL (0.3-1.0) L 09/24/18 17:30 AST 30 U/L (13-39) 09/24/18 17:30 ALT 30 U/L (7-52) 09/24/18 17:30 Alkaline Phosphatase 91 U/L (34-104) 09/24/18 17:30 Troponin I 0.01 ng/mL (0.01-0.05) 09/25/18 04:15 B-Natriuretic Peptide 23.6 pg/mL (5.0-100.0) 09/25/18 04:15 Total Protein 7.7 gm/dL (6.0-8.3) 09/24/18 17:30 Albumin 3.4 gm/dL (3.7-5.3) L 09/24/18 17:30 Globulin 4.3 gm/dL 09/24/18 17:30 Albumin/Globulin Ratio 0.8 (1.0-1.8) L 09/24/18 17:30 Triglycerides 224 mg/dL (<150) H 09/24/18 17:30 Cholesterol 191 mg/dL (<200) 09/24/18 17:30 LDL Cholesterol Direct 100 mg/dL (75-193) 09/24/18 17:30 HDL Cholesterol 66 mg/dL (23-92) 09/24/18 17:30 TSH 2.46 uIU/ml (0.34-5.60) 09/25/18 04:15 Urine Source RANDOM 09/25/18 05:00 Urine Color YELLOW 09/25/18 05:00 Urine Clarity TURBID (CLEAR) H 09/25/18 05:00 Urine pH 8.0 (4.6 - 8.0) 09/25/18 05:00 Ur Specific [place] 1.010 (1.005-1.030) 09/25/18 05:00 Urine Protein 30 mg/dL (NEGATIVE) H 09/25/18 05:00 Urine Glucose (UA) NEGATIVE mg/dL (NEGATIVE) 09/25/18 05:00 Urine Ketones NEGATIVE mg/dL (NEGATIVE) 09/25/18 05:00 Urine Blood MODERATE (NEGATIVE) H 09/25/18 05:00 Urine Nitrate POSITIVE (NEGATIVE) H 09/25/18 05:00 Urine Bilirubin NEGATIVE (NEGATIVE) 09/25/18 05:00 Urine Urobilinogen 0.2 E.U./dL (0.2 - 1.0) 09/25/18 05:00 Ur Leukocyte Esterase MODERATE (NEGATIVE) H 09/25/18 05:00 Urine RBC 10-25 /hpf (0-5) H 09/25/18 05:00 Urine WBC 25-50 /hpf (0-5) H 09/25/18 05:00 Ur Epithelial Cells RARE /lpf (FEW) 09/25/18 05:00 Urine Bacteria MANY /hpf (NONE SEEN) H 09/25/18 05:00 - Physical Exam Vitals and I&O: Vital Signs Temp 98.1 F 09/27/18 15:55 Pulse 96 09/27/18 15:55 Resp 18 09/27/18 15:55 BP 106/52 09/27/18 15:55 Pulse Ox 97 09/27/18 15:55 Intake & Output 09/26/18 09/27/18 09/27/18 18:59 06:59 18:59 Intake Total 800 820 100 Output Total 550 400 Balance 250 420 100 Weight (lbs) 117.934 kg 117.934 kg Intake: Intake, IV Amount 200 100 100 Meropenem 1 gm In Sodium 200 100 100 Chloride 0.9% 100 ml @ 100 mls/hr IV Q8H [facility] Rx# :[id number] Tube Feeding 600 600 Other 120 Output: Urine 550 400 Other: # Bowel Movements 1 Weight Source Bedscale Estimated Active Medications: Current Medications Acetaminophen (Tylenol 650mg/20.3ml Suspension) 650 mg GT Q4H PRN PRN Reason: MILD PAIN, TEMP ABOVE 101F Stop: 11/24/18 04:59 Last Admin: 09/25/18 05:50 Dose: 650 mg Albuterol Sulfate (Albuterol 2.5mg/3ml Neb Ud) 2.5 mg HHN Q6HRT MY Stop: 11/25/18 18:59 Last Admin: 09/27/18 13:20 Dose: 2.5 mg Albuterol/Ipratropium (Duoneb Neb) 3 ml HHN Q2H PRN PRN Reason: Shortness of Breath or Wheeze Stop: 11/25/18 13:27 Ascorbic Acid (Vitamin C) 500 mg GT DAILY [facility] Stop: 11/26/18 08:59 Last Admin: 09/27/18 08:43 Dose: 500 mg Atorvastatin Calcium (Lipitor) 10 mg GT HS [facility]; Protocol Stop: 11/25/18 20:59 Last Admin: 09/26/18 21:46 Dose: 10 mg Bisacodyl (Dulcolax 10 Mg Supp) 10 mg RC DAILY PRN PRN Reason: Bowel Management Stop: 11/25/18 13:27 Docusate Sodium (Colace) 200 mg GT BID [facility] Stop: 11/25/18 16:59 Last Admin: 09/27/18 08:39 Dose: 200 mg Furosemide (Lasix) 20 mg GT DAILY [facility] Stop: 11/26/18 08:59 Last Admin: 09/27/18 08:43 Dose: 20 mg Meropenem 1 gm/ Sodium (Chloride) 100 mls @ 100 mls/hr IV Q8H [facility] Stop: 11/24/18 15:14 Last Admin: 09/27/18 15:11 Dose: 100 mls/hr Ipratropium [place] (Atrovent Neb 0.5mg/2.5ml) 0.5 mg HHN Q2HRT PRN PRN Reason: SOB/WHEEZING Stop: 11/23/18 22:51 Lacosamide (Vimpat) 100 mg GT Q12H [facility] Stop: 11/25/18 13:59 Last Admin: 09/27/18 13:13 Dose: 100 mg Lactobacillus Rhamnosus (Culturelle 15b) 1 each GT DAILY [facility] Stop: 11/26/18 08:59 Last Admin: 09/27/18 08:43 Dose: 1 each Levetiracetam (Keppra) 750 mg GT BID [facility] Stop: 11/25/18 16:59 Last Admin: 09/27/18 08:39 Dose: 750 mg Lisinopril (Zestril) 40 mg GT DAILY [facility] Stop: 11/26/18 08:59 Last Admin: 09/27/18 08:43 Dose: 40 mg Oxcarbazepine (Trileptal) 600 mg GT Q12HR [facility] Stop: 11/25/18 14:59 Last Admin: 09/27/18 08:43 Dose: 600 mg Pantoprazole Sodium (Protonix) 40 mg GT DAILY [facility] Stop: 11/26/18 08:59 Last Admin: 09/27/18 08:43 Dose: 40 mg Valproate Sodium (Depakene) 750 mg GT BID [facility] Stop: 11/25/18 16:59 Last Admin: 09/27/18 08:38 Dose: 750 mg Neck: Supple, JVD (flat) Cardiovascular: Regular rate, Normal S1, Normal S2, Systolic murmurs Abdomen: Soft, Obese, Other (G-tube) Extremities: Pulses (febrile) - Procedures Procedures: Procedures Procedure Code Date CHANGE FEEDING DEVICE IN UP INTEST TRACT, COPYWRITER APPROACH [id number] 04/17/17 CHANGE TRACHEOSTOMY DEVICE IN TRACHEA, EXTERNAL APPROACH [id number] 05/28/18 INSERTION OF INFUSION DEV INTO SUP VENA CAVA, PERC APPROACH [id number] 05/28/18 INSPECTION OF TRACHEOBRONCHIAL TREE, ENDO [id number] 05/28/18 RESPIRATORY VENTILATION, GREATER THAN 96 CONSECUTIVE HOURS [id number] 05/28/18 TRANSFUSE NONAUT RED BLOOD CELLS IN PERIPH VEIN, PERC 36210S2 05/28/18 Assessment/Plan - Assessment Assessment: Anasarca Seizure disorder Chronic respiratory failure with tracheostomy COPD Decubitus ulcer G-tube in place Protein calorie malnutrition Urinary tract infection Iron deficiency anemia - Plan Plan: Will get echocardiogram BNP level Nutritional Asmnt/Malnutr-PDOC - Dietary Evaluation Malnutrition Findings (Please click <Entered> for more info): Nutritional Asmnt/Malnutrition Start: 09/26/18 22: 19 Text: Status: Active Freq: Protocol: Document 09/26/18 22:19 MARK (Rec: 09/26/18 22:27 [id number]) Nutritional Asmnt/Malnutrition Patient General Information Nutritional Screening High Risk Diagnosis HYPONATREMIA, DIFFUSED INTERSISITAL EDEMA Pertinent Medical Hx/Surgical Hx BRAIN TUMOR (CHILDHOOD), RESPIRATORY FAILURE, COPD, DECUBITUS ULCERS, SEIZURES, GTF, CRANIOTOMY Subjective Information CURRENT DIET: OSMOLITE 1.5 @ 50 ML/HR X 24 HRS THIS IS PROVIDING 1800 KCALS AND 75 GM PRO/DAY MEETING 100% EST KCAL AND 100% EST PRO NEEDS/DAY PER NURSING NOTE, PT TOLERATING CURRENT TF RECOMMEND CONTINUATION OF CURRENT TF ORDERED Pertinent Medications ALBUTEROL, VIT C, LIPITOR, DULCOLAX, COLACE, LASIX, CULTURELLE, PROTONIX Pertinent Labs HGB/HCT 9.8/29.1, NA 130 Nutritional Hx/Data Height 1.47 m Height (Calculated Centimeters) 147.3 Current Weight (lbs) 117.934 kg Weight (Calculated Kilograms) 117.9 Weight (Calculated Grams) 277899.0 [place] Body Weight 90 LBS % [place] Body Weight 289 Body Mass Index (BMI) 54.3 Weight Status Obese GI Symptoms Last BM TODAY X 1 Usual diet at home GTF Skin Integrity/Comment: HOA Singh Estimated Nutritional Goals BEE in Kcals: Adj wt of IBW Calories/Kcals/Kg 25-30 Kcals Calculated [id number] Protein: Adj wt of IBW Protein g/k-1.2 Protein Calculated 70-85 Fluid: ml PER MD Nutritional Problem 1. Problem Problem CHEWING SWALLOWING DIFFICULTY R/T Etiology PREVIOUS MEDICAL HISTORY Signs/Symptoms: AEB ENTERAL NUTRITION SUPPORT Intervention/Recommendation Comments CURRENT TF IS APPROPRIATE RD TO FOLLOW UP IN 2-3 DAYS TO ASSESS WEIGHT, LABS, TF TOLERANCE, SKIN INTEGRITY Expected Outcomes/Goals Expected Outcomes/Goals PT TO CONTINUE TO RECEIVE >75% ESTIMATED ENERGY AND PROTEIN NEEDS CHELLE MCINTOS[address] RD
--- NOTE | 2018-09-27 23:12 | Progress Notes ---
DATE: 09/26/2018 SUBJECTIVE: The patient appears to be doing okay. The patient is still significantly swollen, especially left lower extremity and the face and congestion noted. OBJECTIVE: GENERAL: In no distress. VITAL SIGNS: Temperature 98.4, pulse 110, respirations 19, blood pressure 135/62, saturation 94%. CHEST: Good breath sounds. Few rhonchi. HEART: Regular rate and rhythm. ABDOMEN: Soft. EXTREMITIES: No edema. IMPRESSION: 1. Respiratory failure. 2. Pneumonia. 3. Weakness. 4. Peripheral edema. PLAN: 1. Increase Lasix. 2. Nebulized treatment. 3. Supportive care -- pulmonary toilet. 4. Continuous oximetry. JOB# [id number]
--- NOTE | 2018-09-28 19:29 | Progress Notes ---
DATE: 09/27/2018 PULMONARY PROGRESS NOTE SUBJECTIVE: The patient appears to be doing okay, in no distress. OBJECTIVE: VITAL SIGNS: Temperature 98.4, pulse 96, respirations 18, blood pressure ____, saturation 97%. CHEST: Good breath sounds. No wheezing, crackles. HEART: Regular rate and rhythm. ABDOMEN: Soft. EXTREMITIES: No edema. LABORATORY DATA: Sodium 140, potassium 3.9, BUN 23, creatinine 1.0. IMPRESSION: 1. Respiratory failure. 2. Pneumonia. 3. Urinary tract infection. 4. Chronic respiratory failure. 5. Weakness. PLAN: 1. Continue nebulizers and antibiotics. 2. Tracheostomy care. 3. Pulmonary toilet. JOB# [id number]
== END 2018-09-27 19:00 | DRG 871 ==
LOC: ER 17:00 → TELE 19:25
PROVIDERS: ADMIT Internal Medicine; ATTEND Internal Medicine
DX: A41.9 Sepsis, unspecified organism (principal); J18.9 Pneumonia, unspecified organism; J96.20 Acute and chronic respiratory failure, unspecified whether with hypoxia or hypercapnia; E87.1 Hypo-osmolality and hyponatremia; J44.0 Chronic obstructive pulmonary disease with (acute) lower respiratory infection; N12 Tubulo-interstitial nephritis, not specified as acute or chronic; E46 Unspecified protein-calorie malnutrition; Z68.43 Body mass index [BMI] 50.0-59.9, adult; Z93.1 Gastrostomy status; Z93.0 Tracheostomy status; E66.01 Morbid (severe) obesity due to excess calories; G40.909 Epilepsy, unspecified, not intractable, without status epilepticus; F79 Unspecified intellectual disabilities; M81.0 Age-related osteoporosis without current pathological fracture; D50.9 Iron deficiency anemia, unspecified; I50.9 Heart failure, unspecified
CPT/HCPCS: 36415-UA; 71045-TC; 80048-TC; 80053-TC; 80061-TC; 81001-TC; 83880-TC; 84443-TC; 84484-TC; 85025-TC; 87086-90; 93005; 94640; 94760; J1940; J2185; J7613; Z7610